=== PATIENT | female | born 1950 | race Caucasian/White ===

== ENCOUNTER → 2016-12-03 | Outpatient (CLI) | payer BC ==
[~2016-12-03] MED LIST: ATOR-22 PO; B-CO1CAP17 PO; CHOL100010 PO; CITA20TA4 PO; CITA40TA12 PO; CLCUDL PO; CLX20 PO; CNT PO; FAMO20TA12 PO; KFL250 PO; LEVO125T4 PO; LPT/20 PO; MGNO400 PO; NADO20TA PO; OMEP40CA41 PO; PRMT10 PO; SODI650T9 PO; SYN112 PO; TIMO0.2527 OPB; XFX550 PO
--- NOTE | 2016-12-03 16:07 | DIAGNOSTIC IMAGING REPORT ---
RIGHT RIBS UNILATERAL WITH PA CHEST CLINICAL HISTORY: FALL Right. Right anterior rib pain. COMPARISON STUDY: Chest CT 07/23/2016. FINDINGS: No pneumothorax. No pleural effusions. Calcified nodule within the left breast, unchanged. No focal lung consolidations. No evidence for pulmonary edema. The heart is normal in size. Slight deformity within the right anterior sixth rib. This raises the possibility of a nondisplaced fracture. IMPRESSION: Possible nondisplaced right anterior sixth rib fracture. No pneumothorax. Electronically signed by: Christian De La Garza M.D. 12/03/2016 4:06 PM Dictated Date/Time: 12/03/2016 4:01 PM
== END | disposition home or self-care (01) ==
LOC: C.RADBC 15:14
PROVIDERS: ATTEND Anesthesiology
DX: R07.81 Pleurodynia (principal); W19.XXXA Unspecified fall, initial encounter

== ENCOUNTER 2017-01-15 14:31 | Inpatient (IN) | payer BC, OTHER ==
[~2017-01-15] VITALS: Ht 162.6 cm; Wt 68.2 kg
[~2017-01-15 14:31] MED LIST changes: -B-CO1CAP17 PO; -CITA20TA4 PO; -CLCUDL PO; -CLX20 PO; -CNT PO; -FAMO20TA12 PO; -KFL250 PO; -LEVO125T4 PO; -LPT/20 PO; -MGNO400 PO; -NADO20TA PO; -OMEP40CA41 PO; -PRMT10 PO; -SODI650T9 PO; -TIMO0.2527 OPB; -XFX550 PO
[2017-01-15 15:10] LABS: BASO % 0.5 %; BASO ABS # 0.08 K/uL (0-0.2); COMPLETE YES; EOS % 0.1 %; HEMATOCRIT 34.4 % (37-47); IG% 0.5 %; LYMPH % 14.1 %; LYMPH ABS # 2.08 K/uL (1.2-3.4); MEAN CELL VOLUME 109.6 fL (80-100); MEAN CORPUSCULAR HEMOGLOBIN 37.6 pg (25-34); MEAN CORPUSCULAR HGB CONC 34.3 g/dl (32-36); MEAN PLATELET VOLUME 10.7 fL (7.4-10.4); MONO % 7.5 %; NEUT % 77.3 %; PLATELET COUNT 406 K/uL (130-400); RED BLOOD COUNT 3.14 M/uL (4.2-5.4); WHITE BLOOD COUNT 14.72 K/uL (4.8-10.8)
[2017-01-15] MEDS ORDERED: SODIUM CHLORIDE 0.9% 1000ML 1,000 ML IV ONE ×2 (15:15→16:15)
[2017-01-15 15:50] LABS: ALB/GLOB RATIO 0.5 (0.9-2); BUN/CREATININE RATIO 12.6 (10-20); CALCIUM 7.9 mg/dl (8.5-10.1); POTASSIUM 3.5 mmol/L (3.5-5.1); THYROID STIMULATING HORMONE 16.5 uIu/ml (0.300-4.500)
[2017-01-15] MEDS ORDERED: MAGNESIUM SULFATE 1GM / D5W 1 GM BAG IV STA ×2 (16:02→16:59)
[2017-01-15] MEDS ORDERED: CITA40TA12 PO (16:08)
--- NOTE | 2017-01-15 16:37 | DIAGNOSTIC IMAGING REPORT ---
RIGHT RIBS UNILATERAL WITH PA CHEST CLINICAL HISTORY: Right rib pain following injury. COMPARISON STUDY: Chest radiograph and right rib series December 03, 2016. FINDINGS: There is no pneumothorax or pleural effusion. Cardiomediastinal silhouette is stable. There is no evidence of pulmonary edema. No acute right rib fractures are identified. IMPRESSION: No pneumothorax. No acute right rib fractures identified. Electronically signed by: Titi Horne M.D. 01/15/2017 4:36 PM Dictated Date/Time: 01/15/2017 4:33 PM
[2017-01-15] MEDS ORDERED: LORAZEPAM 1 MG TAB PO PRN (17:00)
[2017-01-15] MEDS ORDERED: MAGNESIUM HYDROXIDE SUSP 30 ML UDC PO PRN (18:15)
[2017-01-15] MEDS ORDERED: ONDANSETRON INJ 2 MG/ML 2 ML VIAL IV PRN (18:15)
[2017-01-15] MEDS ORDERED: ALUMINUM/MAGNESIUM/SIMETH (MAALOX MAX) 30 ML UDC PO PRN (18:15)
--- NOTE | 2017-01-15 18:45 | History and Physical ---
History & Physical Date & Time of Service: Jan 15, 2017 at 18:28 Chief Complaint: Fall/Generalized Weakness Primary Care Physician: Isreal Smith M.D. History of Present Illness Source: patient, clinic records, hospital records This patient is a 66-year-old female that presents the emergency department from her primary care physician's office via ambulance with complaints of hypotension and overall weakness. The weakness has been getting progressively worse over the last few months. The patient saw her primary care physician for routine follow-up today. She was noticed to be significantly hypotensive in the office with a systolic blood pressure in the 60s. She denies any lightheadedness or dizziness. No chest pain or pressure. No trouble breathing. No recent illnesses. She does admit to feeling somewhat depressed. She also admits to drinking fairly heavily over the last several months. She quit drinking 3 weeks ago, because she does not have a desire. Up until then, she was drinking at least 3 glasses of wine daily. Sometimes exceeding more than a bottle. She denies any other drug use. The patient has had multiple falls at home. The last one was on Thursday. She landed on the right side of her ribs. She also reports striking her head. She did not lose consciousness. She denies any headache. She has been taking copious amounts of Tylenol for the rib pain. She is unable to tell me how much she is taken over the last day. The patient doesn't a long-standing history of depression. She is still taking her Celexa. This is the only medication she is taking. She has no interest in taking her other routine medications such as her inhaler for COPD or Synthroid for hypothyroidism. Past Medical/Surgical History COPD Depression Chronic kidney disease stage III Insomnia Hyperlipidemia History of pulmonary nodules Breast CA Status post total hysterectomy Status post lumpectomy Family History Father-COPD in his 80s Mother-reportedly healthy diet and her sleep in her 80s Social History Smoking Status: Current Every Day Smoker Alcohol Use: heavy Marital Status: single Housing status: lives alone Occupational Status: retired Multi-Drug Resistant Organisms History of MDRO: No Allergies Coded Allergies: Acetaminophen (Verified Allergy, Unknown, UNKNOWN, 05/06/13) Home Medications Scheduled Atorvastatin (Atorvastatin Calcium), 20 MG PO DAILY Citalopram Hydrobromide (Celexa), 40 MG PO DAILY Levothyroxine Sodium (Levothyroxine Sodium), 125 MCG PO DAILY Review of Systems 10 system review performed and negative unless noted in HPI or below Physical Exam Vital Signs Date Time Temp Pulse Resp B/P Pulse Ox O2 Delivery O2 Flow Rate FiO2 01/15/17 17:46 93 101/68 97 Room Air 01/15/17 15:09 97 01/15/17 15:03 99 Room Air 01/15/17 14:39 36.4 95 18 115/70 99 Room Air General Appearance: no apparent distress (66-year-old female, appears older than his stated age) Head: normocephalic Eyes: PERRL, EOMI ENT: + pertinent finding (oral mucosa fairly moist) Neck: no JVD Respiratory/Chest: lungs clear Cardiovascular: regular rate, rhythm Abdomen/GI: normal bowel sounds, non tender, + pertinent finding (fairly distended, but not tight) Extremities/Musculoskelatal: no calf tenderness, no pedal edema Neurologic/Psych: no motor/sensory deficits, oriented x 3, + pertinent finding (no tremor noted.) Skin: warm/dry Diagnostics Laboratory Results Results Past 24 Hours Test 01/15/17 14:43 01/15/17 15:07 01/15/17 16:25 01/15/17 16:59 Range/Units White Blood Count 14.72 4.8-10.8 K/uL Red Blood Count 3.14 4.2-5.4 M/uL Hemoglobin 11.8 12.0-16.0 g/dL Hematocrit 34.4 37-47 % Mean Corpuscular Volume 109.6 80-100 fL Mean Corpuscular Hemoglobin 37.6 25-34 pg Mean Corpuscular Hemoglobin Concent 34.3 32-36 g/dl Platelet Count 406 130-400 K/uL Mean Platelet Volume 10.7 7.4-10.4 fL Neutrophils (%) (Auto) 77.3 % Lymphocytes (%) (Auto) 14.1 % Monocytes (%) (Auto) 7.5 % Eosinophils (%) (Auto) 0.1 % Basophils (%) (Auto) 0.5 % Neutrophils # (Auto) 11.37 1.4-6.5 K/uL Lymphocytes # (Auto) 2.08 1.2-3.4 K/uL Monocytes # (Auto) 1.10 0.11-0.59 K/uL Eosinophils # (Auto) 0.02 0-0.5 K/uL Basophils # (Auto) 0.08 0-0.2 K/uL RDW Standard Deviation 55.1 36.4-46.3 fL RDW Coefficient of Variation 13.9 11.5-14.5 % Immature Granulocyte % (Auto) 0.5 % Immature Granulocyte # (Auto) 0.07 0.00-0.02 K/uL Sodium Level 136 136-145 mmol/L Potassium Level 3.5 3.5-5.1 mmol/L Chloride Level 98 98-107 mmol/L Carbon Dioxide Level 24 21-32 mmol/L Anion Gap 14.0 3-11 mmol/L Blood Urea Nitrogen 25 7-18 mg/dl Creatinine 2.00 0.60-1.20 mg/dl Est Creatinine Clear Calc Drug Dose 26.3 ml/min Estimated GFR () 29.6 Estimated GFR (Non- 25.6 BUN/Creatinine Ratio 12.6 10-20 Random Glucose 117 70-99 mg/dl Calcium Level 7.9 8.5-10.1 mg/dl Magnesium Level 1.0 1.8-2.4 mg/dl Total Bilirubin 0.8 0.2-1 mg/dl Aspartate Amino Transf (AST/SGOT) 57 15-37 U/L Alanine Aminotransferase (ALT/SGPT) 23 12-78 U/L Alkaline Phosphatase 206 45-117 U/L Total Protein 6.7 6.4-8.2 gm/dl Albumin 2.2 3.4-5.0 gm/dl Globulin 4.5 2.5-4.0 gm/dl Albumin/Globulin Ratio 0.5 0.9-2 Thyroid Stimulating Hormone (TSH) 16.500 0.300-4.500 uIu/ml Free Thyroxine 1.27 0.80-1.60 ng/dl Bedside Troponin I 0.000 0-0.045 ng/ml Ethyl Alcohol mg/dL < 3.0 0-3 mg/dl Test 01/15/17 18:09 Range/Units Diagnostic Radiology Patient: ZEINAB RHODES Address1: [address], [address] Med Rec: [id number] Address2: Acct ID: [id number] [facility] Zip: [place] [address] Date: 1950 Sex: F Room/Bed: Ref Phy: Isreal Smith M.D. SC: MARK Att Phy: Report #: [id number] Madhuri Phy: Isreal Smith M.D. Test: RUW Admit Phy: Animal Shelter Manager: ERON Interpreting Phy: Titi Horne MD Diagnosis: FALL/GENERALIZED WEAKNESS Ordering Phy: Leland Beckman PA-C Service Date: 01/15/17 Admit Date: 01/15/17 MNE: [id number] CONF: DICTATED BY: Titi Horne MD]] CC: Leland Beckman PA-C Guillard, Paul, M.D. Pheasant, Karen S., DO Endcc: [~ rep ct add3]] RIGHT RIBS UNILATERAL WITH PA CHEST CLINICAL HISTORY: Right rib pain following injury. COMPARISON STUDY: Chest radiograph and right rib series December 03, 2016. FINDINGS: There is no pneumothorax or pleural effusion. Cardiomediastinal silhouette is stable. There is no evidence of pulmonary edema. No acute right rib fractures are identified. IMPRESSION: No pneumothorax. No acute right rib fractures identified. Electronically signed by: Titi Horne M.D. 01/15/2017 4:36 PM Dictated Date/Time: 01/15/2017 4:33 PM The status of this report is Signed. Draft = Not yet reviewed or approved by Radiologist. Signed = Reviewed and approved by Radiologist. EKG Normal sinus rhythm [address] flattening noted in the lateral leads Impression Assessment and Plan 66-year-old female with progressive weakness and multiple falls at home. Poor oral intake. Depressed affect noted. Alcohol abuse. Now in acute on chronic renal failure Acute renal failure/CKD stage III- -Admit to telemetry -Continue IV fluids -Follow PRP Hypomagnesemia -Mag sulfate 2 g IV now -Check mag in the morning -Telemetry monitoring overnight Hypothyroidism-noncompliant with Synthroid. TSH elevated at 16 -Check free T4 -Continue outpatient dose of Synthroid 125 g daily Depression-severe -Psychiatric consult -Continue Celexa 40 mg daily Multiple falls, rib contusion -Morphine 2 mg every 4 hours as needed for pain -PT OT -Incentive spirometer -check Tylenol level History of alcohol abuse-no signs of DTs on exam -Begin thiamine, folate and a multivitamin -Ativan per protocol -AVOID TYLENOL COPD-no exacerbation noted -Continue Symbicort 2 puffs twice daily Hyperlipidemia -Continue atorvastatin 20 mg daily Glaucoma -Continue Timolol 1 drop to each eye in the morning DVT prophylaxis -Teds, SCDs -Ambulation -I will hold off on chemical means for now CODE STATUS -LEVEL I FULL CODE This chart was completed in part utilizing [employer] Speech Voice Recognition software. Attempts were made to minimize the grammatical errors, random word insertions, pronoun errors and incomplete sentences. Any formal questions or concerns about the content, text or information contained within the body of this dictation should be directly addressed to the provider for clarification. Level of Care Telemetry Resuscitation Status FULL RESUSCITATION VTE Prophylaxis VTE Risk Assessment Done? Y/N: Yes Risk Level: Low Given or contraindicated: Cale Stockings, SCD's Reviewed: Pt Seen/Exam by Me History Physician Pipe Line Gauger Supervision Note: I interviewed and examined the patient. Discussed with OLIVER Brandon and agree with findings and plan as documented in the note. Any exceptions or clarifications are listed here: Patient is admitted with progressively worsening weakness and falls with hypotension and tachycardia which responded to normal saline bolus in the ER. She's found to have elevated LFTs, moderate ascites, hypoalbuminemia, acute kidney injury, and severe hypomagnesemia. There is no evidence of altered mental status or encephalopathy by history or exam. She is afebrile, but has a leukocytosis. She denies abdominal pain or GI bleeding or melena. She essentially has had minimal by mouth intake over the last few months due to having no energy to get out of her bed-could be secondary to depression as well as heavy alcohol use. Vital signs reviewed No acute distress, AAO 3 Anicteric sclerae, extraocular muscles intact Regular rate and rhythm, no murmurs gallops or rubs Clear to auscultation bilaterally, no wheezes crackles or rhonchi, breathing unlabored Abdomen positive bowel sounds, moderate distention and with tympany, positive hepatomegaly on palpation and with fluid wave, spider angiomas Extremities-no edema Psych-flat affect, mood "fine" 66-year-old female here with hypotension and progressively worsening weakness with multiple falls, found to have most likely cirrhosis from chronic alcohol abuse. There are significantly elevated ferritin levels in the past, but but no history in the family of hemochromatosis or liver disease. I'm not sure the context which this ferritin was drawn in the past. She has significant hypoalbuminemia secondary to poor by mouth intake and her liver disease. Her INR is mildly elevated. She does not appear encephalopathic but will check an ammonia level along with a repeat magnesium now that it has been repleted. KUB shows ileus versus partial small bowel obstruction that she has no abdominal pain. May need to add on lactulose. -Repeat magnesium level now as well as ammonia level -Consult gastroenterology for cirrhosis and ascites, given her leukocytosis, she may need paracentesis to rule out SBP in the morning -Psychiatric consult for depression and history of substance abuse -Follow LFTs -Start IV albumin 5% 12.5 g IV every 8 and stop normal saline now -Will need PT/OT consult -Coincidentally, her KUB shows possible avascular necrosis of the bilateral hips -she is not complaining of pain in the hips, however this should be explored as an outpatient after discharge -Follow renal function and should improve with intravascular repletion of volume status Documented By: Valencia Rosario
--- NOTE | 2017-01-15 18:52 | DIAGNOSTIC IMAGING REPORT ---
CT OF THE HEAD WITHOUT CONTRAST CLINICAL HISTORY: Fall with head injury. Weakness. COMPARISON STUDY: No previous studies for comparison. CT DOSE: 1036.28 mGy.cm TECHNIQUE: Helical axial images of the head were obtained without IV contrast. Automated exposure control was utilized for the study. FINDINGS: No acute intracranial hemorrhage, midline shift or mass effect is present. Ventricular system is unremarkable for age. Basilar cisterns are patent. There are no extra-axial collections. There is a small right posterior scalp contusion. There is no calvarial fracture. A suspected mucous retention cyst within the right maxillary sinus is present. IMPRESSION: 1. No acute intracranial findings. 2. Small right posterior scalp contusion. No calvarial fracture. Electronically signed by: Titi Horne M.D. 01/15/2017 6:51 PM Dictated Date/Time: 01/15/2017 6:48 PM
--- NOTE | 2017-01-15 19:05 | DIAGNOSTIC IMAGING REPORT ---
CT OF THE CERVICAL SPINE WITHOUT CONTRAST CLINICAL HISTORY: Fall. COMPARISON STUDY: MRI of the cervical spine February 06, 2016. TECHNIQUE: Helical axial images of the cervical spine were obtained without IV contrast. Sagittal and coronal reconstructions were viewed. FINDINGS: There is straightening of the normal cervical lordosis. No acute fracture is identified. Degenerative changes at the C1-C2 articulation are present. There is no prevertebral edema. IMPRESSION: No acute cervical spine fracture or subluxation. Electronically signed by: Titi Horne M.D. 01/15/2017 7:04 PM Dictated Date/Time: 01/15/2017 6:59 PM
[2017-01-15 19:39] LABS: INR 1.2 (0.9-1.1); PROTHROMBIN TIME (PATIENT) 12.5 SECONDS (9.0-12.0)
--- NOTE | 2017-01-15 19:39 | DIAGNOSTIC IMAGING REPORT ---
ABDOMEN 2 VIEWS CLINICAL HISTORY: Abdominal distention. Diarrhea. COMPARISON STUDY: No previous studies for comparison. FINDINGS: There is no free air. There are several prominent loops of small bowel within the central abdomen. There is no convincing evidence for a bowel obstruction. 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 IMPRESSION: 1. No free air. 2. Mild small bowel dilatation. This could reflect an ileus or partial small bowel obstruction. 3. Centralized small bowel loops. While nonspecific, this could be seen in the setting of ascites. 4. Possible avascular necrosis of the femoral heads. Electronically signed by: Titi Horne M.D. 01/15/2017 7:37 PM Dictated Date/Time: 01/15/2017 7:34 PM
[2017-01-15] MEDS ORDERED: MAGNESIUM SULFATE 1GM / D5W 1 GM BAG ONE (20:10)
--- NOTE | 2017-01-15 20:21 | EMERGENCY ROOM VISIT NOTE ---
ED Visit Note First contact with patient: 16:00 Patient have seen and examined at bedside. Discussed recent history and evaluation as performed by the PA. CT head and C-spine added after patient admitted to recent falls in addition. Plan by PA to admit patient given weakness, evidence or dysfunction, with joint abnormalities, renal dysfunction, an episode of hypotension was noted by the PCP. Patient improved here regardless understanding the results and was agreeable with the plan.
[2017-01-15 21:27] LABS: URINE APPEARANCE CLOUDY (CLEAR); URINE COLOR DK YELLOW; URINE EPITHELIAL CELL AUTO >30 /lpf (0-5); URINE NITRITE NEG (NEG); URINE SPECIFIC GRAVITY 1.029 (1.000-1.030); UROBILINOGEN NEG (NEG); ZZUR CULT IF INDIC CLEAN CATCH YES
[2017-01-15 21:29] LABS: MANUAL MICROSCOPIC REQUIRED? NO; REVIEW REQ? YES
[2017-01-15 21:31] LABS: URINE BILIRUBIN NEG (NEG)
--- NOTE | 2017-01-15 21:50 | DIAGNOSTIC IMAGING REPORT ---
ABDOMINAL ULTRASOUND, RIGHT UPPER QUADRANT HISTORY: Weakness. Possible cirrhosis/ascites. COMPARISON: Right upper quadrant ultrasound April 30, 2015 and MRI of the abdomen December 24, 2015. FINDINGS: The liver is echogenic. There is slight nodularity of the liver surface. The sensitivity for detection of hepatic lesions is diminished on this exam but none are identified. The pancreas is obscured by overlying bowel gas. No gallstones are identified. There may be a small amount of sludge within the gallbladder. Gallbladder wall thickness is at the upper limits of normal. There is no biliary ductal dilatation. There is no right hydronephrosis. There is moderate abdominal ascites. IMPRESSION: 1. Moderate abdominal ascites. 2. Increased echogenicity of the liver which may reflect fatty infiltration or diffuse hepatocellular disease. 3. Irregularity of the liver surface which suggests cirrhosis. 4. Small amount of material within the gallbladder. Sludge is favored over stones. 5. Nonvisualization of the pancreas. Electronically signed by: Titi Horne M.D. 01/15/2017 9:48 PM Dictated Date/Time: 01/15/2017 9:45 PM
--- NOTE | 2017-01-15 21:53 | EMERGENCY ROOM VISIT NOTE ---
History First contact with patient: 14:48 Chief Complaint: WEAKNESS Stated Complaint: FALL/GENERALIZED WEAKNESS Nursing Triage Summary: Pt s/p fall on Saturday 01/13 (as well as in November). Arrived to room C08 via ALS from [facility] with c/o generalized weakness and not eating/drinking recently. Pt broke ribs in November and is questioning if ribs are broken again. Pt reports pain in R ribs with movement. Pt received 350 mL NSS enroute. History of Present Illness The patient is a 66 year old female who presents to the Emergency Room with complaints of generalized weakness and several falls over the past month. The patient was referred to the emergency department by her primary care physician' s office, and presents by ambulance. Evidently the patient was found to be hypotensive with a systolic blood pressure in the 60s at her PCPs office. The patient was given IV normal saline by the ambulance and routes. The patient is unsure of her reason for being at the hospital. She reports that she has not been eating or drinking well. She has a history of anxiety, dyslipidemia, and hypothyroid. She has only been taking her Celexa. The patient has a history of alcoholism and tobacco use. She denies drinking alcohol the past few days. She states that she typically only drinks a bottle of ensure for nutrition daily. The patient additionally reports some right-sided chest wall pain, presumably from a fall a few days ago. She rates her overall discomfort 7/10 Review of Systems More than 10 systems were reviewed and otherwise negative with the exception of history of present illness. Past Medical/Surgical History Medical Problems: (1) Renal failure (ARF), acute on chronic Family History No pertinent family history Social History Smoking Status: Current Every Day Smoker Marital Status: single Occupation Status: retired Current/Historical Medications Scheduled Atorvastatin (Atorvastatin Calcium), 20 MG PO DAILY Citalopram Hydrobromide (Celexa), 40 MG PO DAILY Levothyroxine Sodium (Levothyroxine Sodium), 125 MCG PO DAILY Allergies Coded Allergies: Acetaminophen (Verified Allergy, Unknown, UNKNOWN, 05/06/13) Physical Exam Vital Signs Date Time Temp Pulse Resp B/P Pulse Ox O2 Delivery O2 Flow Rate FiO2 01/15/17 21:14 97 17 103/71 99 Room Air 01/15/17 19:36 108/69 01/15/17 17:47 101/68 01/15/17 17:46 93 101/68 97 Room Air 01/15/17 16:01 96 17 01/15/17 15:31 21 01/15/17 15:09 97 01/15/17 15:03 99 Room Air 01/15/17 15:01 96 28 01/15/17 14:39 36.4 95 18 115/70 99 Room Air 01/15/17 14:37 115/70 Physical Exam VITALS: Vitals are noted on the nurse's note and reviewed by myself. Vital signs stable. GENERAL: Well-developed, well-nourished, white female who is pleasant. She is unsure what brings her to the ER today. EARS: External ear normal. External auditory canals clear, tympanic membranes pearly nolasco without erythema or effusion bilaterally. EYES: Pupils equal round and reactive to light and accommodation. Conjunctivae without injection, sclerae without icterus. Extraocular movements intact. NOSE: Patent, turbinates without inflammation or discharge. HEART: Regular rate and rhythm without murmurs gallops or rubs. LUNGS: Clear to auscultation bilaterally without wheezes, rales or rhonchi. No retractions or accessory muscle use. ABDOMEN: Positive normal bowel sounds x 4. Soft with mild distention. Abdomen is not rigid. No obvious tenderness. MUSCULOSKELETAL: No muscle atrophy, erythema, or edema noted. NEURO: Patient was alert and oriented to person place and time. CN II through XII grossly intact. Medical Decision & Procedures ER Provider Diagnostic Interpretation: RIGHT RIBS UNILATERAL WITH PA CHEST CLINICAL HISTORY: Right rib pain following injury. COMPARISON STUDY: Chest radiograph and right rib series December 03, 2016. FINDINGS: There is no pneumothorax or pleural effusion. Cardiomediastinal silhouette is stable. There is no evidence of pulmonary edema. No acute right rib fractures are identified. IMPRESSION: No pneumothorax. No acute right rib fractures identified. Laboratory Results 01/15/17 14:43 Red Blood Count 3.14, Mean Corpuscular Volume 109.6, Mean Corpuscular Hemoglobin 37.6, Mean Corpuscular Hemoglobin Concent 34.3, Mean Platelet Volume 10.7, Neutrophils (%) (Auto) 77.3, Lymphocytes (%) (Auto) 14.1, Monocytes (%) ( Auto) 7.5, Eosinophils (%) (Auto) 0.1, Basophils (%) (Auto) 0.5, Neutrophils # ( Auto) 11.37, Lymphocytes # (Auto) 2.08, Monocytes # (Auto) 1.10, Eosinophils # ( Auto) 0.02, Basophils # (Auto) 0.08 01/15/17 14:43 Test 01/15/17 14:43 01/15/17 15:07 01/15/17 16:25 01/15/17 16:59 White Blood Count 14.72 K/uL (4.8-10.8) Red Blood Count 3.14 M/uL (4.2-5.4) Hemoglobin 11.8 g/dL (12.0-16.0) Hematocrit 34.4 % (37-47) Mean Corpuscular Volume 109.6 fL (80-100) Mean Corpuscular Hemoglobin 37.6 pg (25-34) Mean Corpuscular Hemoglobin Concent 34.3 g/dl (32-36) Platelet Count 406 K/uL (130-400) Mean Platelet Volume 10.7 fL (7.4-10.4) Neutrophils (%) (Auto) 77.3 % Lymphocytes (%) (Auto) 14.1 % Monocytes (%) (Auto) 7.5 % Eosinophils (%) (Auto) 0.1 % Basophils (%) (Auto) 0.5 % Neutrophils # (Auto) 11.37 K/uL (1.4-6.5) Lymphocytes # (Auto) 2.08 K/uL (1.2-3.4) Monocytes # (Auto) 1.10 K/uL (0.11-0.59) Eosinophils # (Auto) 0.02 K/uL (0-0.5) Basophils # (Auto) 0.08 K/uL (0-0.2) RDW Standard Deviation 55.1 fL (36.4-46.3) RDW Coefficient of Variation 13.9 % (11.5-14.5) Immature Granulocyte % (Auto) 0.5 % Immature Granulocyte # (Auto) 0.07 K/uL (0.00-0.02) Prothrombin Time 12.5 SECONDS (9.0-12.0) Prothromb Time International Ratio 1.2 (0.9-1.1) Anion Gap 14.0 mmol/L (3-11) Est Creatinine Clear Calc Drug Dose 26.3 ml/min Estimated GFR () 29.6 Estimated GFR (Non- 25.6 BUN/Creatinine Ratio 12.6 (10-20) Calcium Level 7.9 mg/dl (8.5-10.1) Magnesium Level 1.0 mg/dl (1.8-2.4) Total Bilirubin 0.8 mg/dl (0.2-1) Aspartate Amino Transf (AST/SGOT) 57 U/L (15-37) Alanine Aminotransferase (ALT/SGPT) 23 U/L (12-78) Alkaline Phosphatase 206 U/L (45-117) Total Protein 6.7 gm/dl (6.4-8.2) Albumin 2.2 gm/dl (3.4-5.0) Globulin 4.5 gm/dl (2.5-4.0) Albumin/Globulin Ratio 0.5 (0.9-2) Thyroid Stimulating Hormone (TSH) 16.500 uIu/ml (0.300-4.500) Free Thyroxine 1.27 ng/dl (0.80-1.60) Bedside Troponin I 0.000 ng/ml (0-0.045) Ethyl Alcohol mg/dL < 3.0 mg/dl (0-3) Test 01/15/17 18:57 01/15/17 19:44 01/15/17 21:09 Acetaminophen Level 11 ug/ml (10-30) Urine Color DK YELLOW Urine Appearance CLOUDY (CLEAR) Urine pH 5.0 (4.5-7.5) Urine Specific [place] 1.029 (1.000-1.030) Urine Protein NEG (NEG) Urine Glucose (UA) NEG (NEG) Urine Ketones TRACE (NEG) Urine Occult Blood TRACE (NEG) Urine Nitrite NEG (NEG) Urine Bilirubin NEG (NEG) Urine Urobilinogen NEG (NEG) Urine Leukocyte Esterase TRACE (NEG) Urine WBC (Auto) 5-10 /hpf (0-5) Urine RBC (Auto) 0-4 /hpf (0-4) Urine Hyaline Casts (Auto) 5-10 /lpf (0-5) Urine Epithelial Cells (Auto) >30 /lpf (0-5) Urine Bacteria (Auto) 1+ (NEG) Urine Yeast (Auto) (NONE PRSENT) Medications Administered Medications (Trade) Dose Ordered Sig/Brett Route Start Time Stop Time Status Last Admin Dose Admin Sodium Chloride (Nss 1000ml) 1,000 ml @ 999 mls/hr Q1H1M ONCE IV 01/15/17 15:15 01/15/17 16:15 DC 01/15/17 15:15 999 MLS/HR Magnesium Sulfate 1 gm 1 gm NOW STAT IV 01/15/17 16:02 01/15/17 16:04 DC 01/15/17 17:42 1 GM Sodium Chloride (Nss 1000ml) 1,000 ml @ 999 mls/hr Q1H1M ONCE IV 01/15/17 16:15 01/15/17 17:15 DC 01/15/17 16:15 999 MLS/HR Magnesium Sulfate (Magnesium Sulfate) 1 gm STK-MED ONCE .ROUTE 01/15/17 20:10 01/15/17 20:11 DC 01/15/17 20:41 1 GM ED Course Physical exam and history were performed. Nursing notes and EMR were reviewed. Patient appears to have ongoing weakness for the past several weeks. She has had falls at home, and was reportedly very hypotensive in the prehospital setting. On exam the patient does not appear toxic, but she has difficulty providing a thorough history. She does admit to not taking her medications as prescribed. IV access was established and labs were obtained. She was hydrated with normal saline. X-rays were performed. The patient blood work is as above and was reviewed. She does have an elevated white blood cell count of 14,000. She is also mildly anemic. The patient renal function appears slightly elevated with a creatinine of 2.0. She was given additional fluids. Her magnesium is markedly low at 1.0, and she was given IV magnesium to begin repletion of this. The patient troponin is negative. She did not have tachycardic or hypotensive episodes while under our care here. TSH shows hypothyroidism. I discussed the case with my attending physician, Dr Stark, who also independently evaluated the patient. The patient appeared to give more history to Dr Stark, and CT scans were felt to be warranted of the head and neck. Ultimately the patient does not appear stable for discharge home. She has weakness, acute kidney injury, as well as hypomagnesemia. She appears dehydrated with some level of acute kidney injury. There is also the concern that the patient is a chronic alcoholic and may go into withdrawal. The patient case was discussed with the on-call [facility] hospitalist, who agreed to evaluate the patient here in the department. Please see their dictation for further patient course, plan, and disposition. The chart was completed utilizing [employer] Speech Voice Recognition Software. Grammatical errors, random word insertions, pronoun errors, and incomplete sentences are an occasional consequence of this system due to software limitations, ambient noise, and hardware issues. Any formal questions or concerns about the content, text, or information contained within the body of this dictation should be directly addressed to the provider for clarification. . Medical Decision Differential diagnosis: Etiologies such as metabolic, infection, hypo/hyperglycemia, electrolyte abnormalities, cardiac sources, intracerebral event, toxicologic, neurologic, as well as others were entertained. Impression Primary Impression: Malaise and fatigue Additional Impressions: Hypomagnesemia Renal failure (ARF), acute on chronic Departure Information Referrals Isreal Smith M.D. (PCP) Patient Instructions My [facility] Health Problem Qualifiers
[2017-01-15] MEDS: OXYCODONE HCL IR 5 MG TAB (IMMEDIATE RELEASE) PO PRN (22:02)
[2017-01-15 22:10] VITALS: BP 100/58; PULSE 107; TEMP 36.6; O2SAT 98; Ht 162.6 cm; Wt 68.2 kg
[2017-01-15] MEDS ORDERED: NSS + 20MEQ KCL 1000ML 1,000 ML IV SCH (22:30)
[2017-01-16] VITALS (15 sets, daily range): BP systolic 91–120; BP diastolic 55–81; PULSE 83–96; TEMP 36.7–37.3; O2SAT 91–97
[2017-01-16] MEDS: ALBUMIN HUMAN 5% 12.5 GM/250 ML VIAL IV SCH ×2 (00:54→07:54)
[2017-01-16] MEDS ORDERED: NURSING VERBAL MED ORDER ONE (01:30)
[2017-01-16] MEDS: MAGNESIUM SULFATE 1GM / D5W 1 GM in PREMIXED IN D5W 100 ML IV SCH ×2 (01:59→03:14)
[2017-01-16] MEDS: OXYCODONE HCL IR 5 MG TAB (IMMEDIATE RELEASE) PO PRN ×2 (02:09→13:28)
[2017-01-16] MEDS: LEVOTHYROXINE 125 MCG TAB PO SCH (06:09)
[2017-01-16 07:55] LABS: BASO % 0.4 %; BASO ABS # 0.05 K/uL (0-0.2); EOS % 0.4 %; HEMATOCRIT 27.2 % (37-47); IG% 0.4 %; LYMPH % 18.4 %; LYMPH ABS # 2.48 K/uL (1.2-3.4); MEAN CELL VOLUME 112.4 fL (80-100); MEAN CORPUSCULAR HEMOGLOBIN 38.4 pg (25-34); MEAN CORPUSCULAR HGB CONC 34.2 g/dl (32-36); MEAN PLATELET VOLUME 10.3 fL (7.4-10.4); MONO % 10.5 %; NEUT % 69.9 %; PLATELET COUNT 315 K/uL (130-400); RED BLOOD COUNT 2.42 M/uL (4.2-5.4); WHITE BLOOD COUNT 13.48 K/uL (4.8-10.8)
[2017-01-16] MEDS: ATORVASTATIN 20 MG TAB PO SCH (08:02)
[2017-01-16] MEDS: MULTIVITAMIN TAB PO SCH (08:02)
[2017-01-16] MEDS: THIAMINE HCL 100 MG TAB PO SCH (08:03)
[2017-01-16 08:27] LABS: BUN/CREATININE RATIO 18.5 (10-20); CALCIUM 7.3 mg/dl (8.5-10.1); CREATININE 1.4 mg/dl (0.60-1.20); POTASSIUM 3.4 mmol/L (3.5-5.1)
[2017-01-16 08:44] LABS: COMPLETE YES
[2017-01-16] MEDS ORDERED: CITALOPRAM 40 MG TAB PO SCH (09:00)
--- NOTE | 2017-01-16 11:00 | Gastrointestinal Consultation ---
Gastrointestinal Consultation Date of Consultation: Jan 16, 2017 Consulting Physician: Collins Reason for Consultation: ascites, cirrhosis History of Present Illness Patient is a 66 year old female with past medical history of ARF, anxiety, depression, hypothyroid, hyperlipidemia and glaucoma who presents to the ED for ARF secondary to dehydration. GI is consulted for ascites and cirrhosis. Ms. Stevenson reports that she has known she has had some liver changes going on for quite some time and that her primary care doctor was watching some of her liver numbers. She is unsure if any serological work up had been obtained other than a Hep C screen. She was in her typical state of health up until about a month ago when she started with worsening fatigue and generalized weakness. Over the past few weeks, there has been fluid accumulation localized to her abdomen. No lower extremity edema. Denies any fever, chills, chest pain, nausea, vomiting, black or bloody stools. Has had worsening belching, reflux and burping recently. Is not taking anything as an outpatient. Extensive history of ETOH abuse, ongoing since she was 22. Typically avoids hard alcohol. Was drinking wine 3-4 glasses almost nightly since she was able. No drug abuse. +ETOH abuse 3-4 glasses of wine nightly + Tylenol use - NSAIDs use ABD XR 01/15/17: There is no free air. There are several prominent loops of small bowel within the central abdomen. There is no convincing evidence for a bowel obstruction. 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 ABD US 01/15/17: The liver is echogenic. There is slight nodularity of the liver surface. The sensitivity for detection of hepatic lesions is diminished on this exam but none are identified. The pancreas is obscured by overlying bowel gas. No gallstones are identified. There may be a small amount of sludge within the gallbladder. Gallbladder wall thickness is at the upper limits of normal. There is no biliary ductal dilatation. There is no right hydronephrosis. There is moderate abdominal ascites. Colonoscopy 06/02/16: A 4 mm polyp was found in the rectum. The polyp was sessile. The polyp was removed with a cold snare. Resection and retrieval were complete. Internal hemorrhoids were found during retroflexion. The hemorrhoids were small. Colonoscopy 02/07/10: A sessile polyp was found in the transverse colon. The polyp was 2 mm in size. The polyp was removed with a jumbo cold forceps. Resection and retrieval were complete. Past Medical/Surgical History Medical Problems: (1) Hypomagnesemia Status: Acute (2) Malaise and fatigue Status: Acute Social History Smoking Status: Current Every Day Smoker Marital Status: single Occupation Status: retired Allergies Coded Allergies: Acetaminophen (Verified Allergy, Unknown, UNKNOWN, 05/06/13) Current Medications Home Meds and Scripts Medications Dose Route/Sig Max Daily Dose Days Date Category Atorvastatin Calcium (Atorvastatin) 20 Mg Tab 20 Mg PO DAILY 01/15/17 Reported Levothyroxine Sodium 125 Mcg Tab 125 Mcg PO DAILY 01/15/17 Reported Celexa (Citalopram Hydrobromide) 40 Mg Tab 40 Mg PO DAILY 01/15/17 Reported Review of Systems Constitutional: No chills, No fever Respiratory: No cough, No shortness of breath Cardiac: No chest pain, No edema Abdomen: + dark urine (dark urine and decreased output), No GI bleeding, No acolic stools, No constipation, No diarrhea, No dysphagia, No jaundice, No nausea, No odynophagia, No pain, No vomiting Neuro: No memory loss Physical Exam Date Time Temp Pulse Resp B/P Pulse Ox O2 Delivery O2 Flow Rate FiO2 01/16/17 08:15 93 120/80 01/16/17 08:00 Room Air 01/16/17 08:00 90 120/80 01/16/17 07:25 36.7 83 18 102/71 96 Room Air 01/16/17 04:00 Room Air 01/16/17 03:45 88 18 106/72 91 Room Air 01/16/17 00:52 37.3 88 18 116/81 95 Room Air 01/16/17 00:26 36.9 93 18 96/66 95 Room Air 01/16/17 00:00 Room Air 01/15/17 22:10 36.6 107 16 100/58 98 Room Air 01/15/17 21:14 97 17 103/71 99 Room Air 01/15/17 19:36 108/69 01/15/17 17:47 101/68 01/15/17 17:46 93 101/68 97 Room Air 01/15/17 16:01 96 17 01/15/17 15:31 21 01/15/17 15:09 97 01/15/17 15:03 99 Room Air 01/15/17 15:01 96 28 01/15/17 14:39 36.4 95 18 115/70 99 Room Air 01/15/17 14:37 115/70 General Appearance: no apparent distress Eyes: PERRL, EOMI ENT: hearing grossly normal Neck: supple, no adenopathy, thyroid normal, no JVD Respiratory/Chest: lungs clear, normal breath sounds, no respiratory distress, no accessory muscle use Cardiovascular: regular rate, rhythm, no gallop, no JVD Abdomen: normal bowel sounds, non tender, no organomegaly, no pulsatile mass, + distended Extremities: no pedal edema Neurologic/Psych: alert, normal mood/affect, oriented x 3 Skin: normal color, warm/dry, no rash Laboratory Results Last 24 Hours Test 01/15/17 14:43 01/15/17 15:07 01/15/17 16:25 01/15/17 18:57 White Blood Count 14.72 K/uL Red Blood Count 3.14 M/uL Hemoglobin 11.8 g/dL Hematocrit 34.4 % Mean Corpuscular Volume 109.6 fL Mean Corpuscular Hemoglobin 37.6 pg Mean Corpuscular Hemoglobin Concent 34.3 g/dl Platelet Count 406 K/uL Mean Platelet Volume 10.7 fL Neutrophils (%) (Auto) 77.3 % Lymphocytes (%) (Auto) 14.1 % Monocytes (%) (Auto) 7.5 % Eosinophils (%) (Auto) 0.1 % Basophils (%) (Auto) 0.5 % Neutrophils # (Auto) 11.37 K/uL Lymphocytes # (Auto) 2.08 K/uL Monocytes # (Auto) 1.10 K/uL Eosinophils # (Auto) 0.02 K/uL Basophils # (Auto) 0.08 K/uL RDW Standard Deviation 55.1 fL RDW Coefficient of Variation 13.9 % Immature Granulocyte % (Auto) 0.5 % Immature Granulocyte # (Auto) 0.07 K/uL Prothrombin Time 12.5 SECONDS Prothromb Time International Ratio 1.2 Sodium Level 136 mmol/L Potassium Level 3.5 mmol/L Chloride Level 98 mmol/L Carbon Dioxide Level 24 mmol/L Anion Gap 14.0 mmol/L Blood Urea Nitrogen 25 mg/dl Creatinine 2.00 mg/dl Est Creatinine Clear Calc Drug Dose 26.3 ml/min Estimated GFR () 29.6 Estimated GFR (Non- 25.6 BUN/Creatinine Ratio 12.6 Random Glucose 117 mg/dl Calcium Level 7.9 mg/dl Magnesium Level 1.0 mg/dl Total Bilirubin 0.8 mg/dl Aspartate Amino Transf (AST/SGOT) 57 U/L Alanine Aminotransferase (ALT/SGPT) 23 U/L Alkaline Phosphatase 206 U/L Total Protein 6.7 gm/dl Albumin 2.2 gm/dl Globulin 4.5 gm/dl Albumin/Globulin Ratio 0.5 Thyroid Stimulating Hormone (TSH) 16.500 uIu/ml Free Thyroxine 1.27 ng/dl Bedside Troponin I 0.000 ng/ml Ethyl Alcohol mg/dL < 3.0 mg/dl Acetaminophen Level 11 ug/ml Test 01/15/17 21:09 01/15/17 21:50 01/16/17 00:50 01/16/17 07:32 Urine Color DK YELLOW Urine Appearance CLOUDY Urine pH 5.0 Urine Specific [place] 1.029 Urine Protein NEG Urine Glucose (UA) NEG Urine Ketones TRACE Urine Occult Blood TRACE Urine Nitrite NEG Urine Bilirubin NEG Urine Urobilinogen NEG Urine Leukocyte Esterase TRACE Urine WBC (Auto) 5-10 /hpf Urine RBC (Auto) 0-4 /hpf Urine Hyaline Casts (Auto) 5-10 /lpf Urine Epithelial Cells (Auto) >30 /lpf Urine Bacteria (Auto) 1+ Urine Yeast (Auto) Vitamin B12 Level 720 pg/mL Magnesium Level 1.5 mg/dl 2.0 mg/dl Ammonia 28.0 umol/L White Blood Count 13.48 K/uL Red Blood Count 2.42 M/uL Hemoglobin 9.3 g/dL Hematocrit 27.2 % Mean Corpuscular Volume 112.4 fL Mean Corpuscular Hemoglobin 38.4 pg Mean Corpuscular Hemoglobin Concent 34.2 g/dl Platelet Count 315 K/uL Mean Platelet Volume 10.3 fL Neutrophils (%) (Auto) 69.9 % Lymphocytes (%) (Auto) 18.4 % Monocytes (%) (Auto) 10.5 % Eosinophils (%) (Auto) 0.4 % Basophils (%) (Auto) 0.4 % Neutrophils # (Auto) 9.43 K/uL Lymphocytes # (Auto) 2.48 K/uL Monocytes # (Auto) 1.41 K/uL Eosinophils # (Auto) 0.06 K/uL Basophils # (Auto) 0.05 K/uL RDW Standard Deviation 57.7 fL RDW Coefficient of Variation 14.1 % Immature Granulocyte % (Auto) 0.4 % Immature Granulocyte # (Auto) 0.05 K/uL Macrocytosis PRESENT Sodium Level 136 mmol/L Potassium Level 3.4 mmol/L Chloride Level 101 mmol/L Carbon Dioxide Level 23 mmol/L Anion Gap 12.0 mmol/L Blood Urea Nitrogen 26 mg/dl Creatinine 1.40 mg/dl Est Creatinine Clear Calc Drug Dose 38.7 ml/min Estimated GFR () 45.6 Estimated GFR (Non- 39.3 BUN/Creatinine Ratio 18.5 Random Glucose 98 mg/dl Calcium Level 7.3 mg/dl Total Bilirubin 0.6 mg/dl Direct Bilirubin 0.2 mg/dl Aspartate Amino Transf (AST/SGOT) 32 U/L Alanine Aminotransferase (ALT/SGPT) 17 U/L Alkaline Phosphatase 159 U/L Total Protein 5.6 gm/dl Albumin 2.1 gm/dl Folate 9.81 ng/mL Impression Patient is a 66 year old female with persistently elevated transaminases since 2012 with normal bilirubin. Recent imaging during this admission suggestive of moderate abdominal ascites, increased echogenicity of the liver which may reflect fatty infiltration or diffuse hepatocellular disease and irregularity of the liver surface which suggests cirrhosis - this is likely due to ongoing ETOH abuse but pt may need a full serological work up if one was not completed by her PCP. An inpatient diagnostic and therapeutic paracentesis was advised to the patient. Plan Advised inpatient diagnostic and therapeutic paracentesis but pt not currently agreeable Will need to give 25G 25% albumin before and after paracentesis with no more than 3L off - would need to order cell count, cytology, culture, protein and albumin Diet as tolerated Not candidate for diuretics given ARF Agree with thiamine, folate and a multivitamin Watch for ETOH withdrawal Abstinence from ETOH and Tylenol Follow up as outpatient Will likely need serological work up, diagnostic paracentesis and EGD MELD 13 GI to sign off. No GI contraindication to discharge. I have seen and examined the patient with Jeannine Pederson whose note reflects our findings and plan. Will arrange outpatient follow up for cirrhosis.
--- NOTE | 2017-01-16 14:40 | Progress Note ---
Subjective Date of Service: Jan 16, 2017. Subjective Pt evaluation today including: conversation w/ patient, physical exam, chart review, lab review, review of studies, review of inpatient medication list Pt reports feeling weak and only OK appetite States sleeping more Problem List Medical Problems: (1) Hypomagnesemia Status: Acute (2) Malaise and fatigue Status: Acute Review of Systems Constitutional: No chills, No fever Respiratory: No cough, No dyspnea on exertion, No shortness of breath, No sputum, No wheezing Cardiac: No chest pain, No orthopnea Abdomen: No diarrhea, No nausea, No pain, No vomiting Musculoskeletal: No joint pain, No muscle pain Female : No dysuria, No urinary frequency Psychiatric: + anxiety, + depression symptoms Objective Vital Signs Date Time Temp Pulse Resp B/P Pulse Ox O2 Delivery O2 Flow Rate FiO2 01/16/17 12:00 Room Air 01/16/17 11:24 36.9 84 18 91/55 97 Room Air 01/16/17 08:15 93 120/80 01/16/17 08:00 Room Air 01/16/17 08:00 90 120/80 01/16/17 07:25 36.7 83 18 102/71 96 Room Air 01/16/17 04:00 Room Air 01/16/17 03:45 88 18 106/72 91 Room Air 01/16/17 00:52 37.3 88 18 116/81 95 Room Air 01/16/17 00:26 36.9 93 18 96/66 95 Room Air 01/16/17 00:00 Room Air 01/15/17 22:10 36.6 107 16 100/58 98 Room Air 01/15/17 21:14 97 17 103/71 99 Room Air 01/15/17 19:36 108/69 01/15/17 17:47 101/68 01/15/17 17:46 93 101/68 97 Room Air 01/15/17 16:01 96 17 01/15/17 15:31 21 01/15/17 15:09 97 01/15/17 15:03 99 Room Air 01/15/17 15:01 96 28 01/15/17 14:39 36.4 95 18 115/70 99 Room Air 01/15/17 14:37 115/70 Physical Exam General Appearance: WD/WN, no apparent distress Neck: supple, no adenopathy Respiratory/Chest: lungs clear, normal breath sounds Cardiovascular: no edema, no gallop, no JVD Abdomen: non tender, soft Neurologic/Psychiatric: alert, + depressed affect Laboratory Results Last 24 Hours Test 01/15/17 14:43 01/15/17 15:07 01/15/17 16:25 01/15/17 18:57 White Blood Count 14.72 K/uL Red Blood Count 3.14 M/uL Hemoglobin 11.8 g/dL Hematocrit 34.4 % Mean Corpuscular Volume 109.6 fL Mean Corpuscular Hemoglobin 37.6 pg Mean Corpuscular Hemoglobin Concent 34.3 g/dl Platelet Count 406 K/uL Mean Platelet Volume 10.7 fL Neutrophils (%) (Auto) 77.3 % Lymphocytes (%) (Auto) 14.1 % Monocytes (%) (Auto) 7.5 % Eosinophils (%) (Auto) 0.1 % Basophils (%) (Auto) 0.5 % Neutrophils # (Auto) 11.37 K/uL Lymphocytes # (Auto) 2.08 K/uL Monocytes # (Auto) 1.10 K/uL Eosinophils # (Auto) 0.02 K/uL Basophils # (Auto) 0.08 K/uL RDW Standard Deviation 55.1 fL RDW Coefficient of Variation 13.9 % Immature Granulocyte % (Auto) 0.5 % Immature Granulocyte # (Auto) 0.07 K/uL Prothrombin Time 12.5 SECONDS Prothromb Time International Ratio 1.2 Sodium Level 136 mmol/L Potassium Level 3.5 mmol/L Chloride Level 98 mmol/L Carbon Dioxide Level 24 mmol/L Anion Gap 14.0 mmol/L Blood Urea Nitrogen 25 mg/dl Creatinine 2.00 mg/dl Est Creatinine Clear Calc Drug Dose 26.3 ml/min Estimated GFR () 29.6 Estimated GFR (Non- 25.6 BUN/Creatinine Ratio 12.6 Random Glucose 117 mg/dl Calcium Level 7.9 mg/dl Magnesium Level 1.0 mg/dl Total Bilirubin 0.8 mg/dl Aspartate Amino Transf (AST/SGOT) 57 U/L Alanine Aminotransferase (ALT/SGPT) 23 U/L Alkaline Phosphatase 206 U/L Total Protein 6.7 gm/dl Albumin 2.2 gm/dl Globulin 4.5 gm/dl Albumin/Globulin Ratio 0.5 Thyroid Stimulating Hormone (TSH) 16.500 uIu/ml Free Thyroxine 1.27 ng/dl Bedside Troponin I 0.000 ng/ml Ethyl Alcohol mg/dL < 3.0 mg/dl Acetaminophen Level 11 ug/ml Test 01/15/17 21:09 01/15/17 21:50 01/16/17 00:50 01/16/17 07:32 Urine Color DK YELLOW Urine Appearance CLOUDY Urine pH 5.0 Urine Specific [place] 1.029 Urine Protein NEG Urine Glucose (UA) NEG Urine Ketones TRACE Urine Occult Blood TRACE Urine Nitrite NEG Urine Bilirubin NEG Urine Urobilinogen NEG Urine Leukocyte Esterase TRACE Urine WBC (Auto) 5-10 /hpf Urine RBC (Auto) 0-4 /hpf Urine Hyaline Casts (Auto) 5-10 /lpf Urine Epithelial Cells (Auto) >30 /lpf Urine Bacteria (Auto) 1+ Urine Yeast (Auto) Vitamin B12 Level 720 pg/mL Magnesium Level 1.5 mg/dl 2.0 mg/dl Ammonia 28.0 umol/L White Blood Count 13.48 K/uL Red Blood Count 2.42 M/uL Hemoglobin 9.3 g/dL Hematocrit 27.2 % Mean Corpuscular Volume 112.4 fL Mean Corpuscular Hemoglobin 38.4 pg Mean Corpuscular Hemoglobin Concent 34.2 g/dl Platelet Count 315 K/uL Mean Platelet Volume 10.3 fL Neutrophils (%) (Auto) 69.9 % Lymphocytes (%) (Auto) 18.4 % Monocytes (%) (Auto) 10.5 % Eosinophils (%) (Auto) 0.4 % Basophils (%) (Auto) 0.4 % Neutrophils # (Auto) 9.43 K/uL Lymphocytes # (Auto) 2.48 K/uL Monocytes # (Auto) 1.41 K/uL Eosinophils # (Auto) 0.06 K/uL Basophils # (Auto) 0.05 K/uL RDW Standard Deviation 57.7 fL RDW Coefficient of Variation 14.1 % Immature Granulocyte % (Auto) 0.4 % Immature Granulocyte # (Auto) 0.05 K/uL Macrocytosis PRESENT Sodium Level 136 mmol/L Potassium Level 3.4 mmol/L Chloride Level 101 mmol/L Carbon Dioxide Level 23 mmol/L Anion Gap 12.0 mmol/L Blood Urea Nitrogen 26 mg/dl Creatinine 1.40 mg/dl Est Creatinine Clear Calc Drug Dose 38.7 ml/min Estimated GFR () 45.6 Estimated GFR (Non- 39.3 BUN/Creatinine Ratio 18.5 Random Glucose 98 mg/dl Calcium Level 7.3 mg/dl Total Bilirubin 0.6 mg/dl Direct Bilirubin 0.2 mg/dl Aspartate Amino Transf (AST/SGOT) 32 U/L Alanine Aminotransferase (ALT/SGPT) 17 U/L Alkaline Phosphatase 159 U/L Total Protein 5.6 gm/dl Albumin 2.1 gm/dl Folate 9.81 ng/mL Assessment and Plan 66-year-old female with progressive weakness and multiple falls at home. Poor oral intake. Depressed affect noted. Alcohol abuse. Now in acute on chronic renal failure Acute renal failure/CKD stage III- -Admit to telemetry -Continue IV fluids -Follow PRP Cr 2.0 --> 1.4 Hypomagnesemia -Replace PRN Hypothyroidism-noncompliant with Synthroid. TSH elevated at 16 -Free T4 WNL -Continue outpatient dose of Synthroid 125 g daily Depression-severe -Psychiatric consult, awaiting recs -Continue Celexa 40 mg daily Multiple falls, rib contusion -Morphine 2 mg every 4 hours as needed for pain -PT OT -Incentive spirometer -check Tylenol level History of alcohol abuse with ascited-no signs of DTs on exam -Begin thiamine, folate and a multivitamin -Ativan per protocol -AVOID TYLENOL -Pt agreeable for paracentesis, albumin before and after procedure COPD-no exacerbation noted -Continue Symbicort 2 puffs twice daily Hyperlipidemia -Continue atorvastatin 20 mg daily Glaucoma -Continue Timolol 1 drop to each eye in the morning DVT prophylaxis -Teds, SCDs -Ambulation -I will hold off on chemical means for now CODE STATUS -LEVEL I FULL CODE
--- NOTE | 2017-01-16 14:59 | Psychiatric Consultation ---
Consultation Date of Consultation Jan 16, 2017. Identifying Data Contreras Stevenson is a 66-year-old female who currently lives in alone in [place]. Contreras Stevenson was admitted to the medical floor for weakness and falls. Consultation is by Dr. Rosario for depression. Chief Complaint "I guess I haven't been going much lately". History of Present Illness Ms. Stevenson relates a history of nonspecific depression and anxiety for which she has taken Celexa for over 5 years. She recalls it being started after her parents . She has generally found it helpful but did have periods of insomnia (without samantha) in the past for which she "loved" Ativan. She admits that she began "over taking" it, doesn't know dose but ultimately 2-3 at a time and that her PCP no longer wanted to prescribe it and she agreed. She was somewhat coy in outlining the amount of ETOH she has been drinking recently and minimized any contribution to falls or her medical problems. Notably her QTc was 512 in ED EKG and TSH was elevated despite supplementation. Past Psychiatric History Current OP Treatment: no current treatment Prior OP Treatment: therapist (Mayuri Ortiz, no longer accepts insurance ( patient now medicare and didn't want to start over)) Prior Psych Hospitalizations: none Access to a Gun: No Suicide Attempts: No Past Medical/Surgical History (1) Malaise and fatigue (2) Renal failure (ARF), acute on chronic Allergies Allergies: Coded Allergies: Acetaminophen (Verified Allergy, Unknown, UNKNOWN, 05/06/13) Home Medications Scheduled Atorvastatin (Atorvastatin Calcium), 20 MG PO DAILY Citalopram Hydrobromide (Celexa), 40 MG PO DAILY Levothyroxine Sodium (Levothyroxine Sodium), 125 MCG PO DAILY Family History History of Suicide: No Psychiatric History: No Alcohol Use Alcohol Use In Past 12 Months: Yes on AWSS protocol Smoking Use Smoking Status: Current Every Day Smoker Substance History denied Personal History Lives in: [facility] apartment, relies on neighbor Childhood: good relationship with mother, always went to shows Work History: disabled Children: denied Review of Systems Psych: denies symptoms other than stated above Constitutional: fatigue, sleeping alot this winter Cardiovascular: denied GI: abdominal bloating Neurologic: denied Remainder of 10 body systems also reviewed and denied other than noted above. Examination Vital Signs Vital Signs Past 12 Hours Date Time Temp Pulse Resp B/P Pulse Ox O2 Delivery O2 Flow Rate FiO2 01/16/17 12:00 Room Air 01/16/17 11:24 36.9 84 18 91/55 97 Room Air 01/16/17 08:15 93 120/80 01/16/17 08:00 Room Air 01/16/17 08:00 90 120/80 01/16/17 07:25 36.7 83 18 102/71 96 Room Air 01/16/17 04:00 Room Air 01/16/17 03:45 88 18 106/72 91 Room Air Laboratory Results Last 24 Hours Test 01/15/17 14:43 01/15/17 15:07 01/15/17 16:25 01/15/17 18:57 White Blood Count 14.72 K/uL Red Blood Count 3.14 M/uL Hemoglobin 11.8 g/dL Hematocrit 34.4 % Mean Corpuscular Volume 109.6 fL Mean Corpuscular Hemoglobin 37.6 pg Mean Corpuscular Hemoglobin Concent 34.3 g/dl Platelet Count 406 K/uL Mean Platelet Volume 10.7 fL Neutrophils (%) (Auto) 77.3 % Lymphocytes (%) (Auto) 14.1 % Monocytes (%) (Auto) 7.5 % Eosinophils (%) (Auto) 0.1 % Basophils (%) (Auto) 0.5 % Neutrophils # (Auto) 11.37 K/uL Lymphocytes # (Auto) 2.08 K/uL Monocytes # (Auto) 1.10 K/uL Eosinophils # (Auto) 0.02 K/uL Basophils # (Auto) 0.08 K/uL RDW Standard Deviation 55.1 fL RDW Coefficient of Variation 13.9 % Immature Granulocyte % (Auto) 0.5 % Immature Granulocyte # (Auto) 0.07 K/uL Prothrombin Time 12.5 SECONDS Prothromb Time International Ratio 1.2 Sodium Level 136 mmol/L Potassium Level 3.5 mmol/L Chloride Level 98 mmol/L Carbon Dioxide Level 24 mmol/L Anion Gap 14.0 mmol/L Blood Urea Nitrogen 25 mg/dl Creatinine 2.00 mg/dl Est Creatinine Clear Calc Drug Dose 26.3 ml/min Estimated GFR () 29.6 Estimated GFR (Non- 25.6 BUN/Creatinine Ratio 12.6 Random Glucose 117 mg/dl Calcium Level 7.9 mg/dl Magnesium Level 1.0 mg/dl Total Bilirubin 0.8 mg/dl Aspartate Amino Transf (AST/SGOT) 57 U/L Alanine Aminotransferase (ALT/SGPT) 23 U/L Alkaline Phosphatase 206 U/L Total Protein 6.7 gm/dl Albumin 2.2 gm/dl Globulin 4.5 gm/dl Albumin/Globulin Ratio 0.5 Thyroid Stimulating Hormone (TSH) 16.500 uIu/ml Free Thyroxine 1.27 ng/dl Bedside Troponin I 0.000 ng/ml Ethyl Alcohol mg/dL < 3.0 mg/dl Acetaminophen Level 11 ug/ml Test 01/15/17 21:09 01/15/17 21:50 01/16/17 00:50 01/16/17 07:32 Urine Color DK YELLOW Urine Appearance CLOUDY Urine pH 5.0 Urine Specific [place] 1.029 Urine Protein NEG Urine Glucose (UA) NEG Urine Ketones TRACE Urine Occult Blood TRACE Urine Nitrite NEG Urine Bilirubin NEG Urine Urobilinogen NEG Urine Leukocyte Esterase TRACE Urine WBC (Auto) 5-10 /hpf Urine RBC (Auto) 0-4 /hpf Urine Hyaline Casts (Auto) 5-10 /lpf Urine Epithelial Cells (Auto) >30 /lpf Urine Bacteria (Auto) 1+ Urine Yeast (Auto) Vitamin B12 Level 720 pg/mL Magnesium Level 1.5 mg/dl 2.0 mg/dl Ammonia 28.0 umol/L White Blood Count 13.48 K/uL Red Blood Count 2.42 M/uL Hemoglobin 9.3 g/dL Hematocrit 27.2 % Mean Corpuscular Volume 112.4 fL Mean Corpuscular Hemoglobin 38.4 pg Mean Corpuscular Hemoglobin Concent 34.2 g/dl Platelet Count 315 K/uL Mean Platelet Volume 10.3 fL Neutrophils (%) (Auto) 69.9 % Lymphocytes (%) (Auto) 18.4 % Monocytes (%) (Auto) 10.5 % Eosinophils (%) (Auto) 0.4 % Basophils (%) (Auto) 0.4 % Neutrophils # (Auto) 9.43 K/uL Lymphocytes # (Auto) 2.48 K/uL Monocytes # (Auto) 1.41 K/uL Eosinophils # (Auto) 0.06 K/uL Basophils # (Auto) 0.05 K/uL RDW Standard Deviation 57.7 fL RDW Coefficient of Variation 14.1 % Immature Granulocyte % (Auto) 0.4 % Immature Granulocyte # (Auto) 0.05 K/uL Macrocytosis PRESENT Sodium Level 136 mmol/L Potassium Level 3.4 mmol/L Chloride Level 101 mmol/L Carbon Dioxide Level 23 mmol/L Anion Gap 12.0 mmol/L Blood Urea Nitrogen 26 mg/dl Creatinine 1.40 mg/dl Est Creatinine Clear Calc Drug Dose 38.7 ml/min Estimated GFR () 45.6 Estimated GFR (Non- 39.3 BUN/Creatinine Ratio 18.5 Random Glucose 98 mg/dl Calcium Level 7.3 mg/dl Total Bilirubin 0.6 mg/dl Direct Bilirubin 0.2 mg/dl Aspartate Amino Transf (AST/SGOT) 32 U/L Alanine Aminotransferase (ALT/SGPT) 17 U/L Alkaline Phosphatase 159 U/L Total Protein 5.6 gm/dl Albumin 2.1 gm/dl Folate 9.81 ng/mL Mental Examination During interview pt is: alert and oriented Appearance: appropriately groomed Eye contact is: good Motor behavior is: no abnormal motor movements Speech: normal in rate, rhythm & volume Affect: euthymic Mood is: depressed Thought process: clear, coherent Thought content: reality based without delusions Suicidal thought are: denied Homicidal thoughts are: denied Hallucinations: denies auditory, denies visual Cognition: attention grossly intact, language grossly intact Intelligence estimated to be: average Insight: limited Judgement: limited Impression / Recommendations Impression 66 yo female with a history of reactive depression and benzo dependence (at least psychological) presents with suspicion of ETOH use s/p fall, elevated TSH and and prolonged QTc on 40 mg Celexa. Recommendations taper Celexa to 20 mg daily, monitor QTc with ultimate plan to d/c in favor of another agent, possible Lexapro if QTc improved. encouraged to consider referral to outpatient therapist that accepts Medicare, liaison to encourage as seems rather isolated and minimizing ETOH use she is invested in returning home to her dog and desires med follow up with PCP , WALTER obtained
--- NOTE | 2017-01-16 16:38 | DIAGNOSTIC IMAGING REPORT ---
ULTRASOUND GUIDED DIAGNOSTIC AND THERAPEUTIC PARACENTESIS CLINICAL HISTORY: Ascites. COMPARISON STUDY: Right upper quadrant ultrasound January 15, 2017. PROCEDURE: The risks, benefits, and alternatives to the procedure were discussed with the patient including the risk of bleeding, infection and injury to adjacent structures. The patient agreed to the procedure and informed written consent was obtained. Following real-time ultrasound localization, the skin of the left lower quadrant was prepped and draped. Following local anesthesia with Xylocaine, the sheath paracentesis needle was inserted and approximately 3 liters of straw-colored fluid was removed by vacuum suction. The patient tolerated the procedure well and no immediate complications were evident. IMPRESSION: Ultrasound-guided diagnostic and therapeutic paracentesis with removal of 3 liters of ascites. One liter of ascites was sent to the laboratory for analysis. Electronically signed by: Titi Horne M.D. 01/16/2017 4:37 PM Dictated Date/Time: 01/16/2017 4:36 PM
[2017-01-16] MEDS: ALBUMIN HUMAN 25% 12.5 GM/50 ML VIAL IV SCH ×2 (16:48→17:28)
[2017-01-16] MEDS ORDERED: ALBUMIN HUMAN 25% 12.5 GM/50 ML VIAL IV SCH (18:00)
[2017-01-16 18:25] LABS: PERIT FL WBC 101 /uL (0-300); PERITONEAL FLUID RBC < 3000 /uL
[2017-01-17 00:46] VITALS: BP 82/56; PULSE 63; TEMP 36.6; O2SAT 90
[2017-01-17 05:10] VITALS: BP 91/54; PULSE 80; TEMP 36.6; O2SAT 95
[2017-01-17 05:47] LABS: MEAN CORPUSCULAR HGB CONC 33.9 g/dl (32-36); MEAN PLATELET VOLUME 9.9 fL (7.4-10.4); PLATELET COUNT 246 K/uL (130-400); RED BLOOD COUNT 2.11 M/uL (4.2-5.4)
[2017-01-17] MEDS: LEVOTHYROXINE 125 MCG TAB PO SCH (06:03)
[2017-01-17 06:19] LABS: BUN/CREATININE RATIO 24.8 (10-20); CALCIUM 7.4 mg/dl (8.5-10.1); CREATININE 1.2 mg/dl (0.60-1.20); POTASSIUM 3.7 mmol/L (3.5-5.1)
[2017-01-17 06:23] LABS: BASO % 0.9 %; COMPLETE YES; EOS % 0.8 %; IG% 0.4 %; LYMPH % 18.2 %; LYMPH ABS # 2.07 K/uL (1.2-3.4); MONO % 10.5 %; NEUT % 69.2 %
[2017-01-17 07:37] VITALS: BP 91/61; PULSE 101; TEMP 36.5; O2SAT 95
[2017-01-17] MEDS: ATORVASTATIN 20 MG TAB PO SCH (08:26)
[2017-01-17] MEDS: THIAMINE HCL 100 MG TAB PO SCH (08:26)
[2017-01-17] MEDS: MULTIVITAMIN TAB PO SCH (08:26)
[2017-01-17] MEDS ORDERED: CITALOPRAM 20 MG TAB PO SCH (09:00)
[2017-01-17] MEDS ORDERED: CLX20 PO (11:40)
--- NOTE | 2017-01-17 11:43 | Discharge Instructions ---
Discharge Instructions Date of Service Jan 17, 2017. Admission Reason for Admission: Renal Failure, Acute On Chronic Discharge Discharge Diagnosis / Problem: Dehydration, depression, acute on chronic kidney disease Discharge Goals Goal(s): Decrease discomfort, Improve function, Increase independence, Improve disease control, Learn about illness, Diagnostic testing, Therapeutic intervention Activity Recommendations Activity Limitations: resume your previous activity Exercise/Sports Limitations: none Shower/Bathe: no limitations Patient to be discharged home with home health Please note reduction in celexa dose to 20 mg once daily, prescription sent electronically to pharmacy Please follow up with counselor on discharge Please follow up with primary care provider Dr Isreal Smith in 1-2 weeks If worsening abdominal pain, fevers, chest pain or shortness of breath please report to ER . Current Hospital Diet Patient's current hospital diet: Renal Diet Discharge Diet Recommended Diet: Regular Diet Fluid Restriction: None Pending Studies Studies pending at discharge: yes List of pending studies: ascites fluid analysis and culture Medical Emergencies . Who to Call and When: Medical Emergencies: If at any time you feel your situation is an emergency, please call 911 immediately. . Non-Emergent Contact Non-Emergency issues call your: Primary Care Provider Call Non-Emergent contact if: you have a fever, your pain is worsening . . "Provider Documentation" section prepared by Elvis Garner. VTE Core Measure Inpt VTE Proph given/why not?: Cale Romero, SCD's
[2017-01-17 11:46] VITALS: BP 89/61; PULSE 98; TEMP 36.6; O2SAT 97
[2017-01-17 13:05] VITALS: BP 89/61; PULSE 98; TEMP 36.6; O2SAT 97
--- NOTE | 2017-01-17 13:58 | Discharge Summary ---
Discharge Summary Date of Service Jan 17, 2017. Discharge Summary Admission Date: Jan 15, 2017 at 18:27 Discharge Date: Jan 17, 2017 Discharge Disposition: Home with services Principal Diagnosis: Dehydration, acute on CKD, depression, ascites Consultations: GI Psychiatry Medication Reconciliation New Medications: Citalopram (Citalopram Hydrobromide) 20 Mg Tab 20 MG PO DAILY for 30 Days, #30 TAB Continued Medications: Atorvastatin (Atorvastatin Calcium) 20 Mg Tab 20 MG PO DAILY Levothyroxine Sodium (Levothyroxine Sodium) 125 Mcg Tab 125 MCG PO DAILY Discontinued Medications: Citalopram Hydrobromide (Celexa) 40 Mg Tab 40 MG PO DAILY, TAB Discharge Exam Review of Systems: Constitutional: No chills, No fever Respiratory: No cough, No dyspnea on exertion, No shortness of breath, No sputum Cardiovascular: No chest pain, No orthopnea Abdomen: No diarrhea, No nausea, No pain, No vomiting Musculoskeletal: No joint pain, No muscle pain Genitourinary - Female: No dysuria, No urinary frequency Genitourinary - Male: No dysuria, No urinary frequency Psychiatric: + anxiety, + depression symptoms Endocrine: No excessive thirst, No fatigue Physical Exam: General Appearance: WD/WN, no apparent distress Neck: supple, no adenopathy Respiratory/Chest: lungs clear, normal breath sounds Cardiovascular: no edema, no gallop Abdomen / GI: non tender, soft Neurologic/Psychiatric: alert, oriented x 3 Hospital Course 66-year-old female presented with progressive weakness and multiple falls at home, poor oral intake, depressed affect noted, alcohol abuse and acute on chronic renal failure Ascites likely secondary to longstanding hx of alcohol abuse -Given albumin before and after US Paracentesis (on 01/16) with 3 L removed, analysis and culture pending on DC -Will need to f/u with PCP -Unlikely SBP as no fevers, abd pain or leukocytosis Acute renal failure/CKD stage III -Admitted to telemetry -Placed IV fluids -Follow PRP Cr 2.0 --> 1.4 --> 1.2 on discharge Hypomagnesemia -Replace PRN Hypothyroidism-noncompliant with Synthroid. TSH elevated at 16 -Free T4 WNL -Continue outpatient dose of Synthroid 125 g daily Depression-severe -Psychiatric consult, f/u with counselor on discharge -Reduced dose of celexa from 40 mg to 20 mg daily due to QTC prolongation Multiple falls, rib contusion -Morphine 2 mg every 4 hours as needed for pain -PT OT -Incentive spirometer -check Tylenol level History of alcohol abuse with ascited-no signs of DTs on exam -Begin thiamine, folate and a multivitamin -Ativan per protocol -AVOID TYLENOL -Pt agreeable for paracentesis, albumin before and after procedure COPD-no exacerbation noted -Continue Symbicort 2 puffs twice daily Hyperlipidemia -Continue atorvastatin 20 mg daily Glaucoma -Continue Timolol 1 drop to each eye in the morning DVT prophylaxis -Teds, SCDs -Ambulation CODE STATUS -LEVEL I FULL CODE Total Time Spent: Greater than 30 minutes This includes examination of the patient, discharge planning, medication reconciliation, and communication with other providers. Discharge Instructions Please refer to the electronic Patient Visit Report (Discharge Instructions) for additional information. Additional Copies To Isreal Smith M.D.
[2017-03-20] MEDS ORDERED: KFL250 PO (15:37)
[2017-03-20] MEDS ORDERED: PRMT10 PO (15:37)
[2017-03-20] MEDS ORDERED: FAMO20TA12 PO (15:37)
[2017-03-20] MEDS ORDERED: CNT PO (15:37)
[2017-03-20] MEDS ORDERED: SODI650T9 PO (15:37)
[2017-03-20] MEDS ORDERED: XFX550 PO (15:37)
[2017-03-20] MEDS ORDERED: CLCUDL PO (15:37)
== END 2017-01-17 14:31 | disposition home or self-care (01) | DRG 433 ==
LOC: ENRESERVDT → ENRESERVTM → EDBD 14:31 → C.EDC 14:31 → C.MED 18:27 → EDBEDREQTM 19:17 → EDBEDREQSVC 19:17
PROVIDERS: ADMIT Family Medicine; ATTEND Hospitalist
PROC: 0W9G3ZZ Drainage of Peritoneal Cavity, Percutaneous Approach (ICD-10-PCS; principal; 2017-01-15)
PROC: 0W9G3ZX Drainage of Peritoneal Cavity, Percutaneous Approach, Diagnostic (ICD-10-PCS; principal; 2017-01-15)
DX: K70.31 Alcoholic cirrhosis of liver with ascites (principal); N17.9 Acute kidney failure, unspecified; S20.211A Contusion of right front wall of thorax, initial encounter; E86.0 Dehydration; N18.3 Chronic kidney disease, stage 3 (moderate); F32.9 Major depressive disorder, single episode, unspecified; E78.5 Hyperlipidemia, unspecified; J44.9 Chronic obstructive pulmonary disease, unspecified; E83.42 Hypomagnesemia; E03.9 Hypothyroidism, unspecified; H40.9 Unspecified glaucoma; Z79.899 Other long term (current) drug therapy; Z91.14 Patient's other noncompliance with medication regimen; W19.XXXA Unspecified fall, initial encounter; F17.210 Nicotine dependence, cigarettes, uncomplicated

== ENCOUNTER → 2017-01-29 | Outpatient (CLI) | payer BC ==
[~2017-01-29] MED LIST changes: -ATOR-22 PO; +B-CO1CAP17 PO; -CHOL100010 PO; +CITA20TA4 PO; -CITA40TA12 PO; +CLCUDL PO; +CLX20 PO; +CNT PO; +FAMO20TA12 PO; +KFL250 PO; +LEVO125T5 PO; +LPT/20 PO; +MGNO400 PO; +NADO20TA PO; +OMEP40CA41 PO; +PRMT10 PO; +SODI650T9 PO; -SYN112 PO; +XFX550 PO
[2017-01-29 17:11] LABS: BASO % 0.4 %; BASO ABS # 0.07 K/uL (0-0.2); EOS % 0.4 %; HEMATOCRIT 31.7 % (37-47); IG% 0.2 %; LYMPH % 14.3 %; LYMPH ABS # 2.31 K/uL (1.2-3.4); MEAN CELL VOLUME 110.5 fL (80-100); MEAN CORPUSCULAR HGB CONC 34.4 g/dl (32-36); MEAN PLATELET VOLUME 10.7 fL (7.4-10.4); MONO % 6.7 %; PLATELET COUNT 444 K/uL (130-400); RED BLOOD COUNT 2.87 M/uL (4.2-5.4)
[2017-01-29 17:19] LABS: ALT/SGPT 16 U/L (12-78); AST/SGOT 36 U/L (15-37); BLOOD UREA NITROGEN 29 mg/dl (7-18); CALCIUM 8.4 mg/dl (8.5-10.1); CARBON DIOXIDE 26 mmol/L (21-32); CHLORIDE 103 mmol/L (98-107); GLUCOSE 120 mg/dl (70-99); POTASSIUM 3.3 mmol/L (3.5-5.1); SODIUM 139 mmol/L (136-145)
[2017-01-29 17:20] LABS: INR 1.1 (0.9-1.1); PROTHROMBIN TIME (PATIENT) 11.8 SECONDS (9.0-12.0)
[2017-01-29 17:30] LABS: ALB/GLOB RATIO 0.5 (0.9-2); ALKALINE PHOSPHATASE 200 U/L (45-117)
[2017-01-29 18:02] LABS: COMPLETE YES; POLYCHROMASIA 1+
--- NOTE | 2017-02-04 13:12 | CODING QUERY MEDICAL NECESSITY ---
CQSUPPORTING DIAGNOSIS NEEDED A supporting diagnosis is required for the test/procedure performed on this patient in order for us to be reimbursed by the patient's insurance. Please provide a supporting diagnosis for the following test/procedure listed below next to the test name along with your signature. *If there is no additional diagnosis for this patient that would support the following test/procedure please document that below next to the test/procedure. Test(s)/Procedure(s) that require a supporting diagnosis: DOS 01/29/17 VITAMIN B12 Provider Signature: Date: Thank you Ashleigh White [employer] Once completed, please kindly fax back to [phone] For questions please call [phone]
== END | disposition home or self-care (01) ==
LOC: C.LABBC 15:07
PROVIDERS: ATTEND Internal Medicine
DX: E03.9 Hypothyroidism, unspecified (principal); N18.3 Chronic kidney disease, stage 3 (moderate); K74.60 Unspecified cirrhosis of liver; E55.9 Vitamin D deficiency, unspecified; D64.9 Anemia, unspecified

== ENCOUNTER 2017-02-17 15:53 | Observation (INO) | payer BC, OTHER ==
[~2017-02-17] VITALS: Ht 165.1 cm; Wt 72.1 kg
[~2017-02-17 15:53] MED LIST changes: -B-CO1CAP17 PO; -CITA20TA4 PO; -CLCUDL PO; -CNT PO; -FAMO20TA12 PO; -KFL250 PO; -LEVO125T5 PO; -LPT/20 PO; -MGNO400 PO; -NADO20TA PO; -OMEP40CA41 PO; -PRMT10 PO; -SODI650T9 PO; -XFX550 PO
[2017-02-17] MEDS ORDERED: LPT/20 PO (16:08)
[2017-02-17] MEDS ORDERED: LEVO125T5 PO (16:08)
[2017-02-17] MEDS ORDERED: SODIUM CHLORIDE 0.9% 1000ML 1,000 ML IV ONE (16:09)
[2017-02-17] MEDS ORDERED: CITA20TA4 PO (16:16)
--- NOTE | 2017-02-17 16:42 | EMERGENCY ROOM VISIT NOTE ---
History Report prepared by Carolyn: Izabel Vicente Under the Supervision of: Dr. Leonardo Abbott D.O. First contact with patient: 16:02 Chief Complaint: DEHYDRATION Stated Complaint: DEHYDRATION,WEAKNESS,LOW BP, NO APPETITE,VOMITING History of Present Illness The patient is a 66 year old female who presents to the Emergency Room with complaints of persistent weakness starting 1 month ago. She was admitted to the hospital for 2.5 days 1 month ago. She had a paracentesis. She has not felt well since. Last week, she was unable to get up from the toilet because she felt so weak. She had to call someone to help her up. She has not been eating or drinking adequately. She states she is dehydrated. She reports vomiting and leg swelling. She denies any fever, chills, nausea, urinary symptoms, melena, or hematochezia. She is scheduled for an MRI of her liver this week. She quit drinking a couple weeks ago. She used to drink 2-3 glasses of wine a day. She is on citalopram, Synthroid, and Lipitor. Source of History: patient Onset: 1 month ago Position: other (global) Quality: other (weakness) Timing: other (persistent) Associated Symptoms: No chills, No fevers, No hematochezia, No melena, No nausea, No urinary symptoms Note: Pt reports low appetite, vomiting, leg swelling. Review of Systems See HPI for pertinent positives & negatives. A total of 10 systems reviewed and were otherwise negative. Past Medical & Surgical Medical Problems: (1) Renal failure (ARF), acute on chronic Family History No pertinent family history stated. Social History Smoking Status: Current Every Day Smoker Alcohol Use: none Marital Status: single Occupation Status: retired Current/Historical Medications Scheduled Atorvastatin (Atorvastatin Calcium), 20 MG PO DAILY Citalopram Hydrobromide (Citalopram Hydrobromide), 20 MG PO DAILY Levothyroxine Sodium (Levothyroxine Sodium), 125 MCG PO DAILY Allergies Coded Allergies: Acetaminophen (Verified Allergy, Unknown, UNKNOWN, 05/06/13) Physical Exam Vital Signs Date Time Temp Pulse Resp B/P Pulse Ox O2 Delivery O2 Flow Rate FiO2 02/17/17 20:24 36.7 105 16 131/91 99 02/17/17 20:16 105 16 131/91 99 Room Air 02/17/17 19:40 103 16 99 02/17/17 19:30 119/87 02/17/17 19:10 99 20 99 02/17/17 19:05 101 19 93 02/17/17 19:00 116/88 02/17/17 18:35 101 18 02/17/17 18:30 102/81 02/17/17 18:05 98 21 93 02/17/17 18:00 101/67 02/17/17 17:58 93 17 99 02/17/17 17:53 93 20 99 02/17/17 17:30 109/80 02/17/17 17:23 98 16 96 02/17/17 17:08 98 22 109/79 93 02/17/17 17:00 109/79 02/17/17 16:53 95 17 99 02/17/17 16:45 121/82 02/17/17 16:34 100 20 111/72 98 Room Air 02/17/17 16:33 111/72 02/17/17 16:29 104 02/17/17 16:23 105 20 02/17/17 15:57 36.7 98 20 77/69 95 Room Air Physical Exam GENERAL: Patient is awake, alert, and appears comfortable. Patient does not seem to have any pain. EYES: The conjunctivae are clear. The pupils are round and reactive. EARS, NOSE, MOUTH AND THROAT: The nose is without any evidence of any deformity. Mucous membranes are moist tongue is midline NECK: The neck is nontender and supple. RESPIRATORY: Normal respiratory effort is noted there is no evidence of wheezing rhonchi or rales CARDIOVASCULAR: Regular rate and rhythm noted there no murmurs rubs or gallops normal S1 normal S2 GASTROINTESTINAL: The abdomen is moderately distended, but soft, no specific tenderness, guarding, or rigidity. MUSCULOSKELETAL/EXTREMITIES: There is no evidence of gross deformity full range of motion is noted in the hips and shoulders SKIN: There is no obvious evidence of any rash. There are no petechiae, pallor or cyanosis noted. Pedal edema bilaterally. NEUROLOGIC: Patient is awake alert and oriented x3. Medical Decision & Procedures ER Provider Diagnostic Interpretation: X-ray results as stated below per interpretation by me and the radiologist. SINGLE VIEW CHEST CLINICAL HISTORY: Sepsis. FINDINGS: An AP, portable, upright chest radiograph is compared to study dated 04/10/2015 and correlated with chest CT dated 07/23/2016. The examination is degraded by portable technique, apical lordotic positioning, and patient rotation. The heart is top normal for projection. The mediastinal contour is within normal limits. There is mild elevation of the right hemidiaphragm and bibasilar atelectasis. No airspace consolidation, large pleural effusion, or pneumothorax is seen. The skeletal structures are osteopenic. The bony thorax is grossly intact. IMPRESSION: No acute cardiopulmonary abnormality. Electronically signed by: David Hernandez M.D. 02/17/2017 4:41 PM Dictated Date/Time: 02/17/2017 4:40 PM Laboratory Results 02/17/17 16:15 Red Blood Count 3.09, Mean Corpuscular Volume 112.3, Mean Corpuscular Hemoglobin 37.2, Mean Corpuscular Hemoglobin Concent 33.1, Mean Platelet Volume 10.6, Neutrophils (%) (Auto) 74.6, Lymphocytes (%) (Auto) 16.1, Monocytes (%) ( Auto) 8.7, Eosinophils (%) (Auto) 0.1, Basophils (%) (Auto) 0.3, Neutrophils # ( Auto) 9.99, Lymphocytes # (Auto) 2.16, Monocytes # (Auto) 1.16, Eosinophils # ( Auto) 0.02, Basophils # (Auto) 0.04 02/17/17 16:15 Test 02/17/17 16:15 02/17/17 16:37 02/17/17 17:34 02/17/17 20:38 White Blood Count 13.40 K/uL (4.8-10.8) Red Blood Count 3.09 M/uL (4.2-5.4) Hemoglobin 11.5 g/dL (12.0-16.0) Hematocrit 34.7 % (37-47) Mean Corpuscular Volume 112.3 fL (80-100) Mean Corpuscular Hemoglobin 37.2 pg (25-34) Mean Corpuscular Hemoglobin Concent 33.1 g/dl (32-36) Platelet Count 371 K/uL (130-400) Mean Platelet Volume 10.6 fL (7.4-10.4) Neutrophils (%) (Auto) 74.6 % Lymphocytes (%) (Auto) 16.1 % Monocytes (%) (Auto) 8.7 % Eosinophils (%) (Auto) 0.1 % Basophils (%) (Auto) 0.3 % Neutrophils # (Auto) 9.99 K/uL (1.4-6.5) Lymphocytes # (Auto) 2.16 K/uL (1.2-3.4) Monocytes # (Auto) 1.16 K/uL (0.11-0.59) Eosinophils # (Auto) 0.02 K/uL (0-0.5) Basophils # (Auto) 0.04 K/uL (0-0.2) RDW Standard Deviation 54.4 fL (36.4-46.3) RDW Coefficient of Variation 13.6 % (11.5-14.5) Immature Granulocyte % (Auto) 0.2 % Immature Granulocyte # (Auto) 0.03 K/uL (0.00-0.02) Macrocytosis PRESENT Erythrocyte Sedimentation Rate 41 mm/hr (0-21) Anion Gap 9.0 mmol/L (3-11) Estimated GFR () 29.6 Estimated GFR (Non- 25.6 BUN/Creatinine Ratio 13.9 (10-20) Calcium Level 8.1 mg/dl (8.5-10.1) Phosphorus Level 2.9 mg/dl (2.5-4.9) Magnesium Level 1.2 mg/dl (1.8-2.4) Total Bilirubin 0.8 mg/dl (0.2-1) Aspartate Amino Transf (AST/SGOT) 22 U/L (15-37) Alanine Aminotransferase (ALT/SGPT) 12 U/L (12-78) Alkaline Phosphatase 200 U/L (45-117) Ammonia 11.0 umol/L (11-32) Total Creatine Kinase 22 U/L (26-192) Creatine Kinase MB < 0.5 ng/ml (0.5-3.6) Creatine Kinase MB Ratio (0-3.0) Troponin I < 0.015 ng/ml (0-0.045) C-Reactive Protein 5.86 mg/dl (0-0.29) Pro-B-Type Natriuretic Peptide 1430 pg/ml (0-900) Total Protein 6.7 gm/dl (6.4-8.2) Albumin 2.2 gm/dl (3.4-5.0) Globulin 4.5 gm/dl (2.5-4.0) Albumin/Globulin Ratio 0.5 (0.9-2) Lipase 90 U/L (73-393) Random Cortisol 30.85 mcg/dl Bedside Lactic Acid Venous 2.65 mmol/L (0.90-1.70) Prothrombin Time 12.7 SECONDS (9.0-12.0) Prothromb Time International Ratio 1.2 (0.9-1.1) Activated Partial Thromboplast Time 29.9 SECONDS (21.0-31.0) Partial Thromboplastin Ratio 1.2 Transferrin % Saturation % (15-50) Laboratory results per my review. Medications Administered Medications (Trade) Dose Ordered Sig/Brett Route Start Time Stop Time Status Last Admin Dose Admin Sodium Chloride (Nss 1000ml) 1,000 ml @ 999 mls/hr Q1H1M ONCE IV 02/17/17 16:09 02/17/17 17:09 DC 02/17/17 16:09 999 MLS/HR Magnesium Sulfate 2 gm 2 gm NOW STAT IV 02/17/17 17:59 02/17/17 18:04 DC 02/17/17 18:14 2 GM Sodium Chloride (Nss 500ml) 500 ml @ 999 mls/hr Q31M STAT IV 02/17/17 17:59 02/17/17 18:29 DC 02/17/17 18:13 999 MLS/HR ECG Indication: weakness Rate (beats per minute): 105 Rhythm: sinus tachycardia Findings: T-wave inversion (Inferior), other (low voltage noted throughout) Comparison ECG Date: 15-Jan-2017 Change: no significant change ED Course 1608: The patient was evaluated in room C3. A complete history and physical examination were performed. 1609: NSS 1000 ml @ 999 mls/hr IV. 1759: NSS 500 ml @ 999 mls/hr IV, Magnesium Sulfate 2 gm IV. 1804: Upon reevaluation, the patient is resting comfortably. I discussed results and treatment plan with her. She verbalizes agreement and understanding. The patient will be evaluated for further management and care. 1806: I discussed the patient's case with Dr. Mack [facility] - hospitalist. The patient will be evaluated for further management. Medical Decision Prior records/ancillary studies reviewed and summarized above. Nursing notes reviewed. The patient's history was concerning for weakness. Differential diagnosis: Etiologies such as metabolic, infection, hypo/hyperglycemia, electrolyte abnormalities, cardiac sources, intracerebral event, toxicologic, neurologic, as well as others were entertained. The patient is a 66-year-old female who has a history of chronic alcohol use who presented to the emergency department for an evaluation weakness and hypotension. The patient has significant ascites which was diagnosed previously. She appears to have an elevated lactic acid level. She was also found have signs of dehydration with an elevated creatinine. She was treated with IV fluids in the emergency department. On subsequent reevaluation she appeared to be feeling much better. She was also treated with magnesium. I discussed the patient's laboratory and radiographic studies with her. I'm very concerned about the patient's overall well-being I'm unsure if she is able to manage these problems at home. This reason I also discussed her case with the on -call [facility] hospitalist group. They've agreed to evaluate the patient in the emergency department for further management and disposition. Consults Time Called: 1801 Consulting Physician: Dr. Mack [facility] - hospitalist Returned Call: [phone] I discussed the patient's case with him. The patient will be evaluated for further management. Impression Primary Impression: Weakness Additional Impressions: Hypotension Dehydration Acute kidney injury Hypomagnesemia Scribe Attestation The scribe's documentation has been prepared under my direction and personally reviewed by me in its entirety. I confirm that the note above accurately reflects all work, treatment, procedures, and medical decision making performed by me. Departure Information Dispostion Being Evaluated By Hospitalist Referrals Isreal Smith M.D. (PCP) Patient Instructions My [facility] Health Problem Qualifiers Additional Impressions: Hypotension Hypotension type: unspecified hypotension type Qualified Codes: I95.9 - Hypotension, unspecified
[2017-02-17 16:47] LABS: BASO % 0.3 %; BASO ABS # 0.04 K/uL (0-0.2); EOS % 0.1 %; HEMATOCRIT 34.7 % (37-47); IG% 0.2 %; LYMPH % 16.1 %; LYMPH ABS # 2.16 K/uL (1.2-3.4); MEAN CELL VOLUME 112.3 fL (80-100); MEAN CORPUSCULAR HEMOGLOBIN 37.2 pg (25-34); MEAN CORPUSCULAR HGB CONC 33.1 g/dl (32-36); MEAN PLATELET VOLUME 10.6 fL (7.4-10.4); MONO % 8.7 %; NEUT % 74.6 %; PLATELET COUNT 371 K/uL (130-400); RED BLOOD COUNT 3.09 M/uL (4.2-5.4)
[2017-02-17 16:55] LABS: ALT/SGPT 12 U/L (12-78); AST/SGOT 22 U/L (15-37); BLOOD UREA NITROGEN 28 mg/dl (7-18); BUN/CREATININE RATIO 13.9 (10-20); CALCIUM 8.1 mg/dl (8.5-10.1); CARBON DIOXIDE 28 mmol/L (21-32); CHLORIDE 98 mmol/L (98-107); GLUCOSE 115 mg/dl (70-99); MAGNESIUM 1.2 mg/dl (1.8-2.4); POTASSIUM 3.5 mmol/L (3.5-5.1); SODIUM 135 mmol/L (136-145)
[2017-02-17 16:58] LABS: ALB/GLOB RATIO 0.5 (0.9-2); ALKALINE PHOSPHATASE 200 U/L (45-117); C-REACTIVE PROTEIN 5.86 mg/dl (0-0.29); PHOSPHORUS 2.9 mg/dl (2.5-4.9)
[2017-02-17 17:06] LABS: COMPLETE YES
[2017-02-17 17:49] LABS: INR 1.2 (0.9-1.1); PARTIAL THROMBOPLASTIN RATIO 1.2; PROTHROMBIN TIME (PATIENT) 12.7 SECONDS (9.0-12.0)
[2017-02-17] MEDS ORDERED: SODIUM CHLORIDE 0.9% 500ML 500 ML IV STA (17:59)
[2017-02-17] MEDS ORDERED: MAGNESIUM SULFATE 1GM / D5W 1 GM BAG IV STA (17:59)
[2017-02-17] MEDS ORDERED: MAGNESIUM HYDROXIDE SUSP 30 ML UDC PO PRN (20:15)
[2017-02-17] MEDS ORDERED: ONDANSETRON INJ 2 MG/ML 2 ML VIAL IV PRN (20:15)
[2017-02-17] MEDS ORDERED: PHYTONADIONE 5 MG TAB PO STA (20:15)
[2017-02-17] MEDS ORDERED: THIAMINE HCL INJ 200 MG in SODIUM CHLORIDE 0.9% 50ML 50 ML IV STA (20:15)
[2017-02-17] MEDS ORDERED: ALUMINUM/MAGNESIUM/SIMETH (MAALOX MAX) 30 ML UDC PO PRN (20:15)
--- NOTE | 2017-02-17 20:35 | History and Physical ---
History & Physical Date & Time of Service: February 17, 2017 at 20:35 Chief Complaint: Dehydration,Weakness,Low Bp, No Appetite,Vomiting Primary Care Physician: Isreal Smith M.D. Social History Smoking Status: Current Every Day Smoker Marital Status: single Housing status: lives alone Occupational Status: retired Multi-Drug Resistant Organisms History of MDRO: No Allergies Coded Allergies: Acetaminophen (Verified Allergy, Unknown, UNKNOWN, 05/06/13) Home Medications Scheduled Atorvastatin (Atorvastatin Calcium), 20 MG PO DAILY Citalopram Hydrobromide (Citalopram Hydrobromide), 20 MG PO DAILY Levothyroxine Sodium (Levothyroxine Sodium), 125 MCG PO DAILY Physical Exam Vital Signs Date Time Temp Pulse Resp B/P Pulse Ox O2 Delivery O2 Flow Rate FiO2 02/17/17 20:24 36.7 105 16 131/91 99 02/17/17 20:16 105 16 131/91 99 Room Air 02/17/17 19:40 103 16 99 02/17/17 19:30 119/87 02/17/17 19:10 99 20 99 02/17/17 19:05 101 19 93 02/17/17 19:00 116/88 02/17/17 18:35 101 18 02/17/17 18:30 102/81 02/17/17 18:05 98 21 93 02/17/17 18:00 101/67 02/17/17 17:58 93 17 99 02/17/17 17:53 93 20 99 02/17/17 17:30 109/80 02/17/17 17:23 98 16 96 02/17/17 17:08 98 22 109/79 93 02/17/17 17:00 109/79 02/17/17 16:53 95 17 99 02/17/17 16:45 121/82 02/17/17 16:34 100 20 111/72 98 Room Air 02/17/17 16:33 111/72 02/17/17 16:29 104 02/17/17 16:23 105 20 02/17/17 15:57 36.7 98 20 77/69 95 Room Air Diagnostics Laboratory Results Results Past 24 Hours Test 02/17/17 16:15 02/17/17 16:37 02/17/17 17:34 Range/Units White Blood Count 13.40 4.8-10.8 K/uL Red Blood Count 3.09 4.2-5.4 M/uL Hemoglobin 11.5 12.0-16.0 g/dL Hematocrit 34.7 37-47 % Mean Corpuscular Volume 112.3 80-100 fL Mean Corpuscular Hemoglobin 37.2 25-34 pg Mean Corpuscular Hemoglobin Concent 33.1 32-36 g/dl Platelet Count 371 130-400 K/uL Mean Platelet Volume 10.6 7.4-10.4 fL Neutrophils (%) (Auto) 74.6 % Lymphocytes (%) (Auto) 16.1 % Monocytes (%) (Auto) 8.7 % Eosinophils (%) (Auto) 0.1 % Basophils (%) (Auto) 0.3 % Neutrophils # (Auto) 9.99 1.4-6.5 K/uL Lymphocytes # (Auto) 2.16 1.2-3.4 K/uL Monocytes # (Auto) 1.16 0.11-0.59 K/uL Eosinophils # (Auto) 0.02 0-0.5 K/uL Basophils # (Auto) 0.04 0-0.2 K/uL RDW Standard Deviation 54.4 36.4-46.3 fL RDW Coefficient of Variation 13.6 11.5-14.5 % Immature Granulocyte % (Auto) 0.2 % Immature Granulocyte # (Auto) 0.03 0.00-0.02 K/uL Macrocytosis PRESENT Erythrocyte Sedimentation Rate 41 0-21 mm/hr Sodium Level 135 136-145 mmol/L Potassium Level 3.5 3.5-5.1 mmol/L Chloride Level 98 98-107 mmol/L Carbon Dioxide Level 28 21-32 mmol/L Anion Gap 9.0 3-11 mmol/L Blood Urea Nitrogen 28 7-18 mg/dl Creatinine 2.00 0.60-1.20 mg/dl Estimated GFR () 29.6 Estimated GFR (Non- 25.6 BUN/Creatinine Ratio 13.9 10-20 Random Glucose 115 70-99 mg/dl Calcium Level 8.1 8.5-10.1 mg/dl Phosphorus Level 2.9 2.5-4.9 mg/dl Magnesium Level 1.2 1.8-2.4 mg/dl Total Bilirubin 0.8 0.2-1 mg/dl Aspartate Amino Transf (AST/SGOT) 22 15-37 U/L Alanine Aminotransferase (ALT/SGPT) 12 12-78 U/L Alkaline Phosphatase 200 45-117 U/L Ammonia 11.0 11-32 umol/L Total Creatine Kinase 22 26-192 U/L Creatine Kinase MB < 0.5 0.5-3.6 ng/ml Creatine Kinase MB Ratio 0-3.0 Troponin I < 0.015 0-0.045 ng/ml C-Reactive Protein 5.86 0-0.29 mg/dl Pro-B-Type Natriuretic Peptide 1430 0-900 pg/ml Total Protein 6.7 6.4-8.2 gm/dl Albumin 2.2 3.4-5.0 gm/dl Globulin 4.5 2.5-4.0 gm/dl Albumin/Globulin Ratio 0.5 0.9-2 Lipase 90 73-393 U/L Random Cortisol 30.85 mcg/dl Bedside Lactic Acid Venous 2.65 0.90-1.70 mmol/L Prothrombin Time 12.7 9.0-12.0 SECONDS Prothromb Time International Ratio 1.2 0.9-1.1 Activated Partial Thromboplast Time 29.9 21.0-31.0 SECONDS Partial Thromboplastin Ratio 1.2 Microbiology Results 02/17/17 Blood Culture, Received Pending 02/17/17 Blood Culture, Received Pending Impression Assessment and Plan [id number] VTE Prophylaxis VTE Risk Assessment Done? Y/N: Yes Risk Level: Moderate
[2017-02-17] MEDS ORDERED: IV FLUIDS COMPLETED PRN (20:45)
[2017-02-17 20:54] VITALS: BP 116/79; PULSE 96; TEMP 36.6; O2SAT 97
[2017-02-17] MEDS ORDERED: FoLIC ACID INJ 1 MG in SYRINGE 9.8 ML IV STA (21:11)
[2017-02-17 21:12] VITALS: Ht 165.1 cm; Wt 72.1 kg
[2017-02-17 21:21] LABS: FERRITIN 1013.6 ng/ml (8.0-388.0)
[2017-02-17] MEDS ORDERED: POLYETHYLENE (MIRALAX) 17 GM PACK PO PRN (21:30)
--- NOTE | 2017-02-17 21:34 | HISTORY & PHYSICAL EXAMINATION ---
DATE OF ADMISSION: 02/17/2017 CHIEF COMPLAINT: Weakness and fatigue. HISTORY OF PRESENT ILLNESS: The patient is a pleasant 66-year-old female, discharged a little over a month ago with new onset cirrhosis and ascites. She had a 3-liter paracentesis and after stability and improvement in her creatinine she was discharged home. She followed up with her PCP on the . At that point in time, she was actually still drinking. She was cautioned that she could really end up with irreversible consequences and progressive terminal illness should she not stop and she notes at that point she did stop drinking; so her last drink has been about 3 or 4 weeks ago, but since then, she has really just had this ongoing weakness and fatigue. She notes that she is barely eating, not necessarily because of lack of hunger, she notes she is hungry. She does have intermittent nausea and vomiting, in between them she is hungry, but mostly because she is just generally too weak to get up around and make herself much food. Interestingly enough, she does also separately relate, at different times going out to a restaurant and being able to eat, so it seems there is a degree of ups and downs to her weakness. It is hard to tell if she has lost much weight because at the same time this has all been going on, her belly has swollen up again and her legs and feet are swollen. She denies any chest pain, shortness of breath or dyspnea on exertion. She does, however, just have excessive fatigue. REVIEW OF SYSTEMS: Otherwise negative except for as above. Because of the ongoing fatigue and her creatinine bumping back up again to 2.0 as well as the recurrence of ascites, we were asked to see her for ongoing care. PAST MEDICAL HISTORY: Includes; cirrhosis with ascites, chronic alcohol abuse now sober about 3 weeks, COPD, elevated ferritin, hyperhomocystinemia, hyperlipidemia, hypertension, hypothyroid, stage 3 CKD, vitamin D deficiency and thiamine deficiency. PAST SURGICAL HISTORY: Most recently was a 3-liter paracentesis just a little over a month ago, breast lumpectomy, total abdominal hysterectomy and bilateral oophorectomy. HOME MEDICATIONS: Lipitor 20 mg at bedtime, Celexa 20 mg at bedtime and Synthroid 125 mcg daily. She has also in the outpatient chart listed as Symbicort 160/4.5 b.i.d. and thiamine 50 mg daily, although these are not on her current list as is timolol one drop in both eyes every morning not on her current list, but listed as an outpatient. ALLERGIES: ACETAMINOPHEN. FAMILY HISTORY: Includes hypertension and brain cancer. SOCIAL HISTORY: Up until about 3 weeks ago, she drank daily. It is hard to tell exactly how much she does smoke; about a half a pack a day. PHYSICAL EXAMINATION: VITAL SIGNS: Temperature 36.7, pulse 98, respiratory rate 20, initial blood pressure was 77/69 and 95% on room air; later by the time I am talking to her she is about 120/87. GENERAL: She is awake, alert, oriented x3 and pleasant. Overall, in no acute distress. She does appear somewhat fatigued. At one point during the interview she did vomit, but then quickly recovered and was okay again. HEENT: Normocephalic and atraumatic. Mucous membranes are dry. CARDIOVASCULAR: Regular, slightly distant, somewhat tachycardic. No rubs, murmurs or gallops. LUNGS: Clear to auscultation bilaterally. No rales, rhonchi or wheezes, with good effort. ABDOMEN: Distended with fluid wave, nontender, no focal areas of tenderness. No guarding or rebound. EXTREMITIES: Without cyanosis or clubbing. She has diffuse, equal bilateral 2+ edema. No erythema. No broken-down skin. NEUROLOGIC: Shows cranial nerves II-XII to be grossly intact. Gross motor and sensory are intact. MENTAL STATE: Good recent and remote recall. Normal mood and affect. Good judgment and insight. LABORATORIES AND DIAGNOSTICS: Sodium 135, potassium 3.5, chloride 98, CO2 28, BUN 28, creatinine 2, calcium 8.1, glucose 115, lactate was 2.65, phos 2.9, mag 1.2, total bili 0.8, AST 22, ALT 12, alkaline phosphatase 200, ammonia 11, CK total 22 with an MB of less than 0.5, troponin of less than 0.015. CRP of 5.86. BNP 1430 total protein 6.7 with an albumin of 2.2, lipase 90, random cortisol 30.85. White count of 13.4, with hemoglobin of 11.5, with an MCV of 112.3 and platelets 371. Her sed rate is 41. PT of 12.7 with an INR of 1.2. PTT 29.9. Relevant prior labs for vitamin D about 3 weeks ago was 14.2, thiamine level just a little over a month ago was undetectably low. B12 was 462 and folate was 9.81. Homocysteine years ago was 26.7. Most recent TSH about 3 or 4 weeks ago was 5.27. She had iron studies little under a year ago showing iron of 116, TIBC of 184, transferrin of 130, ferritin of 1696 and a transferrin percent sat of 64%. Chest x-ray; shows no acute cardiopulmonary abnormality. ASSESSMENT AND PLAN: 1. Fatigue. This appears most likely related to fallout from her cirrhosis; whether it is simply the extra weight from her ascites and edema, probably degree of a contributor certainly the vitamin and electrolyte deficiencies as outlined below would be contributors and certainly simply the liver disease itself would be a contributor as would be her acute malnutrition. However, she does note that it has been progressively going on for about 6 months and while likely this cirrhosis has been progressing during that time, certainly being a 66-year-old female smoker with hypertension and hyperlipidemia she warrants a degree of cardiac workup. We will start with a resting echocardiogram and have a low threshold for stress testing when or if she is able if there are any abnormalities. 2. Cirrhosis with ascites. Certainly one of the bigger problems is that she is accumulating fluid on the venous side of circulation, while appearing arterially volume deplete, she was hypotensive. Her creatinine is up. She is electrolyte deplete. I discussed with her the delicate balance on being simultaneously "wet and dry" although currently given that her symptoms are much more dehydration related we will start her on IV fluids and then ask gastroenterology for assistance in managing the cirrhosis. I did applaud her sobriety and noted that with a normal bilirubin and a normal INR, hopefully, she can stabilize her situation with abstinence from alcohol. 3. Hypomagnesemia. This probably is contributing to her weakness and fatigue. She has been given 2 grams in the Emergency Room. We will give her another 2 grams and follow up her labs in the morning. 4. Vitamin D deficiency, certainly she is low enough that is probably contributing to fatigue and weakness as well; we will supplement aggressively. 5. Thiamine deficiency. We will supplement as well as supplement other B vitamins for completeness. 6. Tobacco abuse. Supportive care, nicotine patch if needed. 7. Acute malnutrition, it appears she has had a fairly poor oral intake. It is hard to tell if her low albumin is from just poor intake versus poor synthetic function, but given that her bilirubin is normal and her PT/INR is relatively normal probably more from malnutrition. Follow up as an outpatient after ongoing p.o. intake. 8. Very mildly elevated PT/INR. Give her vitamin K and follow for correction. 9. Anemia. She is far better than she was previously, follow up in the a.m. 10. Mild leukocytosis, no signs or symptoms of infection. 11. Deep venous thrombosis prophylaxis, compression. 12. Previously elevated ferritin; we will ask to have repeat iron studies done in the morning for new look at things, certainly while she has got enough alcohol abuse to contribute to cirrhosis, should she have an iron deposition disorder that certainly would need to be managed as well. SAMANTA
[2017-02-17] MEDS: THIAMINE HCL 100 MG TAB PO SCH (21:46)
[2017-02-17] MEDS: NSS + 20MEQ KCL 1000ML 1,000 ML IV SCH (21:55)
[2017-02-17] MEDS: MAGNESIUM SULFATE 1GM / D5W 1 GM in PREMIXED IN D5W 100 ML IV SCH ×2 (22:32→23:59)
[2017-02-18] VITALS (7 sets, daily range): BP systolic 95–105; BP diastolic 64–77; PULSE 88–98; TEMP 36.4–36.6; O2SAT 99
[2017-02-18] MEDS: LEVOTHYROXINE 125 MCG TAB PO SCH (05:08)
[2017-02-18 07:35] LABS: BASO % 0.2 %; BASO ABS # 0.03 K/uL (0-0.2); EOS % 0.3 %; HEMATOCRIT 29.2 % (37-47); IG% 0.2 %; LYMPH % 16.8 %; LYMPH ABS # 2.07 K/uL (1.2-3.4); MEAN CORPUSCULAR HEMOGLOBIN 36.9 pg (25-34); MEAN CORPUSCULAR HGB CONC 33.2 g/dl (32-36); MEAN PLATELET VOLUME 10.3 fL (7.4-10.4); MONO % 10.1 %; NEUT % 72.4 %; PLATELET COUNT 282 K/uL (130-400); RED BLOOD COUNT 2.63 M/uL (4.2-5.4); WHITE BLOOD COUNT 12.31 K/uL (4.8-10.8)
[2017-02-18] MEDS: NSS + 20MEQ KCL 1000ML 1,000 ML IV SCH ×3 (07:38→23:24)
[2017-02-18 07:40] LABS: INR 1.1 (0.9-1.1); PROTHROMBIN TIME (PATIENT) 11.8 SECONDS (9.0-12.0)
[2017-02-18] MEDS: CITALOPRAM 20 MG TAB PO SCH (07:42)
[2017-02-18] MEDS: MULTIVITAMIN TAB PO SCH (07:42)
[2017-02-18] MEDS: VITAMIN B COMPLEX TAB PO SCH (07:42)
[2017-02-18] MEDS: CHOLECALCIFEROL 1000 INTER.UNIT TAB PO SCH (07:43)
[2017-02-18] MEDS: THIAMINE HCL 100 MG TAB PO SCH ×2 (07:43→20:00)
[2017-02-18 08:03] LABS: BUN/CREATININE RATIO 14.8 (10-20); CREATININE 1.8 mg/dl (0.60-1.20); POTASSIUM 3.4 mmol/L (3.5-5.1)
--- NOTE | 2017-02-18 08:09 | Gastrointestinal Consultation ---
Gastrointestinal Consultation Date of Consultation: February 18, 2017 Attending Physician: Dr. Jerez Consulting Physician: Dr. Brar Reason for Consultation: Cirrhosis with ascites History of Present Illness Patient is a 66 year old female with a hx of ARF, anxiety, depression, hypothyroidism, hyperlipidemia and glaucoma who was admitted January 15 then [facility] ed January 17 during which GI was consulted for new alcoholic cirrhosis with ascites. She presented to the ED yesterday for weakness, poor po intake, continued ascites. GI is consulted for management of ascites. At the time of the previous admission, she had been drinking 3-4 alcoholic beverages/day for many years. During the previous admission, she underwent diagnostic paracentesis with high SAAG (1.8) 100 WBCs with 40% neutrophils and growth of staph but thought to be a contaminant which was not treated. She was seen in GI clinic by Jarad Pederson on 02/09 and at that time stated that she continued to drink but had "cut down." She was weak and hypotensive and was advised to present to the ED but refused. She was instructed to undergo a serological w/u and stated that she preferred to get those labs at [facility], but hadn't yet presented for those labs prior to this admission. EGD for screening for esophageal varices is scheduled for 03/05. She presented to the ED yesterday for weakness. On arrival, she was in ARF with BUN 28, Cr 2.0. CXR was normal. She is seen and examined while she is resting in bed. She is awake, alert, oriented and denies any confusion, GI bleeding, nausea, vomiting, jaundice. Prior Testing: RUQ US 01/16/17: The liver is echogenic. There is slight nodularity of the liver surface. The sensitivity for detection of hepatic lesions is diminished on this exam but none are identified. The pancreas is obscured by overlying bowel gas. No gallstones are identified. There may be a small amount of sludge within the gallbladder. Gallbladder wall thickness is at the upper limits of normal. There is no biliary ductal dilatation. There is no right hydronephrosis. There is moderate abdominal ascites. Paracentesis 01/16/17: Ultrasound-guided diagnostic and therapeutic paracentesis with removal of 3 liters of ascites. One liter of ascites was sent to the laboratory for analysis. This grew coag negative staph (not lugdunesis) was thought to be a contaminant and primary team did not treat her for SBP. Peritoneal WBC 101, Polynuclear WBC 30%, SAAG 1.8 ABD XR 01/15/17: There is no free air. There are several prominent loops of small bowel within the central abdomen. There is no convincing evidence for a bowel obstruction. 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 ABD US 01/15/17: The liver is echogenic. There is slight nodularity of the liver surface. The sensitivity for detection of hepatic lesions is diminished on this exam but none are identified. The pancreas is obscured by overlying bowel gas. No gallstones are identified. There may be a small amount of sludge within the gallbladder. Gallbladder wall thickness is at the upper limits of normal. There is no biliary ductal dilatation. There is no right hydronephrosis. There is moderate abdominal ascites. Colonoscopy 06/02/16: A 4 mm polyp was found in the rectum. The polyp was sessile. The polyp was removed with a cold snare. Resection and retrieval were complete. Internal hemorrhoids were found during retroflexion. The hemorrhoids were small. Colonoscopy 02/07/10: A sessile polyp was found in the transverse colon. The polyp was 2 mm in size. The polyp was removed with a jumbo cold forceps. Resection and retrieval were complete. Past Medical/Surgical History Medical Problems: (1) Acute kidney injury Status: Acute (2) Dehydration Status: Acute (3) Hypomagnesemia Status: Acute (4) Hypomagnesemia Status: Acute (5) Hypotension Status: Acute (6) Malaise and fatigue Status: Acute (7) Weakness Status: Acute Past Medical History: ARF, anxiety, depression, hypothyroidism, hyperlipidemia and glaucoma Past Surgical History: Colonoscopy Social History Smoking Status: Never Smoker Alcohol Use: none Marital Status: single Occupation Status: retired Allergies Coded Allergies: Acetaminophen (Verified Allergy, Unknown, UNKNOWN, 05/06/13) Current Medications Home Meds and Scripts Medications Dose Route/Sig Max Daily Dose Days Date Category Citalopram Hydrobromide 20 Mg Tab 20 Mg PO DAILY 02/17/17 Reported Atorvastatin Calcium (Atorvastatin) 20 Mg Tab 20 Mg PO DAILY 01/15/17 Reported Levothyroxine Sodium 125 Mcg Tab 125 Mcg PO DAILY 01/15/17 Reported Review of Systems Constitutional: + weakness, No chills, No fever, No sweats, No weight loss Eyes: No eye pain, No redness ENT: No pain on swallowing, No sore throat, No trouble swallowing Respiratory: No cough, No dyspnea on exertion, No shortness of breath, No wheezing Cardiac: No chest pain, No edema, No palpitations Abdomen: + problem reported (enlarging abdomen), + see HPI Neuro: No balance problems, No memory loss, No numbness/tingling, No vertigo, No weakness Psych: No anxiety, No depression symptoms, No insomnia Heme: No abnormal bleeding/bruising, No night sweats Endo: No excessive thirst, No excessive urination Skin: No itch, No jaundice, No new/changing skin lesions, No rash Physical Exam Date Time Temp Pulse Resp B/P Pulse Ox O2 Delivery O2 Flow Rate FiO2 02/18/17 07:03 36.6 88 18 103/70 99 Room Air 02/18/17 00:00 Room Air 02/17/17 21:12 Room Air 02/17/17 20:54 36.6 96 20 116/79 97 Room Air 02/17/17 20:24 36.7 105 16 131/91 99 02/17/17 20:16 105 16 131/91 99 Room Air 02/17/17 19:40 103 16 99 02/17/17 19:30 119/87 02/17/17 19:10 99 20 99 02/17/17 19:05 101 19 93 02/17/17 19:00 116/88 02/17/17 18:35 101 18 02/17/17 18:30 102/81 02/17/17 18:05 98 21 93 02/17/17 18:00 101/67 02/17/17 17:58 93 17 99 02/17/17 17:53 93 20 99 02/17/17 17:30 109/80 02/17/17 17:23 98 16 96 02/17/17 17:08 98 22 109/79 93 02/17/17 17:00 109/79 02/17/17 16:53 95 17 99 02/17/17 16:45 121/82 02/17/17 16:34 100 20 111/72 98 Room Air 02/17/17 16:33 111/72 02/17/17 16:29 104 02/17/17 16:23 105 20 02/17/17 15:57 36.7 98 20 77/69 95 Room Air General Appearance: no apparent distress Eyes: normal inspection, EOMI Neck: supple, no adenopathy, thyroid normal, no JVD Respiratory/Chest: chest non-tender, lungs clear, normal breath sounds, no accessory muscle use Cardiovascular: regular rate, rhythm, no JVD, no murmur Abdomen: normal bowel sounds, + distended (moderate ascites) Extremities: normal inspection, no pedal edema, normal capillary refill Neurologic/Psych: alert, normal mood/affect, oriented x 3 Skin: normal color, no jaundice, warm/dry, no rash Laboratory Results Last 24 Hours Test 02/17/17 16:15 02/17/17 16:37 02/17/17 17:34 02/18/17 07:00 White Blood Count 13.40 K/uL 12.31 K/uL Red Blood Count 3.09 M/uL 2.63 M/uL Hemoglobin 11.5 g/dL 9.7 g/dL Hematocrit 34.7 % 29.2 % Mean Corpuscular Volume 112.3 fL 111.0 fL Mean Corpuscular Hemoglobin 37.2 pg 36.9 pg Mean Corpuscular Hemoglobin Concent 33.1 g/dl 33.2 g/dl Platelet Count 371 K/uL 282 K/uL Mean Platelet Volume 10.6 fL 10.3 fL Neutrophils (%) (Auto) 74.6 % 72.4 % Lymphocytes (%) (Auto) 16.1 % 16.8 % Monocytes (%) (Auto) 8.7 % 10.1 % Eosinophils (%) (Auto) 0.1 % 0.3 % Basophils (%) (Auto) 0.3 % 0.2 % Neutrophils # (Auto) 9.99 K/uL 8.90 K/uL Lymphocytes # (Auto) 2.16 K/uL 2.07 K/uL Monocytes # (Auto) 1.16 K/uL 1.24 K/uL Eosinophils # (Auto) 0.02 K/uL 0.04 K/uL Basophils # (Auto) 0.04 K/uL 0.03 K/uL RDW Standard Deviation 54.4 fL 53.4 fL RDW Coefficient of Variation 13.6 % 13.4 % Immature Granulocyte % (Auto) 0.2 % 0.2 % Immature Granulocyte # (Auto) 0.03 K/uL 0.03 K/uL Macrocytosis PRESENT Erythrocyte Sedimentation Rate 41 mm/hr Sodium Level 135 mmol/L Potassium Level 3.5 mmol/L Chloride Level 98 mmol/L Carbon Dioxide Level 28 mmol/L Anion Gap 9.0 mmol/L Blood Urea Nitrogen 28 mg/dl Creatinine 2.00 mg/dl Estimated GFR () 29.6 Estimated GFR (Non- 25.6 BUN/Creatinine Ratio 13.9 Random Glucose 115 mg/dl Calcium Level 8.1 mg/dl Phosphorus Level 2.9 mg/dl Magnesium Level 1.2 mg/dl Iron Level 48 mcg/dl Total Iron Binding Capacity 103 mcg/dl Transferrin 93 mg/dl Transferrin % Saturation 37 % Ferritin 1013.6 ng/ml Total Bilirubin 0.8 mg/dl Aspartate Amino Transf (AST/SGOT) 22 U/L Alanine Aminotransferase (ALT/SGPT) 12 U/L Alkaline Phosphatase 200 U/L Ammonia 11.0 umol/L Total Creatine Kinase 22 U/L Creatine Kinase MB < 0.5 ng/ml Creatine Kinase MB Ratio Troponin I < 0.015 ng/ml C-Reactive Protein 5.86 mg/dl Pro-B-Type Natriuretic Peptide 1430 pg/ml Total Protein 6.7 gm/dl Albumin 2.2 gm/dl Globulin 4.5 gm/dl Albumin/Globulin Ratio 0.5 Lipase 90 U/L Random Cortisol 30.85 mcg/dl Bedside Lactic Acid Venous 2.65 mmol/L Prothrombin Time 12.7 SECONDS Prothromb Time International Ratio 1.2 Activated Partial Thromboplast Time 29.9 SECONDS Partial Thromboplastin Ratio 1.2 Impression Patient is a 66 year old female with alcoholic cirrhosis with ascites. She has had reaccumulation of ascites as well as acute worsening of renal function appearing a bit dehydrated. Plan 1. Increase IV fluids to 150/hr. 2. 5 or 6 volume US guided paracentesis with 25 grams of albumin before and after. 3. Low sodium diet. 4. Complete alcohol abstention. 5. EGD as previously scheduled as OP for next week or if remains hospitalized it could be done as an IP - the purpose being to screen for esophageal varices. I have seen , examined and agree with the plan as outlined by NORMA Gallagher as above. -exam reveals soft abd but distended with ascites -no HE -No signs of bleeding
[2017-02-18 08:16] LABS: THYROID STIMULATING HORMONE 3.5 uIu/ml (0.300-4.500)
[2017-02-18 08:22] LABS: COMPLETE YES
[2017-02-18] MEDS ORDERED: ERGOCALCIFEROL 50,000 INTER.UNIT CAP PO SCH (09:00)
[2017-02-18] MEDS: ALBUMIN HUMAN 25% 12.5 GM/50 ML VIAL IV SCH ×2 (11:57→12:42)
--- NOTE | 2017-02-18 13:30 | Hospitalist Progress Note ---
Hospitalist Progress Note Date of Service February 18, 2017. (Buffy Degroot ., OLIVER-C) Subjective Pt evaluation today including: conversation w/ patient, physical exam, chart review, lab review, review of studies, conversation w/ market consultant (Spoke with Dr. Brar and Becki Triana), review of inpatient medication list Pain: None PO Intake: Tolerating PO diet Voiding: no voiding problems Patient reports feeling very weak and fatigued but is otherwise well. She denies any shortness of breath or dyspnea on exertion. She does admit to intermittent nausea and vomiting, but this appears to be chronic. She's been eating well while in the hospital because the food has been brought to her. The patient denies fevers, chills, sweats, chest pain, palpitations, claudication, cough, wheezing, shortness of breath, abdominal pain, dysuria, hematuria, urinary retention, paralysis, numbness and tingling. Additional Comments: See HPI for pertinent positives and negatives. All other systems reviewed and negative. (Buffy Degroot ., PA-C) Objective Vital Signs Date Time Temp Pulse Resp B/P Pulse Ox O2 Delivery O2 Flow Rate FiO2 02/18/17 13:02 98 105/77 02/18/17 11:58 96 95/64 02/18/17 08:00 Room Air 02/18/17 07:03 36.6 88 18 103/70 99 Room Air 02/18/17 00:00 Room Air 02/17/17 21:12 Room Air 02/17/17 20:54 36.6 96 20 116/79 97 Room Air 02/17/17 20:24 36.7 105 16 131/91 99 02/17/17 20:16 105 16 131/91 99 Room Air 02/17/17 19:40 103 16 99 02/17/17 19:30 119/87 02/17/17 19:10 99 20 99 02/17/17 19:05 101 19 93 02/17/17 19:00 116/88 02/17/17 18:35 101 18 02/17/17 18:30 102/81 02/17/17 18:05 98 21 93 02/17/17 18:00 101/67 02/17/17 17:58 93 17 99 02/17/17 17:53 93 20 99 02/17/17 17:30 109/80 02/17/17 17:23 98 16 96 02/17/17 17:08 98 22 109/79 93 02/17/17 17:00 109/79 02/17/17 16:53 95 17 99 02/17/17 16:45 121/82 02/17/17 16:34 100 20 111/72 98 Room Air 02/17/17 16:33 111/72 02/17/17 16:29 104 02/17/17 16:23 105 20 02/17/17 15:57 36.7 98 20 77/69 95 Room Air (Buffy Degroot ., PA-C) Physical Exam Notes: General appearance: Well-developed, well-nourished, no apparent distress Head: Normocephalic, atraumatic Eyes: Normal inspection, PERRL, EOMI ENT: Normal ENT inspection, hearing grossly normal, pharynx normal Neck: Supple, no JVD, trachea midline Respiratory/Chest: Lungs clear to auscultation, normal breath sounds, no respiratory distress Cardiovascular: Regular rate & rhythm, no gallop, no murmur Abdomen/GI: +distended, ascites. Normal bowel sounds, non-tender Extremities/Musculoskeletal: Normal inspection, no calf tenderness, no pedal edema Neurological/Psych: Alert, normal mood/affect, oriented x 3 Skin: Normal color, warm/dry, no rash (Buffy Degroot ., PA-C) Laboratory Results Last 24 Hours Test 02/17/17 16:15 02/17/17 16:37 02/17/17 17:34 02/18/17 07:00 White Blood Count 13.40 K/uL 12.31 K/uL Red Blood Count 3.09 M/uL 2.63 M/uL Hemoglobin 11.5 g/dL 9.7 g/dL Hematocrit 34.7 % 29.2 % Mean Corpuscular Volume 112.3 fL 111.0 fL Mean Corpuscular Hemoglobin 37.2 pg 36.9 pg Mean Corpuscular Hemoglobin Concent 33.1 g/dl 33.2 g/dl Platelet Count 371 K/uL 282 K/uL Mean Platelet Volume 10.6 fL 10.3 fL Neutrophils (%) (Auto) 74.6 % 72.4 % Lymphocytes (%) (Auto) 16.1 % 16.8 % Monocytes (%) (Auto) 8.7 % 10.1 % Eosinophils (%) (Auto) 0.1 % 0.3 % Basophils (%) (Auto) 0.3 % 0.2 % Neutrophils # (Auto) 9.99 K/uL 8.90 K/uL Lymphocytes # (Auto) 2.16 K/uL 2.07 K/uL Monocytes # (Auto) 1.16 K/uL 1.24 K/uL Eosinophils # (Auto) 0.02 K/uL 0.04 K/uL Basophils # (Auto) 0.04 K/uL 0.03 K/uL RDW Standard Deviation 54.4 fL 53.4 fL RDW Coefficient of Variation 13.6 % 13.4 % Immature Granulocyte % (Auto) 0.2 % 0.2 % Immature Granulocyte # (Auto) 0.03 K/uL 0.03 K/uL Macrocytosis PRESENT PRESENT Erythrocyte Sedimentation Rate 41 mm/hr Sodium Level 135 mmol/L 136 mmol/L Potassium Level 3.5 mmol/L 3.4 mmol/L Chloride Level 98 mmol/L 102 mmol/L Carbon Dioxide Level 28 mmol/L 27 mmol/L Anion Gap 9.0 mmol/L 7.0 mmol/L Blood Urea Nitrogen 28 mg/dl 27 mg/dl Creatinine 2.00 mg/dl 1.80 mg/dl Estimated GFR () 29.6 33.6 Estimated GFR (Non- 25.6 29.0 BUN/Creatinine Ratio 13.9 14.8 Random Glucose 115 mg/dl 106 mg/dl Calcium Level 8.1 mg/dl 8.0 mg/dl Phosphorus Level 2.9 mg/dl Magnesium Level 1.2 mg/dl 2.0 mg/dl Iron Level 48 mcg/dl Total Iron Binding Capacity 103 mcg/dl Transferrin 93 mg/dl Transferrin % Saturation 37 % Ferritin 1013.6 ng/ml Total Bilirubin 0.8 mg/dl Aspartate Amino Transf (AST/SGOT) 22 U/L Alanine Aminotransferase (ALT/SGPT) 12 U/L Alkaline Phosphatase 200 U/L Ammonia 11.0 umol/L Total Creatine Kinase 22 U/L Creatine Kinase MB < 0.5 ng/ml Creatine Kinase MB Ratio Troponin I < 0.015 ng/ml C-Reactive Protein 5.86 mg/dl Pro-B-Type Natriuretic Peptide 1430 pg/ml Total Protein 6.7 gm/dl Albumin 2.2 gm/dl Globulin 4.5 gm/dl Albumin/Globulin Ratio 0.5 Lipase 90 U/L Random Cortisol 30.85 mcg/dl Bedside Lactic Acid Venous 2.65 mmol/L Prothrombin Time 12.7 SECONDS 11.8 SECONDS Prothromb Time International Ratio 1.2 1.1 Activated Partial Thromboplast Time 29.9 SECONDS Partial Thromboplastin Ratio 1.2 Est Creatinine Clear Calc Drug Dose 31.0 ml/min Thyroid Stimulating Hormone (TSH) 3.500 uIu/ml (Buffy Degroot ., PA-C) Assessment and Plan 66 y/o female with a history of alcoholic cirrhosis with ascites, COPD, hypertension, hyperlipidemia, hypothyroidism, and CKD stage III presented to the ED with weakness and fatigue. Fatigue secondary to alcoholic cirrhosis and ascites--stable -Admit to [facility] -Consult GI, appreciate recs. Spoke briefly with Dr. Brar and Becki Triana of who recommended the patient's IVF rate be increased due to patient's ASHELY. Pt will have paracentesis. -Echocardiogram pending -TSH, random cortisol, and ammonia levels within normal limits -INR within normal limits at 1.1 on 02/18 -Ferritin and ESR elevated ASHELY on CKD stage III--baseline creatinine appears to be around 1.0-1.2. Improving -Creatinine 2.0 on arrival -Creatinine 1.8 on 02/18 -IVF rate increased, NSS + 20 mEQ KCl 150 cc/hr Hypomagnesemia--resolved -Magnesium 1.2 on arrival -Patient received a total of 4 g of magnesium sulfate IV -Repeat magnesium 2.0 on 02/18, continue to monitor Leukocytosis--improving -WBC 13.40 on arrival -No s/s of infection -WBC 12/31 on 02/18 -Paracentesis fluid will be sent for culture DVT prophylaxis -SOREN freed and Skyler This chart was completed in part utilizing [employer] Speech Voice Recognition software. Attempts were made to minimize the grammatical errors, random word insertions, pronoun errors and incomplete sentences. Any formal questions or concerns about the content, text or information contained within the body of this dictation should be directly addressed to the provider for clarification. (Buffy Dgeroot ., OLIVER-C) I agree with PA assessment and plan and have seen and examined pt myself Resting comfortably in bed Admitted with fatigue, hx of alcoholic cirrhosis ?if cessation with alcohol Ascites noted Due for paracentesis ASHELY noted IVF started GI consulted and appreciate recs, may benefit from diuretics if ASHELY improves (Elvis Garner D.O.)
[2017-02-18] MEDS ORDERED: ALBUMIN HUMAN 25% 12.5 GM/50 ML VIAL IV SCH (14:00)
--- NOTE | 2017-02-18 15:28 | DIAGNOSTIC IMAGING REPORT ---
ULTRASOUND GUIDED DIAGNOSTIC AND THERAPEUTIC PARACENTESIS CLINICAL HISTORY: Ascites. COMPARISON STUDY: Ultrasound guided paracentesis January 16, 2017 PROCEDURE: The risks, benefits, and alternatives to the procedure were discussed with the patient including the risk of bleeding, infection and injury to adjacent structures. The patient agreed to the procedure and informed written consent was obtained. Following real-time ultrasound localization, the skin of the left lower quadrant was prepped and draped. Following local anesthesia with Xylocaine, the sheath paracentesis needle was inserted and approximately 5 liters of straw-colored fluid was removed by vacuum suction. One bottle of ascites was sent to laboratory as ordered. The patient tolerated the procedure well and no immediate complications were evident. IMPRESSION: Ultrasound-guided diagnostic and therapeutic paracentesis with removal of 5 liters of ascites. Electronically signed by: Titi Horne M.D. 02/18/2017 3:27 PM Dictated Date/Time: 02/18/2017 3:19 PM
[2017-02-18] MEDS ORDERED: SODIUM CHLORIDE 0.9% 1000ML 1,000 ML IV SCH (16:00)
[2017-02-18 17:42] LABS: PERIT FL WBC 70 /uL (0-300); PERITONEAL FLUID RBC < 3000 /uL
--- NOTE | 2017-02-18 18:00 | ECHOCARDIOGRAM REPORT ---
*NOTICE TO RECEIVING REPUBLICAN AGENCY This information is strictly Confidential and protected under [place] law. [place] law prohibits you from making any further disclosure of this information unless further disclosure is expressly permitted by the written consent of the person to whom it pertains or is authorized by law. A general authorization for the release of medical or other information is not sufficient for this purpose. Hospital accepts no responsibility if the information is made available to any other person, INCLUDING THE PATIENT. Interpretation Summary * Name: ZEINAB RHODES Study Date: 02/18/2017 03:47 PM BP: 103/70 mmHg * Patient Location: .MS4W\S\W450\S\1 HR: 89 * : 1950 (M/d/yyyy) Gender: Female Height: 65 in * Age: 66 yrs Ethnicity: [place] Weight: 150 lb * Ordering Physician: Ray Mack * Referring Physician: Self, Referred * Performed By: Ruben Sullivan RCS * * Reason For Study: Fatigue * BSA: 1.8 m2 * Normal biventricular systolic function. * Normal chamber dimensions. * Type I left ventricular diastolic dysfunction. * Trace - mild mitral and tricuspid regurgitation. * Minimally elevated estimated right ventricular systolic pressure, Procedure Details * A complete two-dimensional transthoracic echocardiogram was performed (2D, M-mode, Doppler and color flow Doppler). Left Ventricle * The left ventricle is normal in size. * There is normal left ventricular wall thickness. * Left ventricular systolic function is normal. * A full diastolic examination was done with clinical findings of Class I diastolic dysfunction. * Ejection Fraction = 65-70%. Right Ventricle * The right ventricle is normal in size and function. * There is normal right ventricular wall thickness. Atria * The left atrial size is normal. * Right atrial size is normal. * No ASD detected; PFO is not assessed. Mitral Valve * The mitral valve is normal. * There is no mitral valve stenosis. * Trace - mild mitral regurgitation. Tricuspid Valve * The tricuspid valve is normal. * There is no tricuspid stenosis. * Trace - mild tricuspid regurgitation.Estimated right ventricular systolic pressure 30-33 mm Hg. Aortic Valve * The aortic valve is trileaflet. * The aortic valve opens well. * Aortic stenosis is absent. * No aortic regurgitation is present. Pulmonic Valve * The pulmonic valve is not well seen, but is grossly normal. * There is no pulmonic valvular stenosis. * There is no pulmonic valvular regurgitation. Great Vessels * The aortic root is normal size. Pericardium/Pleural * There is no pericardial effusion. Great Vessels * Normal inferior vena cava diameter and respiratory variation suggests normal central venous pressure. MMode 2D Measurements and Calculations IVSd 1.0 cm IVSs 1.2 cm LVIDd 4.3 cm LVIDs 2.7 cm LVPWd 1.0 cm LVPWs 1.2 cm IVS/LVPW 0.99 FS 36.1 % EDV(Teich) 81.2 ml ESV(Teich) 27.6 ml EF(Teich) 66.0 % EDV(cubed) 77.3 ml ESV(cubed) 20.2 ml EF(cubed) 73.9 % % IVS thick 16.0 % % LVPW thick 13.9 % LV mass(C)d 143.6 grams LV mass(C)dI 82.0 grams/m\S\2 LV mass(C)s 91.6 grams LV mass(C)sI 52.3 grams/m\S\2 CO(Teich) 4.9 l/min CI(Teich) 2.8 l/min/m\S\2 SV(Teich) 53.6 ml SI(Teich) 30.6 ml/m\S\2 CO(cubed) 5.2 l/min CI(cubed) 3.0 l/min/m\S\2 SV(cubed) 57.1 ml SI(cubed) 32.6 ml/m\S\2 Ao root diam 3.4 cm Ao root area 9.1 cm\S\2 ACS 2.1 cm LA dimension 3.6 cm LA/Ao 1.1 LVAd ap4 21.0 cm\S\2 LVLd ap4 6.8 cm EDV(MOD-sp4) 54.0 ml LVAs ap4 11.4 cm\S\2 LVLs ap4 5.7 cm ESV(MOD-sp4) 20.0 ml EF(MOD-sp4) 63.0 % LVAd ap2 22.9 cm\S\2 LVLd ap2 7.1 cm EDV(MOD-sp2) 61.0 ml LVAs ap2 11.2 cm\S\2 LVLs ap2 5.8 cm ESV(MOD-sp2) 18.0 ml EF(MOD-sp2) 70.5 % CO(MOD-sp4) 3.1 l/min CI(MOD-sp4) 1.8 l/min/m\S\2 SV(MOD-sp4) 34.0 ml SI(MOD-sp4) 19.4 ml/m\S\2 CO(MOD-sp2) 3.9 l/min CI(MOD-sp2) 2.2 l/min/m\S\2 SV(MOD-sp2) 43.0 ml SI(MOD-sp2) 24.6 ml/m\S\2 Doppler Measurements and Calculations MV E max tamiko 87.9 cm/sec MV A max tamiko 103.5 cm/sec MV E/A 0.85 MV P1/2t max tamiko 104.2 cm/sec MV P1/2t 52.8 msec MVA(P1/2t) 4.2 cm\S\2 MV dec slope 578.4 cm/sec\S\2 MV dec time 0.18 sec Ao V2 max 119.5 cm/sec Ao max PG 5.7 mmHg Ao max PG (full) 0.87 mmHg LV V1 max PG 4.8 mmHg LV V1 max 110.0 cm/sec PA V2 max 68.6 cm/sec PA max PG 1.9 mmHg TR max tamiko 260.6 cm/sec
[2017-02-19] VITALS (8 sets, daily range): BP systolic 87–96; BP diastolic 50–65; PULSE 81–100; TEMP 36.7–36.9; O2SAT 91–99
[2017-02-19] MEDS: NSS + 20MEQ KCL 1000ML 1,000 ML IV SCH ×3 (05:55→18:54)
[2017-02-19] MEDS: LEVOTHYROXINE 125 MCG TAB PO SCH (05:55)
[2017-02-19 06:33] LABS: HEMATOCRIT 27.1 % (37-47); MEAN CELL VOLUME 111.5 fL (80-100); MEAN CORPUSCULAR HGB CONC 33.2 g/dl (32-36); MEAN PLATELET VOLUME 10.3 fL (7.4-10.4); PLATELET COUNT 229 K/uL (130-400); RED BLOOD COUNT 2.43 M/uL (4.2-5.4); WHITE BLOOD COUNT 11.66 K/uL (4.8-10.8)
[2017-02-19 07:15] LABS: BUN/CREATININE RATIO 17.7 (10-20); CALCIUM 7.2 mg/dl (8.5-10.1); CREATININE 1.4 mg/dl (0.60-1.20); MAGNESIUM 1.7 mg/dl (1.8-2.4); POTASSIUM 4.7 mmol/L (3.5-5.1)
[2017-02-19] MEDS: CITALOPRAM 20 MG TAB PO SCH (07:34)
[2017-02-19] MEDS: CHOLECALCIFEROL 1000 INTER.UNIT TAB PO SCH (07:34)
[2017-02-19] MEDS: MULTIVITAMIN TAB PO SCH (07:34)
[2017-02-19] MEDS: THIAMINE HCL 100 MG TAB PO SCH ×2 (07:34→20:48)
[2017-02-19] MEDS: VITAMIN B COMPLEX TAB PO SCH (07:34)
[2017-02-19] MEDS: MAGNESIUM OXIDE 400 MG TAB PO SCH ×2 (08:53→20:48)
--- NOTE | 2017-02-19 12:36 | Progress Note ---
Subjective Date of Service: February 19, 2017. Subjective Pt evaluation today including: conversation w/ patient, physical exam, chart review, lab review, review of studies, review of inpatient medication list Resting comfortably in bed States feeling better s/p paracentesis Mild abd pain No fevers or chills or acute events overnight Problem List Medical Problems: (1) Acute kidney injury Status: Acute (2) Dehydration Status: Acute (3) Hypomagnesemia Status: Acute (4) Hypomagnesemia Status: Acute (5) Hypotension Status: Acute (6) Malaise and fatigue Status: Acute (7) Weakness Status: Acute Review of Systems Constitutional: No chills, No fever Respiratory: No cough, No shortness of breath, No sputum, No wheezing Cardiac: No chest pain, No orthopnea Abdomen: + pain, No constipation, No diarrhea, No nausea, No vomiting Musculoskeletal: No joint pain, No muscle pain Female : No dysuria, No urinary frequency Objective Vital Signs Date Time Temp Pulse Resp B/P Pulse Ox O2 Delivery O2 Flow Rate FiO2 02/19/17 08:00 Room Air 02/19/17 07:21 36.7 82 18 96/63 94 Room Air 02/19/17 00:41 36.8 81 81 87/50 93 Room Air 02/19/17 00:00 99 Room Air 02/18/17 20:00 99 Room Air 02/18/17 16:56 92 18 100/65 99 Room Air 02/18/17 16:03 Room Air 02/18/17 15:22 36.4 89 16 103/70 99 Room Air 02/18/17 13:02 98 105/77 Physical Exam General Appearance: WD/WN, no apparent distress Neck: supple, no adenopathy Respiratory/Chest: lungs clear, normal breath sounds Cardiovascular: no edema, no gallop Abdomen: normal bowel sounds, soft, + tenderness Neurologic/Psychiatric: alert, oriented x 3 Laboratory Results Last 24 Hours Test 02/19/17 05:45 White Blood Count 11.66 K/uL Red Blood Count 2.43 M/uL Hemoglobin 9.0 g/dL Hematocrit 27.1 % Mean Corpuscular Volume 111.5 fL Mean Corpuscular Hemoglobin 37.0 pg Mean Corpuscular Hemoglobin Concent 33.2 g/dl RDW Standard Deviation 54.7 fL RDW Coefficient of Variation 13.6 % Platelet Count 229 K/uL Mean Platelet Volume 10.3 fL Sodium Level 141 mmol/L Potassium Level 4.7 mmol/L Chloride Level 108 mmol/L Carbon Dioxide Level 28 mmol/L Anion Gap 5.0 mmol/L Blood Urea Nitrogen 25 mg/dl Creatinine 1.40 mg/dl Est Creatinine Clear Calc Drug Dose 39.9 ml/min Estimated GFR () 45.6 Estimated GFR (Non- 39.3 BUN/Creatinine Ratio 17.7 Random Glucose 84 mg/dl Calcium Level 7.2 mg/dl Magnesium Level 1.7 mg/dl Assessment and Plan 66 y/o female with a history of alcoholic cirrhosis with ascites, COPD, hypertension, hyperlipidemia, hypothyroidism, and CKD stage III presented to the ED with weakness and fatigue. Fatigue secondary to alcoholic cirrhosis and ascites--stable -Admit to MedSurg -Consult GI, appreciate recs. - Paracentesis on 02/18 with 5L removed and albumin given before and after procedure, awaiting analysis -Echocardiogram pending -EGD as outpt to eval for varices -TSH, random cortisol, and ammonia levels within normal limits -Ferritin and ESR elevated ASHELY on CKD stage III--baseline creatinine appears to be around 1.0-1.2. Improving -Creatinine 2.0 on arrival -Creatinine 1.8 on 02/18 to 1.4 on 02/19 -IVF rate increased, NSS + 20 mEQ KCl 150 cc/hr Hypomagnesemia--resolved -Magnesium 1.2 on arrival -Patient received a total of 4 g of magnesium sulfate IV -Repeat magnesium 2.0 on 02/18, continue to monitor Leukocytosis--improving -WBC 13.40 on arrival -No s/s of infection -Paracentesis fluid will be sent for culture DVT prophylaxis -SOREN freed and SCDs
--- NOTE | 2017-02-19 14:21 | Gastroenterology Progress Note ---
Progress Note Date of Service: February 19, 2017 Subjective Pt evaluation today including: conversation w/ patient, physical exam, chart review, lab review, review of studies, review of inpatient medication list Pt c/o diarrhea since this AM. Had 5L ascites removed via paracentesis yesterday , no SBP. She denies any nausea, vomiting, abd pain. Tolerating regular breakfast today. Cr down from 1.8 to 1.4 Review of Systems Constitutional: No chills, No fever Respiratory: No cough, No shortness of breath Cardiac: No chest pain, No edema Abdomen: + diarrhea, No nausea, No pain, No vomiting Medications Current Inpatient Medications Medications (Trade) Dose Ordered Sig/Brett Route Start Time Stop Time Status Last Admin Dose Admin Al Hydrox/Mg Hydrox/Simethicone (Maalox Max Susp) 15 ml Q4H PRN PO 02/17/17 20:15 03/19/17 20:14 Magnesium Hydroxide (Milk Of Magnesia Susp) 30 ml Q6H PRN PO 02/17/17 20:15 03/19/17 20:14 Polyethylene (Miralax Powder Packet) 17 gm DAILY PRN PO 02/17/17 21:30 03/19/17 21:29 Ondansetron HCl 4 mg 4 mg Q6H PRN IV 02/17/17 20:15 03/19/17 20:14 02/18/17 19:38 4 MG Potassium Chloride/Sodium Chloride (Nss + 20meq KCl 1000ml) 1,000 ml @ 150 mls/hr Q6H40M IV 02/17/17 21:00 03/19/17 20:59 02/19/17 11:45 150 MLS/HR Citalopram Hydrobromide (celeXA TAB) 20 mg DAILY PO 02/18/17 08:00 03/20/17 08:59 02/19/17 07:34 20 MG Levothyroxine Sodium (Synthroid Tab) 125 mcg DAILYBB PO 02/18/17 06:30 03/20/17 06:29 02/19/17 05:55 125 MCG Ergocalciferol (Vitamin D Cap) 50,000 interunit We@0900 PO 02/18/17 09:00 03/20/17 08:59 02/18/17 07:43 50,000 INTERUNIT Cholecalciferol (Vitamin D Tab) 4,000 inter.unit QAM PO 02/18/17 08:00 03/20/17 08:59 02/19/17 07:34 4,000 INTER.UNIT Thiamine HCl (Vitamin B-1 Tab) 100 mg BID PO 02/17/17 20:49 03/19/17 20:59 02/19/17 07:34 100 MG Vitamin B Complex (Vitamin B Complex) 1 tab QAM PO 02/18/17 08:00 03/20/17 08:59 02/19/17 07:34 1 TAB Multivitamins (Multivitamin Tab) 1 tab QAM PO 02/18/17 08:00 03/20/17 08:59 02/19/17 07:34 1 TAB Miscellaneous (Iv Fluids Completed) 1 ea PRN PRN N/A 02/17/17 20:45 02/17/18 20:44 Magnesium Oxide (Mag-Ox Tab) 400 mg BID PO 02/19/17 08:00 03/21/17 07:59 02/19/17 08:53 400 MG Objective Vital Signs Date Time Temp Pulse Resp B/P Pulse Ox O2 Delivery O2 Flow Rate FiO2 02/19/17 12:33 82 94 02/19/17 08:00 Room Air 02/19/17 07:21 36.7 82 18 96/63 94 Room Air 02/19/17 00:41 36.8 81 81 87/50 93 Room Air 02/19/17 00:00 99 Room Air 02/18/17 20:00 99 Room Air 02/18/17 16:56 92 18 100/65 99 Room Air 02/18/17 16:03 Room Air 02/18/17 15:22 36.4 89 16 103/70 99 Room Air Physical Exam General Appearance: WD/WN, no apparent distress Eyes: normal inspection, PERRL, EOMI Neck: supple, no JVD, trachea midline Respiratory/Chest: no respiratory distress, no accessory muscle use, + decreased breath sounds (bases diminished, otherwise clear. ) Cardiovascular: regular rate, rhythm, no gallop, no murmur Abdomen: normal bowel sounds, non tender, soft Extremities: + swelling (+3 pitting edema on legs) Neurologic/Psych: alert, normal mood/affect, oriented x 3 Skin: no jaundice, no rash, + pallor Laboratory Results Last 24 Hours Test 02/19/17 05:45 White Blood Count 11.66 K/uL Red Blood Count 2.43 M/uL Hemoglobin 9.0 g/dL Hematocrit 27.1 % Mean Corpuscular Volume 111.5 fL Mean Corpuscular Hemoglobin 37.0 pg Mean Corpuscular Hemoglobin Concent 33.2 g/dl RDW Standard Deviation 54.7 fL RDW Coefficient of Variation 13.6 % Platelet Count 229 K/uL Mean Platelet Volume 10.3 fL Sodium Level 141 mmol/L Potassium Level 4.7 mmol/L Chloride Level 108 mmol/L Carbon Dioxide Level 28 mmol/L Anion Gap 5.0 mmol/L Blood Urea Nitrogen 25 mg/dl Creatinine 1.40 mg/dl Est Creatinine Clear Calc Drug Dose 39.9 ml/min Estimated GFR () 45.6 Estimated GFR (Non- 39.3 BUN/Creatinine Ratio 17.7 Random Glucose 84 mg/dl Calcium Level 7.2 mg/dl Magnesium Level 1.7 mg/dl Assessment and Plan Patient is a 66 year old female with alcoholic cirrhosis admitted w weakness, ASHELY, ascites. - Plan for EGD eval to r/o varices tomorrow by Dr. Brar. Pls keep NPO after midnight. - Check stool cx and Cdiff - Defer diuretic use for now, given ASHELY which is resolving. If starting on pt, would use low dose and ask nephrology to follow as well. - 2g low salt diet. - ETOH cessation. - Would recommend PT eval, and case management involvement given pt doesn't have much family support, lives alone and given weakness I'm worried about a fall on DC also ETOH relapse. - In outpt setting need to have HCC screening [id number], Hep A and B vaccinations if not immune. She already has appt to see Jeannine GREEN on 03/13/17 for GI f/u. I have seen, examined, and agree with the plan as outlined above by NORMA Morales -Cr improved -s/p LVP with no signs of SBP -NPO p MN for EGD -Likely needs rehab for weakness
[2017-02-19 22:05] LABS: URINE APPEARANCE CLEAR (CLEAR); URINE COLOR DK YELLOW; URINE EPITHELIAL CELL AUTO >30 /lpf (0-5); URINE NITRITE NEG (NEG); URINE SPECIFIC GRAVITY 1.022 (1.000-1.030); UROBILINOGEN NEG (NEG); ZZUR CULT IF INDIC CLEAN CATCH YES
[2017-02-19 22:19] LABS: MANUAL MICROSCOPIC REQUIRED? NO; REVIEW REQ? YES; URINE BILIRUBIN NEG (NEG)
[2017-02-20] MEDS: NSS + 20MEQ KCL 1000ML 1,000 ML IV SCH (01:17)
[2017-02-20] MEDS: LEVOTHYROXINE 125 MCG TAB PO SCH (06:04)
[2017-02-20 06:40] LABS: HEMATOCRIT 27.7 % (37-47); MEAN CELL VOLUME 113.5 fL (80-100); MEAN CORPUSCULAR HEMOGLOBIN 37.3 pg (25-34); MEAN CORPUSCULAR HGB CONC 32.9 g/dl (32-36); MEAN PLATELET VOLUME 10.3 fL (7.4-10.4); PLATELET COUNT 254 K/uL (130-400); RED BLOOD COUNT 2.44 M/uL (4.2-5.4); WHITE BLOOD COUNT 11.69 K/uL (4.8-10.8)
[2017-02-20 07:11] VITALS: BP 90/56; PULSE 87; TEMP 37; O2SAT 93
[2017-02-20 07:23] LABS: BUN/CREATININE RATIO 17.7 (10-20); CALCIUM 7.6 mg/dl (8.5-10.1); CREATININE 1.2 mg/dl (0.60-1.20); MAGNESIUM 1.7 mg/dl (1.8-2.4); POTASSIUM 5.3 mmol/L (3.5-5.1)
[2017-02-20] MEDS ORDERED: SODIUM CHLORIDE 0.9% 1000ML 1,000 ML IV SCH (08:15)
[2017-02-20] MEDS ORDERED: SODIUM POLYST. SULF SUSP 15G/60ML PO ONE (08:30)
[2017-02-20] MEDS ORDERED: MAGNESIUM SULFATE 1GM / D5W 1 GM in PREMIXED IN D5W 100 ML IV ONE (11:15)
[2017-02-20 11:38] LABS: ISTAT CREATININE 1.2 mg/dl (0.6-1.3); ISTAT HEMOGLOBIN 11.6 g/dl (12.0-16.0); ISTAT IONIZED CALCIUM 1.2 mmol/l (1.12-1.32)
[2017-02-20] MEDS ORDERED: PROPOFOL IV EMULSION 10 MG/ML 20 ML VIAL IV ONE (11:52)
[2017-02-20] MEDS ORDERED: LIDOCAINE HCL 2% 2 ML VIAL (20MG/ML) ONE (11:52)
--- NOTE | 2017-02-20 12:14 | GI REPORT ---
Procedure Date: 02/20/2017 11:51 AM Procedure: Upper GI endoscopy Indications: Cirrhosis rule out esophageal varices Medicines: General Anesthesia Complications: No immediate complications. Estimated blood loss: None. Estimated Blood Loss: Estimated blood loss: none. Procedure: Pre-Anesthesia Assessment: - Pre-Anesthesia Assessment: - Prior to the procedure, a History and Physical was performed, and patient medications, allergies and sensitivities were reviewed. The patient's tolerance of previous anesthesia was reviewed. Please see [facility] [employer] for complete details. - The risks and benefits of the procedure and the sedation options and risks were discussed with the patient. All questions were answered and informed consent was obtained. - Patient identification and proposed procedure were verified prior to the procedure by the physician and the nurse. The procedure was verified in the pre-procedure area in the procedure room. After obtaining informed consent, the endoscope was passed carefully and meticuously under direct vision and only advanced when the lumen was clearly identified, C02 insuflation was utilized throughout the entirity of the procedure. Throughout the procedure, the patient's blood pressure, pulse, and oxygen saturations were monitored continuously. After obtaining informed consent, the endoscope was passed under direct vision. Throughout the procedure, the patient's blood pressure, pulse, and oxygen saturations were monitored continuously. The scope was introduced through the mouth, and advanced to the second part of duodenum. The upper GI endoscopy was accomplished without difficulty. The patient tolerated the procedure well. Findings: LA Grade D (one or more mucosal breaks involving at least 75% of esophageal circumference) esophagitis with bleeding was found with an ulceration. Likely small (< 5 mm) varices were found in the lower third of the esophagus. The entire examined stomach was normal. The examined duodenum was normal. Impression: - LA Grade D reflux esophagitis. - Small (< 5 mm) esophageal varices. - Normal stomach. - Normal examined duodenum. - No specimens collected. Recommendation: - [facility] - Use Prilosec (omeprazole) 40 mg PO BID for 2 months. - Repeat the upper endoscopy in 2 months to check healing. - Reasonable to start Nadolol at 10 mg daily and titrate up to HR of 55-65. Tonny Brar MD 02/20/2017 12:13:49 PM This report has been signed electronically. Note Initiated On: 02/20/2017 11:51 AM I attest to the content of the Intraoperative Record and orders documented therein, exceptions below
--- NOTE | 2017-02-20 12:36 | Anesthesiology Progress Note ---
Anesthesia Post Op Note Date & Time February 20, 2017 at 12:35 Vital Signs Pain Intensity: 0.0 Vital Signs Past 12 Hours Date Time Temp Pulse Resp B/P Pulse Ox O2 Delivery O2 Flow Rate FiO2 02/20/17 12:25 90 20 108/61 97 Room Air 02/20/17 12:16 91 20 92/66 96 Room Air 02/20/17 11:20 36.8 95 18 98/67 96 Room Air 02/20/17 08:30 Room Air 02/20/17 07:11 37.0 87 20 90/56 93 Room Air Notes Mental Status: alert / awake / arousable, participated in evaluation Pt Amnestic to Procedure: Yes Nausea / Vomiting: adequately controlled Pain: adequately controlled Airway Patency, RR, SpO2: stable & adequate BP & HR: stable & adequate Hydration State: stable & adequate Anesthetic Complications: no major complications apparent
[2017-02-20] MEDS: THIAMINE HCL 100 MG TAB PO SCH (13:21)
[2017-02-20] MEDS: CITALOPRAM 20 MG TAB PO SCH (13:21)
[2017-02-20] MEDS: MULTIVITAMIN TAB PO SCH (13:21)
[2017-02-20] MEDS: MAGNESIUM OXIDE 400 MG TAB PO SCH (13:22)
[2017-02-20] MEDS: VITAMIN B COMPLEX TAB PO SCH (13:22)
[2017-02-20] MEDS: CHOLECALCIFEROL 1000 INTER.UNIT TAB PO SCH (13:22)
[2017-02-20] MEDS ORDERED: MGNO400 PO (13:55)
[2017-02-20] MEDS ORDERED: NADO20TA PO (13:55)
[2017-02-20] MEDS ORDERED: OMEP40CA41 PO (13:55)
[2017-02-20] MEDS ORDERED: NADOLOL 40 MG TAB PO ONE (14:00)
--- NOTE | 2017-02-20 14:15 | Discharge Instructions ---
Discharge Instructions Date of Service February 20, 2017. Admission Reason for Admission: Weakness Discharge Discharge Diagnosis / Problem: Ascites, cirrhosis Discharge Goals Goal(s): Decrease discomfort, Improve function, Diagnostic testing, Therapeutic intervention Activity Recommendations Activity Limitations: resume your previous activity (as tolerated) . Instructions / Follow-Up Instructions / Follow-Up You were admitted to the hospital after presenting to the ER with weakness and fatigue. You were found to have ascites secondary to your cirrhosis of the liver, which was likely contributing to your symptoms. You were also found to have acute kidney injury. You were treated with IV fluids to treat your kidneys , and then you had a therapeutic paracentesis to drain 5 liters of fluid from your belly. You also had an inpatient EGD or upper endoscopy to assess for esophageal varices. The EGD revealed esophagitis with bleeding and an ulcer, as well as small esophageal varices. You will need a repeat EGD in 2 months to check for healing. Medications: *Take omeprazole (Prilosec) 40 mg by mouth twice a day for 2 months to treat your esophagitis/ulcer. A prescription for the first month has been sent to your pharmacy. Please follow up with your primary care provider or gastroenterology for refills. *Take nadolol 10 mg (1/2 tablet) by mouth once daily. This is to treat your esophageal varices. *Take magnesium oxide 400 mg by mouth twice daily, as your magnesium has been low throughout your hospital stay. *Continue your other home medications as prescribed. Follow up: *Please follow up with your primary care provider in 1 week regarding your hospital stay and changes in your medication. *Please follow up with gastroenterology in 2 weeks. *You will need a follow up EGD in 2 months to ensure your ulcer has healed. Please seek medical attention if you experience fevers, chills, sweats, chest pain, shortness of breath, nausea, vomiting, lightheadedness, loss of consciousness, numbness, tingling, worsening weakness or fatigue. Current Hospital Diet Patient's current hospital diet: Low Sodium Diet (2gm Na) Discharge Diet Recommended Diet: Low Sodium Diet (2gm Na) Procedures Procedures Performed: EGD Pending Studies Studies pending at discharge: yes List of pending studies: Stool culture Medical Emergencies . Who to Call and When: Medical Emergencies: If at any time you feel your situation is an emergency, please call 911 immediately. . Non-Emergent Contact Non-Emergency issues call your: Primary Care Provider, Customs Appraiser Call Non-Emergent contact if: you have a fever, you have any medication questions . Past History Medical & Surgical History: (1) Ascites due to alcoholic cirrhosis (2) Weakness (3) Acute kidney injury (4) Hypomagnesemia . "Provider Documentation" section prepared by Buffy Degroot. . VTE Core Measure Inpt VTE Proph given/why not?: Cale Romero, SCD's
--- NOTE | 2017-02-20 14:34 | Discharge Summary ---
Discharge Summary Date of Service February 20, 2017. (Buffy Degroot PA-C) Discharge Summary Admission Date: February 17, 2017 at 19:39 Discharge Date: February 20, 2017 Discharge Disposition: Home with services Principal Diagnosis: Ascites due to alcoholic cirrhosis, weakness, hypomagnesemia, ASHELY Procedures: Paracentesis--5L removed, fluid sent for analysis EGD: Findings: LA Grade D (one or more mucosal breaks involving at least 75% of esophageal circumference) esophagitis with bleeding was found with an ulceration. Likely small (< 5 mm) varices were found in the lower third of the esophagus. The entire examined stomach was normal. The examined duodenum was normal. Impression: - LA Grade D reflux esophagitis. - Small (< 5 mm) esophageal varices. - Normal stomach. - Normal examined duodenum. - No specimens collected. Recommendation: - [facility]. - Use Prilosec (omeprazole) 40 mg PO BID for 2 months. - Repeat the upper endoscopy in 2 months to check healing. - Reasonable to start Nadolol at 10 mg daily and titrate up to HR of 55-65. Consultations: Gastroenterology--Dr. Brar (Buffy Degroot PA-C) Medication Reconciliation New Medications: Omeprazole (Prilosec) 40 Mg Cap 40 MG PO BID for 30 Days, #60 CAP Take 1 capsule by mouth twice a day. Magnesium Oxide (Magnesium-Oxide) 400 Mg Tab 400 MG PO BID for 30 Days, #60 TAB Take 1 tablet by mouth twice a day. Nadolol (Corgard) 20 Mg Tab 10 MG PO DAILY for 30 Days, #15 TAB Take 1/2 tablet by mouth once daily. Continued Medications: Atorvastatin (Atorvastatin Calcium) 20 Mg Tab 20 MG PO DAILY Citalopram Hydrobromide (Citalopram Hydrobromide) 20 Mg Tab 20 MG PO DAILY, TAB Levothyroxine Sodium (Levothyroxine Sodium) 125 Mcg Tab 125 MCG PO DAILY Referrals At Discharge Follow up Referrals: Family Practice Referral - Within 1 Week with Isreal Smith M.D. Welding Tester Referral - Within 2 Weeks with Tonny Brar MD Discharge Exam Patient reports feeling well. She states that her weakness and fatigue feel improved and she has had more energy. She has been up and walking around with physical therapy, who feels that she is safe to return home with home health services. She does complain of early satiety and some nausea, but she has not vomited in 2 days. She states that her diarrhea has improved as well and seems to have run its course. The patient denies fevers, chills, sweats, chest pain, palpitations, claudication, cough, wheezing, shortness of breath, vomiting, abdominal pain, dysuria, hematuria, urinary retention, paralysis, motor weakness , numbness and tingling. Review of Systems: Constitutional: + fatigue (improved), + weakness (improved), No chills, No fever, No sweats Eyes: No diplopia, No eye pain, No worsening of vision ENT: No hearing loss, No sore throat, No trouble swallowing Respiratory: No cough, No shortness of breath, No wheezing Cardiovascular: No chest pain, No claudication, No palpitations Abdomen: + diarrhea (improving), + nausea, No pain, No vomiting Musculoskeletal: No calf pain, No joint pain, No muscle pain Genitourinary - Female: No dysuria, No hematuria, No urinary retention Neurologic: No numbness/tingling, No paralysis, No weakness Integumentary: No color change, No itch, No rash Physical Exam: General Appearance: WD/WN, no apparent distress Eyes: normal inspection, PERRL, EOMI ENT: normal ENT inspection, hearing grossly normal, pharynx normal Neck: supple, no JVD, trachea midline Respiratory/Chest: lungs clear, normal breath sounds, no respiratory distress Cardiovascular: regular rate, rhythm, no gallop, no murmur Abdomen / GI: normal bowel sounds, non tender, + distended Extremities: normal inspection, no calf tenderness, + swelling (2+ pitting edema) Neurologic/Psychiatric: alert, normal mood/affect, oriented x 3 Skin: normal color, warm/dry, no rash (Buffy Degroot, MIKYC) Hospital Course 66 y/o female with a history of alcoholic cirrhosis with ascites, COPD, hypertension, hyperlipidemia, hypothyroidism, and CKD stage III presented to the ED with weakness and fatigue. Fatigue secondary to alcoholic cirrhosis and ascites--stable -Admit to [facility] -Consult GI, appreciate recs: Prilosec 40 mg PO BID x 2 months, repeat EGD in 2 months. Consider starting nadolol 10 mg PO qd for varices. -EGD performed 02/20: LA grade D esophagitis with bleeding and ulceration. Small varices in lower third of esophagus. Stomach and duodenum normal. -S/p paracentesis 02/18 which drained 5L fluid. Fluid unremarkable, no SBP -Echocardiogram type 1 diastolic dysfunction, otherwise grossly unremarkable -TSH, random cortisol, and ammonia levels within normal limits -INR within normal limits at 1.1 on 02/18 -Ferritin and ESR elevated -PT/OT evaluate and treat for weakness. Pt cleared to return home with services ASHELY on CKD stage III--baseline creatinine appears to be around 1.0-1.2. Resolved -Creatinine 2.0 on arrival -IVF rate increased, NSS + 20 mEQ KCl 150 cc/hr -Creatinine 1.2 on 02/20 Hypomagnesemia--stable -Magnesium 1.2 on arrival -Patient received a total of 4 g of magnesium sulfate IV -Repeat magnesium 2.0 on 02/18 -Magnesium 1.7 on 02/20, given 1 gm mag sulfate IV -Magnesium oxide 400 mg PO BID on discharge Leukocytosis--stable -WBC 13.40 on arrival -No s/s of infection -WBC 12/31 on 02/18 -Paracentesis fluid culture no growth to date DVT prophylaxis -SOREN freed and SCDs This chart was completed in part utilizing [employer] Speech Voice Recognition software. Attempts were made to minimize the grammatical errors, random word insertions, pronoun errors and incomplete sentences. Any formal questions or concerns about the content, text or information contained within the body of this dictation should be directly addressed to the provider for clarification. Total Time Spent: Greater than 30 minutes This includes examination of the patient, discharge planning, medication reconciliation, and communication with other providers. (Buffy Degroot ., PA-C) I agree with PA assessment and plan and have seen and examined pt myself Pt resting comfortably in bed Denies any pain States weakness and fatigue improved Tolerating PT s/p paracentesis with 5 L removed EGD 02/20 varices noted and ulcer, start on PPI and nadolol F/U with GI in 1-2 weeks Stable for discharge home (Elvis Garner, D.O.) Discharge Instructions Please refer to the electronic Patient Visit Report (Discharge Instructions) for additional information. (Buffy Degroot ., PA-C) Additional Copies To Isreal Smith M.D.
[2017-02-20 14:50] VITALS: BP 110/74; PULSE 99; TEMP 36.7; O2SAT 98
[2017-02-20 16:30] VITALS: BP 110/74; PULSE 99; TEMP 36.7; O2SAT 98
[2017-02-20] MEDS ORDERED: PANTOprazole SOD 40 MG TAB PO SCH (20:00)
[2017-02-21] MEDS ORDERED: NADOLOL 40 MG TAB PO SCH (08:00)
--- NOTE | 2017-03-02 09:00 | EDITING REQUIRED CODING QUERY ---
CQSUPPORTING DIAGNOSIS NEEDED A supporting diagnosis is required for the test/procedure performed on this patient in order for us to be reimbursed by the patient's insurance. Please provide a supporting diagnosis for the following test/procedure listed below next to the test name along with your signature. *If there is no additional diagnosis for this patient that would support the following test/procedure please document that below next to the test/procedure. Test(s)/Procedure(s) that require a supporting diagnosis: DOS 02/19/17 URINE CULTURE SIRS is reason Provider Signature: Date: Thank you Ashleigh White Health Information Management Once completed, please kindly fax back to [phone] For questions please call [phone]
[2017-03-20] MEDS ORDERED: SODI650T9 PO (15:37)
[2017-03-20] MEDS ORDERED: CLCUDL PO (15:37)
[2017-03-20] MEDS ORDERED: XFX550 PO (15:37)
[2017-03-20] MEDS ORDERED: FAMO20TA12 PO (15:37)
[2017-03-20] MEDS ORDERED: CNT PO (15:37)
[2017-03-20] MEDS ORDERED: PRMT10 PO (15:37)
[2017-03-20] MEDS ORDERED: KFL250 PO (15:37)
== END 2017-02-20 17:32 | disposition home health service (06) ==
LOC: ENRESERVTM → ENRESERVDT → C.EDB 15:54 → C.MS4W 19:39
PROVIDERS: ADMIT Family Medicine; ATTEND Hospitalist
DX: E86.0 Dehydration (principal); K70.31 Alcoholic cirrhosis of liver with ascites; E83.42 Hypomagnesemia; N17.9 Acute kidney failure, unspecified; K21.0 Gastro-esophageal reflux disease with esophagitis; K22.10 Ulcer of esophagus without bleeding; I85.00 Esophageal varices without bleeding; J44.9 Chronic obstructive pulmonary disease, unspecified; I12.9 Hypertensive chronic kidney disease with stage 1 through stage 4 chronic kidney disease, or unspecified chronic kidney disease; N18.3 Chronic kidney disease, stage 3 (moderate); E46 Unspecified protein-calorie malnutrition; F17.200 Nicotine dependence, unspecified, uncomplicated; I95.9 Hypotension, unspecified; D64.9 Anemia, unspecified; E03.9 Hypothyroidism, unspecified; D72.829 Elevated white blood cell count, unspecified; E78.5 Hyperlipidemia, unspecified; H40.9 Unspecified glaucoma; Z86.010 Personal history of colon polyps; Z82.49 Family history of ischemic heart disease and other diseases of the circulatory system; Z80.8 Family history of malignant neoplasm of other organs or systems; Z13.89 Encounter for screening for other disorder

== ENCOUNTER 2017-03-10 11:39 | Inpatient (IN) | payer BC, OTHER ==
[~2017-03-10] VITALS: Ht 165.1 cm; Wt 77.0 kg
[~2017-03-10 11:39] MED LIST changes: +CITA20TA4 PO; -CLX20 PO; +LEVO125T5 PO; +LPT/20 PO; +MGNO400 PO; +NADO20TA PO; +OMEP40CA41 PO
[2017-03-10] MEDS ORDERED: IBUPROFEN 200 MG TAB PO STA (12:16)
--- NOTE | 2017-03-10 12:40 | DIAGNOSTIC IMAGING REPORT ---
CHEST ONE VIEW PORTABLE CLINICAL HISTORY: Ascites, lower extremity edema pain. Edema. COMPARISON STUDY: 02/17/2017 FINDINGS: Chronic pleural atelectasis left base. Lungs appear clear. Mild stable cardiomegaly. IMPRESSION: Chronic change. No acute process. Electronically signed by: Sheldon Hutton M.D. 03/10/2017 12:39 PM Dictated Date/Time: 03/10/2017 12:33 PM
[2017-03-10 12:54] LABS: BASO % 0.2 %; BASO ABS # 0.03 K/uL (0-0.2); EOS % 1.4 %; IG% 0.5 %; LYMPH % 11.4 %; LYMPH ABS # 1.52 K/uL (1.2-3.4); MEAN CELL VOLUME 110.1 fL (80-100); MEAN CORPUSCULAR HEMOGLOBIN 35.8 pg (25-34); MEAN CORPUSCULAR HGB CONC 32.6 g/dl (32-36); MEAN PLATELET VOLUME 11.4 fL (7.4-10.4); MONO % 10.4 %; NEUT % 76.1 %; PLATELET COUNT 394 K/uL (130-400); RED BLOOD COUNT 3.18 M/uL (4.2-5.4); WHITE BLOOD COUNT 13.29 K/uL (4.8-10.8)
[2017-03-10 13:13] LABS: COMPLETE YES; ECHINOCYTES 1+; LARGE PLATELETS 1+
[2017-03-10 13:38] LABS: INR 1.1 (0.9-1.1); PARTIAL THROMBOPLASTIN RATIO 1.1; PROTHROMBIN TIME (PATIENT) 11.4 SECONDS (9.0-12.0)
[2017-03-10 13:48] LABS: CALCIUM 8.6 mg/dl (8.5-10.1); CREATININE 4.2 mg/dl (0.60-1.20); MAGNESIUM 2.1 mg/dl (1.8-2.4); POTASSIUM 5.7 mmol/L (3.5-5.1)
[2017-03-10 13:59] LABS: ALB/GLOB RATIO 0.4 (0.9-2); THYROID STIMULATING HORMONE 8.25 uIu/ml (0.300-4.500)
--- NOTE | 2017-03-10 14:13 | EMERGENCY ROOM VISIT NOTE ---
ED Visit Note First contact with patient: 11:43 This Patient was discussed with the physician machine assistant, Shimon Campo PA-C. The pertinent historical and physical exam findings were confirmed. I agree with the studies ordered and with the interpretations of these studies. I agree with the disposition and care plan.
[2017-03-10] MEDS ORDERED: SODIUM CHLORIDE 0.9% 1000ML 1,000 ML IV STA (14:18)
--- NOTE | 2017-03-10 14:32 | EMERGENCY ROOM VISIT NOTE ---
History First contact with patient: 11:43 Chief Complaint: WEAKNESS Stated Complaint: WOUND Nursing Triage Summary: Patient arrived via BLS. Patients home health aid came in today to evaluate for rehab when aid noted wounds to patients sacrum. Patient has hx of cirrhosis. Patient had been in bed for the last 2 days due to generalized weakness. Patient c/o pain to sacrum. Abdomen noted to be firm and distended. Lungs are clear. +2 BLE pitting edema noted. Patient noted to have diaper rash like wound to sacrum. Patient states has had diarrhea for approximately 1 week. Patient denies CP, SOB, N/V. History of Present Illness The patient is a 66 year old female who presents to the Emergency Room via ambulance with complaints of "wound". The patient states that for the past week or so she has been experiencing pain in the buttocks region, that she believes is a pressure ulcer. She currently is receiving care 3 times weekly from a nurse aide to help with her daily activities. The patient does have difficulty with ambulation. She has been recently bedridden. She states that the pain on the buttocks has increased and today the nurses aide called [phone] for her because the wounds began to bleed and looked worse. The patient lives by herself currently. Patient states that she was scheduled to go to [facility] sometime today. She denies any fevers, chills, chest pain, shortness of breath , abdominal pain, painful urination. She notes that she does have a distended abdomen secondary to ascites caused by liver failure from alcoholism. She has had paracentesis 2. Review of Systems A complete 10-point Review of Systems was discussed with the patient, with pertinent positives and negatives listed in the History of Present Illness. All remaining Review of Systems questions can be considered negative unless otherwise specified. Past Medical/Surgical History Medical Problems: (1) Ascites due to alcoholic cirrhosis (2) Renal failure (ARF), acute on chronic Social History Smoking Status: Current Every Day Smoker Alcohol Use: none Marital Status: single Occupation Status: retired Current/Historical Medications Scheduled Atorvastatin (Atorvastatin Calcium), 20 MG PO DAILY Citalopram Hydrobromide (Citalopram Hydrobromide), 20 MG PO DAILY Levothyroxine Sodium (Levothyroxine Sodium), 125 MCG PO DAILY Magnesium Oxide (Magnesium-Oxide), 400 MG PO BID Nadolol (Corgard), 10 MG PO DAILY Omeprazole (Prilosec), 40 MG PO BID Allergies Coded Allergies: Acetaminophen (Verified Allergy, Unknown, UNKNOWN, 03/10/17) PATIENT REPEATEDLY SAYS SHE IS NOT ALLERGIC TO THIS AND HAS TAKEN A LOT OF TYLENOL IN HER LIFE. SHE SAID SHE HAS LIVER ISSUES, BUT IS NOT ALLERGIC. I TRIED TO DELETE IT AND IT WOULDN'T LET ME. - Physical Exam Vital Signs Date Time Temp Pulse Resp B/P Pulse Ox O2 Delivery O2 Flow Rate FiO2 03/10/17 15:43 85 16 93/72 98 Room Air 03/10/17 13:36 89 18 101/78 98 Room Air 03/10/17 12:01 95 Room Air 03/10/17 12:01 36.4 94 20 99/82 95 Room Air Physical Exam VITAL SIGNS - Vital signs and nursing notes were reviewed. Patient is afebrile , hypotensive, non-tachycardic and is saturating well on room air. GENERAL -66-year-old female appearing her stated age who is in no acute distress. Communicates well with provider and answers questions appropriately. SKIN - there is an erythematous, excoriated diffuse region of the [place], extending from the anus superiorly onto the skin as well as anteriorly towards the genital region. This area does have mild bleeding. HEAD - NC/AT. EYES - Sclera anicteric. Palpebral conjunctiva pink and moist with no injection noted. EARS - No deformities of external structures noted on gross examination bilaterally. NOSE - Midline and without cyanosis. No epistaxis or purulent drainage noted. MOUTH/OROPHARYNX - Without perioral cyanosis. Buccal mucosa pink and moist and without leukoplakia. LUNGS - Chest wall symmetric without accessory muscle use, intercostals retractions, or central cyanosis. Decreased breath sounds bilaterally. No wheezes, rales, or rhonchi appreciated. CARDIAC - RRR with S1/S2. No murmur, rubs, or gallops appreciated. ABDOMEN - Abdominal contour without pulsations. The abdomen is distended, and is tense to palpation. No tenderness noted. There is concern for ascites. EXTREMITIES - No clubbing or peripheral cyanosis. There is bilateral lower extremity edema. NEUROLOGIC - Cranial nerves II through XII grossly intact. PSYCH - Pt is very pleasant and interacts well with examiner. Medical Decision & Procedures ER Provider Diagnostic Interpretation: CHEST ONE VIEW PORTABLE CLINICAL HISTORY: Ascites, lower extremity edema pain. Edema. COMPARISON STUDY: 02/17/2017 FINDINGS: Chronic pleural atelectasis left base. Lungs appear clear. Mild stable cardiomegaly. IMPRESSION: Chronic change. No acute process. Electronically signed by: Sheldon Hutton M.D. 03/10/2017 12:39 PM Dictated Date/Time: 03/10/2017 12:33 PM Laboratory Results 03/10/17 12:30 Red Blood Count 3.18, Mean Corpuscular Volume 110.1, Mean Corpuscular Hemoglobin 35.8, Mean Corpuscular Hemoglobin Concent 32.6, Mean Platelet Volume 11.4, Neutrophils (%) (Auto) 76.1, Lymphocytes (%) (Auto) 11.4, Monocytes (%) ( Auto) 10.4, Eosinophils (%) (Auto) 1.4, Basophils (%) (Auto) 0.2, Neutrophils # (Auto) 10.12, Lymphocytes # (Auto) 1.52, Monocytes # (Auto) 1.38, Eosinophils # (Auto) 0.18, Basophils # (Auto) 0.03 03/10/17 13:20 Test 03/10/17 12:30 03/10/17 12:52 03/10/17 13:20 03/10/17 15:08 White Blood Count 13.29 K/uL (4.8-10.8) Red Blood Count 3.18 M/uL (4.2-5.4) Hemoglobin 11.4 g/dL (12.0-16.0) Hematocrit 35.0 % (37-47) Mean Corpuscular Volume 110.1 fL (80-100) Mean Corpuscular Hemoglobin 35.8 pg (25-34) Mean Corpuscular Hemoglobin Concent 32.6 g/dl (32-36) Platelet Count 394 K/uL (130-400) Mean Platelet Volume 11.4 fL (7.4-10.4) Neutrophils (%) (Auto) 76.1 % Lymphocytes (%) (Auto) 11.4 % Monocytes (%) (Auto) 10.4 % Eosinophils (%) (Auto) 1.4 % Basophils (%) (Auto) 0.2 % Neutrophils # (Auto) 10.12 K/uL (1.4-6.5) Lymphocytes # (Auto) 1.52 K/uL (1.2-3.4) Monocytes # (Auto) 1.38 K/uL (0.11-0.59) Eosinophils # (Auto) 0.18 K/uL (0-0.5) Basophils # (Auto) 0.03 K/uL (0-0.2) RDW Standard Deviation 54.1 fL (36.4-46.3) RDW Coefficient of Variation 13.6 % (11.5-14.5) Immature Granulocyte % (Auto) 0.5 % Immature Granulocyte # (Auto) 0.06 K/uL (0.00-0.02) Large Platelets 1+ Echinocytes 1+ Lactic Acid Level 1.5 mmol/L (0.4-2.0) Bedside Troponin I 0.000 ng/ml (0-0.045) ML-Rcr-U-Type Natriuretic Peptide 3247 pg/ml (0-900) Prothrombin Time 11.4 SECONDS (9.0-12.0) Prothromb Time International Ratio 1.1 (0.9-1.1) Activated Partial Thromboplast Time 29.1 SECONDS (21.0-31.0) Partial Thromboplastin Ratio 1.1 Anion Gap 9.0 mmol/L (3-11) Est Creatinine Clear Calc Drug Dose 13.7 ml/min Estimated GFR () 12.1 Estimated GFR (Non- 10.4 BUN/Creatinine Ratio 14.0 (10-20) Calcium Level 8.6 mg/dl (8.5-10.1) Magnesium Level 2.1 mg/dl (1.8-2.4) Total Bilirubin 0.3 mg/dl (0.2-1) Aspartate Amino Transf (AST/SGOT) 15 U/L (15-37) Alanine Aminotransferase (ALT/SGPT) 9 U/L (12-78) Alkaline Phosphatase 146 U/L (45-117) Total Protein 6.4 gm/dl (6.4-8.2) Albumin 1.8 gm/dl (3.4-5.0) Globulin 4.6 gm/dl (2.5-4.0) Albumin/Globulin Ratio 0.4 (0.9-2) Thyroid Stimulating Hormone (TSH) 8.250 uIu/ml (0.300-4.500) Urine Color DK YELLOW Urine Appearance CLOUDY (CLEAR) Urine pH 5.0 (4.5-7.5) Urine Specific [place] 1.018 (1.000-1.030) Urine Protein 1+ (NEG) Urine Glucose (UA) TRACE (NEG) Urine Ketones NEG (NEG) Urine Occult Blood TRACE (NEG) Urine Nitrite NEG (NEG) Urine Bilirubin NEG (NEG) Urine Urobilinogen NEG (NEG) Urine Leukocyte Esterase SMALL (NEG) Medications Administered Medications (Trade) Dose Ordered Sig/Brett Route Start Time Stop Time Status Last Admin Dose Admin Ibuprofen 400 mg 400 mg NOW STAT PO 03/10/17 12:16 03/10/17 12:17 DC 03/10/17 12:39 400 MG Sodium Chloride (Nss 1000ml) 1,000 ml @ 999 mls/hr Q1H1M STAT IV 03/10/17 14:18 03/10/17 15:18 DC 03/10/17 15:40 999 MLS/HR Fentanyl Citrate (Fentanyl Inj) 50 mcg NOW STAT IV 03/10/17 14:59 03/10/17 15:00 DC 03/10/17 15:41 50 MCG Medical Decision Patient was seen and evaluated as above. After obtaining a thorough history and physical examination IV access was initiated and a workup was performed. Patient presents with bilateral lower extremity edema, abdominal distention secondary to ascites. She also has a red erythematous excoriated rash on the buttocks region bilaterally. There is minimal bleeding from this region. The patient requested something for pain initially, and in reviewing her previous labs because her liver enzymes have been elevated and her ascites I did not provide her any hepatically metabolized medication and because her previous creatinine was at 1.2, I did elect to provide her medication that is renally excreted. I did provide her with 2 tablets of ibuprofen, as she notes that she does take this medication with relief. At this point her labs did return, and it was identified that her creatinine was elevated at 4.2. This was an unexpected finding. She then requested something more for pain and was given fentanyl. This is because she notes that she had itchiness last time she took Roxicodone. There is a leukocytosis of 13.29, hemoglobin low 11.4, platelet count is 394. Coagulation studies were normal limits. CMP does reveal potassium high at 5.7, chloride high at 4.9, BUN elevated at 59, and creatinine of 4.2. This is a significant interval development of renal failure compared to labs were drawn earlier this month. Initial lactic acid is within normal limits at 1.5. Blood culture was drawn. Alkaline phosphatase is elevated at 146. When care troponin is 0. BNP is 3247, no previous for comparison. TSH is high at 8.250. Patient's EKG does reveal a normal sinus rhythm, rate of 89 bpm. There is right axis deviation. On this no ectopy or skin change. This EKG was compared to EKG of February 17. Nonspecific T wave abnormality worse in the lateral leads and lengthening of the QT interval was noted. The patient then underwent a bladder scan, which showed greater than 1 L in the bladder. This may be a false positive result given the amount of ascites in her abdomen. Patient did attempt to give us a urine sample but was unable to, and through discussion was identified that a Alvarez catheter would be appropriate. She provided consent. A Alvarez catheter was placed without difficulty, and a urine sample was obtained. A stool sample was also obtained, as I'm concerned the patient may be experiencing C. difficile causing the excoriated skin lesions. At this time due to the acute onset renal failure, I believe that further inpatient management is warranted. The case was discussed with my attending, she was hydrated with a little normal saline, and I spoke with the hospitalist regarding the patient's condition. The patient will be admitted for further evaluation and management. Please refer to further documentation regarding her stay. In evaluation treatment this patient following differential diagnoses entertained: Acute renal failure, urologic obstruction, ascites, IL, PE, sepsis , see differential, fungal infection, among others. Impression Primary Impression: Renal failure (ARF), acute on chronic Additional Impressions: Hyperkalemia Anemia Ascites due to alcoholic cirrhosis Departure Information Dispostion Admitted as an inpatient Condition POOR Referrals Isreal Smith M.D. (PCP) Patient Instructions My [facility] Problem Qualifiers
[2017-03-10] MEDS ORDERED: FENTANYL CITRATE INJ 50 MCG/1 ML 2 ML VIAL IV STA (14:59)
[2017-03-10 16:06] LABS: URINE APPEARANCE CLOUDY (CLEAR); URINE BILIRUBIN NEG (NEG); URINE COLOR DK YELLOW; URINE EPITHELIAL CELL AUTO >30 /lpf (0-5); URINE NITRITE NEG (NEG); URINE SPECIFIC GRAVITY 1.018 (1.000-1.030); UROBILINOGEN NEG (NEG); ZZURINE CULT IF INDIC CATH YES
[2017-03-10] MEDS ORDERED: ALUMINUM/MAGNESIUM/SIMETH (MAALOX MAX) 30 ML UDC PO PRN (16:15)
[2017-03-10] MEDS ORDERED: ONDANSETRON INJ 2 MG/ML 2 ML VIAL IV PRN (16:15)
[2017-03-10 16:16] LABS: MANUAL MICROSCOPIC REQUIRED? NO; REVIEW REQ? YES
[2017-03-10] MEDS ORDERED: SODIUM POLYST. SULF SUSP 15G/60ML PO SCH (16:21)
[2017-03-10 16:31] LABS: URINE PATH CASTS 5-10 GRANULAR CASTS /lpf (0)
--- NOTE | 2017-03-10 17:07 | History and Physical ---
History & Physical Date & Time of Service: March 10, 2017 at 16:32 Chief Complaint: WOUND Primary Care Physician: Isreal Smith M.D. History of Present Illness Source: patient The patient is a 66 year old female who presents to the Emergency Room via ambulance with complaints bleeding wound on buttocks that was noticed this AM from home health nurse. Pt reports she has been bed ridden for past few days due to generalized weakness. Pt states she was awaiting approval for [facility] for deconditioning. Pt was recently admitted to [facility] [place] earlier this month for cirrhosis (new onset) and worsening weakness. At that time pt was to follow up with GI this thursday for paracentesis and for management of varices noted on EGD from last admission. Pt does reports worsening generalized weakness, poor urine output and diarrhea x 1 week. Pt denies any fevers, chills, shortness of breath or chest pain or abdominal pain or urinary symptoms. Social History Smoking Status: Current Every Day Smoker Smokeless Tobacco Use: No Alcohol Use: occasionally Drug Use: none Marital Status: single Housing status: lives alone Occupational Status: retired Multi-Drug Resistant Organisms History of MDRO: No Allergies Coded Allergies: Acetaminophen (Verified Allergy, Unknown, UNKNOWN, 03/10/17) PATIENT REPEATEDLY SAYS SHE IS NOT ALLERGIC TO THIS AND HAS TAKEN A LOT OF TYLENOL IN HER LIFE. SHE SAID SHE HAS LIVER ISSUES, BUT IS NOT ALLERGIC. I TRIED TO DELETE IT AND IT WOULDN'T LET ME. - Home Medications Scheduled Atorvastatin (Atorvastatin Calcium), 20 MG PO DAILY Citalopram Hydrobromide (Citalopram Hydrobromide), 20 MG PO DAILY Levothyroxine Sodium (Levothyroxine Sodium), 125 MCG PO DAILY Magnesium Oxide (Magnesium-Oxide), 400 MG PO BID Nadolol (Corgard), 10 MG PO DAILY Omeprazole (Prilosec), 40 MG PO BID Review of Systems Constitutional: + fatigue, + weakness, No chills, No fever Eyes: No eye pain, No worsening of vision ENT: No hearing loss, No unusual epistaxis Respiratory: No cough, No shortness of breath, No sputum, No wheezing Cardiovascular: No PND, No chest pain, No edema, No orthopnea Abdomen: + diarrhea, No nausea, No pain, No vomiting Musculoskeletal: + joint pain, + muscle pain Genitourinary - Female: + urinary retention, No dysuria, No urinary frequency, No urinary incontinence, No urinary urgency Neurologic: No numbness/tingling, No paralysis Psychiatric: No anxiety, No depression symptoms Endocrine: No excessive thirst, No fatigue Integumentary: + bleeding (wound on buttocks), + rash (on buttocks), No itch Physical Exam Vital Signs Date Time Temp Pulse Resp B/P Pulse Ox O2 Delivery O2 Flow Rate FiO2 03/10/17 15:43 85 16 93/72 98 Room Air 03/10/17 13:36 89 18 101/78 98 Room Air 03/10/17 12:01 95 Room Air 03/10/17 12:01 36.4 94 20 99/82 95 Room Air General Appearance: WD/WN, no apparent distress Head: normocephalic, atraumatic Eyes: PERRL, EOMI Neck: supple, no adenopathy Respiratory/Chest: lungs clear, normal breath sounds Cardiovascular: no edema, no gallop Abdomen/GI: non tender, + distended Back: no CVA tenderness, no muscle spasm Extremities/Musculoskelatal: normal inspection, no calf tenderness Neurologic/Psych: alert, normal mood/affect, oriented x 3 Skin: warm/dry, no rash, + pertinent finding (buttocks wound weeping) Diagnostics Laboratory Results Results Past 24 Hours Test 03/10/17 12:30 03/10/17 12:52 03/10/17 13:20 03/10/17 15:08 Range/Units White Blood Count 13.29 4.8-10.8 K/uL Red Blood Count 3.18 4.2-5.4 M/uL Hemoglobin 11.4 12.0-16.0 g/dL Hematocrit 35.0 37-47 % Mean Corpuscular Volume 110.1 80-100 fL Mean Corpuscular Hemoglobin 35.8 25-34 pg Mean Corpuscular Hemoglobin Concent 32.6 32-36 g/dl Platelet Count 394 130-400 K/uL Mean Platelet Volume 11.4 7.4-10.4 fL Neutrophils (%) (Auto) 76.1 % Lymphocytes (%) (Auto) 11.4 % Monocytes (%) (Auto) 10.4 % Eosinophils (%) (Auto) 1.4 % Basophils (%) (Auto) 0.2 % Neutrophils # (Auto) 10.12 1.4-6.5 K/uL Lymphocytes # (Auto) 1.52 1.2-3.4 K/uL Monocytes # (Auto) 1.38 0.11-0.59 K/uL Eosinophils # (Auto) 0.18 0-0.5 K/uL Basophils # (Auto) 0.03 0-0.2 K/uL RDW Standard Deviation 54.1 36.4-46.3 fL RDW Coefficient of Variation 13.6 11.5-14.5 % Immature Granulocyte % (Auto) 0.5 % Immature Granulocyte # (Auto) 0.06 0.00-0.02 K/uL Large Platelets 1+ Echinocytes 1+ Lactic Acid Level 1.5 0.4-2.0 mmol/L Bedside Troponin I 0.000 0-0.045 ng/ml FT-Lqn-B-Type Natriuretic Peptide 3247 0-900 pg/ml Prothrombin Time 11.4 9.0-12.0 SECONDS Prothromb Time International Ratio 1.1 0.9-1.1 Activated Partial Thromboplast Time 29.1 21.0-31.0 SECONDS Partial Thromboplastin Ratio 1.1 Sodium Level 140 136-145 mmol/L Potassium Level 5.7 3.5-5.1 mmol/L Chloride Level 109 98-107 mmol/L Carbon Dioxide Level 22 21-32 mmol/L Anion Gap 9.0 3-11 mmol/L Blood Urea Nitrogen 59 7-18 mg/dl Creatinine 4.20 0.60-1.20 mg/dl Est Creatinine Clear Calc Drug Dose 13.7 ml/min Estimated GFR () 12.1 Estimated GFR (Non- 10.4 BUN/Creatinine Ratio 14.0 10-20 Random Glucose 101 70-99 mg/dl Calcium Level 8.6 8.5-10.1 mg/dl Magnesium Level 2.1 1.8-2.4 mg/dl Total Bilirubin 0.3 0.2-1 mg/dl Aspartate Amino Transf (AST/SGOT) 15 15-37 U/L Alanine Aminotransferase (ALT/SGPT) 9 12-78 U/L Alkaline Phosphatase 146 45-117 U/L Total Protein 6.4 6.4-8.2 gm/dl Albumin 1.8 3.4-5.0 gm/dl Globulin 4.6 2.5-4.0 gm/dl Albumin/Globulin Ratio 0.4 0.9-2 Thyroid Stimulating Hormone (TSH) 8.250 0.300-4.500 uIu/ml Urine Color DK YELLOW Urine Appearance CLOUDY CLEAR Urine pH 5.0 4.5-7.5 Urine Specific [place] 1.018 1.000-1.030 Urine Protein 1+ NEG Urine Glucose (UA) TRACE NEG Urine Ketones NEG NEG Urine Occult Blood TRACE NEG Urine Nitrite NEG NEG Urine Bilirubin NEG NEG Urine Urobilinogen NEG NEG Urine Leukocyte Esterase SMALL NEG Test 03/10/17 16:19 03/10/17 16:24 Range/Units Microbiology Results 03/10/17 Blood Culture, Received Pending 03/10/17 C.difficile Toxin B Gene (PCR) - Final, Complete No C. difficile toxin B gene detected 03/10/17 Shiga Toxin Test, Received Pending 03/10/17 Stool Culture, Received Pending 03/10/17 Urine Culture, Received Pending Impression Assessment and Plan 66 y/o female with a history of alcoholic cirrhosis with ascites, COPD, hypertension, hyperlipidemia, hypothyroidism, and CKD stage III presented to the ED with weakness and fatigue. new buttocks wound Fatigue secondary to alcoholic cirrhosis and ascites -Admit to tele -Consult GI, cont prilosec 40 mg PO BID, new onset varices noted on prev EGD from last admission performed 02/20: LA grade D esophagitis with bleeding and ulceration. Small varices in lower third of esophagus. Stomach and duodenum normal. -PT/OT evaluate and treat for weakness. Worsening ASHELY on CKD stage III--baseline creatinine appears to be around 1.0- 1.2. -Creatinine 4.2 on arrival, IVF started, pt reports dehydration, ?PPI induced -Cont IVF -Nephrology consulted -Renal US pending, poor urine output, stout placed, strict I/Os Hyperkalemia likely from acute on CKD stage 3 - Kayexalate x 1 in addition to IVF, insulin and albuterol tx - No EKG changes, NSR - Repeat BMP this evening Buttocks wound - Likely from protein malnutrition and decreased mobility - Wound care consult placed Hypothyroidism - Elev TSH, check T4, cont synthroid Leukocytosis--chronic -No s/s of infection, unlikely SBP -Awaiting pancx at this time, hold off on antibiotics HTN - Noted hypotension in ER, hold off on antihypertensive meds Severe protein malnutrition -Branch Lending [employer] consult, poor appetite, albumin 1.8 03/10 DVT prophylaxis with heparin VTE Prophylaxis VTE Risk Assessment Done? Y/N: Yes Risk Level: Moderate
[2017-03-10 17:44] LABS: MAGNESIUM 1.9 mg/dl (1.8-2.4); PHOSPHORUS 4.7 mg/dl (2.5-4.9)
[2017-03-10 18:27] VITALS: BP 100/74; PULSE 90; TEMP 36.4; O2SAT 93; Ht 165.1 cm; Wt 77.0 kg
[2017-03-10 18:30] LABS: BUN/CREATININE RATIO 13.2 (10-20); CALCIUM 8.3 mg/dl (8.5-10.1); CREATININE 4.3 mg/dl (0.60-1.20); POTASSIUM 6.1 mmol/L (3.5-5.1)
[2017-03-10] MEDS ORDERED: ALBUTEROL 0.5% NEB SOLN 2.5 MG/0.5 ML VIAL INH STA (18:39)
[2017-03-10] MEDS ORDERED: INSULIN ASPART 100 UNITS/ML 3 ML PEN SC ONE (18:45)
[2017-03-10] MEDS ORDERED: DEXTROSE 50% 50 ML SYR IV ONE (18:45)
--- NOTE | 2017-03-10 19:22 | DIAGNOSTIC IMAGING REPORT ---
RENAL ULTRASOUND HISTORY: acute kidney injury on CKD COMPARISON: Abdominal ultrasound 01/15/2017. FINDINGS: Right kidney: 9.0 cm. No hydronephrosis. Mild cortical thinning. Increased cortical echogenicity. There is an 8 mm cyst. Left kidney: Not well visualized but appears to measure 10 cm in length. Slight increased cortical echogenicity. Bladder: Decompressed by Alvarez catheter and not well visualized. Moderate ascites. IMPRESSION: 1. No hydronephrosis. 2. Slight increased cortical echogenicity bilaterally suggestive of medical renal disease. 3. Moderate ascites. Electronically signed by: Christian De La Garza M.D. 03/10/2017 7:21 PM Dictated Date/Time: 03/10/2017 7:19 PM
[2017-03-10] MEDS ORDERED: SODIUM POLYST. SULF SUSP 15G/60ML PO ONE (19:30)
[2017-03-10] MEDS: SODIUM CHLORIDE 0.9% 1000ML 1,000 ML IV SCH (20:06)
[2017-03-10] MEDS ORDERED: DEXTROSE 50% 50 ML SYR IV SCH (20:30)
[2017-03-10] MEDS ORDERED: INSULIN HUMAN REGULAR PER UNIT 5 UNITS in SYRINGE 4.95 ML IV SCH (20:35)
[2017-03-10] MEDS: PANTOprazole SOD 40 MG TAB PO SCH (20:45)
[2017-03-10] MEDS: HEPARIN SOD 5000 UNIT/0.5 ML CARP SQ SCH (22:09)
[2017-03-10 22:58] LABS: CALCIUM 8.4 mg/dl (8.5-10.1)
[2017-03-10 23:08] LABS: BUN/CREATININE RATIO 13.6 (10-20); CREATININE 4.5 mg/dl (0.60-1.20); POTASSIUM 4.6 mmol/L (3.5-5.1)
[2017-03-11] VITALS (49 sets, daily range): BP systolic 68–96; BP diastolic 44–57; PULSE 69–93; TEMP 36.5–36.8; O2SAT 95–98
[2017-03-11] MEDS: MoRPHine SULFATE 2 MG/ML CARP IV PRN ×3 (00:19→22:18)
[2017-03-11] MEDS: LEVOTHYROXINE 125 MCG TAB PO SCH (05:41)
[2017-03-11] MEDS: HEPARIN SOD 5000 UNIT/0.5 ML CARP SQ SCH ×2 (05:42→22:03)
[2017-03-11] MEDS: SODIUM CHLORIDE 0.9% 1000ML 1,000 ML IV SCH (05:43)
[2017-03-11 06:39] LABS: BASO % 0.4 %; BASO ABS # 0.04 K/uL (0-0.2); COMPLETE YES; EOS % 1.6 %; HEMATOCRIT 30.3 % (37-47); IG% 0.4 %; LYMPH % 20.2 %; LYMPH ABS # 2.21 K/uL (1.2-3.4); MEAN CELL VOLUME 108.2 fL (80-100); MEAN CORPUSCULAR HGB CONC 32.3 g/dl (32-36); MEAN PLATELET VOLUME 10.8 fL (7.4-10.4); MONO % 9.9 %; NEUT % 67.5 %; PLATELET COUNT 374 K/uL (130-400); WHITE BLOOD COUNT 10.95 K/uL (4.8-10.8)
[2017-03-11 07:14] LABS: BUN/CREATININE RATIO 14.1 (10-20); CALCIUM 7.9 mg/dl (8.5-10.1); CREATININE 4.2 mg/dl (0.60-1.20); POTASSIUM 4.7 mmol/L (3.5-5.1)
[2017-03-11 07:17] LABS: ALB/GLOB RATIO 0.4 (0.9-2)
[2017-03-11] MEDS: PANTOprazole SOD 40 MG TAB PO SCH (07:44)
[2017-03-11] MEDS: CITALOPRAM 20 MG TAB PO SCH (07:44)
[2017-03-11] MEDS ORDERED: ATORVASTATIN 20 MG TAB PO SCH (09:00)
--- NOTE | 2017-03-11 10:28 | Clinical Documentation Query ---
CLINICAL DOCUMENTATION QUERY 66 year old female who presents to the Emergency Room via ambulance with complaints of "wound". H&P do not define the etiology of sacral and perineal wounds. They are described as, "+ bleeding (wound on buttocks), + rash (on buttocks), No itch. In your clinical opinion is this patient being managed for: ( ) Pressure Ulcer to Sacrum ( ) Stage I ( ) Stage II ( ) Stage III ( ) Stage IV ( X ) Excoriation of sacral/buttocks area in setting of frequent liquid stools ( ) Other explanation of clinical findings (Please Explain) ( ) Unable to determine (Please Define) ( ) Need to Discuss ( ) Not Agree The medical record reflects the following clinical findings, treatment, and risk factors. Clinical Indicators: As above. Patient states she is mostly bed bound. WOCN state wound to buttocks more of denuding do to contact with stool. Treatment: WOCN and q2hr repositioning, Alvarez catheter, and PRN skin care Risk Factors: Age, CKD, protein malnutrition, and alcoholic cirrhosis. Please clarify and document your clinical opinion in the progress notes and discharge summary. Terms such as "probable", "suspected", "likely", "questionable", "possible", or "still to be ruled out" are acceptable. IF IN AGREEMENT, YOU MUST DOCUMENT ABOVE DIAGNOSTIC STATEMENT IN DAILY PROGRESS NOTES AND DISCHARGE SUMMARY. This document is not part of the patient's record. Thank You, Kimo Catalan RN [phone]
--- NOTE | 2017-03-11 10:29 | Clinical Documentation Query ---
CLINICAL DOCUMENTATION QUERY 66 year old female who presents to the Emergency Room via ambulance with complaints of "wound". H&P do not define the etiology of sacral and perineal wounds. They are described as, "+ bleeding (wound on buttocks), + rash (on buttocks), No itch. In your clinical opinion is this patient being managed for: ( ) Pressure Ulcer to Sacrum ( ) Stage I ( ) Stage II ( ) Stage III ( ) Stage IV (x ) Excoriation of sacral/buttocks area in setting of frequent liquid stools ( ) Other explanation of clinical findings (Please Explain) ( ) Unable to determine (Please Define) ( ) Need to Discuss ( ) Not Agree The medical record reflects the following clinical findings, treatment, and risk factors. Clinical Indicators: As above. Patient states she is mostly bed bound. WOCN states wound to buttocks more of denuding do to contact with stool. Treatment: WOCN and q2hr repositioning, Alvarez catheter, and PRN skin care Risk Factors: Age, CKD, protein malnutrition, and alcoholic cirrhosis. Please clarify and document your clinical opinion in the progress notes and discharge summary. Terms such as "probable", "suspected", "likely", "questionable", "possible", or "still to be ruled out" are acceptable. IF IN AGREEMENT, YOU MUST DOCUMENT ABOVE DIAGNOSTIC STATEMENT IN DAILY PROGRESS NOTES AND DISCHARGE SUMMARY. This document is not part of the patient's record. Thank You, Kimo Catalan RN [phone]
[2017-03-11] MEDS: ALBUMIN HUMAN 25% 12.5 GM/50 ML VIAL IV SCH ×2 (11:27→22:00)
[2017-03-11] MEDS ORDERED: MIDODRINE 2.5 MG TAB PO SCH ×2 (12:00→17:00)
[2017-03-11] MEDS ORDERED: OCTREOTIDE ACETATE 100 MCG/ML VIAL SQ SCH (12:00)
--- NOTE | 2017-03-11 12:07 | Nephrology Consultation ---
Nephrology Consultation Date & Providers Date of Consultation: March 11, 2017. Primary Care Provider: Isreal Smith M.D. Referring Provider: Reason for Consultation ASHELY/CKD, hyperkalemia History of Present Illness Contreras Stevenson is a 66-year-old female who was seen and evaluated in her hospital room this morning. Patient is known to the nephrology service having previously seen Dr. Sue in the [facility] approximately 1 year ago. Unfortunately she did miss her follow-up appointment. Medical records in the inpatient in the outpatient electronic health records were reviewed today. It is noted that the patient was recently admitted to [facility] from February 17 to with ascites, weakness and acute kidney injury. Ashely I improved with IV fluids and supportive care. She underwent a paracentesis with 5 L of fluid removed from the abdomen. New medications included not all, omeprazole and oral magnesium replacement. Medical history is notable for cirrhosis attributed to alcohol use. Patient has ascites under least moderate and relatively new. EGD had documented at least grade 1 varices. There was also evidence of esophagitis on the study. The patient follows with Dr. Pederson. Current MELD score of 9 and Child Francis class B. There is also a documented history of COPD, hypertension, hyperlipidemia, hypothyroidism, anxiety and depression, long QT, and chronic kidney disease. Transthoracic echocardiogram has documented grade 1 diastolic dysfunction. Serum creatinine was 1.2 milligram/deciliter in January. During her recent admission creatinine was 2.0 milligram/deciliter on admission improved to 1.2 milligram/deciliter the time of discharge. this time serum creatinine was 4.2 milligram/deciliter on presentation. The patient presented with generalized weakness as well as decreased urine output and diarrhea. She was hypotensive at the time of admission. Laboratory studies also notable for hyperkalemia. This was treated with Kayexalate. 1 liter of normal saline was infused in the emergency department in she was maintained on 100 milliliters/hour subsequently. Saline was stopped this morning and transitioned intermittent infusions of 25 percent salt poor albumin. Midodrine was started to assist with blood pressure. Renal ultrasound documented no evidence of obstruction. Left kidney measures 10 centimeters and the right kidney measures 9 centimeters with an 8 millimeter cyst appreciated in the right kidney. Urinalysis is notable for 10-30 white blood cells per high-power field. There were no red blood cells. pathologic casts consistent hyaline and granular. For and admits to decreased appetite. Her diarrhea has been improving. Overall she feels better since admission. She has been experiencing abdominal pain and discomfort as well as pain in her right shoulder. The shoulder pain appears to be a chronic issue. She states that she was advised to avoid Tylenol for pain. She had taken Advil at least 1 tablet on a daily basis to help control her pain symptoms. On the day of admission she had taken 2 tablets of Advil. 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 MELD 9, Child Francis class B. -- COPD -- Alcohol use current -- Tobacco use -- Hypertension -- Hyperlipidemia -- Hypothyroidism -- Esophagitis -- Anxiety/depression -- CKD 3 with a baseline creatinine 1.2 milligram/deciliter -- Prolonged QT -- Diastolic dysfunction by imaging Surgical: EGD, paracentesis Allergies Coded Allergies: Acetaminophen (Verified Allergy, Unknown, UNKNOWN, 03/10/17) PATIENT REPEATEDLY SAYS SHE IS NOT ALLERGIC TO THIS AND HAS TAKEN A LOT OF TYLENOL IN HER LIFE. SHE SAID SHE HAS LIVER ISSUES, BUT IS NOT ALLERGIC. I TRIED TO DELETE IT AND IT WOULDN'T LET ME. - Inpatient Medications Current Inpatient Medications Medications (Trade) Dose Ordered Sig/Brett Route Start Time Stop Time Status Last Admin Dose Admin Al Hydrox/Mg Hydrox/Simethicone (Maalox Max Susp) 15 ml Q4H PRN PO 03/10/17 16:15 04/09/17 16:14 Ondansetron HCl (Zofran Inj) 4 mg Q6H PRN IV 03/10/17 16:15 04/09/17 16:14 Citalopram Hydrobromide (celeXA TAB) 20 mg DAILY PO 03/11/17 09:00 04/10/17 08:59 03/11/17 07:44 20 MG Levothyroxine Sodium (Synthroid Tab) 125 mcg DAILYBB PO 03/11/17 06:00 04/10/17 08:59 03/11/17 05:41 125 MCG Pantoprazole Sodium (Protonix Tab) 40 mg BID PO 03/10/17 21:00 04/09/17 20:59 03/11/17 07:44 40 MG Morphine Sulfate (MoRPHine SULFATE INJ) 2 mg Q4H PRN IV 03/10/17 23:15 03/24/17 23:14 03/11/17 00:19 2 MG Midodrine (Proamatine Tab) 5 mg TID@08,12,17 PO 03/11/17 12:00 04/10/17 11:59 Octreotide Acetate (Sandostatin Inj) 100 mcg Q8H SQ 03/11/17 12:00 04/10/17 11:59 Albumin Human (Albumin 25%) 25 gm Q8H IV 03/11/17 12:00 03/14/17 11:59 03/11/17 11:27 25 GM Heparin Sodium (Porcine) 5000 unit 5,000 unit BID SQ 03/11/17 21:00 04/10/17 20:59 Thiamine HCl/ Sodium Chloride (Vitamin B-1 Inj/ Nss 50ml) 52 ml @ 208 mls/hr BID IV 03/11/17 21:00 04/10/17 20:59 Social History Smoking Status: Current Every Day Smoker Smokeless Tobacco Use: No Alcohol Use: occasionally Drug Use: none Marital Status: single Housing Status: lives alone Occupation: retired Review of Systems Constitutional: + fatigue, + weakness, No chills, No fever, No weight loss Respiratory: No dyspnea at rest, No shortness of breath Cardiovascular: + edema, No chest pain, No orthopnea Abdomen: + diarrhea, No pain Genitourinary - Female: No dysuria, No hematuria, No urinary frequency A complete review of systems was performed. Pertinent positives are noted above. All other systems are negative. Physical Exam Date Time Temp Pulse Resp B/P Pulse Ox O2 Delivery O2 Flow Rate FiO2 03/11/17 11:32 36.8 84 18 96/56 96 Room Air 03/11/17 08:00 95 Room Air 03/11/17 07:44 36.7 87 20 78/50 95 Room Air 03/11/17 04:00 Room Air 03/11/17 03:54 36.6 91 18 85/52 95 Room Air 03/11/17 00:08 36.8 90 20 79/54 98 Room Air 03/11/17 00:00 Room Air 03/10/17 18:44 89 16 120/76 98 03/10/17 18:27 36.4 90 19 100/74 93 Room Air 03/10/17 17:45 81 16 90/72 98 Room Air 03/10/17 15:43 85 16 93/72 98 Room Air 03/10/17 13:36 89 18 101/78 98 Room Air 03/10/17 12:01 95 Room Air 03/10/17 12:01 36.4 94 20 99/82 95 Room Air General Appearance: no apparent distress, + thin Head: normocephalic, atraumatic Eyes: normal inspection, sclerae normal ENT: normal ENT inspection, pharynx normal Neck: supple, no JVD Respiratory/Chest: lungs clear, no respiratory distress, no accessory muscle use Cardiovascular: regular rate, rhythm, no gallop Abdomen/GI: non tender, + distended Back: no CVA tenderness Extremities/Musculoskelatal: + pedal edema (+4 pitting BL LE edema) Neurologic/Psych: alert, normal mood/affect, oriented x 3 Skin: normal color Laboratory Results Last 24 Hours Test 03/10/17 12:30 03/10/17 12:52 03/10/17 13:20 03/10/17 15:08 White Blood Count 13.29 K/uL Red Blood Count 3.18 M/uL Hemoglobin 11.4 g/dL Hematocrit 35.0 % Mean Corpuscular Volume 110.1 fL Mean Corpuscular Hemoglobin 35.8 pg Mean Corpuscular Hemoglobin Concent 32.6 g/dl Platelet Count 394 K/uL Mean Platelet Volume 11.4 fL Neutrophils (%) (Auto) 76.1 % Lymphocytes (%) (Auto) 11.4 % Monocytes (%) (Auto) 10.4 % Eosinophils (%) (Auto) 1.4 % Basophils (%) (Auto) 0.2 % Neutrophils # (Auto) 10.12 K/uL Lymphocytes # (Auto) 1.52 K/uL Monocytes # (Auto) 1.38 K/uL Eosinophils # (Auto) 0.18 K/uL Basophils # (Auto) 0.03 K/uL RDW Standard Deviation 54.1 fL RDW Coefficient of Variation 13.6 % Immature Granulocyte % (Auto) 0.5 % Immature Granulocyte # (Auto) 0.06 K/uL Large Platelets 1+ Echinocytes 1+ Lactic Acid Level 1.5 mmol/L Bedside Troponin I 0.000 ng/ml PW-Fix-V-Type Natriuretic Peptide 3247 pg/ml Prothrombin Time 11.4 SECONDS Prothromb Time International Ratio 1.1 Activated Partial Thromboplast Time 29.1 SECONDS Partial Thromboplastin Ratio 1.1 Sodium Level 140 mmol/L Potassium Level 5.7 mmol/L Chloride Level 109 mmol/L Carbon Dioxide Level 22 mmol/L Anion Gap 9.0 mmol/L Blood Urea Nitrogen 59 mg/dl Creatinine 4.20 mg/dl Est Creatinine Clear Calc Drug Dose 13.7 ml/min Estimated GFR () 12.1 Estimated GFR (Non- 10.4 BUN/Creatinine Ratio 14.0 Random Glucose 101 mg/dl Calcium Level 8.6 mg/dl Magnesium Level 2.1 mg/dl Total Bilirubin 0.3 mg/dl Aspartate Amino Transf (AST/SGOT) 15 U/L Alanine Aminotransferase (ALT/SGPT) 9 U/L Alkaline Phosphatase 146 U/L Total Protein 6.4 gm/dl Albumin 1.8 gm/dl Globulin 4.6 gm/dl Albumin/Globulin Ratio 0.4 Thyroid Stimulating Hormone (TSH) 8.250 uIu/ml Urine Color DK YELLOW Urine Appearance CLOUDY Urine pH 5.0 Urine Specific [place] 1.018 Urine Protein 1+ Urine Glucose (UA) TRACE Urine Ketones NEG Urine Occult Blood TRACE Urine Nitrite NEG Urine Bilirubin NEG Urine Urobilinogen NEG Urine Leukocyte Esterase SMALL Urine WBC (Auto) 10-30 /hpf Urine RBC (Auto) 0-4 /hpf Urine Hyaline Casts (Auto) 5-10 /lpf Urine Epithelial Cells (Auto) >30 /lpf Urine Bacteria (Auto) NEG Urine Renal Epithelial Cells 5-10 /lpf Urine Crystals SULFA Urine Pathogenic Casts 5-10 GRANULAR CASTS /lpf Test 03/10/17 16:57 03/10/17 17:57 03/10/17 20:52 03/10/17 22:17 Phosphorus Level 4.7 mg/dl Magnesium Level 1.9 mg/dl Free Thyroxine 1.06 ng/dl Sodium Level 140 mmol/L 141 mmol/L Potassium Level 6.1 mmol/L 4.6 mmol/L Chloride Level 111 mmol/L 110 mmol/L Carbon Dioxide Level 23 mmol/L 21 mmol/L Anion Gap 6.0 mmol/L 10.0 mmol/L Blood Urea Nitrogen 57 mg/dl 61 mg/dl Creatinine 4.30 mg/dl 4.50 mg/dl Est Creatinine Clear Calc Drug Dose 13.4 ml/min 12.8 ml/min Estimated GFR () 11.7 11.1 Estimated GFR (Non- 10.1 9.6 BUN/Creatinine Ratio 13.2 13.6 Random Glucose 91 mg/dl 102 mg/dl Calcium Level 8.3 mg/dl 8.4 mg/dl Urine Random Creatinine 170.0 mg/dl Urine Random Sodium 26 mEq/L Test 03/11/17 06:05 White Blood Count 10.95 K/uL Red Blood Count 2.80 M/uL Hemoglobin 9.8 g/dL Hematocrit 30.3 % Mean Corpuscular Volume 108.2 fL Mean Corpuscular Hemoglobin 35.0 pg Mean Corpuscular Hemoglobin Concent 32.3 g/dl Platelet Count 374 K/uL Mean Platelet Volume 10.8 fL Neutrophils (%) (Auto) 67.5 % Lymphocytes (%) (Auto) 20.2 % Monocytes (%) (Auto) 9.9 % Eosinophils (%) (Auto) 1.6 % Basophils (%) (Auto) 0.4 % Neutrophils # (Auto) 7.41 K/uL Lymphocytes # (Auto) 2.21 K/uL Monocytes # (Auto) 1.08 K/uL Eosinophils # (Auto) 0.17 K/uL Basophils # (Auto) 0.04 K/uL RDW Standard Deviation 53.0 fL RDW Coefficient of Variation 13.4 % Immature Granulocyte % (Auto) 0.4 % Immature Granulocyte # (Auto) 0.04 K/uL Sodium Level 141 mmol/L Potassium Level 4.7 mmol/L Chloride Level 111 mmol/L Carbon Dioxide Level 20 mmol/L Anion Gap 10.0 mmol/L Blood Urea Nitrogen 59 mg/dl Creatinine 4.20 mg/dl Est Creatinine Clear Calc Drug Dose 14.0 ml/min Estimated GFR () 12.1 Estimated GFR (Non- 10.4 BUN/Creatinine Ratio 14.1 Random Glucose 87 mg/dl Calcium Level 7.9 mg/dl Total Bilirubin 0.2 mg/dl Aspartate Amino Transf (AST/SGOT) 16 U/L Alanine Aminotransferase (ALT/SGPT) 8 U/L Alkaline Phosphatase 126 U/L Total Protein 5.4 gm/dl Albumin 1.6 gm/dl Globulin 3.8 gm/dl Albumin/Globulin Ratio 0.4 Impression (1) Acute renal insufficiency (2) CKD (chronic kidney disease), stage III (3) Cirrhosis, alcoholic (4) Ascites (5) Hyperkalemia (6) Hypoalbuminemia Contreras Stevenson is [id number] female with alcoholic cirrhosis complicated by ascites. she underwent a large volume paracentesis during a [facility] this [facility]. 5 liters of fluid were drained. Culture grew Gram-positive cocci that was felt to be a contaminant. Patient was discharged on nadolol. EGD has also documented esophagitis and she had started Omeprazole for treatment. Outpatient follow-up with Gastroenterology was arranged. Unfortunately the patient developed severe generalized weakness. She was also experiencing diarrhea and a sore on her buttocks. She was readmitted and laboratory studies documented acute renal failure. Per documentation she has been oliguric despite challenge with IV saline. Creatinine has not improved. Hyperkalemia present on admission was treated with Kayexalate. Urine analysis documented pyuria without hematuria as well as hyaline and granular casts. Renal ultrasound did not show any evidence of obstruction. Renal anatomy is otherwise normal. Urine sodium was 26. Differential at this time include is hepatorenal syndrome, acute interstitial nephritis, or acute tubular necrosis. Urine sodium is not consistent with hepatorenal syndrome. AIN associated with Omeprazole certainly consideration would suggest that we discontinue this medication. Volume status appears to be replete I agree with blood pressure support as needed. Management would be appropriate. Suggest continuing albumin, octreotide and midodrine for now. Would not give any additional saline. Hold diuretics at this time. Will reassess role of triple therapy tomorrow AM. Recommendations -- Urine for eosinophils -- Hold PPI -- Stop IV saline and continue albumin infusions q 8 hours x 24 hours -- Continue midodrine and octreotide at this time -- Rule-out SBP (diagnostic/therapeutic paracentesis -- Potassium restrict diet -- Hold nadolol -- Document I/O's -- Monitor q 12 hour metabolic profile
--- NOTE | 2017-03-11 12:56 | DIAGNOSTIC IMAGING REPORT ---
Duplex abdominal Doppler DUPLEX PORTAL HEPATIC VEINS CLINICAL HISTORY: ascites, liver failure, BRIAN TECHNIQUE: Doppler COMPARISON STUDY: None FINDINGS: Antegrade flow within the hepatic veins. Right portal vein is poorly seen. All remaining portal venous structures are unremarkable. Ascites is present. IMPRESSION: 1. Somewhat limited exam as the patient was unable to tolerate the procedure. 2. Ascites. 3. Normal venous flow is identified within the hepatic veins as well as bulk of the portal veins. The right portal vein is poorly seen. Electronically signed by: Sheldon Hutton M.D. 03/11/2017 12:55 PM Dictated Date/Time: 03/11/2017 12:53 PM
[2017-03-11] MEDS ORDERED: OCTREOTIDE IV BOLUS & DRIP IV STA (13:21)
[2017-03-11] MEDS: OCTREOTIDE ACETATE INJ 500 MCG in NSS 100ML IV SCH ×2 (14:08→23:49)
--- NOTE | 2017-03-11 14:11 | Hospitalist Progress Note ---
Hospitalist Progress Note Date of Service March 11, 2017. (Muna Padilla ., MIKYC) Subjective Pt evaluation today including: conversation w/ patient, physical exam, chart review, lab review, review of studies, conversation w/ e business consultant (GI and nephrology ), review of inpatient medication list Voiding: stout catheter in place Patient states she is currently feeling well. She has had chronic diarrhea for sometime, but over the last couple of days, diarrhea has increased to 4+ times per day. She currently has HHS, but they only come into the house 3 days per week. Because of her progressive weakness and fatigue over the last month or so , patient has been basically bedbound and has been laying in her stool for long periods of time. She has since developed a buttock wound and this is her main reason for coming to the ED. She denies any recent alcohol use. She admits that her BPs run low. +abdominal fullness w/ increasing ascites- scheduled for paracentesis on 03/13. + worsening lower extremity edema. Patient denies any fever, chills, sweats, lightheadedness, dizziness, vision changes, CP, palpitations, SOB, wheezing, cough, abdominal pain, nausea, vomiting, urinary symptoms, melena, numbness/tingling, weakness, muscle/joint pain, anxiety/ depression, active bleeding, or new skin discoloration/changes. (Muna Padilla ., MIKYC) Medications Current Inpatient Medications Medications (Trade) Dose Ordered Sig/Brett Route Start Time Stop Time Status Last Admin Dose Admin Ondansetron HCl (Zofran Inj) 4 mg Q6H PRN IV 03/10/17 16:15 04/09/17 16:14 Citalopram Hydrobromide (celeXA TAB) 20 mg DAILY PO 03/11/17 09:00 04/10/17 08:59 03/11/17 07:44 20 MG Levothyroxine Sodium (Synthroid Tab) 125 mcg DAILYBB PO 03/11/17 06:00 04/10/17 08:59 03/11/17 05:41 125 MCG Pantoprazole Sodium (Protonix Tab) 40 mg BID PO 03/10/17 21:00 04/09/17 20:59 Future Hold 03/11/17 07:44 40 MG Morphine Sulfate (MoRPHine SULFATE INJ) 2 mg Q4H PRN IV 03/10/17 23:15 03/24/17 23:14 03/11/17 13:08 2 MG Albumin Human (Albumin 25%) 25 gm Q8H IV 03/11/17 12:00 03/14/17 11:59 03/11/17 11:27 25 GM Heparin Sodium (Porcine) 5000 unit 5,000 unit BID SQ 03/11/17 21:00 04/10/17 20:59 Thiamine HCl/ Sodium Chloride (Vitamin B-1 Inj/ Nss 50ml) 52 ml @ 208 mls/hr BID IV 03/11/17 21:00 04/10/17 20:59 Enteral Nutritional Formula (Boost Breeze Nutritional Drink) 1 box [id number] PO 03/11/17 17:00 04/10/17 16:59 Midodrine (Proamatine Tab) 7.5 mg TID@08,12,17 PO 03/11/17 17:00 04/10/17 16:59 Rifaximin 550 mg 550 mg BID PO 03/11/17 21:00 04/10/17 20:59 Octreotide Acetate/Sodium Chloride (Sandostatin Inj/ Nss 100ml) 105 ml @ 10 mls/hr [id number] IV 03/11/17 13:30 04/10/17 13:29 (Muna Padilla PA-C) Objective Vital Signs Date Time Temp Pulse Resp B/P Pulse Ox O2 Delivery O2 Flow Rate FiO2 03/11/17 12:00 95 Room Air 03/11/17 11:32 36.8 84 18 96/56 96 Room Air 03/11/17 08:00 95 Room Air 03/11/17 07:44 36.7 87 20 78/50 95 Room Air 03/11/17 04:00 Room Air 03/11/17 03:54 36.6 91 18 85/52 95 Room Air 03/11/17 00:08 36.8 90 20 79/54 98 Room Air 03/11/17 00:00 Room Air 03/10/17 18:44 89 16 120/76 98 03/10/17 18:27 36.4 90 19 100/74 93 Room Air 03/10/17 17:45 81 16 90/72 98 Room Air 03/10/17 15:43 85 16 93/72 98 Room Air (Muna Padilla PA-C) Physical Exam General Appearance: no apparent distress, + pertinent finding (frail/ill appearing ) Eyes: normal inspection, PERRL ENT: hearing grossly normal Neck: supple Respiratory/Chest: lungs clear, no respiratory distress, no accessory muscle use Cardiovascular: regular rate, rhythm Abdomen: normal bowel sounds, non tender, + distended Extremities: no calf tenderness, + swelling (+3-4 pitting edema of bilateral lower extremities ) Neurologic/Psychiatric: alert, normal mood/affect, oriented x 3 Skin: normal color, warm/dry, no rash (Muna Padilla, MARIA C) Laboratory Results Last 24 Hours Test 03/10/17 15:08 03/10/17 16:57 03/10/17 17:57 03/10/17 20:52 Urine Color DK YELLOW Urine Appearance CLOUDY Urine pH 5.0 Urine Specific Widen 1.018 Urine Protein 1+ Urine Glucose (UA) TRACE Urine Ketones NEG Urine Occult Blood TRACE Urine Nitrite NEG Urine Bilirubin NEG Urine Urobilinogen NEG Urine Leukocyte Esterase SMALL Urine WBC (Auto) 10-30 /hpf Urine RBC (Auto) 0-4 /hpf Urine Hyaline Casts (Auto) 5-10 /lpf Urine Epithelial Cells (Auto) >30 /lpf Urine Bacteria (Auto) NEG Urine Renal Epithelial Cells 5-10 /lpf Urine Crystals SULFA Urine Pathogenic Casts 5-10 GRANULAR CASTS /lpf Phosphorus Level 4.7 mg/dl Magnesium Level 1.9 mg/dl Free Thyroxine 1.06 ng/dl Sodium Level 140 mmol/L Potassium Level 6.1 mmol/L Chloride Level 111 mmol/L Carbon Dioxide Level 23 mmol/L Anion Gap 6.0 mmol/L Blood Urea Nitrogen 57 mg/dl Creatinine 4.30 mg/dl Est Creatinine Clear Calc Drug Dose 13.4 ml/min Estimated GFR () 11.7 Estimated GFR (Non- 10.1 BUN/Creatinine Ratio 13.2 Random Glucose 91 mg/dl Calcium Level 8.3 mg/dl Urine Random Creatinine 170.0 mg/dl Urine Random Sodium 26 mEq/L Test 03/10/17 22:17 03/11/17 06:05 Sodium Level 141 mmol/L 141 mmol/L Potassium Level 4.6 mmol/L 4.7 mmol/L Chloride Level 110 mmol/L 111 mmol/L Carbon Dioxide Level 21 mmol/L 20 mmol/L Anion Gap 10.0 mmol/L 10.0 mmol/L Blood Urea Nitrogen 61 mg/dl 59 mg/dl Creatinine 4.50 mg/dl 4.20 mg/dl Est Creatinine Clear Calc Drug Dose 12.8 ml/min 14.0 ml/min Estimated GFR () 11.1 12.1 Estimated GFR (Non- 9.6 10.4 BUN/Creatinine Ratio 13.6 14.1 Random Glucose 102 mg/dl 87 mg/dl Calcium Level 8.4 mg/dl 7.9 mg/dl White Blood Count 10.95 K/uL Red Blood Count 2.80 M/uL Hemoglobin 9.8 g/dL Hematocrit 30.3 % Mean Corpuscular Volume 108.2 fL Mean Corpuscular Hemoglobin 35.0 pg Mean Corpuscular Hemoglobin Concent 32.3 g/dl Platelet Count 374 K/uL Mean Platelet Volume 10.8 fL Neutrophils (%) (Auto) 67.5 % Lymphocytes (%) (Auto) 20.2 % Monocytes (%) (Auto) 9.9 % Eosinophils (%) (Auto) 1.6 % Basophils (%) (Auto) 0.4 % Neutrophils # (Auto) 7.41 K/uL Lymphocytes # (Auto) 2.21 K/uL Monocytes # (Auto) 1.08 K/uL Eosinophils # (Auto) 0.17 K/uL Basophils # (Auto) 0.04 K/uL RDW Standard Deviation 53.0 fL RDW Coefficient of Variation 13.4 % Immature Granulocyte % (Auto) 0.4 % Immature Granulocyte # (Auto) 0.04 K/uL Total Bilirubin 0.2 mg/dl Aspartate Amino Transf (AST/SGOT) 16 U/L Alanine Aminotransferase (ALT/SGPT) 8 U/L Alkaline Phosphatase 126 U/L Total Protein 5.4 gm/dl Albumin 1.6 gm/dl Globulin 3.8 gm/dl Albumin/Globulin Ratio 0.4 (Muna Padilla, MIKYC) Assessment and Plan 66 y/o female with a history of alcoholic cirrhosis with ascites, COPD, hypertension, hyperlipidemia, hypothyroidism, and CKD stage III presented to the ED with weakness and fatigue. new buttocks wound Fatigue, likely secondary to alcoholic cirrhosis and ascites: - Admit to tele for cardiac monitoring - IV Midodrine 5 mg TID, Octreotide 500 mcg q8 hrs, and Albumin 25 g q8 hrs for ?hepatorenal syndrome - d/c IVF due to little improvement in kidney function and third spacing - Liver US on 03/11- 1. Somewhat limited exam as the patient was unable to tolerate the procedure. 2. Ascites. 3. Normal venous flow is identified within the hepatic veins as well as bulk of the portal veins. The right portal vein is poorly seen. - IV Thiamine 200 mg BID - Morphine IV PRN for pain management - Consult GI, appreciate recommendations -- EGD from last admission performed 02/20: LA grade D esophagitis with bleeding and ulceration. Small varices in lower third of esophagus. Stomach and duodenum normal. -- ?Paracentesis -- Xifaxan 550 mg BID - Consult nephrology, appreciate recommendations -- d/c PPI for possibility of AIN -- Agrees w/ triple therapy at this time Worsening ASHELY on CKD stage III--baseline creatinine appears to be around 1.0-1.2 : - Treated w/ IVF with little improvement in Cr; d/c'd as above and started triple therapy for ?hepatorenal syndrome - Renal US on 03/10- 1. No hydronephrosis. 2. Slight increased cortical echogenicity bilaterally suggestive of medical renal disease. 3. Moderate ascites. - Stout placed- monitor I&Os - Nephrology following -- d/c PPI Diarrhea: - C.diff negative - Pending stool cultures Hyperkalemia likely from acute on CKD stage 3- RESOLVED: - Kayexalate x 1 in addition to IVF, insulin, and albuterol tx - Follow BMP, treat PRN Buttocks wound: - Consult wound care Hypothyroidism: - Elev TSH, T4 WNL- Continue current Synthroid dose of 125 mcg daily -- per records, TSH WNL on 02/18 and prior documentation of noncompliance w/ medications Leukocytosis- CHRONIC: - No s/s of infection - UCx negative - BCx pending HTN: Hold Nadolol 10 mg daily due to hypotension Severe protein malnutrition: - Marble Installer Supervisor consult, poor appetite, albumin 1.8 on 03/10 - Boost supplement DVT prophylaxis: Heparin BID Dispo: Patient would like to go to [facility]- social services manager following - PT/OT consulted (Muna Padilla ., PAPatC) Attending Attestation: Pt seen/examined, chart reviewed, care plan d/w OLIVER Padilla. I agree w/ the hardwick components of her documentation. Pt complains of severe weakness, abdominal fullness, ongoing diarrhea. Denies current etoh use. No appetite. Denies sob. Vitals - BPs low, HR nl, o2 sats nl gen - sickly, NAD, a/o x 3 neck - no JVD heart - RRR lungs - decreased BS bases abd - markedly distended with ascites ext - 3+ pitting edema all the way to the thighs skin - pallor neuro - no asterixis labs - Cr 4.2 Hb 9.8 INR 1.1 c diff neg stool cx neg to date A/P: 1. decompensated etoh cirrhosis 2. acute renal failure in setting of CKD stage 3; ARF 2nd to ATN, AIN, or hepatorenal syndrome 3. hypotension 4. severe hypoalbuminemia 5. macrocytic anemia 6. diarrhea 7. h/o thiamine def * stop fluids; start albumin 25gm q8h (25%) * start midodrine and octreotide in the event this is hepatorenal syndrome * nephrology/GI consults much appreciated * follow cx's * agree w/ paracentesis for comfort and to r/o SBP * thiamine 200mg IV q12h (undetectable level in December of this year) * serial labs; follow stool studies prognosis is guarded family updated by phone Prudence OSUNA MD (Dinh Osuna MD)
--- NOTE | 2017-03-11 14:55 | Medical Consult ---
Consultation Note Date of Service March 11, 2017. Consultation Note Attg addendum: I interviewed and examined pt, reviewed chart and labs. Pt with alcoholic cirrhosis complicated by volume overload, s/p recent admission for ascites and renal insufficiency. She is now admitted for ascites and pedal edema, hyperkalemia, renal failure, hypotension. Regarding renal failure - Her urine NA is higher than expected with HRS, but portal HTN is still likely contributing to her elevated creat. She has recently been taking regular NSAIDs, and started on a beta patria - these may be contributing factors; SBP should be ruled out as well. Agree with midodrine , albumin, and octreotide. Midodrine should be titrate to avoid hypotension. Would prefer octreotide infusion given short half life of subcut octreotide. Follow creatinine. Regarding ascites, volume overload - Will manage by small volume paracentesis - plan for 3 liter tap today. Fluid restriction seems prudent, despite preserved sodium. Regarding cirrhosis - She is not clinically enceophalopathic, but would consider initiation of xifaxan. She has had a recent uls to r/o PVT, but I cannot find liver imaging to r/o HCC - will request this. Will follow with you.
--- NOTE | 2017-03-11 15:19 | Gastrointestinal Consultation ---
Gastrointestinal Consultation Date of Consultation: March 11, 2017 Attending Physician: Dinh Loyola Consulting Physician: Patricia Narvaez Reason for Consultation: Cirrhosis, ascites History of Present Illness Patient is a 66 year old female w ETOH cirrhosis, admitted to hospital for increasing diarrhea, weakness. Her labs noted Cr. up to 4.2, previously also had hx of ASHELY, and her Cr in mid 1s. BP also low at 80s/50s. Pt reports she gets intermittent loose stools but recently it's increase, her bottom was sore given the diarrhea frequency. Cdiff negative, stool cx pending. She currently has a rectal tube in place. She denies any fever, chills, CP, SOB. She had hx of paracentesis (01/16 3L, 02/18 5L), states currently abd feels distended and full again. Denies any abd pain. She denies much leg swelling. PO intake is poor. She feels generally weak. EGD on 02/20/17 showed LA Grade D reflux esophagitis, maybe small varices on lower esophagus. She was discharged to follow PO BID Colonoscopy on 06/02/16 showed hyperplastic colon polyps. Past Medical/Surgical History Medical Problems: (1) Acute kidney injury Status: Acute (2) Anemia Status: Acute (3) Dehydration Status: Acute (4) Hyperkalemia Status: Acute (5) Hypomagnesemia Status: Acute (6) Hypomagnesemia Status: Acute (7) Hypotension Status: Acute (8) Malaise and fatigue Status: Acute (9) Weakness Status: Acute Past Medical History: As above, also hyperlipidemia, hypothyroidism, Past Surgical History: Total hysterectomy L partial mastectomy Family History Not related to current admission Social History Smoking Status: Current Every Day Smoker Alcohol Use: none Drug Use: none Marital Status: single Occupation Status: retired Allergies Coded Allergies: Acetaminophen (Verified Allergy, Unknown, UNKNOWN, 03/10/17) PATIENT REPEATEDLY SAYS SHE IS NOT ALLERGIC TO THIS AND HAS TAKEN A LOT OF TYLENOL IN HER LIFE. SHE SAID SHE HAS LIVER ISSUES, BUT IS NOT ALLERGIC. I TRIED TO DELETE IT AND IT WOULDN'T LET ME. - Current Medications Home Meds and Scripts Medications Dose Route/Sig Max Daily Dose Days Date Category Dose Instructions Prilosec (Omeprazole) 40 Mg Cap 40 Mg PO BID 30 02/20/17 Rx Take 1 capsule by mouth twice a day. Magnesium-Oxide (Magnesium Oxide) 400 Mg Tab 400 Mg PO BID 30 02/20/17 Rx Take 1 tablet by mouth twice a day. Corgard (Nadolol) 20 Mg Tab 10 Mg PO DAILY 30 02/20/17 Rx Take 1/2 tablet by mouth once daily. Citalopram Hydrobromide 20 Mg Tab 20 Mg PO DAILY 02/17/17 Reported Atorvastatin Calcium (Atorvastatin) 20 Mg Tab 20 Mg PO DAILY 01/15/17 Reported Levothyroxine Sodium 125 Mcg Tab 125 Mcg PO DAILY 01/15/17 Reported Review of Systems Constitutional: + weakness, No chills, No fever Respiratory: No cough, No shortness of breath Cardiac: No chest pain Abdomen: + diarrhea, + see HPI, No nausea, No pain, No vomiting Skin: No bleeding, No jaundice Physical Exam Date Time Temp Pulse Resp B/P Pulse Ox O2 Delivery O2 Flow Rate FiO2 03/11/17 12:00 95 Room Air 03/11/17 11:32 36.8 84 18 96/56 96 Room Air 03/11/17 08:00 95 Room Air 03/11/17 07:44 36.7 87 20 78/50 95 Room Air 03/11/17 04:00 Room Air 03/11/17 03:54 36.6 91 18 85/52 95 Room Air 03/11/17 00:08 36.8 90 20 79/54 98 Room Air 03/11/17 00:00 Room Air 03/10/17 18:44 89 16 120/76 98 03/10/17 18:27 36.4 90 19 100/74 93 Room Air 03/10/17 17:45 81 16 90/72 98 Room Air 03/10/17 15:43 85 16 93/72 98 Room Air General Appearance: + cachetic Eyes: normal inspection, PERRL, EOMI Neck: supple, no JVD, trachea midline Respiratory/Chest: no respiratory distress, no accessory muscle use, + decreased breath sounds Cardiovascular: regular rate, rhythm, no gallop, no murmur Abdomen: normal bowel sounds, non tender, + distended Extremities: normal inspection, no pedal edema, no calf tenderness Neurologic/Psych: alert, normal mood/affect, oriented x 3 Skin: no jaundice, no rash, + pallor Laboratory Results Last 24 Hours Test 03/10/17 15:08 03/10/17 16:57 03/10/17 17:57 03/10/17 20:52 Urine Color DK YELLOW Urine Appearance CLOUDY Urine pH 5.0 Urine Specific [place] 1.018 Urine Protein 1+ Urine Glucose (UA) TRACE Urine Ketones NEG Urine Occult Blood TRACE Urine Nitrite NEG Urine Bilirubin NEG Urine Urobilinogen NEG Urine Leukocyte Esterase SMALL Urine WBC (Auto) 10-30 /hpf Urine RBC (Auto) 0-4 /hpf Urine Hyaline Casts (Auto) 5-10 /lpf Urine Epithelial Cells (Auto) >30 /lpf Urine Bacteria (Auto) NEG Urine Renal Epithelial Cells 5-10 /lpf Urine Crystals SULFA Urine Pathogenic Casts 5-10 GRANULAR CASTS /lpf Phosphorus Level 4.7 mg/dl Magnesium Level 1.9 mg/dl Free Thyroxine 1.06 ng/dl Sodium Level 140 mmol/L Potassium Level 6.1 mmol/L Chloride Level 111 mmol/L Carbon Dioxide Level 23 mmol/L Anion Gap 6.0 mmol/L Blood Urea Nitrogen 57 mg/dl Creatinine 4.30 mg/dl Est Creatinine Clear Calc Drug Dose 13.4 ml/min Estimated GFR () 11.7 Estimated GFR (Non- 10.1 BUN/Creatinine Ratio 13.2 Random Glucose 91 mg/dl Calcium Level 8.3 mg/dl Urine Random Creatinine 170.0 mg/dl Urine Random Sodium 26 mEq/L Test 03/10/17 22:17 03/11/17 06:05 Sodium Level 141 mmol/L 141 mmol/L Potassium Level 4.6 mmol/L 4.7 mmol/L Chloride Level 110 mmol/L 111 mmol/L Carbon Dioxide Level 21 mmol/L 20 mmol/L Anion Gap 10.0 mmol/L 10.0 mmol/L Blood Urea Nitrogen 61 mg/dl 59 mg/dl Creatinine 4.50 mg/dl 4.20 mg/dl Est Creatinine Clear Calc Drug Dose 12.8 ml/min 14.0 ml/min Estimated GFR () 11.1 12.1 Estimated GFR (Non- 9.6 10.4 BUN/Creatinine Ratio 13.6 14.1 Random Glucose 102 mg/dl 87 mg/dl Calcium Level 8.4 mg/dl 7.9 mg/dl White Blood Count 10.95 K/uL Red Blood Count 2.80 M/uL Hemoglobin 9.8 g/dL Hematocrit 30.3 % Mean Corpuscular Volume 108.2 fL Mean Corpuscular Hemoglobin 35.0 pg Mean Corpuscular Hemoglobin Concent 32.3 g/dl Platelet Count 374 K/uL Mean Platelet Volume 10.8 fL Neutrophils (%) (Auto) 67.5 % Lymphocytes (%) (Auto) 20.2 % Monocytes (%) (Auto) 9.9 % Eosinophils (%) (Auto) 1.6 % Basophils (%) (Auto) 0.4 % Neutrophils # (Auto) 7.41 K/uL Lymphocytes # (Auto) 2.21 K/uL Monocytes # (Auto) 1.08 K/uL Eosinophils # (Auto) 0.17 K/uL Basophils # (Auto) 0.04 K/uL RDW Standard Deviation 53.0 fL RDW Coefficient of Variation 13.4 % Immature Granulocyte % (Auto) 0.4 % Immature Granulocyte # (Auto) 0.04 K/uL Total Bilirubin 0.2 mg/dl Aspartate Amino Transf (AST/SGOT) 16 U/L Alanine Aminotransferase (ALT/SGPT) 8 U/L Alkaline Phosphatase 126 U/L Total Protein 5.4 gm/dl Albumin 1.6 gm/dl Globulin 3.8 gm/dl Albumin/Globulin Ratio 0.4 Impression Patient is a 66 year old female w ETOH cirrhosis, currently admitted w weakness , diarrhea, ASHELY (from diarrhea vs HRS). MELD 21 but Cr driven. She quit ETOH uses in December. Plan - Hold Nadolol; defer diuretic use - Start Xifaxan 550 BID. - Midodrine 7.5mg TID, Octreotide gtt. - Nephrology following, appreciate recs. - Albumin 25% 25g q8Hr. - U/S paracentesis no more than 3L ascites removal, fluid analysis to r/o SBP - Cdiff negative, f/u stool cx - Had discussion w pt that her prognosis overall is poor, and likely not a candidate for liver (or if needed both liver/kidney) transplant given sobriety only 2 months ago and her current deconditioning.
--- NOTE | 2017-03-11 15:58 | DIAGNOSTIC IMAGING REPORT ---
PARACENTESIS UNDER ULTRASOUND GUIDANCE CLINICAL HISTORY: Abdominal ascites. PROCEDURE: The risks, benefits, and alternatives to the procedure were discussed with the patient who voiced understanding. Written informed consent was obtained. Following real-time ultrasound localization of a suitable pocket of fluid in the left lower quadrant, the abdomen was prepped and draped in the usual sterile fashion. The skin and soft tissues were anesthetized with 1% lidocaine. The sheathed paracentesis was inserted and approximately 5 liters of straw-colored ascitic fluid was removed by vacuum suction. The procedure was well tolerated and without immediate complication. The patient left the department in satisfactory condition. IMPRESSION: Successful ultrasound-guided paracentesis with removal of approximately 5 liters of ascitic fluid. Electronically signed by: David Hernandez M.D. 03/11/2017 3:57 PM Dictated Date/Time: 03/11/2017 3:56 PM
[2017-03-11] MEDS: BOOST BREEZE NUTRITION DRINK 1 BOX PO SCH (17:00)
[2017-03-11 18:29] LABS: PERIT FL WBC 45 /uL (0-300); PERITONEAL FLUID RBC < 3000 /uL
[2017-03-11] MEDS: FoLIC ACID INJ 1 MG in SYRINGE 9.8 ML IV SCH (20:54)
[2017-03-11] MEDS: RIFAXIMIN TAB 550 MG TAB PO SCH (21:04)
[2017-03-11] MEDS: THIAMINE HCL INJ 200 MG in SODIUM CHLORIDE 0.9% 50ML 50 ML IV SCH (21:59)
[2017-03-12] VITALS (23 sets, daily range): BP systolic 72–110; BP diastolic 44–82; PULSE 65–95; TEMP 36.5–37; O2SAT 95–99
[2017-03-12] MEDS ORDERED: MIDODRINE 2.5 MG TAB PO STA (00:51)
[2017-03-12] MEDS: ALBUMIN HUMAN 25% 12.5 GM/50 ML VIAL IV SCH ×3 (05:10→20:03)
[2017-03-12] MEDS: MoRPHine SULFATE 2 MG/ML CARP IV PRN (05:11)
[2017-03-12] MEDS: LEVOTHYROXINE 125 MCG TAB PO SCH (05:12)
[2017-03-12 06:13] LABS: BASO % 0.8 %; BASO ABS # 0.08 K/uL (0-0.2); EOS % 1.6 %; HEMATOCRIT 26.6 % (37-47); IG% 0.5 %; LYMPH % 20.7 %; LYMPH ABS # 2.08 K/uL (1.2-3.4); MEAN CORPUSCULAR HEMOGLOBIN 34.8 pg (25-34); MEAN PLATELET VOLUME 10.3 fL (7.4-10.4); MONO % 9.3 %; NEUT % 67.1 %; PLATELET COUNT 316 K/uL (130-400); RED BLOOD COUNT 2.44 M/uL (4.2-5.4); WHITE BLOOD COUNT 10.05 K/uL (4.8-10.8)
[2017-03-12 06:57] LABS: COMPLETE YES; ECHINOCYTES 1+; OVALOCYTES 1+
[2017-03-12 06:58] LABS: ALB/GLOB RATIO 0.9 (0.9-2); BUN/CREATININE RATIO 12.7 (10-20); CALCIUM 7.8 mg/dl (8.5-10.1); CREATININE 4.5 mg/dl (0.60-1.20); POTASSIUM 4.2 mmol/L (3.5-5.1)
[2017-03-12] MEDS ORDERED: MIDODRINE 2.5 MG TAB PO SCH (08:00)
[2017-03-12] MEDS: BOOST BREEZE NUTRITION DRINK 1 BOX PO SCH ×2 (08:07→16:38)
[2017-03-12] MEDS: THIAMINE HCL INJ 200 MG in SODIUM CHLORIDE 0.9% 50ML 50 ML IV SCH ×2 (08:08→20:56)
[2017-03-12] MEDS: OCTREOTIDE ACETATE INJ 500 MCG in NSS 100ML IV SCH ×2 (08:08→19:59)
[2017-03-12] MEDS: MIDODRINE 2.5 MG TAB PO SCH ×3 (08:08→16:38)
[2017-03-12] MEDS: CEROVITE ADV FORMULA TAB PO SCH (08:09)
[2017-03-12] MEDS: CITALOPRAM 20 MG TAB PO SCH (08:09)
[2017-03-12] MEDS: FoLIC ACID INJ 1 MG in SYRINGE 9.8 ML IV SCH (08:10)
[2017-03-12] MEDS: RIFAXIMIN TAB 550 MG TAB PO SCH ×3 (08:10→20:35)
[2017-03-12] MEDS: HEPARIN SOD 5000 UNIT/0.5 ML CARP SQ SCH ×2 (08:13→20:35)
--- NOTE | 2017-03-12 08:39 | Hospitalist Progress Note ---
Hospitalist Progress Note Date of Service March 12, 2017. (Muna Padilla ., PA-C) Subjective Pt evaluation today including: conversation w/ patient, physical exam, chart review, lab review, review of studies, review of inpatient medication list Voiding: stout catheter in place Patient is sitting upright in bed eating breakfast. She is tolerating breakfast well; stating "this is the most I've ate in a long time." Feeling well overall this AM. Buttock wound with less irritation. +diarrhea. +weakness; her main goal is to gain strength to get back to her original lifestyle (like driving her car). Patient denies any fever, chills, sweats, lightheadedness, dizziness, vision changes, CP, palpitations, edema, SOB, wheezing, cough, abdominal pain, nausea, vomiting, urinary symptoms, melena, numbness/tingling, muscle/joint pain , anxiety/depression, active bleeding, or new skin discoloration/changes. Per nursing staff, patient is doing well. No acute events. Little urine output. Diarrhea continues, but seems to be improving. (Muna Padilla ., PA-C) Medications Current Inpatient Medications Medications (Trade) Dose Ordered Sig/Brett Route Start Time Stop Time Status Last Admin Dose Admin Ondansetron HCl (Zofran Inj) 4 mg Q6H PRN IV 03/10/17 16:15 04/09/17 16:14 Citalopram Hydrobromide (celeXA TAB) 20 mg DAILY PO 03/11/17 09:00 04/10/17 08:59 03/12/17 08:09 20 MG Levothyroxine Sodium (Synthroid Tab) 125 mcg DAILYBB PO 03/11/17 06:00 04/10/17 08:59 03/12/17 05:12 125 MCG Pantoprazole Sodium (Protonix Tab) 40 mg BID PO 03/10/17 21:00 04/09/17 20:59 Future Hold 03/11/17 07:44 40 MG Morphine Sulfate (MoRPHine SULFATE INJ) 2 mg Q4H PRN IV 03/10/17 23:15 03/24/17 23:14 03/12/17 05:11 2 MG Albumin Human (Albumin 25%) 25 gm Q8H IV 03/11/17 12:00 03/14/17 11:59 03/12/17 05:10 25 GM Heparin Sodium (Porcine) 5000 unit 5,000 unit BID SQ 03/11/17 21:00 04/10/17 20:59 03/12/17 08:13 5,000 UNIT Thiamine HCl/ Sodium Chloride (Vitamin B-1 Inj/ Nss 50ml) 52 ml @ 208 mls/hr BID IV 03/11/17 21:00 04/10/17 20:59 03/12/17 08:08 208 MLS/HR Enteral Nutritional Formula (Boost Breeze Nutritional Drink) 1 box [id number] PO 03/11/17 17:00 04/10/17 16:59 Rifaximin 550 mg 550 mg BID PO 03/11/17 21:00 04/10/17 20:59 03/12/17 08:10 550 MG Octreotide Acetate 500 mcg/ Sodium Chloride 105 ml @ 10 mls/hr [id number] IV 03/11/17 13:30 04/10/17 13:29 03/12/17 08:08 10 MLS/HR Folic Acid/Syringe (Folvite Inj/ Syringe) 10 ml @ 5 mls/min QAM IV 03/11/17 19:45 04/10/17 19:44 03/12/17 08:10 5 MLS/MIN Multivitamins/ Minerals (Multivitamin W/ Minerals Tab) 1 tab QAM PO 03/12/17 09:00 04/11/17 08:59 03/12/17 08:09 1 TAB Midodrine (Proamatine Tab) 15 mg TID@08,,17 PO 03/12/17 08:00 04/11/17 07:59 03/12/17 08:08 15 MG (Muna Padilla, OLIVER-C) Objective Vital Signs Date Time Temp Pulse Resp B/P Pulse Ox O2 Delivery O2 Flow Rate FiO2 03/12/17 07:49 36.7 78 18 75/44 95 Room Air 03/12/17 04:24 36.6 76 18 77/49 96 Room Air 03/12/17 04:00 Room Air 03/12/17 02:09 74 16 72/49 03/12/17 02:01 73 17 74/51 03/12/17 02:00 73 14 03/12/17 01:45 72 16 03/12/17 01:30 80 14 03/12/17 01:15 70 17 03/12/17 01:01 72 16 73/47 03/12/17 01:00 70 16 03/12/17 00:45 69 20 03/12/17 00:45 69 20 03/12/17 00:30 70 20 03/12/17 00:30 70 20 03/12/17 00:15 73 14 03/12/17 00:15 73 14 03/12/17 00:01 74 16 79/50 03/12/17 00:00 73 13 03/12/17 00:00 Room Air 03/11/17 23:56 36.5 75 20 72/51 96 Room Air 03/11/17 23:45 78 21 03/11/17 23:43 70 13 72/51 03/11/17 23:30 69 10 03/11/17 23:15 69 16 03/11/17 23:01 71 11 73/46 03/11/17 23:00 71 14 03/11/17 22:45 74 14 03/11/17 22:30 77 22 79/50 03/11/17 22:15 74 19 03/11/17 22:01 75 16 93/55 03/11/17 22:00 76 17 03/11/17 21:46 82 21 82/47 03/11/17 21:45 77 18 03/11/17 21:31 74 22 90/57 03/11/17 21:30 75 28 03/11/17 21:02 74 20 84/55 03/11/17 21:00 76 19 03/11/17 20:46 71 20 68/44 03/11/17 20:45 72 21 03/11/17 20:31 73 16 76/47 03/11/17 20:30 73 13 03/11/17 20:28 36.8 76 16 78/49 97 Room Air 03/11/17 20:16 73 14 71/48 03/11/17 20:15 75 17 03/11/17 20:01 74 12 71/47 03/11/17 20:00 76 15 03/11/17 20:00 Room Air 03/11/17 19:46 77 15 83/49 03/11/17 19:45 76 15 03/11/17 19:38 72 22 78/49 03/11/17 19:31 84 22 78/51 03/11/17 19:30 82 21 03/11/17 19:16 79 21 72/50 03/11/17 19:15 78 16 03/11/17 19:01 80 14 76/44 03/11/17 19:00 79 14 03/11/17 17:45 86/57 03/11/17 17:30 82/53 03/11/17 17:00 93 75/53 03/11/17 16:45 90 79/54 03/11/17 16:34 92 03/11/17 16:30 89 84/50 03/11/17 16:00 95 Room Air 03/11/17 12:00 95 Room Air 03/11/17 11:32 36.8 84 18 96/56 96 Room Air (Muna Padilla, OLIVER-C) Physical Exam General Appearance: no apparent distress, + pertinent finding (frail/ill appearing ) Eyes: normal inspection, PERRL ENT: hearing grossly normal Neck: supple Respiratory/Chest: lungs clear, no respiratory distress, no accessory muscle use Cardiovascular: regular rate, rhythm Abdomen: normal bowel sounds, non tender, + distended Extremities: no calf tenderness, + swelling (+2-3 pitting edema of bilateral lower extremities ) Neurologic/Psychiatric: alert, normal mood/affect, oriented x 3 Skin: normal color, warm/dry, no rash (Muna Padilla ., PA-C) Laboratory Results Last 24 Hours Test 03/12/17 05:45 White Blood Count 10.05 K/uL Red Blood Count 2.44 M/uL Hemoglobin 8.5 g/dL Hematocrit 26.6 % Mean Corpuscular Volume 109.0 fL Mean Corpuscular Hemoglobin 34.8 pg Mean Corpuscular Hemoglobin Concent 32.0 g/dl Platelet Count 316 K/uL Mean Platelet Volume 10.3 fL Neutrophils (%) (Auto) 67.1 % Lymphocytes (%) (Auto) 20.7 % Monocytes (%) (Auto) 9.3 % Eosinophils (%) (Auto) 1.6 % Basophils (%) (Auto) 0.8 % Neutrophils # (Auto) 6.75 K/uL Lymphocytes # (Auto) 2.08 K/uL Monocytes # (Auto) 0.93 K/uL Eosinophils # (Auto) 0.16 K/uL Basophils # (Auto) 0.08 K/uL RDW Standard Deviation 53.4 fL RDW Coefficient of Variation 13.4 % Immature Granulocyte % (Auto) 0.5 % Immature Granulocyte # (Auto) 0.05 K/uL Macrocytosis PRESENT Ovalocytes 1+ Echinocytes 1+ Sodium Level 141 mmol/L Potassium Level 4.2 mmol/L Chloride Level 110 mmol/L Carbon Dioxide Level 19 mmol/L Anion Gap 12.0 mmol/L Blood Urea Nitrogen 57 mg/dl Creatinine 4.50 mg/dl Est Creatinine Clear Calc Drug Dose 12.8 ml/min Estimated GFR () 11.1 Estimated GFR (Non- 9.6 BUN/Creatinine Ratio 12.7 Random Glucose 127 mg/dl Calcium Level 7.8 mg/dl Total Bilirubin 0.3 mg/dl Aspartate Amino Transf (AST/SGOT) 17 U/L Alanine Aminotransferase (ALT/SGPT) 8 U/L Alkaline Phosphatase 85 U/L Total Protein 5.1 gm/dl Albumin 2.4 gm/dl Globulin 2.7 gm/dl Albumin/Globulin Ratio 0.9 (Muna Padilla, PA-C) Assessment and Plan 66 y/o female with a history of alcoholic cirrhosis with ascites, COPD, hypertension, hyperlipidemia, hypothyroidism, and CKD stage III presented to the ED with weakness and fatigue. new buttocks wound Fatigue, likely secondary to alcoholic cirrhosis and ascites: - Admit to tele for cardiac monitoring - Albumin infusions q 8 hours, Midodrine increased to 15 mg TID, and Octreotide 100 mg Q8 hrs for ?hepatorenal syndrome - d/c IVF due to little improvement in kidney function and third spacing - Liver US on 03/11- 1. Somewhat limited exam as the patient was unable to tolerate the procedure. 2. Ascites. 3. Normal venous flow is identified within the hepatic veins as well as bulk of the portal veins. The right portal vein is poorly seen. - IV Thiamine 200 mg BID - Morphine IV PRN for pain management - Consult GI, appreciate recommendations -- EGD from last admission performed 02/20: LA grade D esophagitis with bleeding and ulceration. Small varices in lower third of esophagus. Stomach and duodenum normal. -- Paracentesis on 03/11 -- Xifaxan 550 mg BID - Consult nephrology, appreciate recommendations -- d/c PPI for possibility of AIN -- Agrees w/ triple therapy at this time -- Urine for eosinophils pending -- Repeat UA/micro and urine sodium tomorrow AM Worsening ASHELY on CKD stage III--baseline creatinine appears to be around 1.0-1.2 : - Treated w/ IVF with little improvement in Cr; d/c'd as above and started triple therapy for ?hepatorenal syndrome - Renal US on 03/10- 1. No hydronephrosis. 2. Slight increased cortical echogenicity bilaterally suggestive of medical renal disease. 3. Moderate ascites. - Stout placed- monitor I&Os - Nephrology following -- d/c PPI Anemia: - Follow H&H- trending downwards -- Recheck H&H this afternoon, if trending downward, will check stool heme occult - Iron 02/17/17- 48 - B12 01/29/17- 462 - Folate 01/16/17- 9.81 Diarrhea: C.diff and stool cultures negative Hyperkalemia likely from acute on CKD stage 3- RESOLVED: - Kayexalate x 1 in addition to IVF, insulin, and albuterol tx - Follow BMP, treat PRN Buttocks wound: Consult wound care Hypothyroidism: - Elev TSH, T4 WNL- Continue current Synthroid dose of 125 mcg daily -- per records, TSH WNL on 02/18 and prior documentation of noncompliance w/ medications Leukocytosis- RESOLVED: - No s/s of infection - UCx negative - BCx NGTD - US Paracentesis on 03/11, drained 3L; studies growing staph species- start IV Rocephin pending final results HTN: Hold Nadolol 10 mg daily due to hypotension Severe protein malnutrition: - Welding Inspector consult, poor appetite, albumin 1.8 on 03/10 - Boost supplement DVT prophylaxis: Heparin BID Code Status: LEVEL I, FULL Dispo: Patient would like to go to [facility]- social director following - PT/OT consulted (Muna Padilla ., PAPatC) Attending Attestation: Pt seen/examined, chart reviewed, care plan d/w OLIVER Padilla. I agree w/ the hardwick components of her documentation. Pt "feels better" today w/ improved appetite. Less abdominal discomfort. Denies sob. Still very weak. Vitals - BPs still low UOP - oliguric gen - does in fact look better today mouth - MM more moist today neck - no JVD heart - RRR lungs - decreased BS bases abd - markedly distended with ascites - modestly better from yesterday ext - 3+ pitting edema all the way to the thighs neuro - no asterixis labs - Cr 4.5 Hb 8.5 INR 1.1 c diff neg stool cx neg to date ascites cx with rare staph A/P: 1. decompensated etoh cirrhosis 2. acute renal failure in setting of CKD stage 3; ARF 2nd to ATN, AIN, or hepatorenal syndrome; no improvement today 3. hypotension - ongoing 4. severe hypoalbuminemia - improved s/p albumin infusions 5. macrocytic anemia - worse today 6. diarrhea - improved with neg cx and c. diff toxin to date 7. h/o thiamine def 8. unstageable sacral/buttock ulcerations * start rocephin for +ascites fluid cx (staph); odd that the culture is showing growth as WBCs on cell counts was very low * cont albumin infusions, midodrine and octreotide in the event this is hepatorenal syndrome * nephrology/GI consults much appreciated * cont thiamine 200mg IV q12h (undetectable level in December of this year) * serial labs * PT, OT * cont rectal tube for now due to severe ulcerations on buttocks/sacrum prognosis remains guarded left message for family on answering machine (03/12/17) leave on telemetry due to low BP and high risk of further decompensation Prudence OSUNA MD (Dinh Osuna MD)
--- NOTE | 2017-03-12 10:33 | Nephrology Progress Note ---
Nephrology Progress Note Date of Service March 12, 2017. Chief Complaint ASHELY/CKD, hyperkalemia Subjective No acute events overnight. Contreras states that she feels very well this morning. She denies fevers or chills. Appetite is good. Overall, she feels well. Strength is improving. Reports symptomatic improvement with paracentesis yesterday. 5 L of fluid removed. No abdominal pain. Review of Systems A complete review of systems was performed. Pertinent positives are noted above. All other systems are negative. Vital Signs Last 8 Hrs Date Time Temp Pulse Resp B/P Pulse Ox O2 Delivery O2 Flow Rate FiO2 03/12/17 08:00 95 Room Air 03/12/17 07:49 36.7 78 18 75/44 95 Room Air 03/12/17 04:24 36.6 76 18 77/49 96 Room Air 03/12/17 04:00 Room Air I & O 24-Hour Column 03/12/17 08:00 Intake Total 1488 ml Output Total 385 ml Balance 1103 ml Last Recorded Weight Weight (Kilograms): 76.500 Physical Exam General Appearance: no apparent distress, + thin Head: normocephalic, atraumatic Eyes: normal inspection, sclerae normal ENT: normal ENT inspection, pharynx normal Neck: no JVD, + JVD Respiratory/Chest: no respiratory distress, no accessory muscle use, + decreased breath sounds Cardiovascular: regular rate, rhythm, no gallop Abdomen/GI: + distended, + pertinent finding (straw colored fluid tinged with blood from paracentesis site, abdominal edema and recurrent asictes is present, abdomen is not significantly tender) Extremities/Musculoskelatal: normal inspection, + pedal edema Neurologic/Psych: alert, normal mood/affect, oriented x 3, + pertinent finding (no tremor) Social History Smokeless Tobacco Use: No Alcohol Use: occasionally Drug Use: none Marital Status: single Housing Status: lives alone Occupation: retired Laboratory Results Past 24 Hours 03/12/17 05:45 Red Blood Count 2.44, Mean Corpuscular Volume 109.0, Mean Corpuscular Hemoglobin 34.8, Mean Corpuscular Hemoglobin Concent 32.0, Mean Platelet Volume 10.3, Neutrophils (%) (Auto) 67.1, Lymphocytes (%) (Auto) 20.7, Monocytes (%) ( Auto) 9.3, Eosinophils (%) (Auto) 1.6, Basophils (%) (Auto) 0.8, Neutrophils # ( Auto) 6.75, Lymphocytes # (Auto) 2.08, Monocytes # (Auto) 0.93, Eosinophils # ( Auto) 0.16, Basophils # (Auto) 0.08 03/12/17 05:45 Test 03/12/17 05:45 White Blood Count 10.05 K/uL (4.8-10.8) Red Blood Count 2.44 M/uL (4.2-5.4) Hemoglobin 8.5 g/dL (12.0-16.0) Hematocrit 26.6 % (37-47) Mean Corpuscular Volume 109.0 fL (80-100) Mean Corpuscular Hemoglobin 34.8 pg (25-34) Mean Corpuscular Hemoglobin Concent 32.0 g/dl (32-36) Platelet Count 316 K/uL (130-400) Mean Platelet Volume 10.3 fL (7.4-10.4) Neutrophils (%) (Auto) 67.1 % Lymphocytes (%) (Auto) 20.7 % Monocytes (%) (Auto) 9.3 % Eosinophils (%) (Auto) 1.6 % Basophils (%) (Auto) 0.8 % Neutrophils # (Auto) 6.75 K/uL (1.4-6.5) Lymphocytes # (Auto) 2.08 K/uL (1.2-3.4) Monocytes # (Auto) 0.93 K/uL (0.11-0.59) Eosinophils # (Auto) 0.16 K/uL (0-0.5) Basophils # (Auto) 0.08 K/uL (0-0.2) RDW Standard Deviation 53.4 fL (36.4-46.3) RDW Coefficient of Variation 13.4 % (11.5-14.5) Immature Granulocyte % (Auto) 0.5 % Immature Granulocyte # (Auto) 0.05 K/uL (0.00-0.02) Macrocytosis PRESENT Ovalocytes 1+ Echinocytes 1+ Anion Gap 12.0 mmol/L (3-11) Est Creatinine Clear Calc Drug Dose 12.8 ml/min Estimated GFR () 11.1 Estimated GFR (Non- 9.6 BUN/Creatinine Ratio 12.7 (10-20) Calcium Level 7.8 mg/dl (8.5-10.1) Total Bilirubin 0.3 mg/dl (0.2-1) Aspartate Amino Transf (AST/SGOT) 17 U/L (15-37) Alanine Aminotransferase (ALT/SGPT) 8 U/L (12-78) Alkaline Phosphatase 85 U/L (45-117) Total Protein 5.1 gm/dl (6.4-8.2) Albumin 2.4 gm/dl (3.4-5.0) Globulin 2.7 gm/dl (2.5-4.0) Albumin/Globulin Ratio 0.9 (0.9-2) Allergies Coded Allergies: Acetaminophen (Verified Allergy, Unknown, UNKNOWN, 03/10/17) PATIENT REPEATEDLY SAYS SHE IS NOT ALLERGIC TO THIS AND HAS TAKEN A LOT OF TYLENOL IN HER LIFE. SHE SAID SHE HAS LIVER ISSUES, BUT IS NOT ALLERGIC. I TRIED TO DELETE IT AND IT WOULDN'T LET ME. - Medications Current Inpatient Medications Medications (Trade) Dose Ordered Sig/Brett Route Start Time Stop Time Status Last Admin Dose Admin Ondansetron HCl (Zofran Inj) 4 mg Q6H PRN IV 03/10/17 16:15 04/09/17 16:14 Citalopram Hydrobromide (celeXA TAB) 20 mg DAILY PO 03/11/17 09:00 04/10/17 08:59 03/12/17 08:09 20 MG Levothyroxine Sodium (Synthroid Tab) 125 mcg DAILYBB PO 03/11/17 06:00 04/10/17 08:59 03/12/17 05:12 125 MCG Pantoprazole Sodium (Protonix Tab) 40 mg BID PO 03/10/17 21:00 04/09/17 20:59 Future Hold 03/11/17 07:44 40 MG Morphine Sulfate (MoRPHine SULFATE INJ) 2 mg Q4H PRN IV 03/10/17 23:15 03/24/17 23:14 03/12/17 05:11 2 MG Albumin Human (Albumin 25%) 25 gm Q8H IV 03/11/17 12:00 03/14/17 11:59 03/12/17 05:10 25 GM Heparin Sodium (Porcine) 5000 unit 5,000 unit BID SQ 5/24/17 21:00 04/10/17 20:59 03/12/17 08:13 5,000 UNIT Thiamine HCl/ Sodium Chloride (Vitamin B-1 Inj/ Nss 50ml) 52 ml @ 208 mls/hr BID IV 03/11/17 21:00 04/10/17 20:59 03/12/17 08:08 208 MLS/HR Enteral Nutritional Formula (Boost Breeze Nutritional Drink) 1 box [id number] PO 03/11/17 17:00 04/10/17 16:59 Rifaximin 550 mg 550 mg BID PO 03/11/17 21:00 04/10/17 20:59 03/12/17 08:10 550 MG Octreotide Acetate 500 mcg/ Sodium Chloride 105 ml @ 10 mls/hr [id number] IV 03/11/17 13:30 04/10/17 13:29 03/12/17 08:08 10 MLS/HR Folic Acid/Syringe (Folvite Inj/ Syringe) 10 ml @ 5 mls/min QAM IV 03/11/17 19:45 04/10/17 19:44 03/12/17 08:10 5 MLS/MIN Multivitamins/ Minerals (Multivitamin W/ Minerals Tab) 1 tab QAM PO 03/12/17 09:00 04/11/17 08:59 03/12/17 08:09 1 TAB Midodrine (Proamatine Tab) 15 mg TID@08,12,17 PO 03/12/17 08:00 04/11/17 07:59 03/12/17 08:08 15 MG Impression (1) Acute renal insufficiency (2) CKD (chronic kidney disease), stage III (3) Cirrhosis, alcoholic (4) Ascites (5) Hyperkalemia (6) Hypoalbuminemia Contreras Stevenson is [id number] female with alcoholic cirrhosis complicated by ascites. She has recurrent ascites requiring repeat paracentesis. 5 liters of fluid were drained yesterday. No organisms on gram stain. EGD recently revealed esophagitis and Omeprazole was started for treatment. Contreras was admitted to [facility] on 03/10/17 with severe generalized weakness. She was also experiencing diarrhea and a sore on her buttocks. Laboratory studies revealed acute renal failure. She remains oliguric despite challenge with IV saline. Creatinine has not improved. Hyperkalemia present on admission was treated with Kayexalate. Urine analysis documented pyuria without hematuria as well as hyaline and granular casts. Renal ultrasound did not show any evidence of obstruction. Renal anatomy is otherwise normal. Urine sodium was 26. Differential remains hepatorenal syndrome, acute interstitial nephritis, or acute tubular necrosis. Urine sodium is not consistent with hepatorenal syndrome. AIN associated with Omeprazole remains a possibility and I would continue to avoid this medication. Volume status appears to be replete unfortunately she remains hypotensive. She was started on SPA, octreotide and midodrine yesterday. Midodrine increased to 15 mg TID this morning. Would not give any additional saline. No need for diuretics at this time. Urine of eosinophils pending. Recommendations -- Urine for eosinophils pending -- Hold PPI -- Continue albumin infusions q 8 hours -- Continue midodrine 15 mg TID -- Continue octreotide 100 mg Q8 hrs -- Potassium restrict diet -- Hold nadolol -- Document I/O's -- Monitor q 12 hour metabolic profile -- Repeat UA/micro and urine sodium tomorrow AM -- Noted drop in HCO3, no urgency to start replacement at this time
--- NOTE | 2017-03-12 12:45 | Gastroenterology Progress Note ---
Progress Note Date of Service: March 12, 2017 Subjective Pt evaluation today including: conversation w/ patient, physical exam, chart review, lab review, review of inpatient medication list Pt's BP is still low 70s/50s, UOP 360ml yesterday, Cr. slightly up at 4.5. She though reports feeling well. Had a slight leak from paracentesis site on LLQ abd area, but this stopped. She denies any CP, SOB, abd pain, n/v. Still has rectal tube in place. Review of Systems Constitutional: No chills, No fever Respiratory: No cough, No shortness of breath Cardiac: No chest pain, No edema Abdomen: + diarrhea (rectal tube system in place), No nausea, No pain, No vomiting Medications Current Inpatient Medications Medications (Trade) Dose Ordered Sig/Brett Route Start Time Stop Time Status Last Admin Dose Admin Ondansetron HCl (Zofran Inj) 4 mg Q6H PRN IV 03/10/17 16:15 04/09/17 16:14 Citalopram Hydrobromide (celeXA TAB) 20 mg DAILY PO 03/11/17 09:00 04/10/17 08:59 03/12/17 08:09 20 MG Levothyroxine Sodium (Synthroid Tab) 125 mcg DAILYBB PO 03/11/17 06:00 04/10/17 08:59 03/12/17 05:12 125 MCG Pantoprazole Sodium (Protonix Tab) 40 mg BID PO 03/10/17 21:00 04/09/17 20:59 Future Hold 03/11/17 07:44 40 MG Morphine Sulfate (MoRPHine SULFATE INJ) 2 mg Q4H PRN IV 03/10/17 23:15 03/24/17 23:14 03/12/17 05:11 2 MG Albumin Human (Albumin 25%) 25 gm Q8H IV 03/11/17 12:00 03/14/17 11:59 03/12/17 11:47 25 GM Heparin Sodium (Porcine) 5000 unit 5,000 unit BID SQ 03/11/17 21:00 04/10/17 20:59 03/12/17 08:13 5,000 UNIT Thiamine HCl/ Sodium Chloride (Vitamin B-1 Inj/ Nss 50ml) 52 ml @ 208 mls/hr BID IV 03/11/17 21:00 04/10/17 20:59 03/12/17 08:08 208 MLS/HR Enteral Nutritional Formula (Boost Breeze Nutritional Drink) 1 box [id number] PO 03/11/17 17:00 04/10/17 16:59 Rifaximin 550 mg 550 mg BID PO 03/11/17 21:00 04/10/17 20:59 03/12/17 08:10 550 MG Octreotide Acetate 500 mcg/ Sodium Chloride 105 ml @ 10 mls/hr [id number] IV 03/11/17 13:30 04/10/17 13:29 03/12/17 08:08 10 MLS/HR Folic Acid/Syringe (Folvite Inj/ Syringe) 10 ml @ 5 mls/min QAM IV 03/11/17 19:45 04/10/17 19:44 03/12/17 08:10 5 MLS/MIN Multivitamins/ Minerals (Multivitamin W/ Minerals Tab) 1 tab QAM PO 03/12/17 09:00 04/11/17 08:59 03/12/17 08:09 1 TAB Midodrine (Proamatine Tab) 15 mg TID@08,,17 PO 03/12/17 08:00 04/11/17 07:59 03/12/17 11:47 15 MG Objective Vital Signs Date Time Temp Pulse Resp B/P Pulse Ox O2 Delivery O2 Flow Rate FiO2 03/12/17 12:00 95 Room Air 03/12/17 11:30 36.8 72 22 87/60 96 Room Air 03/12/17 08:00 95 Room Air 03/12/17 07:49 36.7 78 18 75/44 95 Room Air 03/12/17 04:24 36.6 76 18 77/49 96 Room Air 03/12/17 04:00 Room Air 03/12/17 02:09 74 16 72/49 03/12/17 02:01 73 17 74/51 03/12/17 02:00 73 14 03/12/17 01:45 72 16 03/12/17 01:30 80 14 03/12/17 01:15 70 17 03/12/17 01:01 72 16 73/47 03/12/17 01:00 70 16 03/12/17 00:45 69 20 03/12/17 00:45 69 20 03/12/17 00:30 70 20 03/12/17 00:30 70 20 03/12/17 00:15 73 14 03/12/17 00:15 73 14 03/12/17 00:01 74 16 79/50 03/12/17 00:00 73 13 03/12/17 00:00 Room Air 03/11/17 23:56 36.5 75 20 72/51 96 Room Air 03/11/17 23:45 78 21 03/11/17 23:43 70 13 72/51 03/11/17 23:30 69 10 03/11/17 23:15 69 16 03/11/17 23:01 71 11 73/46 03/11/17 23:00 71 14 03/11/17 22:45 74 14 03/11/17 22:30 77 22 79/50 03/11/17 22:15 74 19 03/11/17 22:01 75 16 93/55 03/11/17 22:00 76 17 03/11/17 21:46 82 21 82/47 03/11/17 21:45 77 18 03/11/17 21:31 74 22 90/57 03/11/17 21:30 75 28 03/11/17 21:02 74 20 84/55 03/11/17 21:00 76 19 03/11/17 20:46 71 20 68/44 03/11/17 20:45 72 21 03/11/17 20:31 73 16 76/47 03/11/17 20:30 73 13 03/11/17 20:28 36.8 76 16 78/49 97 Room Air 03/11/17 20:16 73 14 71/48 03/11/17 20:15 75 17 03/11/17 20:01 74 12 71/47 03/11/17 20:00 76 15 03/11/17 20:00 Room Air 03/11/17 19:46 77 15 83/49 03/11/17 19:45 76 15 03/11/17 19:38 72 22 78/49 03/11/17 19:31 84 22 78/51 03/11/17 19:30 82 21 03/11/17 19:16 79 21 72/50 03/11/17 19:15 78 16 03/11/17 19:01 80 14 76/44 03/11/17 19:00 79 14 03/11/17 17:45 86/57 03/11/17 17:30 82/53 03/11/17 17:00 93 75/53 03/11/17 16:45 90 79/54 03/11/17 16:34 92 03/11/17 16:30 89 84/50 03/11/17 16:00 95 Room Air Physical Exam General Appearance: + cachetic Eyes: normal inspection, PERRL, EOMI Neck: supple, no JVD, trachea midline Respiratory/Chest: normal breath sounds, no respiratory distress, no accessory muscle use Cardiovascular: regular rate, rhythm, no gallop, no murmur Abdomen: non tender, soft, + abnormal bowel sounds (hypoactive) Extremities: + swelling (+1 pitting edema on bilateral LE ) Neurologic/Psych: alert, normal mood/affect, oriented x 3 Skin: + pallor Laboratory Results Last 24 Hours Test 03/12/17 05:45 White Blood Count 10.05 K/uL Red Blood Count 2.44 M/uL Hemoglobin 8.5 g/dL Hematocrit 26.6 % Mean Corpuscular Volume 109.0 fL Mean Corpuscular Hemoglobin 34.8 pg Mean Corpuscular Hemoglobin Concent 32.0 g/dl Platelet Count 316 K/uL Mean Platelet Volume 10.3 fL Neutrophils (%) (Auto) 67.1 % Lymphocytes (%) (Auto) 20.7 % Monocytes (%) (Auto) 9.3 % Eosinophils (%) (Auto) 1.6 % Basophils (%) (Auto) 0.8 % Neutrophils # (Auto) 6.75 K/uL Lymphocytes # (Auto) 2.08 K/uL Monocytes # (Auto) 0.93 K/uL Eosinophils # (Auto) 0.16 K/uL Basophils # (Auto) 0.08 K/uL RDW Standard Deviation 53.4 fL RDW Coefficient of Variation 13.4 % Immature Granulocyte % (Auto) 0.5 % Immature Granulocyte # (Auto) 0.05 K/uL Macrocytosis PRESENT Ovalocytes 1+ Echinocytes 1+ Sodium Level 141 mmol/L Potassium Level 4.2 mmol/L Chloride Level 110 mmol/L Carbon Dioxide Level 19 mmol/L Anion Gap 12.0 mmol/L Blood Urea Nitrogen 57 mg/dl Creatinine 4.50 mg/dl Est Creatinine Clear Calc Drug Dose 12.8 ml/min Estimated GFR () 11.1 Estimated GFR (Non- 9.6 BUN/Creatinine Ratio 12.7 Random Glucose 127 mg/dl Calcium Level 7.8 mg/dl Total Bilirubin 0.3 mg/dl Aspartate Amino Transf (AST/SGOT) 17 U/L Alanine Aminotransferase (ALT/SGPT) 8 U/L Alkaline Phosphatase 85 U/L Total Protein 5.1 gm/dl Albumin 2.4 gm/dl Globulin 2.7 gm/dl Albumin/Globulin Ratio 0.9 Assessment and Plan Impression Patient is a 66 year old female w ETOH cirrhosis, currently admitted w weakness , diarrhea, ASHELY (from diarrhea vs HRS). MELD 21 but Cr driven. She quit ETOH uses in December. 5L ascites removal via u/s guided paracentesis yesterday, no signs of SBP on initial cell ct. Low UOP (360ml yesterday), Cr. slightly up to 4.5. Stool cx and Cdiff negative. Plan - Hold Nadolol; defer diuretic use - Xifaxan 550 BID. - Midodrine increased to 15mg TID, Octreotide gtt. - Nephrology following, appreciate recs. - Albumin 25% 25g q8Hr. - Had discussion w pt that her prognosis overall is poor, and likely not a candidate for liver (or if needed both liver/kidney) transplant given sobriety only 2 months ago and her current deconditioning. Attg addendum: I interviewed and examined pt, reviewed chart and labs. Pt s/p 5 liter tap yesterday; no evidence of SBP. Remains hypotensive, oliguric, with creatinine that is without improvement. Cont current meds; no further recs at present.
[2017-03-12 15:27] LABS: HEMATOCRIT 29.7 % (37-47)
[2017-03-12 15:34] LABS: BUN/CREATININE RATIO 12.5 (10-20); PHOSPHORUS 4.8 mg/dl (2.5-4.9); POTASSIUM 3.9 mmol/L (3.5-5.1)
[2017-03-12 15:36] LABS: CREATININE 4.6 mg/dl (0.60-1.20)
[2017-03-12] MEDS: CEFTRIAXONE SOD INJ 1 GM in DEXTROSE 5% ADD-VANTAGE 50ML 50 ML IV SCH (16:38)
--- NOTE | 2017-03-12 18:05 | Medical Student: [facility] ---
Med Student Progress Note Date of Service March 12, 2017. Subjective Pt evaluation today including: conversation w/ patient Voiding: stout catheter in place Ms Contreras Stevenson is a 66 yo female with chronic alcoholic cirrhosis, stage III CKD and other chornic medical conditions on hospital day three. She feels well today , with more energy than she has had in weeks. She ate all of her dinner and most of her breakfast this morning. She has less abdominal discomfort and has no nausea or vomiting. She continues to produce liquid stool via a rectal tube. I spoke with her today about her wishes. She has no advanced directive but wants everything done possible. She is going to talk to a cousin about being her medical surrogate. I encouraged her to communicate her wishes with him clearly. She spoke at length about her goals for getting out of the hospital and recovery. Review of Systems Constitutional: + see HPI, No chills, No fever Eyes: No problem reported ENT: No problem reported Respiratory: No problem reported Cardiac: No problem reported Breast: No problem reported Abdomen: + diarrhea, + pain, + problem reported (less pain after paracentesis) , No constipation, No nausea, No vomiting Musculoskeletal: No problem reported Female : + incontinence, No dysuria Neurologic: No problem reported Psychiatric: + substance abuse (no alcohol since November), No problem reported Heme: No problem reported Objective Vital Signs Date Time Temp Pulse Resp B/P Pulse Ox O2 Delivery O2 Flow Rate FiO2 03/12/17 16:36 36.7 68 16 95/66 99 Room Air 03/12/17 16:00 95 Room Air 03/12/17 15:32 73 03/12/17 12:00 95 Room Air 03/12/17 11:30 36.8 72 22 87/60 96 Room Air 03/12/17 08:00 95 Room Air 03/12/17 07:49 36.7 78 18 75/44 95 Room Air 03/12/17 04:24 36.6 76 18 77/49 96 Room Air 03/12/17 04:00 Room Air 03/12/17 02:09 74 16 72/49 03/12/17 02:01 73 17 74/51 03/12/17 02:00 73 14 03/12/17 01:45 72 16 03/12/17 01:30 80 14 03/12/17 01:15 70 17 03/12/17 01:01 72 16 73/47 03/12/17 01:00 70 16 03/12/17 00:45 69 20 03/12/17 00:45 69 20 03/12/17 00:30 70 20 03/12/17 00:30 70 20 03/12/17 00:15 73 14 03/12/17 00:15 73 14 03/12/17 00:01 74 16 79/50 03/12/17 00:00 73 13 03/12/17 00:00 Room Air 03/11/17 23:56 36.5 75 20 72/51 96 Room Air 03/11/17 23:45 78 21 03/11/17 23:43 70 13 72/51 03/11/17 23:30 69 10 03/11/17 23:15 69 16 03/11/17 23:01 71 11 73/46 03/11/17 23:00 71 14 03/11/17 22:45 74 14 03/11/17 22:30 77 22 79/50 03/11/17 22:15 74 19 03/11/17 22:01 75 16 93/55 03/11/17 22:00 76 17 03/11/17 21:46 82 21 82/47 03/11/17 21:45 77 18 03/11/17 21:31 74 22 90/57 03/11/17 21:30 75 28 03/11/17 21:02 74 20 84/55 03/11/17 21:00 76 19 03/11/17 20:46 71 20 68/44 03/11/17 20:45 72 21 03/11/17 20:31 73 16 76/47 03/11/17 20:30 73 13 03/11/17 20:28 36.8 76 16 78/49 97 Room Air 03/11/17 20:16 73 14 71/48 03/11/17 20:15 75 17 03/11/17 20:01 74 12 71/47 03/11/17 20:00 76 15 03/11/17 20:00 Room Air 03/11/17 19:46 77 15 83/49 03/11/17 19:45 76 15 03/11/17 19:38 72 22 78/49 03/11/17 19:31 84 22 78/51 03/11/17 19:30 82 21 03/11/17 19:16 79 21 72/50 03/11/17 19:15 78 16 03/11/17 19:01 80 14 76/44 03/11/17 19:00 79 14 03/11/17 17:45 86/57 Physical Exam Comments: Vitals: See above. General: Elderly-appearing, thin female in no apparent distress. HEENT: NCAT, PERRLA, EOMI.Slight nystagmus. No scleral icterics. Moist mucus membranes. No anterior or posterior cervical lymphadenopathy. CV: S1, S2. No MRG. RRR. No carotid bruit. Peripheral pulses weak but equal. Pulm: Lungs clear to auscultation bilaterally in upper and lower lobes. Abdomen. Distended, tympanic. Active bowel sounds. Non-tender. Clean paracentesis site weeping minimal clear fluid. Extremities: 1+ pitting edema to mid thigh bilaterally. No upper extremity edema. Neuro: Alert and oriented x3. CN II-XII intact. No focal neurologic deficits. Sensation intact globally. Strength diminished 4/5 in upper extremities bilaterally. 2/5 in lower extremities. Psych: Not depressed or anxious. Laboratory Results Last 24 Hours Test 03/12/17 05:45 03/12/17 14:54 03/12/17 15:21 White Blood Count 10.05 K/uL Red Blood Count 2.44 M/uL Hemoglobin 8.5 g/dL 9.7 g/dL Hematocrit 26.6 % 29.7 % Mean Corpuscular Volume 109.0 fL Mean Corpuscular Hemoglobin 34.8 pg Mean Corpuscular Hemoglobin Concent 32.0 g/dl Platelet Count 316 K/uL Mean Platelet Volume 10.3 fL Neutrophils (%) (Auto) 67.1 % Lymphocytes (%) (Auto) 20.7 % Monocytes (%) (Auto) 9.3 % Eosinophils (%) (Auto) 1.6 % Basophils (%) (Auto) 0.8 % Neutrophils # (Auto) 6.75 K/uL Lymphocytes # (Auto) 2.08 K/uL Monocytes # (Auto) 0.93 K/uL Eosinophils # (Auto) 0.16 K/uL Basophils # (Auto) 0.08 K/uL RDW Standard Deviation 53.4 fL RDW Coefficient of Variation 13.4 % Immature Granulocyte % (Auto) 0.5 % Immature Granulocyte # (Auto) 0.05 K/uL Macrocytosis PRESENT Ovalocytes 1+ Echinocytes 1+ Sodium Level 141 mmol/L 141 mmol/L Potassium Level 4.2 mmol/L 3.9 mmol/L Chloride Level 110 mmol/L 109 mmol/L Carbon Dioxide Level 19 mmol/L 20 mmol/L Anion Gap 12.0 mmol/L 12.0 mmol/L Blood Urea Nitrogen 57 mg/dl 58 mg/dl Creatinine 4.50 mg/dl 4.60 mg/dl Est Creatinine Clear Calc Drug Dose 12.8 ml/min 12.5 ml/min Estimated GFR () 11.1 10.8 Estimated GFR (Non- 9.6 9.3 BUN/Creatinine Ratio 12.7 12.5 Random Glucose 127 mg/dl 111 mg/dl Calcium Level 7.8 mg/dl 8.0 mg/dl Total Bilirubin 0.3 mg/dl Aspartate Amino Transf (AST/SGOT) 17 U/L Alanine Aminotransferase (ALT/SGPT) 8 U/L Alkaline Phosphatase 85 U/L Total Protein 5.1 gm/dl Albumin 2.4 gm/dl 2.6 gm/dl Globulin 2.7 gm/dl Albumin/Globulin Ratio 0.9 Phosphorus Level 4.8 mg/dl Assessment and Plan Assessment and Plan: Ms Contreras Stevenson is a 66 yo female with a history of advanced alcoholic cirrhosis, stage III CKD with acute kidney failure, and a large open pressure ulcer on her buttocks. Individual assessment and plan are as follows: 1. Alcoholic Cirrhosis: Advanced. Hepatic portal hypertension with esophageal varices. Meld score 9. Possible candidate for TIPS procedure. 5L removed via paracentesis yesterday. Continue to trend labs and follow. Continue Rifaximin 550mg bid. 2. CKD, Stage III: Chronic. Baseline creatinine 1.0-1.5. Acutely exacerbated. 3. Acute Kidney Injury: Possible hepatorenal syndrome, likely acute tubular necrosis due to hypotension, medications. Will continue with fluids and will trend creatinine, BUN. Most recent creatinine 4.5. Nephro to follow. Recs appreciated. 4: Pressure wound on buttocks: Improving, but continues to seep serosanguineous fluid. Wound care consulted and following. 5. Hypotension: Has been in the 70s-90s systolic/50-60s diastolic. On 15mg midodrine q8hrs. Will continue until pressure stabilizes. 6. Diarrhea. Continued since yesterday. Continue with rectal tube pending wound care recommendation to remove. Do not want to reinfect wound. 7. COPD: Chronic, stable. 8. History of alcohol abuse: Patient has been sober since November with no plans of drinking. Continue thiamine 2200mg bid. 9. Hyperlipidemia. Continue atorvostatin 20mg. 10. Hyperthyroidism: TSH low, T4 nl. Continue synthroid 125mcg. 11. Esophagitis: Continue protonix. 12. Anxiety/depression: Continue citalopram 20mg qd. 13. CHF: Stable, EF 65%, type I diastolic disfunction. 14. Protein and nutrient malnutrition: Continue normal meals +/- Boost Breeze as tolerated. 15. Hypoalbuminemia: Up to 2.4 from 1.6 yesterday. Will continue to give 25g q8. 16. Pain: Continue with fentanyl 50mcg patch q72hrs, morphine 2mg q4prn. 17. DVT proph: Heparin 5000mg sq bid 18. Disposition: Continued stay, eventual discharge to [facility]. Continue with PT/OT. Continue normal meals. Continued [facility] stay due to: abnormal vital signs, inadequate po fluid intake, voiding difficulties, ambulation difficulties, multiple IV medications needed Discharge planning: jail facility ([facility])
[2017-03-13] VITALS (11 sets, daily range): BP systolic 77–115; BP diastolic 51–75; PULSE 57–78; TEMP 36.5–36.9; O2SAT 92–98
[2017-03-13] MEDS: ALBUMIN HUMAN 25% 12.5 GM/50 ML VIAL IV SCH ×3 (03:19→19:50)
[2017-03-13] MEDS: LEVOTHYROXINE 125 MCG TAB PO SCH (05:58)
[2017-03-13] MEDS: OCTREOTIDE ACETATE INJ 500 MCG in NSS 100ML IV SCH (06:34)
[2017-03-13 06:41] LABS: BASO % 0.2 %; BASO ABS # 0.03 K/uL (0-0.2); COMPLETE YES; EOS % 0.4 %; HEMATOCRIT 28.6 % (37-47); IG% 0.4 %; LYMPH ABS # 1.59 K/uL (1.2-3.4); MEAN CELL VOLUME 107.9 fL (80-100); MEAN CORPUSCULAR HEMOGLOBIN 36.2 pg (25-34); MEAN CORPUSCULAR HGB CONC 33.6 g/dl (32-36); MEAN PLATELET VOLUME 10.9 fL (7.4-10.4); MONO % 9.1 %; NEUT % 77.9 %; PLATELET COUNT 329 K/uL (130-400); RED BLOOD COUNT 2.65 M/uL (4.2-5.4); WHITE BLOOD COUNT 13.24 K/uL (4.8-10.8)
[2017-03-13 07:45] LABS: ALB/GLOB RATIO 1.2 (0.9-2); BUN/CREATININE RATIO 12.5 (10-20); CREATININE 4.6 mg/dl (0.60-1.20)
[2017-03-13] MEDS ORDERED: DAPTOMYCIN CONSULT ACTIVE PRN ×2 (08:00)
[2017-03-13] MEDS: BOOST BREEZE NUTRITION DRINK 1 BOX PO SCH (08:24)
[2017-03-13] MEDS: THIAMINE HCL INJ 200 MG in SODIUM CHLORIDE 0.9% 50ML 50 ML IV SCH ×2 (08:24→21:14)
[2017-03-13] MEDS: FoLIC ACID INJ 1 MG in SYRINGE 9.8 ML IV SCH (08:25)
[2017-03-13] MEDS: CEROVITE ADV FORMULA TAB PO SCH (08:26)
[2017-03-13] MEDS: RIFAXIMIN TAB 550 MG TAB PO SCH ×2 (08:26→21:10)
[2017-03-13] MEDS: MIDODRINE 2.5 MG TAB PO SCH ×3 (08:26→17:08)
[2017-03-13] MEDS: CITALOPRAM 20 MG TAB PO SCH (08:26)
[2017-03-13] MEDS: HEPARIN SOD 5000 UNIT/0.5 ML CARP SQ SCH ×2 (08:27→21:11)
[2017-03-13] MEDS ORDERED: NSS IV SCH (09:00)
[2017-03-13] MEDS ORDERED: DAPTOMYCIN IV SCH (09:00)
--- NOTE | 2017-03-13 09:17 | Gastroenterology Progress Note ---
Progress Note Date of Service: March 13, 2017 Subjective Pt evaluation today including: conversation w/ patient, physical exam, chart review, lab review, review of inpatient medication list Pt had n/v some abd pain yesterday. She was more sleepy this AM per RN report. She currently denies any n/v, but feels abd getting distended again. Rectal tube removed this AM, wasn't putting out much stool for last 3 days per RN. Ascites fl culture growing staph, she is on Daptomycin and Ceftriaxone. Review of Systems Constitutional: No chills, No fever Respiratory: No cough, No shortness of breath Cardiac: No chest pain Abdomen: + diarrhea, + nausea, + see HPI, + vomiting, No pain Medications Current Inpatient Medications Medications (Trade) Dose Ordered Sig/Brett Route Start Time Stop Time Status Last Admin Dose Admin Ondansetron HCl (Zofran Inj) 4 mg Q6H PRN IV 03/10/17 16:15 04/09/17 16:14 03/13/17 03:06 4 MG Citalopram Hydrobromide (celeXA TAB) 20 mg DAILY PO 03/11/17 09:00 04/10/17 08:59 03/13/17 08:26 20 MG Levothyroxine Sodium (Synthroid Tab) 125 mcg DAILYBB PO 03/11/17 06:00 04/10/17 08:59 03/13/17 05:58 125 MCG Pantoprazole Sodium (Protonix Tab) 40 mg BID PO 03/10/17 21:00 04/09/17 20:59 Future Hold 03/11/17 07:44 40 MG Morphine Sulfate (MoRPHine SULFATE INJ) 2 mg Q4H PRN IV 03/10/17 23:15 03/24/17 23:14 03/12/17 05:11 2 MG Albumin Human (Albumin 25%) 25 gm Q8H IV 03/11/17 12:00 03/14/17 11:59 03/13/17 03:19 25 GM Heparin Sodium (Porcine) 5000 unit 5,000 unit BID SQ 03/11/17 21:00 04/10/17 20:59 03/13/17 08:27 5,000 UNIT Thiamine HCl/ Sodium Chloride (Vitamin B-1 Inj/ Nss 50ml) 52 ml @ 208 mls/hr BID IV 03/11/17 21:00 04/10/17 20:59 03/13/17 08:24 208 MLS/HR Enteral Nutritional Formula (Boost Breeze Nutritional Drink) 1 box [id number] PO 03/11/17 17:00 04/10/17 16:59 03/13/17 08:24 1 BOX Rifaximin 550 mg 550 mg BID PO 03/11/17 21:00 04/10/17 20:59 03/13/17 08:26 550 MG Octreotide Acetate 500 mcg/ Sodium Chloride 105 ml @ 10 mls/hr [id number] IV 03/11/17 13:30 04/10/17 13:29 03/13/17 06:34 10 MLS/HR Folic Acid/Syringe (Folvite Inj/ Syringe) 10 ml @ 5 mls/min QAM IV 03/11/17 19:45 04/10/17 19:44 03/13/17 08:25 5 MLS/MIN Multivitamins/ Minerals (Multivitamin W/ Minerals Tab) 1 tab QAM PO 03/12/17 09:00 04/11/17 08:59 03/13/17 08:26 1 TAB Midodrine 15 mg 15 mg TID@08,12,17 PO 03/12/17 08:00 04/11/17 07:59 03/13/17 08:26 15 MG Ceftriaxone Sodium/Dextrose (Rocephin Inj/ Dextrose Add-[place] 50ML) 50 ml @ 100 mls/hr Q24H IV 03/12/17 16:00 03/14/17 15:14 03/12/17 16:38 100 MLS/HR Daptomycin 1 ea 1 ea UD PRN N/A 03/13/17 08:00 04/12/17 07:59 Daptomycin/Sodium Chloride (Cubicin IV/Nss 50ml) 59 ml @ 120 mls/hr Q48H IV 03/13/17 09:00 03/15/17 08:59 03/13/17 08:40 120 MLS/HR Objective Vital Signs Date Time Temp Pulse Resp B/P Pulse Ox O2 Delivery O2 Flow Rate FiO2 03/13/17 08:14 36.5 71 15 81/58 96 Room Air 03/13/17 04:00 Room Air 03/13/17 03:08 36.8 78 22 115/75 92 Room Air 03/13/17 00:01 Room Air 03/12/17 23:27 36.6 65 18 86/52 97 Room Air 03/12/17 20:24 36.5 68 18 101/63 99 Room Air 03/12/17 20:00 Room Air 03/12/17 16:36 36.7 68 16 95/66 99 Room Air 03/12/17 16:00 95 Room Air 03/12/17 15:32 73 03/12/17 12:00 95 Room Air 03/12/17 11:30 36.8 72 22 87/60 96 Room Air Physical Exam General Appearance: no apparent distress, + cachetic Eyes: normal inspection, PERRL, EOMI Neck: supple, no JVD, trachea midline Respiratory/Chest: normal breath sounds, no respiratory distress, no accessory muscle use Cardiovascular: regular rate, rhythm, no gallop, no murmur Abdomen: normal bowel sounds, non tender, + distended Extremities: no calf tenderness, + swelling Neurologic/Psych: alert, normal mood/affect, oriented x 3 Skin: no jaundice, no rash, + pallor Laboratory Results Last 24 Hours Test 03/12/17 14:54 03/12/17 15:21 03/13/17 06:00 Sodium Level 141 mmol/L 141 mmol/L Potassium Level 3.9 mmol/L 4.0 mmol/L Chloride Level 109 mmol/L 110 mmol/L Carbon Dioxide Level 20 mmol/L 18 mmol/L Anion Gap 12.0 mmol/L 13.0 mmol/L Blood Urea Nitrogen 58 mg/dl 57 mg/dl Creatinine 4.60 mg/dl 4.60 mg/dl Est Creatinine Clear Calc Drug Dose 12.5 ml/min 12.6 ml/min Estimated GFR () 10.8 10.8 Estimated GFR (Non- 9.3 9.3 BUN/Creatinine Ratio 12.5 12.5 Random Glucose 111 mg/dl 110 mg/dl Calcium Level 8.0 mg/dl 8.0 mg/dl Phosphorus Level 4.8 mg/dl Albumin 2.6 gm/dl 2.8 gm/dl Hemoglobin 9.7 g/dL 9.6 g/dL Hematocrit 29.7 % 28.6 % White Blood Count 13.24 K/uL Red Blood Count 2.65 M/uL Mean Corpuscular Volume 107.9 fL Mean Corpuscular Hemoglobin 36.2 pg Mean Corpuscular Hemoglobin Concent 33.6 g/dl Platelet Count 329 K/uL Mean Platelet Volume 10.9 fL Neutrophils (%) (Auto) 77.9 % Lymphocytes (%) (Auto) 12.0 % Monocytes (%) (Auto) 9.1 % Eosinophils (%) (Auto) 0.4 % Basophils (%) (Auto) 0.2 % Neutrophils # (Auto) 10.31 K/uL Lymphocytes # (Auto) 1.59 K/uL Monocytes # (Auto) 1.21 K/uL Eosinophils # (Auto) 0.05 K/uL Basophils # (Auto) 0.03 K/uL RDW Standard Deviation 53.4 fL RDW Coefficient of Variation 13.5 % Immature Granulocyte % (Auto) 0.4 % Immature Granulocyte # (Auto) 0.05 K/uL Total Bilirubin 0.4 mg/dl Aspartate Amino Transf (AST/SGOT) 14 U/L Alanine Aminotransferase (ALT/SGPT) 7 U/L Alkaline Phosphatase 75 U/L Total Protein 5.1 gm/dl Globulin 2.3 gm/dl Albumin/Globulin Ratio 1.2 Assessment and Plan Impression Patient is a 66 year old female w ETOH cirrhosis, currently admitted w weakness , diarrhea, ASHELY (from diarrhea vs HRS). MELD 21 but Cr driven. She quit ETOH uses in December. 5L ascites removal via u/s guided paracentesis 03/11, no signs of SBP on initial cell ct. Total WBC 45. Though fluid cx grew staph species (she had this before in January, suspected to be a contaminated specimen). She was started on Daptomycin, Ceftriaxone. UOP decreasing, only 250ml yesterday. Cr up to 4.6. Stool cx and Cdiff negative. RN report rectal tube w/o much output in last 3 days, tube will be removed today. Plans - Hold Nadolol; defer diuretic use - Xifaxan 550 BID. - Midodrine increased to 15mg TID. - Nephrology following, appreciate recs. - Albumin 25% 25g q8Hr. - Had discussion w pt that her prognosis overall is poor, and likely not a candidate for liver (or if needed both liver/kidney) transplant given sobriety only 2 months ago and her current deconditioning. - OK to DC rectal tube. - ? contamination of ascites fl specimen. WBC on cell ct low, and no signs of abd pain, fever, chills. She does have leukocytosis. Will keep current antibx for now. Attg addendum: I interviewed and examined pt, reviewed chart and labs. Pt with continued poor urine output and stable BUn/creat. Would cont current meds. Can decrease albumin to 50 gm daily as needed. Likely will need repeat LVP next week. Cont xifaxan. Regarding pos cultures - suspect contaminant; staph is an unusual organsim to cause SBP in pts who are abx naive --> would consider d/c dapto.
--- NOTE | 2017-03-13 11:08 | Nephrology Progress Note ---
Nephrology Progress Note Date of Service March 13, 2017. Chief Complaint ASHELY/CKD, hyperkalemia Subjective Contreras was seen and evaluated in her hospital room this morning. She was sleeping comfortably but not difficult to arouse. She answered questions quickly and appropriately with one or two word answers. She denied pain. She denied shortness of breath. She has not experienced fevers or chills. She reported a fair appetite. Her breakfast tray appeared untouched. Alvarez catheter remains in place draining yellow urine. Ascitic fluid culture growing Staph despite insignificant number to WBCs to suggest SBP. Blood pressure acceptable. Review of Systems A complete review of systems was performed. Pertinent positives are noted above. All other systems are negative. Vital Signs Last 8 Hrs Date Time Temp Pulse Resp B/P Pulse Ox O2 Delivery O2 Flow Rate FiO2 03/13/17 08:14 36.5 71 15 81/58 96 Room Air 03/13/17 08:00 92 Room Air 03/13/17 04:00 Room Air 03/13/17 03:08 36.8 78 22 115/75 92 Room Air I & O 24-Hour Column 03/13/17 07:59 Intake Total 1574 ml Output Total 300 ml Balance 1274 ml Last Recorded Weight Weight (Kilograms): 78.600 Physical Exam General Appearance: no apparent distress, + thin Head: normocephalic, atraumatic Eyes: normal inspection, sclerae normal ENT: normal ENT inspection, pharynx normal Neck: supple, no JVD Respiratory/Chest: lungs clear, no respiratory distress, no accessory muscle use, + decreased breath sounds Cardiovascular: regular rate, rhythm, no gallop, + pertinent finding ( occassional ectopy) Abdomen/GI: non tender, + distended, + pertinent finding (increasing abdominal ascites noted) Genitourinary - Female: + pertinent finding (Alvarez draining yellow urine) Extremities/Musculoskelatal: normal inspection, + pedal edema Neurologic/Psych: + depressed affect, + pertinent finding (more tired this morning, not as alert, no tremor) Social History Smokeless Tobacco Use: No Alcohol Use: occasionally Drug Use: none Marital Status: single Housing Status: lives alone Occupation: retired Laboratory Results Past 24 Hours 03/12/17 15:21 03/13/17 06:00 Red Blood Count 2.65, Mean Corpuscular Volume 107.9, Mean Corpuscular Hemoglobin 36.2, Mean Corpuscular Hemoglobin Concent 33.6, Mean Platelet Volume 10.9, Neutrophils (%) (Auto) 77.9, Lymphocytes (%) (Auto) 12.0, Monocytes (%) ( Auto) 9.1, Eosinophils (%) (Auto) 0.4, Basophils (%) (Auto) 0.2, Neutrophils # ( Auto) 10.31, Lymphocytes # (Auto) 1.59, Monocytes # (Auto) 1.21, Eosinophils # ( Auto) 0.05, Basophils # (Auto) 0.03 03/12/17 14:54 03/13/17 06:00 Test 03/12/17 14:54 03/13/17 06:00 Anion Gap 12.0 mmol/L (3-11) 13.0 mmol/L (3-11) Est Creatinine Clear Calc Drug Dose 12.5 ml/min 12.6 ml/min Estimated GFR () 10.8 10.8 Estimated GFR (Non- 9.3 9.3 BUN/Creatinine Ratio 12.5 (10-20) 12.5 (10-20) Calcium Level 8.0 mg/dl (8.5-10.1) 8.0 mg/dl (8.5-10.1) Phosphorus Level 4.8 mg/dl (2.5-4.9) Albumin 2.6 gm/dl (3.4-5.0) 2.8 gm/dl (3.4-5.0) White Blood Count 13.24 K/uL (4.8-10.8) Red Blood Count 2.65 M/uL (4.2-5.4) Hemoglobin 9.6 g/dL (12.0-16.0) Hematocrit 28.6 % (37-47) Mean Corpuscular Volume 107.9 fL (80-100) Mean Corpuscular Hemoglobin 36.2 pg (25-34) Mean Corpuscular Hemoglobin Concent 33.6 g/dl (32-36) Platelet Count 329 K/uL (130-400) Mean Platelet Volume 10.9 fL (7.4-10.4) Neutrophils (%) (Auto) 77.9 % Lymphocytes (%) (Auto) 12.0 % Monocytes (%) (Auto) 9.1 % Eosinophils (%) (Auto) 0.4 % Basophils (%) (Auto) 0.2 % Neutrophils # (Auto) 10.31 K/uL (1.4-6.5) Lymphocytes # (Auto) 1.59 K/uL (1.2-3.4) Monocytes # (Auto) 1.21 K/uL (0.11-0.59) Eosinophils # (Auto) 0.05 K/uL (0-0.5) Basophils # (Auto) 0.03 K/uL (0-0.2) RDW Standard Deviation 53.4 fL (36.4-46.3) RDW Coefficient of Variation 13.5 % (11.5-14.5) Immature Granulocyte % (Auto) 0.4 % Immature Granulocyte # (Auto) 0.05 K/uL (0.00-0.02) Total Bilirubin 0.4 mg/dl (0.2-1) Aspartate Amino Transf (AST/SGOT) 14 U/L (15-37) Alanine Aminotransferase (ALT/SGPT) 7 U/L (12-78) Alkaline Phosphatase 75 U/L (45-117) Total Protein 5.1 gm/dl (6.4-8.2) Globulin 2.3 gm/dl (2.5-4.0) Albumin/Globulin Ratio 1.2 (0.9-2) Allergies Coded Allergies: Acetaminophen (Verified Allergy, Unknown, UNKNOWN, 03/10/17) PATIENT REPEATEDLY SAYS SHE IS NOT ALLERGIC TO THIS AND HAS TAKEN A LOT OF TYLENOL IN HER LIFE. SHE SAID SHE HAS LIVER ISSUES, BUT IS NOT ALLERGIC. I TRIED TO DELETE IT AND IT WOULDN'T LET ME. - Medications Current Inpatient Medications Medications (Trade) Dose Ordered Sig/Brett Route Start Time Stop Time Status Last Admin Dose Admin Ondansetron HCl (Zofran Inj) 4 mg Q6H PRN IV 03/10/17 16:15 04/09/17 16:14 03/13/17 03:06 4 MG Citalopram Hydrobromide (celeXA TAB) 20 mg DAILY PO 03/11/17 09:00 04/10/17 08:59 03/13/17 08:26 20 MG Levothyroxine Sodium (Synthroid Tab) 125 mcg DAILYBB PO 03/11/17 06:00 04/10/17 08:59 03/13/17 05:58 125 MCG Pantoprazole Sodium (Protonix Tab) 40 mg BID PO 03/10/17 21:00 04/09/17 20:59 Future Hold 03/11/17 07:44 40 MG Morphine Sulfate (MoRPHine SULFATE INJ) 2 mg Q4H PRN IV 03/10/17 23:15 03/24/17 23:14 03/12/17 05:11 2 MG Albumin Human (Albumin 25%) 25 gm Q8H IV 03/11/17 12:00 03/14/17 11:59 03/13/17 03:19 25 GM Heparin Sodium (Porcine) 5000 unit 5,000 unit BID SQ 03/11/17 21:00 04/10/17 20:59 03/13/17 08:27 5,000 UNIT Thiamine HCl/ Sodium Chloride (Vitamin B-1 Inj/ Nss 50ml) 52 ml @ 208 mls/hr BID IV 03/11/17 21:00 04/10/17 20:59 03/13/17 08:24 208 MLS/HR Enteral Nutritional Formula (Boost Breeze Nutritional Drink) 1 box [id number] PO 03/11/17 17:00 04/10/17 16:59 03/13/17 08:24 1 BOX Rifaximin 550 mg 550 mg BID PO 03/11/17 21:00 04/10/17 20:59 03/13/17 08:26 550 MG Octreotide Acetate 500 mcg/ Sodium Chloride 105 ml @ 10 mls/hr [id number] IV 03/11/17 13:30 03/14/17 13:29 03/13/17 06:34 10 MLS/HR Folic Acid/Syringe (Folvite Inj/ Syringe) 10 ml @ 5 mls/min QAM IV 03/11/17 19:45 04/10/17 19:44 03/13/17 08:25 5 MLS/MIN Multivitamins/ Minerals (Multivitamin W/ Minerals Tab) 1 tab QAM PO 03/12/17 09:00 04/11/17 08:59 03/13/17 08:26 1 TAB Midodrine 15 mg 15 mg TID@08,,17 PO 03/12/17 08:00 04/11/17 07:59 03/13/17 08:26 15 MG Ceftriaxone Sodium/Dextrose (Rocephin Inj/ Dextrose Add-[place] 50ML) 50 ml @ 100 mls/hr Q24H IV 03/12/17 16:00 03/14/17 15:14 03/12/17 16:38 100 MLS/HR Daptomycin 1 ea 1 ea UD PRN N/A 03/13/17 08:00 04/12/17 07:59 Daptomycin/Sodium Chloride (Cubicin IV/Nss 50ml) 59 ml @ 120 mls/hr Q48H IV 03/13/17 09:00 03/15/17 08:59 03/13/17 08:40 120 MLS/HR Impression (1) Acute renal insufficiency (2) CKD (chronic kidney disease), stage III (3) Cirrhosis, alcoholic (4) Ascites (5) Hyperkalemia (6) Hypoalbuminemia Contreras Stevenson is [id number] female with alcoholic cirrhosis complicated by ascites. She recently developed recurrent ascites requiring paracentesis. 5 liters of fluid were drained since admission. No organisms on gram stain and WBC insignificant but culture growing Staph (possible contaminate ?). EGD had recently revealed esophagitis and Omeprazole was started for treatment. Contreras was admitted to [facility] on 03/10/17 with severe generalized weakness. She was also experiencing diarrhea and a sore on her buttocks. Laboratory studies revealed acute renal failure. She remained oliguric despite challenge with IV saline. She was started on triple therapy for SBP. Creatinine has not improved. Hyperkalemia present on admission was treated with Kayexalate. Urine analysis documented pyuria without hematuria as well as hyaline and granular casts. Renal ultrasound did not show any evidence of obstruction. Renal anatomy is otherwise normal. Urine sodium was 26. Clinical presentation is consistent with ATN but I cannot exclude underlying hepatorenal syndrome or AIN. Overall without improvement in renal function prognosis is guarded. Urine sodium is not consistent with hepatorenal syndrome. AIN associated with Omeprazole remains a possibility and the medication has been stopped. She has been requiring midodrine for BP support. She was started on SPA, octreotide and midodrine. the benefit of continuing octreotide and albumin remains unclear. I agree with stopping octreotide today unless there is convincing evidence of SBP. I would continue to hold diuretics for now. Patient is unfortunately not a liver transplant candidate due to alcohol history. I suspect ASHELY is related to ATN and less consistent with HRS 1 and would not expect significant benefit from TIPS at this time. No eosinophils were noted on urine cytology. Recommendations -- Stop octreotide -- Continue midodrine 15 mg TID -- Hold nadolol -- Hold PPI -- Continue albumin infusions q 8 hours for additional 24 hours -- Potassium restrict diet -- Document I/O's, remove Alvarez catheter when clinically appropriate -- Monitor daily metabolic profile -- Repeat UA/micro and urine sodium today -- Continue to hold HCO3 replacement option at this time
[2017-03-13 11:44] LABS: URINE APPEARANCE CLEAR (CLEAR); URINE BILIRUBIN NEG (NEG); URINE COLOR YELLOW; URINE EPITHELIAL CELL AUTO 0-5 /lpf (0-5); URINE NITRITE NEG (NEG); URINE SPECIFIC GRAVITY 1.016 (1.000-1.030); UROBILINOGEN NEG (NEG)
[2017-03-13 11:55] LABS: MANUAL MICROSCOPIC REQUIRED? NO; REVIEW REQ? NO
[2017-03-13] MEDS ORDERED: NURSING VERBAL MED ORDER ONE (15:30)
[2017-03-13] MEDS: CEFTRIAXONE SOD INJ 1 GM in DEXTROSE 5% ADD-VANTAGE 50ML 50 ML IV SCH (15:32)
[2017-03-13] MEDS: MoRPHine SULFATE 2 MG/ML CARP IV PRN (15:33)
[2017-03-13] MEDS: OCTREOTIDE ACETATE IV SCH (17:08)
[2017-03-13] MEDS: SODIUM CHLORIDE 0.9% IV SCH (17:08)
[2017-03-13] MEDS: BOOST VANILLA PO SCH ×2 (17:08)
--- NOTE | 2017-03-13 17:23 | Medical Student: [facility] ---
Med Student Progress Note Date of Service March 13, 2017. Subjective Pt evaluation today including: conversation w/ patient Pain: none PO Intake: poor Voiding: stout catheter in place Ms Contreras Stevenson is a 66 yo female with chronic alcoholic cirrhosis, stage III CKD and other chronic medical conditions on hospital day four. Overnight she vomited and developed a white count. She has less energy this morning and has no appetite. She has some abdominal discomfort. Her rectal tube was removed today and she is no longer having diarrhea. Her wound continues to heal well. Review of Systems Constitutional: + chills, + fatigue, + weakness, No fever, No sweats, No weight loss Eyes: No problem reported ENT: No problem reported Respiratory: No problem reported Cardiac: + edema (lower extremities), No problem reported Abdomen: + nausea, + problem reported (decreased appeite), + vomiting Musculoskeletal: No problem reported Female : No problem reported Neurologic: No problem reported Psychiatric: No problem reported Skin: + new/changing skin lesions (wound on buttocks persistent) Objective Vital Signs Date Time Temp Pulse Resp B/P Pulse Ox O2 Delivery O2 Flow Rate FiO2 03/13/17 16:00 92 Room Air 03/13/17 15:13 36.8 66 16 80/51 96 Room Air 03/13/17 12:00 92 Room Air 03/13/17 11:55 36.5 70 12 88/57 97 Room Air 03/13/17 08:14 36.5 71 15 81/58 96 Room Air 03/13/17 08:00 92 Room Air 03/13/17 04:00 Room Air 03/13/17 03:08 36.8 78 22 115/75 92 Room Air 03/13/17 00:01 Room Air 03/12/17 23:27 36.6 65 18 86/52 97 Room Air 03/12/17 20:24 36.5 68 18 101/63 99 Room Air 03/12/17 20:00 Room Air Physical Exam Comments: General: Ill, elderly appearing female. Tired appearing Vitals: See above. General: Elderly-appearing, thin female in no apparent distress. HEENT: NCAT, PERRLA, EOMI.Slight nystagmus. No scleral icterics. Moist mucus membranes. No anterior or posterior cervical lymphadenopathy. CV: S1, S2. No MRG. RRR. No carotid bruit. Peripheral pulses weak but equal. Pulm: Lungs clear to auscultation bilaterally in upper and lower lobes. Abdomen. Distended, tympanic. Active bowel sounds. Tender to touch. Clean paracentesis site weeping minimal clear fluid. Extremities: 1+ pitting edema to mid thigh bilaterally. No upper extremity edema. Neuro: Alert and oriented x3. CN II-XII intact. No focal neurologic deficits. Sensation intact globally. Strength diminished 4/5 in upper extremities bilaterally. 2/5 in lower extremities. Had to be reminded of date, but knew it was Thursday. Laboratory Results Last 24 Hours Test 03/13/17 06:00 03/13/17 11:20 White Blood Count 13.24 K/uL Red Blood Count 2.65 M/uL Hemoglobin 9.6 g/dL Hematocrit 28.6 % Mean Corpuscular Volume 107.9 fL Mean Corpuscular Hemoglobin 36.2 pg Mean Corpuscular Hemoglobin Concent 33.6 g/dl Platelet Count 329 K/uL Mean Platelet Volume 10.9 fL Neutrophils (%) (Auto) 77.9 % Lymphocytes (%) (Auto) 12.0 % Monocytes (%) (Auto) 9.1 % Eosinophils (%) (Auto) 0.4 % Basophils (%) (Auto) 0.2 % Neutrophils # (Auto) 10.31 K/uL Lymphocytes # (Auto) 1.59 K/uL Monocytes # (Auto) 1.21 K/uL Eosinophils # (Auto) 0.05 K/uL Basophils # (Auto) 0.03 K/uL RDW Standard Deviation 53.4 fL RDW Coefficient of Variation 13.5 % Immature Granulocyte % (Auto) 0.4 % Immature Granulocyte # (Auto) 0.05 K/uL Sodium Level 141 mmol/L Potassium Level 4.0 mmol/L Chloride Level 110 mmol/L Carbon Dioxide Level 18 mmol/L Anion Gap 13.0 mmol/L Blood Urea Nitrogen 57 mg/dl Creatinine 4.60 mg/dl Est Creatinine Clear Calc Drug Dose 12.6 ml/min Estimated GFR () 10.8 Estimated GFR (Non- 9.3 BUN/Creatinine Ratio 12.5 Random Glucose 110 mg/dl Calcium Level 8.0 mg/dl Total Bilirubin 0.4 mg/dl Aspartate Amino Transf (AST/SGOT) 14 U/L Alanine Aminotransferase (ALT/SGPT) 7 U/L Alkaline Phosphatase 75 U/L Total Protein 5.1 gm/dl Albumin 2.8 gm/dl Globulin 2.3 gm/dl Albumin/Globulin Ratio 1.2 Urine Color YELLOW Urine Appearance CLEAR Urine pH 5.0 Urine Specific [place] 1.016 Urine Protein TRACE Urine Glucose (UA) NEG Urine Ketones NEG Urine Occult Blood 2+ Urine Nitrite NEG Urine Bilirubin NEG Urine Urobilinogen NEG Urine Leukocyte Esterase LARGE Urine WBC (Auto) >30 /hpf Urine RBC (Auto) 0-4 /hpf Urine Hyaline Casts (Auto) 1-5 /lpf Urine Epithelial Cells (Auto) 0-5 /lpf Urine Bacteria (Auto) NEG Urine Random Sodium 24 mEq/L Assessment and Plan Assessment and Plan: Ms Contreras Stevenson is a 66 yo female with a history of advanced alcoholic cirrhosis, stage III CKD with acute kidney failure, and a large open pressure ulcer on her buttocks. Individual assessment and plan are as follows: 1. Alcoholic Cirrhosis: Advanced. Hepatic portal hypertension with esophageal varices. Meld score 9. Possible candidate for TIPS procedure. 5L removed via paracentesis two days ago. Continue to trend labs and follow. Continue Rifaximin 550mg bid. 1a. Bacterial peritonitis. Secondary to 1. On daptomycin for staph coverage. 2. CKD, Stage III: Chronic. Baseline creatinine 1.0-1.5. Acutely exacerbated. 3. Acute Kidney Injury: Possible hepatorenal syndrome, likely acute tubular necrosis due to hypotension, medications. Will continue with fluids and will trend creatinine, BUN. Most recent creatinine 4.5. Nephro to follow. Recs appreciated. Still producing little urine. Stout in place. 4: Pressure wound on buttocks: Improving, but continues to seep serosanguineous fluid. Wound care consulted and following. 5. Hypotension: Improved today at 115/72. On 15mg midodrine q8hrs. Will continue until pressure stabilizes to maintain kidney perfusion. 6. Diarrhea. Resolving. C.diff, salmonella, shigella negative. 7. COPD: Chronic, stable. 8. History of alcohol abuse: Patient has been sober since November with no plans of drinking. Continue thiamine 2200mg bid. 9. Hyperlipidemia. Continue atorvostatin 20mg. 10. Hyperthyroidism: TSH low, T4 nl. Continue synthroid 125mcg. 11. Esophagitis: Continue protonix. 12. Anxiety/depression: Continue citalopram 20mg qd. 13. CHF: Stable, EF 65%, type I diastolic disfunction. 14. Protein and nutrient malnutrition: Continue normal meals +/- Chocolate Boost. 15. Hypoalbuminemia: Up to 2.8 from 2.6 yesterday. Will continue to give 25g q8. 16. Pain: Continue with fentanyl 50mcg patch q72hrs, morphine 2mg q4prn. 17. DVT proph: Heparin 5000mg sq bid 18. Disposition: Continued stay, eventual discharge to [facility]. Continue with PT/OT. Continue normal meals. Continued [facility] stay due to: abnormal vital signs, inadequate po fluid intake, voiding difficulties, ambulation difficulties, multiple IV medications needed Discharge planning: fpc facility ([facility]
--- NOTE | 2017-03-13 20:35 | Progress Note ---
Subjective Date of Service: March 13, 2017. Subjective Pt evaluation today including: conversation w/ patient, physical exam, chart review, lab review, conversation w/ transformation consultant (GI), review of inpatient medication list Pain: abdominal discomfort - generalized PO Intake: very poor today Voiding: stout catheter in place tele stable overnight BPs waxing/waning but overall trend is that of improved BPs she had emesis overnight and has had nausea today as well rectal tube d/c by GI Problem List Medical Problems: (1) Acute kidney injury Status: Acute (2) Anemia Status: Acute (3) Dehydration Status: Acute (4) Hyperkalemia Status: Acute (5) Hypomagnesemia Status: Acute (6) Hypomagnesemia Status: Acute (7) Hypotension Status: Acute (8) Malaise and fatigue Status: Acute (9) Weakness Status: Acute Review of Systems Constitutional: No chills, No fever Respiratory: No dyspnea at rest Cardiac: No chest pain Abdomen: + nausea, + pain, + see HPI, + vomiting, No GI bleeding, No diarrhea Objective Vital Signs Date Time Temp Pulse Resp B/P Pulse Ox O2 Delivery O2 Flow Rate FiO2 03/13/17 19:32 36.6 57 18 90/56 94 Room Air 03/13/17 16:00 92 Room Air 03/13/17 15:13 36.8 66 16 80/51 96 Room Air 03/13/17 12:00 92 Room Air 03/13/17 11:55 36.5 70 12 88/57 97 Room Air 03/13/17 08:14 36.5 71 15 81/58 96 Room Air 03/13/17 08:00 92 Room Air 03/13/17 04:00 Room Air 03/13/17 03:08 36.8 78 22 115/75 92 Room Air 03/13/17 00:01 Room Air 03/12/17 23:27 36.6 65 18 86/52 97 Room Air Physical Exam General Appearance: + pertinent finding (looks worse today but she is overall comfortable) ENT: pharynx normal Neck: no JVD Respiratory/Chest: lungs clear, no respiratory distress, no accessory muscle use Cardiovascular: regular rate, rhythm, no gallop, no murmur Abdomen: no organomegaly, + distended (w/ ascites), + tenderness (diffuse (mild )) Extremities: + pedal edema (3+ b/l ) Neurologic/Psychiatric: alert, oriented x 3, + pertinent finding (no asterixis ) Laboratory Results Last 24 Hours Test 03/13/17 06:00 03/13/17 11:20 White Blood Count 13.24 K/uL Red Blood Count 2.65 M/uL Hemoglobin 9.6 g/dL Hematocrit 28.6 % Mean Corpuscular Volume 107.9 fL Mean Corpuscular Hemoglobin 36.2 pg Mean Corpuscular Hemoglobin Concent 33.6 g/dl Platelet Count 329 K/uL Mean Platelet Volume 10.9 fL Neutrophils (%) (Auto) 77.9 % Lymphocytes (%) (Auto) 12.0 % Monocytes (%) (Auto) 9.1 % Eosinophils (%) (Auto) 0.4 % Basophils (%) (Auto) 0.2 % Neutrophils # (Auto) 10.31 K/uL Lymphocytes # (Auto) 1.59 K/uL Monocytes # (Auto) 1.21 K/uL Eosinophils # (Auto) 0.05 K/uL Basophils # (Auto) 0.03 K/uL RDW Standard Deviation 53.4 fL RDW Coefficient of Variation 13.5 % Immature Granulocyte % (Auto) 0.4 % Immature Granulocyte # (Auto) 0.05 K/uL Sodium Level 141 mmol/L Potassium Level 4.0 mmol/L Chloride Level 110 mmol/L Carbon Dioxide Level 18 mmol/L Anion Gap 13.0 mmol/L Blood Urea Nitrogen 57 mg/dl Creatinine 4.60 mg/dl Est Creatinine Clear Calc Drug Dose 12.6 ml/min Estimated GFR () 10.8 Estimated GFR (Non- 9.3 BUN/Creatinine Ratio 12.5 Random Glucose 110 mg/dl Calcium Level 8.0 mg/dl Total Bilirubin 0.4 mg/dl Aspartate Amino Transf (AST/SGOT) 14 U/L Alanine Aminotransferase (ALT/SGPT) 7 U/L Alkaline Phosphatase 75 U/L Total Protein 5.1 gm/dl Albumin 2.8 gm/dl Globulin 2.3 gm/dl Albumin/Globulin Ratio 1.2 Urine Color YELLOW Urine Appearance CLEAR Urine pH 5.0 Urine Specific [place] 1.016 Urine Protein TRACE Urine Glucose (UA) NEG Urine Ketones NEG Urine Occult Blood 2+ Urine Nitrite NEG Urine Bilirubin NEG Urine Urobilinogen NEG Urine Leukocyte Esterase LARGE Urine WBC (Auto) >30 /hpf Urine RBC (Auto) 0-4 /hpf Urine Hyaline Casts (Auto) 1-5 /lpf Urine Epithelial Cells (Auto) 0-5 /lpf Urine Bacteria (Auto) NEG Urine Random Sodium 24 mEq/L Assessment and Plan 66yo female with: 1. decompensated etoh cirrhosis - ongoing. Appreciate GI recommendations. Will lower albumin to q12h at their recommendation. Cont midodrine & octreotide. 2. acute renal failure in setting of CKD stage 3; ARF 2nd to ATN, AIN, or hepatorenal syndrome; still no improvement in UOP or Creatinine. Appreciate nephrology consultation and recommendations. The utility of midodrine and octreotide is questionable as the ARF may not be from hepatorenal syndrome but rather ATN. Will defer midodrine/octreotide to GI and nephrology. 3. hypotension - ongoing. See above. 4. severe hypoalbuminemia and protein calorie malnutrition - improved s/p albumin infusions. Change boost breeze to boost chocolate at her request. 5. macrocytic anemia - 2nd to cirrhosis - H/H stable. 6. diarrhea - improved. Stool cx and c. diff toxin negative to date. 7. h/o thiamine def - thiamine 200mg IV q12h. 8. unstageable sacral/buttock ulcerations - wound care team following. 9. ?SBP - ascites cx with staph aureus. Daptomycin added this AM. Also on rocephin. Defer ultimate Rx of the SBP to GI. 10. DVT proph - heparin BID. 11. hypothyroidism - cont synthroid. Continued [facility] stay due to: abnormal vital signs, inadequate po fluid intake, voiding difficulties, ambulation difficulties, multiple IV medications needed, home environment unsafe for pt Discharge planning: detention facility ([facility])
[2017-03-14] VITALS (9 sets, daily range): BP systolic 77–95; BP diastolic 44–62; PULSE 56–68; TEMP 36.4–36.9; O2SAT 92–97
[2017-03-14] MEDS: SODIUM CHLORIDE 0.9% IV SCH (04:09)
[2017-03-14] MEDS: OCTREOTIDE ACETATE IV SCH (04:09)
[2017-03-14] MEDS: LEVOTHYROXINE 125 MCG TAB PO SCH (06:15)
[2017-03-14] MEDS: BOOST VANILLA PO SCH ×4 (06:16→16:53)
[2017-03-14 06:26] LABS: BASO % 0.2 %; BASO ABS # 0.03 K/uL (0-0.2); COMPLETE YES; EOS % 0.8 %; HEMATOCRIT 29.1 % (37-47); IG% 0.3 %; LYMPH % 16.5 %; LYMPH ABS # 2.56 K/uL (1.2-3.4); MEAN CORPUSCULAR HEMOGLOBIN 34.6 pg (25-34); MEAN CORPUSCULAR HGB CONC 32.3 g/dl (32-36); MEAN PLATELET VOLUME 10.4 fL (7.4-10.4); NEUT % 73.2 %; PLATELET COUNT 351 K/uL (130-400); RED BLOOD COUNT 2.72 M/uL (4.2-5.4); WHITE BLOOD COUNT 15.51 K/uL (4.8-10.8)
[2017-03-14 07:22] LABS: ALB/GLOB RATIO 1.2 (0.9-2); BUN/CREATININE RATIO 12.3 (10-20); CREATININE 4.7 mg/dl (0.60-1.20); POTASSIUM 4.2 mmol/L (3.5-5.1)
[2017-03-14] MEDS: ALBUMIN HUMAN 25% 12.5 GM/50 ML VIAL IV SCH ×2 (07:28→20:36)
[2017-03-14] MEDS: FoLIC ACID INJ 1 MG in SYRINGE 9.8 ML IV SCH (07:29)
[2017-03-14] MEDS: MIDODRINE 2.5 MG TAB PO SCH ×3 (07:30→16:27)
[2017-03-14] MEDS: CEROVITE ADV FORMULA TAB PO SCH (07:30)
[2017-03-14] MEDS: CITALOPRAM 20 MG TAB PO SCH (07:30)
[2017-03-14] MEDS: RIFAXIMIN TAB 550 MG TAB PO SCH ×2 (07:30→20:41)
[2017-03-14] MEDS: HEPARIN SOD 5000 UNIT/0.5 ML CARP SQ SCH ×2 (07:31→20:41)
[2017-03-14] MEDS: THIAMINE HCL INJ 200 MG in SODIUM CHLORIDE 0.9% 50ML 50 ML IV SCH ×2 (07:33→20:30)
--- NOTE | 2017-03-14 11:21 | Nephrology Progress Note ---
Nephrology Progress Note Date of Service March 14, 2017. Chief Complaint ASHELY/CKD, hyperkalemia Subjective No acute events overnight. Contreras was sitting in her chair. Appetite remains poor. She states that she feels better this morning. She denies nausea or abdominal pain. No fevers or chills. No shortness of breath. Denies significant abdominal discomfort. Review of Systems A complete review of systems was performed. Pertinent positives are noted above. All other systems are negative. Vital Signs Last 8 Hrs Date Time Temp Pulse Resp B/P Pulse Ox O2 Delivery O2 Flow Rate FiO2 03/14/17 08:00 95 Room Air 03/14/17 07:27 36.7 67 16 77/49 95 Room Air 03/14/17 04:27 36.9 67 20 87/53 93 Room Air 03/14/17 04:00 Room Air I & O 24-Hour Column 03/14/17 08:00 Intake Total 558 ml Output Total 260 ml Balance 298 ml Last Recorded Weight Weight (Kilograms): 78.600 Physical Exam General Appearance: WD/WN, no apparent distress, + thin Head: normocephalic, atraumatic Eyes: normal inspection, sclerae normal ENT: normal ENT inspection, pharynx normal Neck: supple, no JVD Respiratory/Chest: lungs clear, no respiratory distress, no accessory muscle use Cardiovascular: regular rate, rhythm, no murmur Abdomen/GI: non tender, + distended Extremities/Musculoskelatal: normal inspection, + pedal edema Neurologic/Psych: alert, oriented x 3 Social History Smokeless Tobacco Use: No Alcohol Use: occasionally Drug Use: none Marital Status: single Housing Status: lives alone Occupation: retired Laboratory Results Past 24 Hours 03/14/17 06:11 Red Blood Count 2.72, Mean Corpuscular Volume 107.0, Mean Corpuscular Hemoglobin 34.6, Mean Corpuscular Hemoglobin Concent 32.3, Mean Platelet Volume 10.4, Neutrophils (%) (Auto) 73.2, Lymphocytes (%) (Auto) 16.5, Monocytes (%) ( Auto) 9.0, Eosinophils (%) (Auto) 0.8, Basophils (%) (Auto) 0.2, Neutrophils # ( Auto) 11.35, Lymphocytes # (Auto) 2.56, Monocytes # (Auto) 1.40, Eosinophils # ( Auto) 0.13, Basophils # (Auto) 0.03 03/14/17 06:11 Test 03/13/17 11:20 03/14/17 06:11 Urine Color YELLOW Urine Appearance CLEAR (CLEAR) Urine pH 5.0 (4.5-7.5) Urine Specific [place] 1.016 (1.000-1.030) Urine Protein TRACE (NEG) Urine Glucose (UA) NEG (NEG) Urine Ketones NEG (NEG) Urine Occult Blood 2+ (NEG) Urine Nitrite NEG (NEG) Urine Bilirubin NEG (NEG) Urine Urobilinogen NEG (NEG) Urine Leukocyte Esterase LARGE (NEG) Urine WBC (Auto) >30 /hpf (0-5) Urine RBC (Auto) 0-4 /hpf (0-4) Urine Hyaline Casts (Auto) 1-5 /lpf (0-5) Urine Epithelial Cells (Auto) 0-5 /lpf (0-5) Urine Bacteria (Auto) NEG (NEG) Urine Random Sodium 24 mEq/L White Blood Count 15.51 K/uL (4.8-10.8) Red Blood Count 2.72 M/uL (4.2-5.4) Hemoglobin 9.4 g/dL (12.0-16.0) Hematocrit 29.1 % (37-47) Mean Corpuscular Volume 107.0 fL (80-100) Mean Corpuscular Hemoglobin 34.6 pg (25-34) Mean Corpuscular Hemoglobin Concent 32.3 g/dl (32-36) Platelet Count 351 K/uL (130-400) Mean Platelet Volume 10.4 fL (7.4-10.4) Neutrophils (%) (Auto) 73.2 % Lymphocytes (%) (Auto) 16.5 % Monocytes (%) (Auto) 9.0 % Eosinophils (%) (Auto) 0.8 % Basophils (%) (Auto) 0.2 % Neutrophils # (Auto) 11.35 K/uL (1.4-6.5) Lymphocytes # (Auto) 2.56 K/uL (1.2-3.4) Monocytes # (Auto) 1.40 K/uL (0.11-0.59) Eosinophils # (Auto) 0.13 K/uL (0-0.5) Basophils # (Auto) 0.03 K/uL (0-0.2) RDW Standard Deviation 52.4 fL (36.4-46.3) RDW Coefficient of Variation 13.5 % (11.5-14.5) Immature Granulocyte % (Auto) 0.3 % Immature Granulocyte # (Auto) 0.04 K/uL (0.00-0.02) Anion Gap 13.0 mmol/L (3-11) Est Creatinine Clear Calc Drug Dose 12.4 ml/min Estimated GFR () 10.5 Estimated GFR (Non- 9.1 BUN/Creatinine Ratio 12.3 (10-20) Calcium Level 8.0 mg/dl (8.5-10.1) Total Bilirubin 0.4 mg/dl (0.2-1) Aspartate Amino Transf (AST/SGOT) 11 U/L (15-37) Alanine Aminotransferase (ALT/SGPT) 6 U/L (12-78) Alkaline Phosphatase 69 U/L (45-117) Total Creatine Kinase 14 U/L (26-192) Total Protein 4.8 gm/dl (6.4-8.2) Albumin 2.6 gm/dl (3.4-5.0) Globulin 2.2 gm/dl (2.5-4.0) Albumin/Globulin Ratio 1.2 (0.9-2) Allergies Coded Allergies: Acetaminophen (Verified Allergy, Unknown, UNKNOWN, 03/10/17) PATIENT REPEATEDLY SAYS SHE IS NOT ALLERGIC TO THIS AND HAS TAKEN A LOT OF TYLENOL IN HER LIFE. SHE SAID SHE HAS LIVER ISSUES, BUT IS NOT ALLERGIC. I TRIED TO DELETE IT AND IT WOULDN'T LET ME. - Medications Current Inpatient Medications Medications (Trade) Dose Ordered Sig/Brett Route Start Time Stop Time Status Last Admin Dose Admin Ondansetron HCl (Zofran Inj) 4 mg Q6H PRN IV 03/10/17 16:15 04/09/17 16:14 03/13/17 03:06 4 MG Citalopram Hydrobromide (celeXA TAB) 20 mg DAILY PO 03/11/17 09:00 04/10/17 08:59 03/14/17 07:30 20 MG Levothyroxine Sodium (Synthroid Tab) 125 mcg DAILYBB PO 03/11/17 06:00 04/10/17 08:59 03/14/17 06:15 125 MCG Pantoprazole Sodium (Protonix Tab) 40 mg BID PO 03/10/17 21:00 04/09/17 20:59 Future Hold 03/11/17 07:44 40 MG Morphine Sulfate (MoRPHine SULFATE INJ) 2 mg Q4H PRN IV 03/10/17 23:15 03/24/17 23:14 03/13/17 15:33 2 MG Heparin Sodium (Porcine) 5000 unit 5,000 unit BID SQ 03/11/17 21:00 04/10/17 20:59 03/14/17 07:31 5,000 UNIT Thiamine HCl/ Sodium Chloride (Vitamin B-1 Inj/ Nss 50ml) 52 ml @ 208 mls/hr BID IV 03/11/17 21:00 04/10/17 20:59 03/14/17 07:33 208 MLS/HR Rifaximin 550 mg 550 mg BID PO 03/11/17 21:00 04/10/17 20:59 03/14/17 07:30 550 MG Folic Acid/Syringe (Folvite Inj/ Syringe) 10 ml @ 5 mls/min QAM IV 03/11/17 19:45 04/10/17 19:44 03/14/17 07:29 5 MLS/MIN Multivitamins/ Minerals (Multivitamin W/ Minerals Tab) 1 tab QAM PO 03/12/17 09:00 04/11/17 08:59 03/14/17 07:30 1 TAB Midodrine 15 mg 15 mg TID@08,12,17 PO 03/12/17 08:00 04/11/17 07:59 03/14/17 07:30 15 MG Ceftriaxone Sodium/Dextrose (Rocephin Inj/ Dextrose Add-Reydon 50ML) 50 ml @ 100 mls/hr Q24H IV 03/12/17 16:00 03/14/17 15:14 03/13/17 15:32 100 MLS/HR Enteral Nutritional Formula 1 can 1 can BIDM PO 03/13/17 16:45 04/12/17 16:44 03/14/17 06:16 1 CAN Octreotide Acetate/Sodium Chloride (Sandostatin Inj/ Nss 100ml) 100.5 ml @ 10 mls/hr Q10H3M IV 03/13/17 18:00 03/14/17 13:29 03/14/17 04:09 10 MLS/HR Albumin Human (Albumin 25%) 25 gm Q12H IV 03/14/17 08:00 03/17/17 07:59 03/14/17 07:28 25 GM Impression (1) Acute renal insufficiency (2) CKD (chronic kidney disease), stage III (3) Cirrhosis, alcoholic (4) Ascites (5) Hyperkalemia (6) Hypoalbuminemia Contreras Stevenson is a 66-year-old female with alcoholic cirrhosis complicated by ascites. She recently developed recurrent ascites. 5 liters of fluid were drained since admission. No organisms on gram stain and WBC insignificant but culture growing Staph. Daptomycin was started. EGD had recently revealed esophagitis and Omeprazole was started for treatment. Contreras was admitted to [facility] on 03/10/17 with severe generalized weakness. She was also experiencing diarrhea and a sore on her buttocks. Laboratory studies revealed acute renal failure. She was started on triple therapy for SBP. Creatinine has not improved. Hyperkalemia present on admission was treated with Kayexalate. Urine analysis documented pyuria without hematuria as well as hyaline and granular casts. Renal ultrasound did not show any evidence of obstruction. Renal anatomy is otherwise normal. Urine sodium was 26. Clinical presentation is consistent with ATN but I cannot exclude underlying hepatorenal syndrome or AIN. Overall without improvement in renal function prognosis is guarded. Urine sodium is not consistent with hepatorenal syndrome. AIN associated with Omeprazole remains a possibility and the medication has been stopped. She has been requiring midodrine for BP support. Patient is unfortunately not a liver transplant candidate due to alcohol history. I suspect ASHELY is related to ATN and less consistent with HRS 1 and would not expect significant benefit from TIPS at this time. No eosinophils were noted on urine cytology. Repeat UA/microscopy documented persistent pyuria without RBCs. Urine sodium remains >20 Recommendations -- Stop octreotide -- Continue midodrine 15 mg TID -- Hold albumin and restart as needed for BP -- Hold nadolol -- Hold PPI -- Potassium restrict diet -- Remove Alvarez catheter -- Monitor daily metabolic profile -- No current need for diuretics or HCO3 replacement
[2017-03-14] MEDS ORDERED: CEFTRIAXONE SOD INJ 1 GM in DEXTROSE 5% ADD-VANTAGE 50ML 50 ML IV SCH (16:00)
[2017-03-14] MEDS: MoRPHine SULFATE 2 MG/ML CARP IV PRN (21:30)
--- NOTE | 2017-03-14 21:35 | Progress Note ---
Subjective Date of Service: March 14, 2017. Subjective Pt evaluation today including: conversation w/ patient, physical exam, chart review, lab review, review of inpatient medication list Pain: mild abdominal discomfort - generalized PO Intake: fair at best Voiding: stout catheter in place tele stable overnight she feels better than yesterday no nausea or emesis diarrhea resolved no sob no cough no chest pain she asks multiple questions about prognosis Problem List Medical Problems: (1) Acute kidney injury Status: Acute (2) Anemia Status: Acute (3) Dehydration Status: Acute (4) Hyperkalemia Status: Acute (5) Hypomagnesemia Status: Acute (6) Hypomagnesemia Status: Acute (7) Hypotension Status: Acute (8) Malaise and fatigue Status: Acute (9) Weakness Status: Acute Review of Systems Constitutional: No chills, No fever Respiratory: No cough Cardiac: No chest pain Objective Vital Signs Date Time Temp Pulse Resp B/P Pulse Ox O2 Delivery O2 Flow Rate FiO2 03/14/17 19:51 36.4 56 14 87/56 97 Room Air 03/14/17 16:01 36.5 68 14 87/62 95 Room Air 03/14/17 16:00 95 Room Air 03/14/17 12:00 95 Room Air 03/14/17 12:00 36.7 56 20 80/44 97 Room Air 03/14/17 08:00 95 Room Air 03/14/17 07:27 36.7 67 16 77/49 95 Room Air 03/14/17 04:27 36.9 67 20 87/53 93 Room Air 03/14/17 04:00 Room Air 03/14/17 00:01 92 Room Air 03/13/17 23:54 36.9 68 17 77/57 93 Room Air 03/13/17 23:30 70 20 94/60 98 Room Air Physical Exam General Appearance: no apparent distress ENT: pharynx normal Neck: no JVD Respiratory/Chest: lungs clear, no respiratory distress, no accessory muscle use Cardiovascular: regular rate, rhythm, no gallop, no murmur Abdomen: normal bowel sounds, no organomegaly, + distended (w/ ascites ), + tenderness (mild, generalized ) Extremities: + pedal edema (3+ b/l ) Neurologic/Psychiatric: alert, oriented x 3, + pertinent finding (no asterixis ) Skin: + pallor Laboratory Results Last 24 Hours Test 03/14/17 06:11 White Blood Count 15.51 K/uL Red Blood Count 2.72 M/uL Hemoglobin 9.4 g/dL Hematocrit 29.1 % Mean Corpuscular Volume 107.0 fL Mean Corpuscular Hemoglobin 34.6 pg Mean Corpuscular Hemoglobin Concent 32.3 g/dl Platelet Count 351 K/uL Mean Platelet Volume 10.4 fL Neutrophils (%) (Auto) 73.2 % Lymphocytes (%) (Auto) 16.5 % Monocytes (%) (Auto) 9.0 % Eosinophils (%) (Auto) 0.8 % Basophils (%) (Auto) 0.2 % Neutrophils # (Auto) 11.35 K/uL Lymphocytes # (Auto) 2.56 K/uL Monocytes # (Auto) 1.40 K/uL Eosinophils # (Auto) 0.13 K/uL Basophils # (Auto) 0.03 K/uL RDW Standard Deviation 52.4 fL RDW Coefficient of Variation 13.5 % Immature Granulocyte % (Auto) 0.3 % Immature Granulocyte # (Auto) 0.04 K/uL Sodium Level 141 mmol/L Potassium Level 4.2 mmol/L Chloride Level 110 mmol/L Carbon Dioxide Level 18 mmol/L Anion Gap 13.0 mmol/L Blood Urea Nitrogen 58 mg/dl Creatinine 4.70 mg/dl Est Creatinine Clear Calc Drug Dose 12.4 ml/min Estimated GFR () 10.5 Estimated GFR (Non- 9.1 BUN/Creatinine Ratio 12.3 Random Glucose 98 mg/dl Calcium Level 8.0 mg/dl Total Bilirubin 0.4 mg/dl Aspartate Amino Transf (AST/SGOT) 11 U/L Alanine Aminotransferase (ALT/SGPT) 6 U/L Alkaline Phosphatase 69 U/L Total Creatine Kinase 14 U/L Total Protein 4.8 gm/dl Albumin 2.6 gm/dl Globulin 2.2 gm/dl Albumin/Globulin Ratio 1.2 Assessment and Plan 66yo female with: 1. decompensated etoh cirrhosis - ongoing. Cont on midodrine for low BP. Octreotide to be stopped today. Can likely d/c albumin tomorrow. 2. acute renal failure in setting of CKD stage 3; ARF 2nd to ATN, AIN, or hepatorenal syndrome; still no improvement in UOP or Creatinine. ATN suspected. Appreciate nephrology consultation and recommendations. Cont midodrine for BP support. Poor prognosis. 3. hypotension - ongoing. See above. 4. severe hypoalbuminemia and protein calorie malnutrition - improved s/p albumin infusions. Cont boost. 5. macrocytic anemia - 2nd to cirrhosis - H/H stable. 6. diarrhea - resolved.. Stool cx and c. diff toxin negative to date. 7. h/o thiamine def - thiamine 200mg q12h. 8. unstageable sacral/buttock ulcerations - wound care team following. 9. ?SBP - ascites cx with staph aureus, MSSA. Stop daptomycin. 1 more day of ceftriaxone. If stable tomorrow then transition to po abx. 10. DVT proph - heparin BID. 11. hypothyroidism - cont synthroid. Overall prognosis is very poor in light of renal disease and lack of improvement with such. We had a lengthy talk today her current problems and prognosis. Support given. Can likely d/c telemetry in the AM. Continued [facility] stay due to: abnormal vital signs, inadequate po fluid intake, ambulation difficulties, multiple IV medications needed, home environment unsafe for pt [place]charge planning: [place] [facility]
[2017-03-15 03:27] VITALS: BP 84/59; PULSE 64; TEMP 36.4; O2SAT 95
[2017-03-15] MEDS: LEVOTHYROXINE 125 MCG TAB PO SCH (05:26)
[2017-03-15 06:42] LABS: BASO % 0.3 %; BASO ABS # 0.04 K/uL (0-0.2); COMPLETE YES; EOS % 0.8 %; HEMATOCRIT 28.2 % (37-47); IG% 0.4 %; LYMPH % 19.3 %; LYMPH ABS # 2.95 K/uL (1.2-3.4); MEAN CORPUSCULAR HEMOGLOBIN 35.7 pg (25-34); MEAN CORPUSCULAR HGB CONC 33.7 g/dl (32-36); MEAN PLATELET VOLUME 10.4 fL (7.4-10.4); NEUT % 69.2 %; PLATELET COUNT 330 K/uL (130-400); RED BLOOD COUNT 2.66 M/uL (4.2-5.4); WHITE BLOOD COUNT 15.26 K/uL (4.8-10.8)
[2017-03-15 07:30] VITALS: BP 81/50; PULSE 59; TEMP 36.7; O2SAT 97
[2017-03-15] MEDS: BOOST VANILLA PO SCH ×4 (07:30→18:07)
[2017-03-15 07:31] LABS: ALB/GLOB RATIO 1.4 (0.9-2); BUN/CREATININE RATIO 12.4 (10-20); CALCIUM 8.1 mg/dl (8.5-10.1); CREATININE 4.9 mg/dl (0.60-1.20)
[2017-03-15] MEDS: RIFAXIMIN TAB 550 MG TAB PO SCH ×2 (08:45→19:59)
[2017-03-15] MEDS: THIAMINE HCL 100 MG TAB PO SCH ×2 (08:45→19:58)
[2017-03-15] MEDS: MIDODRINE 2.5 MG TAB PO SCH ×3 (08:46→18:08)
[2017-03-15] MEDS: CITALOPRAM 20 MG TAB PO SCH (08:46)
[2017-03-15] MEDS: CEROVITE ADV FORMULA TAB PO SCH (08:46)
[2017-03-15] MEDS ORDERED: FAMOTIDINE 20 MG TAB PO ONE (09:30)
[2017-03-15] MEDS: HEPARIN SOD 5000 UNIT/0.5 ML CARP SQ SCH ×2 (09:38→19:57)
[2017-03-15] MEDS: SUCRALFATE 1 GM/10 ML UDC PO SCH ×4 (09:45→19:57)
[2017-03-15] MEDS: CEPHALEXIN MONOHYDRATE 250 MG CAP PO SCH (10:57)
[2017-03-15 11:23] VITALS: BP 81/50; PULSE 59; TEMP 36.7; O2SAT 97
--- NOTE | 2017-03-15 11:42 | Nephrology Progress Note ---
Nephrology Progress Note Date of Service March 15, 2017. Chief Complaint ASHELY/CKD, hyperkalemia Subjective No acute events overnight. Contreras was seen and evaluated in her hospital room this morning. She does feel slightly confused today and reported some difficulty with word finding. Her appetite remains poor. She does not feel that her abdomen is more distended but did state that she thinks she will need it drained again soon. She was out of bed to chair yesterday and is fearful that she will be too sore due to skin breakdown to tolerate much today. She is waiting for cousins to visit from [place]. She has been voiding urine without difficulty. She denies dysuria. Review of Systems A complete review of systems was performed. Pertinent positives are noted above. All other systems are negative. Vital Signs Last 8 Hrs Date Time Temp Pulse Resp B/P Pulse Ox O2 Delivery O2 Flow Rate FiO2 03/15/17 11:23 36.7 59 20 97 03/15/17 08:00 Room Air 03/15/17 07:30 36.7 59 20 81/50 97 Room Air 03/15/17 04:00 Room Air I & O 24-Hour Column 03/15/17 08:00 Intake Total 1046 ml Output Total 210 ml Balance 836 ml Last Recorded Weight Weight (Kilograms): 77.000 Physical Exam General Appearance: no apparent distress, + thin Head: normocephalic, atraumatic Eyes: normal inspection, sclerae normal ENT: normal ENT inspection, pharynx normal Neck: supple, no JVD Respiratory/Chest: lungs clear, no respiratory distress, no accessory muscle use Cardiovascular: regular rate, rhythm, no gallop Abdomen/GI: non tender, + distended Extremities/Musculoskelatal: normal inspection, + pedal edema Neurologic/Psych: alert, + pertinent finding (no tremor, oriented to person and place but no time) Social History Smokeless Tobacco Use: No Alcohol Use: occasionally Drug Use: none Marital Status: single Housing Status: lives alone Occupation: retired Laboratory Results Past 24 Hours 03/15/17 06:18 Red Blood Count 2.66, Mean Corpuscular Volume 106.0, Mean Corpuscular Hemoglobin 35.7, Mean Corpuscular Hemoglobin Concent 33.7, Mean Platelet Volume 10.4, Neutrophils (%) (Auto) 69.2, Lymphocytes (%) (Auto) 19.3, Monocytes (%) ( Auto) 10.0, Eosinophils (%) (Auto) 0.8, Basophils (%) (Auto) 0.3, Neutrophils # (Auto) 10.56, Lymphocytes # (Auto) 2.95, Monocytes # (Auto) 1.53, Eosinophils # (Auto) 0.12, Basophils # (Auto) 0.04 03/15/17 06:18 Test 03/15/17 06:18 White Blood Count 15.26 K/uL (4.8-10.8) Red Blood Count 2.66 M/uL (4.2-5.4) Hemoglobin 9.5 g/dL (12.0-16.0) Hematocrit 28.2 % (37-47) Mean Corpuscular Volume 106.0 fL (80-100) Mean Corpuscular Hemoglobin 35.7 pg (25-34) Mean Corpuscular Hemoglobin Concent 33.7 g/dl (32-36) Platelet Count 330 K/uL (130-400) Mean Platelet Volume 10.4 fL (7.4-10.4) Neutrophils (%) (Auto) 69.2 % Lymphocytes (%) (Auto) 19.3 % Monocytes (%) (Auto) 10.0 % Eosinophils (%) (Auto) 0.8 % Basophils (%) (Auto) 0.3 % Neutrophils # (Auto) 10.56 K/uL (1.4-6.5) Lymphocytes # (Auto) 2.95 K/uL (1.2-3.4) Monocytes # (Auto) 1.53 K/uL (0.11-0.59) Eosinophils # (Auto) 0.12 K/uL (0-0.5) Basophils # (Auto) 0.04 K/uL (0-0.2) RDW Standard Deviation 52.7 fL (36.4-46.3) RDW Coefficient of Variation 13.6 % (11.5-14.5) Immature Granulocyte % (Auto) 0.4 % Immature Granulocyte # (Auto) 0.06 K/uL (0.00-0.02) Anion Gap 11.0 mmol/L (3-11) Est Creatinine Clear Calc Drug Dose 11.7 ml/min Estimated GFR () 10.0 Estimated GFR (Non- 8.6 BUN/Creatinine Ratio 12.4 (10-20) Calcium Level 8.1 mg/dl (8.5-10.1) Total Bilirubin 0.4 mg/dl (0.2-1) Aspartate Amino Transf (AST/SGOT) 11 U/L (15-37) Alanine Aminotransferase (ALT/SGPT) 7 U/L (12-78) Alkaline Phosphatase 63 U/L (45-117) Total Protein 4.7 gm/dl (6.4-8.2) Albumin 2.7 gm/dl (3.4-5.0) Globulin 2.0 gm/dl (2.5-4.0) Albumin/Globulin Ratio 1.4 (0.9-2) Allergies Coded Allergies: Acetaminophen (Verified Allergy, Unknown, UNKNOWN, 03/10/17) PATIENT REPEATEDLY SAYS SHE IS NOT ALLERGIC TO THIS AND HAS TAKEN A LOT OF TYLENOL IN HER LIFE. SHE SAID SHE HAS LIVER ISSUES, BUT IS NOT ALLERGIC. I TRIED TO DELETE IT AND IT WOULDN'T LET ME. - Medications Current Inpatient Medications Medications (Trade) Dose Ordered Sig/Brett Route Start Time Stop Time Status Last Admin Dose Admin Ondansetron HCl (Zofran Inj) 4 mg Q6H PRN IV 03/10/17 16:15 04/09/17 16:14 03/13/17 03:06 4 MG Citalopram Hydrobromide (celeXA TAB) 20 mg DAILY PO 03/11/17 09:00 04/10/17 08:59 03/15/17 08:46 20 MG Levothyroxine Sodium (Synthroid Tab) 125 mcg DAILYBB PO 03/11/17 06:00 04/10/17 08:59 03/15/17 05:26 125 MCG Morphine Sulfate (MoRPHine SULFATE INJ) 2 mg Q4H PRN IV 03/10/17 23:15 03/24/17 23:14 03/14/17 21:30 2 MG Heparin Sodium (Porcine) (Heparin Sq 5000 Unit/0.5ml) 5,000 unit BID SQ 03/11/17 21:00 04/10/17 20:59 03/15/17 09:38 5,000 UNIT Rifaximin (Xifaxan Tab) 550 mg BID PO 03/11/17 21:00 04/10/17 20:59 03/15/17 08:45 550 MG Multivitamins/ Minerals (Multivitamin W/ Minerals Tab) 1 tab QAM PO 03/12/17 09:00 04/11/17 08:59 03/15/17 08:46 1 TAB Midodrine (Proamatine Tab) 15 mg TID@,, PO 03/12/17 08:00 04/11/17 07:59 03/15/17 08:46 15 MG Enteral Nutritional Formula (Boost) 1 can BIDM PO 03/13/17 16:45 04/12/17 16:44 03/15/17 07:30 1 CAN Thiamine HCl (Vitamin B-1 Tab) 200 mg BID PO 03/15/17 09:00 04/14/17 08:59 03/15/17 08:45 200 MG Folic Acid (Folvite Tab) 1 mg QAM PO 03/15/17 09:00 04/14/17 08:59 03/15/17 08:45 1 MG Cephalexin Monohydrate (Keflex Cap) 250 mg QAM PO 03/15/17 09:00 03/25/17 08:59 03/15/17 10:57 250 MG Famotidine (Pepcid Tab) 20 mg QAM PO 03/16/17 08:00 04/15/17 08:59 Sucralfate (Carafate Susp) 1 gm QID PO 03/15/17 09:45 04/14/17 09:44 03/15/17 09:45 1 GM Impression (1) Acute renal insufficiency (2) CKD (chronic kidney disease), stage III (3) Cirrhosis, alcoholic (4) Ascites (5) Hyperkalemia (6) Hypoalbuminemia Contreras Stevenson is a 66-year-old female with alcoholic cirrhosis complicated by recent recurrent ascites. Contreras was admitted to [facility] on 03/10/17 with severe generalized weakness. She was also experiencing diarrhea and a sore on her buttocks. Laboratory studies revealed acute renal failure. Hyperkalemia present on admission was treated with Kayexalate. Urine analysis documented pyuria without hematuria as well as hyaline and granular casts. Renal ultrasound did not show any evidence of obstruction. Renal anatomy is otherwise normal. Urine sodium was 26. No eosinophils were noted on urine cytology. 5 liters of straw colored abdominal fluid were drained since admission. No organisms on gram stain and WBC insignificant but culture growing Staph. Daptomycin was started. Clinical presentation is consistent with ATN but I cannot exclude underlying hepatorenal syndrome or AIN. Overall without improvement in renal function prognosis remains guarded. Urine sodium is not consistent with hepatorenal syndrome. AIN associated with Omeprazole remains a possibility and the medication has been stopped. EGD had recently revealed esophagitis. She remains on midodrine for BP support. Patient is unfortunately not a liver transplant candidate due to alcohol history. I suspect ASHELY is related to ATN and less consistent with HRS 1 and would not expect significant benefit from TIPS. Recommendations -- Continue midodrine 15 mg TID -- The overall poor prognosis associated with advanced renal dysfunction in the setting of liver disease was discussed today -- Patient encouraged to discuss with her family and I offered to speak with her family but she deferred at this time -- I have continued to hold diuretic therapy. Volume status is acceptable, hypotension and poor oral intake persist -- Monitor daily metabolic profile
[2017-03-15 14:48] VITALS: BP 86/59; PULSE 51; TEMP 36.3; O2SAT 100
[2017-03-15 16:00] VITALS: O2SAT 100
--- NOTE | 2017-03-15 20:40 | Progress Note ---
Subjective Date of Service: March 15, 2017. Subjective Pt evaluation today including: conversation w/ patient, conversation w/ family (cousin, by phone), physical exam, chart review, lab review, conversation w/ community health consultant (nephrology ), review of inpatient medication list Pain: mild abdominal discomfort PO Intake: poor Voiding: voiding difficulty tele stable overnight she admits to feeling anxious about everything going on she asks questions about her prognosis received straight cath x 2 last night due to false readings on a bladder scan ( bladder scan >999cc, straight cath for very small amount) Problem List Medical Problems: (1) Acute kidney injury Status: Acute (2) Anemia Status: Acute (3) Dehydration Status: Acute (4) Hyperkalemia Status: Acute (5) Hypomagnesemia Status: Acute (6) Hypomagnesemia Status: Acute (7) Hypotension Status: Acute (8) Malaise and fatigue Status: Acute (9) Weakness Status: Acute Review of Systems Constitutional: No chills, No fever Respiratory: No cough, No shortness of breath Cardiac: No chest pain Abdomen: + pain, + problem reported (heartburn ), No nausea, No vomiting Objective Vital Signs Date Time Temp Pulse Resp B/P Pulse Ox O2 Delivery O2 Flow Rate FiO2 03/15/17 16:00 100 Room Air 03/15/17 14:48 36.3 51 20 86/59 100 03/15/17 11:23 36.7 59 20 97 03/15/17 08:00 Room Air 03/15/17 07:30 36.7 59 20 81/50 97 Room Air 03/15/17 04:00 Room Air 03/15/17 03:27 36.4 64 20 84/59 95 Room Air 03/15/17 00:02 Room Air 03/14/17 23:41 36.7 62 18 95/59 96 Room Air Physical Exam General Appearance: no apparent distress Eyes: sclerae normal ENT: pharynx normal Neck: no JVD Respiratory/Chest: lungs clear, no respiratory distress, no accessory muscle use Cardiovascular: regular rate, rhythm, no gallop, no murmur Abdomen: normal bowel sounds, no organomegaly, + distended (with ascites), + tenderness (mild, diffuse) Extremities: + pedal edema (2-3+ b/l up to the thighs) Neurologic/Psychiatric: alert, oriented x 3, + pertinent finding (no asterixis ) Skin: + pallor Laboratory Results Last 24 Hours Test 03/15/17 06:18 White Blood Count 15.26 K/uL Red Blood Count 2.66 M/uL Hemoglobin 9.5 g/dL Hematocrit 28.2 % Mean Corpuscular Volume 106.0 fL Mean Corpuscular Hemoglobin 35.7 pg Mean Corpuscular Hemoglobin Concent 33.7 g/dl Platelet Count 330 K/uL Mean Platelet Volume 10.4 fL Neutrophils (%) (Auto) 69.2 % Lymphocytes (%) (Auto) 19.3 % Monocytes (%) (Auto) 10.0 % Eosinophils (%) (Auto) 0.8 % Basophils (%) (Auto) 0.3 % Neutrophils # (Auto) 10.56 K/uL Lymphocytes # (Auto) 2.95 K/uL Monocytes # (Auto) 1.53 K/uL Eosinophils # (Auto) 0.12 K/uL Basophils # (Auto) 0.04 K/uL RDW Standard Deviation 52.7 fL RDW Coefficient of Variation 13.6 % Immature Granulocyte % (Auto) 0.4 % Immature Granulocyte # (Auto) 0.06 K/uL Sodium Level 140 mmol/L Potassium Level 4.0 mmol/L Chloride Level 109 mmol/L Carbon Dioxide Level 20 mmol/L Anion Gap 11.0 mmol/L Blood Urea Nitrogen 61 mg/dl Creatinine 4.90 mg/dl Est Creatinine Clear Calc Drug Dose 11.7 ml/min Estimated GFR () 10.0 Estimated GFR (Non- 8.6 BUN/Creatinine Ratio 12.4 Random Glucose 104 mg/dl Calcium Level 8.1 mg/dl Total Bilirubin 0.4 mg/dl Aspartate Amino Transf (AST/SGOT) 11 U/L Alanine Aminotransferase (ALT/SGPT) 7 U/L Alkaline Phosphatase 63 U/L Total Protein 4.7 gm/dl Albumin 2.7 gm/dl Globulin 2.0 gm/dl Albumin/Globulin Ratio 1.4 Assessment and Plan 66yo female with: 1. decompensated etoh cirrhosis - ongoing. Cont on midodrine for low BP. d/c albumin, use PRN. May need therapeutic paracentesis later this week. defer diuretic therapy to GI and/or nephrology. 2. acute renal failure in setting of CKD stage 3; ARF 2nd to ATN, AIN, or hepatorenal syndrome; still no improvement in UOP or Creatinine despite 5+ days of supportive care. ATN suspected as primary cause of ARF. Appreciate nephrology consultation and recommendations. Cont midodrine for BP support. Poor prognosis. 3. hypotension - ongoing. See above. 4. severe hypoalbuminemia and protein calorie malnutrition - improved s/p albumin infusions. Cont boost. Albumin to be d/c today. 5. macrocytic anemia - 2nd to cirrhosis - H/H stable. 6. diarrhea - resolved.. Stool cx and c. diff toxin negative to date. 7. h/o thiamine def - thiamine 200mg q12h. 8. unstageable sacral/buttock ulcerations - wound care team following. 9. ?SBP - ascites cx with staph aureus, MSSA. Day #4 of abx; stop rocephin, transition to PO keflex. 10. DVT proph - heparin BID. 11. hypothyroidism - cont synthroid. 12. GERD - PPI was stopped due to concern it could have caused AIN. Start pepcid 20mg daily. Start carafate liquid 1gm QID. Overall prognosis is very poor in light of renal disease and lack of improvement with such in the setting of her cirrhosis. She is a poor dialysis candidate for multiple reasons. We had a lengthy talk yesterday & today about her current problems and prognosis. We discussed code status, palliative care/hospice, disposition ([facility]). She told me today that she was unsure about code status. Next of kin (cousin, Minna) updated by phone. d/c tele tx to med/surg Continued [facility] stay due to: inadequate po fluid intake, voiding difficulties, ambulation difficulties, multiple IV medications needed, home environment unsafe for pt Discharge planning: correction facility ([facility])
[2017-03-16 00:26] VITALS: BP 88/54; PULSE 60; TEMP 36.8; O2SAT 97
[2017-03-16] MEDS: LEVOTHYROXINE 125 MCG TAB PO SCH (06:05)
[2017-03-16 06:45] LABS: BUN/CREATININE RATIO 11.7 (10-20); CREATININE 5.2 mg/dl (0.60-1.20); POTASSIUM 4.1 mmol/L (3.5-5.1)
[2017-03-16] MEDS: BOOST VANILLA PO SCH ×4 (08:00→17:00)
[2017-03-16] MEDS: CEPHALEXIN MONOHYDRATE 250 MG CAP PO SCH (08:11)
[2017-03-16] MEDS: RIFAXIMIN TAB 550 MG TAB PO SCH ×2 (08:11→20:28)
[2017-03-16] MEDS: THIAMINE HCL 100 MG TAB PO SCH ×2 (08:11→20:28)
[2017-03-16] MEDS: CEROVITE ADV FORMULA TAB PO SCH (08:11)
[2017-03-16] MEDS: MIDODRINE 2.5 MG TAB PO SCH ×2 (08:12→12:37)
[2017-03-16] MEDS: FAMOTIDINE 20 MG TAB PO SCH (08:12)
[2017-03-16] MEDS: CITALOPRAM 20 MG TAB PO SCH (08:12)
[2017-03-16] MEDS: SUCRALFATE 1 GM/10 ML UDC PO SCH ×4 (08:13→20:28)
[2017-03-16] MEDS: HEPARIN SOD 5000 UNIT/0.5 ML CARP SQ SCH ×2 (08:15→20:29)
[2017-03-16 08:39] VITALS: BP 86/52; PULSE 55; TEMP 36.8; O2SAT 98
--- NOTE | 2017-03-16 11:28 | Nephrology Progress Note ---
Nephrology Progress Note Date of Service March 16, 2017. Chief Complaint ASHELY/CKD, hyperkalemia Subjective No acute events overnight. No complaints this morning. Contreras states that she is sleepy this morning. She has been sleeping most of the day. Appetite is poor. She denies nausea. Abdominal distention is increasing. She is very weak and has difficulty getting out of bed. Sores on her buttocks also make it difficult for her to sit. She has not experienced fevers or chills. Review of Systems A complete review of systems was performed. Pertinent positives are noted above. All other systems are negative. Vital Signs Last 8 Hrs Date Time Temp Pulse Resp B/P Pulse Ox O2 Delivery O2 Flow Rate FiO2 03/16/17 08:39 36.8 55 18 86/52 98 Room Air 03/16/17 08:00 Room Air I & O 24-Hour Column 03/16/17 08:00 Intake Total 100 ml Balance 100 ml Last Recorded Weight Weight (Kilograms): 77.000 Physical Exam General Appearance: no apparent distress, + thin Head: normocephalic, atraumatic Eyes: normal inspection, sclerae normal ENT: normal ENT inspection, pharynx normal Neck: supple, no JVD Respiratory/Chest: lungs clear, no respiratory distress, no accessory muscle use Cardiovascular: regular rate, rhythm, no gallop, no murmur Abdomen/GI: non tender, + distended Extremities/Musculoskelatal: normal inspection, + pedal edema Neurologic/Psych: alert, normal mood/affect Social History Smokeless Tobacco Use: No Alcohol Use: occasionally Drug Use: none Marital Status: single Housing Status: lives alone Occupation: retired Laboratory Results Past 24 Hours 03/16/17 05:30 Test 03/16/17 05:30 Anion Gap 12.0 mmol/L (3-11) Est Creatinine Clear Calc Drug Dose 11.1 ml/min Estimated GFR () 9.3 Estimated GFR (Non- 8.0 BUN/Creatinine Ratio 11.7 (10-20) Calcium Level 8.0 mg/dl (8.5-10.1) Allergies Coded Allergies: Acetaminophen (Verified Allergy, Unknown, UNKNOWN, 03/10/17) PATIENT REPEATEDLY SAYS SHE IS NOT ALLERGIC TO THIS AND HAS TAKEN A LOT OF TYLENOL IN HER LIFE. SHE SAID SHE HAS LIVER ISSUES, BUT IS NOT ALLERGIC. I TRIED TO DELETE IT AND IT WOULDN'T LET ME. - Medications Current Inpatient Medications Medications (Trade) Dose Ordered Sig/Brett Route Start Time Stop Time Status Last Admin Dose Admin Ondansetron HCl (Zofran Inj) 4 mg Q6H PRN IV 03/10/17 16:15 04/09/17 16:14 03/13/17 03:06 4 MG Citalopram Hydrobromide (celeXA TAB) 20 mg DAILY PO 03/11/17 09:00 04/10/17 08:59 03/16/17 08:12 20 MG Levothyroxine Sodium (Synthroid Tab) 125 mcg DAILYBB PO 03/11/17 06:00 04/10/17 08:59 03/16/17 06:05 125 MCG Morphine Sulfate (MoRPHine SULFATE INJ) 2 mg Q4H PRN IV 03/10/17 23:15 03/24/17 23:14 03/14/17 21:30 2 MG Heparin Sodium (Porcine) (Heparin Sq 5000 Unit/0.5ml) 5,000 unit BID SQ 03/11/17 21:00 04/10/17 20:59 03/16/17 08:15 5,000 UNIT Rifaximin (Xifaxan Tab) 550 mg BID PO 03/11/17 21:00 04/10/17 20:59 03/16/17 08:11 550 MG Multivitamins/ Minerals (Multivitamin W/ Minerals Tab) 1 tab QAM PO 03/12/17 09:00 04/11/17 08:59 03/16/17 08:11 1 TAB Midodrine (Proamatine Tab) 15 mg TID@, PO 03/12/17 08:00 04/11/17 07:59 03/16/17 08:12 15 MG Enteral Nutritional Formula (Boost) 1 can BIDM PO 03/13/17 16:45 04/12/17 16:44 03/15/17 18:07 1 CAN Thiamine HCl (Vitamin B-1 Tab) 200 mg BID PO 03/15/17 09:00 04/14/17 08:59 03/16/17 08:11 200 MG Folic Acid (Folvite Tab) 1 mg QAM PO 03/15/17 09:00 04/14/17 08:59 03/16/17 08:11 1 MG Cephalexin Monohydrate (Keflex Cap) 250 mg QAM PO 03/15/17 09:00 03/25/17 08:59 03/16/17 08:11 250 MG Famotidine (Pepcid Tab) 20 mg QAM PO 03/16/17 08:00 04/15/17 08:59 03/16/17 08:12 20 MG Sucralfate (Carafate Susp) 1 gm QID PO 03/15/17 09:45 04/14/17 09:44 03/16/17 08:13 1 GM Impression (1) Acute renal insufficiency (2) CKD (chronic kidney disease), stage III (3) Cirrhosis, alcoholic (4) Ascites (5) Hyperkalemia (6) Hypoalbuminemia Contreras Stevenson is a 66-year-old female with alcoholic cirrhosis complicated by recent recurrent ascites. Contreras was admitted to [facility] on 03/10/17 with severe generalized weakness. She was also experiencing diarrhea and a sore on her buttocks. Laboratory studies revealed acute renal failure. Hyperkalemia present on admission was treated with Kayexalate. Urine analysis documented pyuria without hematuria as well as hyaline and granular casts. Renal ultrasound did not show any evidence of obstruction. Renal anatomy is otherwise normal. Urine sodium was 26. No eosinophils were noted on urine cytology. 5 liters of straw colored abdominal fluid were drained since admission. No organisms on gram stain and WBC insignificant but culture growing Staph. Daptomycin was started. Clinical presentation is consistent with ATN but I cannot exclude underlying hepatorenal syndrome or AIN. There has been no improvement in renal function and prognosis remains guarded. Urine sodium is not consistent with hepatorenal syndrome. AIN associated with Omeprazole remains a possibility and the medication has been stopped. EGD had recently revealed esophagitis. She remains on midodrine for BP support. Abdominal ascites and dependent edema is increasing. Patient is unfortunately not a liver transplant candidate due to alcohol history. I suspect ASHELY is related to ATN and less consistent with HRS 1 and would not expect significant benefit from TIPS. Recommendations -- Continue midodrine 15mg TID -- Start Furosemide 40 mg daily today, goal is to encourage slightly negative fluid balance -- Contreras expressed understanding of her prognosis. She hopes to be able to be discharged to [facility] tomorrow. Family from out of state are expected to arrive tomorrow and she is looking forward to spending time with them. -- Monitor daily metabolic profile
[2017-03-16] MEDS: FUROSEMIDE 40 MG TAB PO ONE ×2 (12:37→12:49)
[2017-03-16 12:38] VITALS: BP 74/42
[2017-03-16] MEDS ORDERED: [UNRECOGNIZED DRUG - OTHER] PRN (13:00)
[2017-03-16] MEDS ORDERED: NURSING VERBAL MED ORDER ONE (13:00)
[2017-03-16 17:16] VITALS: BP 80/58; PULSE 52; TEMP 36.9; O2SAT 97
--- NOTE | 2017-03-16 17:40 | Progress Note ---
Subjective Date of Service: March 16, 2017. Subjective pt was seen in room and seems to lack understanding of the severity of her illness, she has understanding of the fact that she has liver failure and renal failure, but states she wants to drive again and go out to eat with friends she has marked edema and fatigue and is plagued with lower blood pressure Problem List Medical Problems: (1) Acute kidney injury Status: Acute (2) Anemia Status: Acute (3) Dehydration Status: Acute (4) Hyperkalemia Status: Acute (5) Hypomagnesemia Status: Acute (6) Hypomagnesemia Status: Acute (7) Hypotension Status: Acute (8) Malaise and fatigue Status: Acute (9) Weakness Status: Acute Review of Systems Constitutional: + fatigue, + weakness Respiratory: + dyspnea on exertion, + shortness of breath, No cough, No sputum Cardiac: + edema, No chest pain Abdomen: + problem reported (anorexia), No nausea, No pain, No vomiting Musculoskeletal: + joint pain, + muscle pain, + swelling Neurologic: No memory loss, No paralysis Psychiatric: + anxiety, + depression symptoms Endo: + fatigue, No excessive thirst, No excessive urination Objective Vital Signs Date Time Temp Pulse Resp B/P Pulse Ox O2 Delivery O2 Flow Rate FiO2 03/16/17 17:16 36.9 52 16 80/58 97 Room Air 03/16/17 12:38 74/42 03/16/17 08:39 36.8 55 18 86/52 98 Room Air 03/16/17 08:00 Room Air 03/16/17 00:26 36.8 60 18 88/54 97 Room Air 03/16/17 00:00 Room Air 03/15/17 20:00 Room Air Physical Exam General Appearance: + mild distress, + thin Eyes: PERRL, EOMI Neck: supple, + JVD Respiratory/Chest: chest non-tender, no respiratory distress, + decreased breath sounds Cardiovascular: regular rate, rhythm, + systolic murmur Abdomen: normal bowel sounds, non tender, + distended, + guarding Extremities: + pedal edema, + slow capillary refill, + swelling Neurologic/Psychiatric: alert, oriented x 3 Laboratory Results Last 24 Hours Test 03/16/17 05:30 Sodium Level 141 mmol/L Potassium Level 4.1 mmol/L Chloride Level 109 mmol/L Carbon Dioxide Level 20 mmol/L Anion Gap 12.0 mmol/L Blood Urea Nitrogen 61 mg/dl Creatinine 5.20 mg/dl Est Creatinine Clear Calc Drug Dose 11.1 ml/min Estimated GFR () 9.3 Estimated GFR (Non- 8.0 BUN/Creatinine Ratio 11.7 Random Glucose 104 mg/dl Calcium Level 8.0 mg/dl Assessment and Plan 66yo female with cirrhosis ascites and acute renal failure Decompensated etoh cirrhosis - ongoing. Increasecmidodrine for low BP. will try albumin and lasix. May need therapeutic paracentesis later this week. ?SBP - ascites cx with staph aureus, MSSA, transition to PO keflex. acute renal failure in setting of CKD stage 3; ARF 2nd to ATN, nephrology feels urine sodium does not support hepato-renal syndrome, diuresis only for managing anasarca Poor prognosis. Hypotension - ongoing. increased mododrine 03/16 macrocytic anemia - 2nd to cirrhosis -stable. diarrhea - resolved.. Stool cx and c. diff toxin negative to date. sacral/buttock ulcerations - wound care team following. pt states was unable to get up at home for some time . DVT proph - heparin BID, no coagulopahty from liver disease . GERD - PPI was stopped due to concern it could have caused AIN. pepcid 20mg daily.carafate liquid 1gm QID. Overall prognosis is very poor in light of renal disease She is a poor dialysis candidate for multiple reasons. Code status unclear at this time Continued [facility] stay due to: inadequate po fluid intake, voiding difficulties, ambulation difficulties, multiple IV medications needed, home environment unsafe for pt Discharge planning: [facility] facility ([facility])
[2017-03-16] MEDS ORDERED: ALBUMIN 25% 50 ML with FUROSEMIDE INJ 40 MG IV ONE ×2 (18:00)
[2017-03-16 18:26] VITALS: BP 87/56; PULSE 56; TEMP 36.5; O2SAT 96
[2017-03-16 20:23] VITALS: BP 81/48; PULSE 50; TEMP 36.5; O2SAT 99
[2017-03-17] VITALS (8 sets, daily range): BP systolic 70–103; BP diastolic 45–69; PULSE 50–56; TEMP 36.3–36.4; O2SAT 98–100
[2017-03-17] MEDS: LEVOTHYROXINE 125 MCG TAB PO SCH (05:47)
[2017-03-17 06:05] LABS: MEAN CELL VOLUME 106.6 fL (80-100); MEAN CORPUSCULAR HEMOGLOBIN 35.7 pg (25-34); MEAN CORPUSCULAR HGB CONC 33.4 g/dl (32-36); MEAN PLATELET VOLUME 10.9 fL (7.4-10.4); PLATELET COUNT 320 K/uL (130-400); RED BLOOD COUNT 2.72 M/uL (4.2-5.4); WHITE BLOOD COUNT 13.23 K/uL (4.8-10.8)
[2017-03-17 06:51] LABS: BUN/CREATININE RATIO 12.3 (10-20); CREATININE 5.3 mg/dl (0.60-1.20); POTASSIUM 3.7 mmol/L (3.5-5.1)
[2017-03-17] MEDS ORDERED: FUROSEMIDE 40 MG TAB PO ONE (08:00)
[2017-03-17] MEDS: SUCRALFATE 1 GM/10 ML UDC PO SCH ×4 (09:09→20:53)
[2017-03-17] MEDS: CITALOPRAM 20 MG TAB PO SCH (09:09)
[2017-03-17] MEDS: CEPHALEXIN MONOHYDRATE 250 MG CAP PO SCH (09:10)
[2017-03-17] MEDS: FAMOTIDINE 20 MG TAB PO SCH (09:10)
[2017-03-17] MEDS: CEROVITE ADV FORMULA TAB PO SCH (09:10)
[2017-03-17] MEDS: MIDODRINE 10 MG TAB PO SCH ×3 (09:11→17:22)
[2017-03-17] MEDS: THIAMINE HCL 100 MG TAB PO SCH ×2 (09:11→20:53)
[2017-03-17] MEDS: BOOST VANILLA PO SCH ×6 (09:11→18:20)
[2017-03-17] MEDS: RIFAXIMIN TAB 550 MG TAB PO SCH ×2 (09:11→20:53)
[2017-03-17] MEDS: HEPARIN SOD 5000 UNIT/0.5 ML CARP SQ SCH ×2 (09:14→20:57)
[2017-03-17] MEDS ORDERED: ALBUMIN 25% 50 ML with FUROSEMIDE INJ 40 MG IV SCH ×2 (09:30)
--- NOTE | 2017-03-17 10:00 | Nephrology Progress Note ---
Nephrology Progress Note Date of Service March 17, 2017. Chief Complaint ASHELY/CKD, hyperkalemia Subjective No acute events overnight. Contreras was seen and evaluated in her hospital room this morning. Despite documentation, she states that she was voiding frequently overnight. She overall feels well this morning. She admits that she is very weak and has been unable to get out of bed. Her appetite remains poor. She does not endorse a significant change in abdominal distention. She denies shortness of breath. She has not experienced fevers or chills. She remains hopeful that she will recover and return home. She acknowledged that if her kidney function does not recover she may from renal failure. She described a friend who lived for 20 years on hemodialysis. She states that she would be willing to consider dialysis if it were an option. Review of Systems A complete review of systems was performed. Pertinent positives are noted above. All other systems are negative. Vital Signs Last 8 Hrs Date Time Temp Pulse Resp B/P Pulse Ox O2 Delivery O2 Flow Rate FiO2 03/17/17 09:31 55 70/45 03/17/17 07:19 36.4 50 16 80/46 98 Room Air I & O 24-Hour Column 03/17/17 08:00 Intake Total 730 ml Output Total 100 ml Balance 630 ml Last Recorded Weight Weight (Kilograms): 77.000 Physical Exam General Appearance: no apparent distress, + thin Head: normocephalic, atraumatic Eyes: normal inspection, sclerae normal ENT: normal ENT inspection, pharynx normal Neck: supple, + JVD (10 cm) Respiratory/Chest: lungs clear, no respiratory distress, no accessory muscle use, + decreased breath sounds Cardiovascular: regular rate, rhythm, no gallop Abdomen/GI: non tender, + distended Extremities/Musculoskelatal: normal inspection, + pedal edema (+4 unchanged) Neurologic/Psych: alert, normal mood/affect Social History Smokeless Tobacco Use: No Alcohol Use: occasionally Drug Use: none Marital Status: single Housing Status: lives alone Occupation: retired Laboratory Results Past 24 Hours 03/17/17 05:37 03/17/17 05:37 Test 03/17/17 05:37 Red Blood Count 2.72 M/uL (4.2-5.4) Mean Corpuscular Volume 106.6 fL (80-100) Mean Corpuscular Hemoglobin 35.7 pg (25-34) Mean Corpuscular Hemoglobin Concent 33.4 g/dl (32-36) RDW Standard Deviation 53.0 fL (36.4-46.3) RDW Coefficient of Variation 13.8 % (11.5-14.5) Mean Platelet Volume 10.9 fL (7.4-10.4) Anion Gap 12.0 mmol/L (3-11) Est Creatinine Clear Calc Drug Dose 10.9 ml/min Estimated GFR () 9.1 Estimated GFR (Non- 7.9 BUN/Creatinine Ratio 12.3 (10-20) Calcium Level 8.0 mg/dl (8.5-10.1) Allergies Coded Allergies: Acetaminophen (Verified Allergy, Unknown, UNKNOWN, 03/10/17) PATIENT REPEATEDLY SAYS SHE IS NOT ALLERGIC TO THIS AND HAS TAKEN A LOT OF TYLENOL IN HER LIFE. SHE SAID SHE HAS LIVER ISSUES, BUT IS NOT ALLERGIC. I TRIED TO DELETE IT AND IT WOULDN'T LET ME. - Medications Current Inpatient Medications Medications (Trade) Dose Ordered Sig/Brett Route Start Time Stop Time Status Last Admin Dose Admin Ondansetron HCl (Zofran Inj) 4 mg Q6H PRN IV 03/10/17 16:15 04/09/17 16:14 03/13/17 03:06 4 MG Citalopram Hydrobromide (celeXA TAB) 20 mg DAILY PO 03/11/17 09:00 04/10/17 08:59 03/17/17 09:09 20 MG Levothyroxine Sodium (Synthroid Tab) 125 mcg DAILYBB PO 03/11/17 06:00 04/10/17 08:59 03/17/17 05:47 125 MCG Morphine Sulfate (MoRPHine SULFATE INJ) 2 mg Q4H PRN IV 03/10/17 23:15 03/24/17 23:14 03/14/17 21:30 2 MG Heparin Sodium (Porcine) (Heparin Sq 5000 Unit/0.5ml) 5,000 unit BID SQ 03/11/17 21:00 04/10/17 20:59 03/17/17 09:14 5,000 UNIT Rifaximin (Xifaxan Tab) 550 mg BID PO 03/11/17 21:00 04/10/17 20:59 03/17/17 09:11 550 MG Multivitamins/ Minerals (Multivitamin W/ Minerals Tab) 1 tab QAM PO 03/12/17 09:00 04/11/17 08:59 03/17/17 09:10 1 TAB Enteral Nutritional Formula (Boost) 1 can BIDM PO 03/13/17 16:45 04/12/17 16:44 03/17/17 09:11 1 CAN Thiamine HCl (Vitamin B-1 Tab) 200 mg BID PO 03/15/17 09:00 04/14/17 08:59 03/17/17 09:11 200 MG Folic Acid (Folvite Tab) 1 mg QAM PO 03/15/17 09:00 04/14/17 08:59 03/17/17 09:10 1 MG Cephalexin Monohydrate (Keflex Cap) 250 mg QAM PO 03/15/17 09:00 03/25/17 08:59 03/17/17 09:10 250 MG Famotidine (Pepcid Tab) 20 mg QAM PO 03/16/17 08:00 04/15/17 08:59 03/17/17 09:10 20 MG Sucralfate (Carafate Susp) 1 gm QID PO 03/15/17 09:45 04/14/17 09:44 03/17/17 09:09 1 GM Miscellaneous Information 1 ea UD PRN N/A 03/16/17 13:00 04/15/17 12:59 Midodrine 30 mg 30 mg TID@08,12,17 PO 03/17/17 08:00 04/16/17 07:59 03/17/17 09:11 30 MG Furosemide/ Albumin Human (Lasix Inj/ Albumin 25%) 54 ml @ 54 mls/hr TODAY@0930 IV 03/17/17 09:30 03/17/17 10:29 03/17/17 09:17 54 MLS/HR Impression (1) Acute renal insufficiency (2) CKD (chronic kidney disease), stage III (3) Cirrhosis, alcoholic (4) Ascites (5) Hyperkalemia (6) Hypoalbuminemia Contreras Stevenson is a 66-year-old female with alcoholic cirrhosis. She recently developed recurrent ascites. Contreras was admitted to [facility] on 03/10/17 with severe generalized weakness. She was also experiencing diarrhea and a sore on her buttocks. Laboratory studies revealed acute renal failure and hyperkalemia. Hyperkalemia was treated with Kayexalate. Urine analysis documented pyuria without hematuria as well as hyaline and granular casts. Renal ultrasound did not show any evidence of obstruction. Renal anatomy is otherwise normal. Urine sodium was 26. No eosinophils were noted on urine cytology. 5 liters of straw colored abdominal fluid were drained since admission. No organisms on gram stain and WBC insignificant but culture growing Staph. Daptomycin was started. Clinical presentation is consistent with ATN but I cannot exclude underlying hepatorenal syndrome or AIN. There has been no improvement in renal function and prognosis remains guarded. Urine sodium is not consistent with classic hepatorenal syndrome. AIN associated with Omeprazole remains a possibility and the medication has been stopped. EGD had recently revealed esophagitis. She remains on midodrine for BP support. This was increased to 30 mg TID yesterday. Abdominal ascites and dependent edema are significant and notably increased over the weekend. Urine output response to albumin and Lasix yesterday was not documented. She reports good response. I&O's have been requested. She is using the bedpan. Patient is unfortunately not a liver transplant candidate due to alcohol history. I suspect ASHELY is related to ATN and less consistent with HRS 1 and at this time do not expect significant benefit from TIPS. Recommendations ASHELY: -- Metabolic profile acceptable without signs of renal recovery -- Continue to support BP with MAP goal >65 -- Maintain slightly negative fluid balance if able -- Document I/O's -- Monitor metabolic profile daily ESLD with recurrent ascites: -- Appreciate GI consult -- Portal venous duplex was limited but did not identify clot in portal venous system -- Therapeutic paracentesis PRN. Albumin to be given with paracentesis. -- Furosemide 40 mg + albumin 25% ordered for this morning Hypotension -- Continue midodrine 20-30 mg TID -- Encourage nutrition Disposition: -- I discussed the guarded prognosis with the patient as well as Dr. Resendez this morning -- Goals of care to be outlined
--- NOTE | 2017-03-17 11:40 | Gastroenterology Progress Note ---
Progress Note Date of Service: March 17, 2017 Subjective Pt evaluation today including: conversation w/ patient, physical exam, chart review, lab review, review of inpatient medication list Pt reports feeling tired, not much sleep last night also w lots of visitors during the day. She is having more abd distension but denies any abd pain, n/v. Appetite low. Admits to not be getting out of bed much. Review of Systems Constitutional: No chills, No fever Respiratory: No cough, No shortness of breath Cardiac: No chest pain Abdomen: + see HPI, No nausea, No pain, No vomiting Skin: No itch, No jaundice, No rash Medications Current Inpatient Medications Medications (Trade) Dose Ordered Sig/Brett Route Start Time Stop Time Status Last Admin Dose Admin Ondansetron HCl (Zofran Inj) 4 mg Q6H PRN IV 03/10/17 16:15 04/09/17 16:14 03/13/17 03:06 4 MG Citalopram Hydrobromide (celeXA TAB) 20 mg DAILY PO 03/11/17 09:00 04/10/17 08:59 03/17/17 09:09 20 MG Levothyroxine Sodium (Synthroid Tab) 125 mcg DAILYBB PO 03/11/17 06:00 04/10/17 08:59 03/17/17 05:47 125 MCG Morphine Sulfate (MoRPHine SULFATE INJ) 2 mg Q4H PRN IV 03/10/17 23:15 03/24/17 23:14 03/14/17 21:30 2 MG Heparin Sodium (Porcine) (Heparin Sq 5000 Unit/0.5ml) 5,000 unit BID SQ 03/11/17 21:00 04/10/17 20:59 03/17/17 09:14 5,000 UNIT Rifaximin (Xifaxan Tab) 550 mg BID PO 03/11/17 21:00 04/10/17 20:59 03/17/17 09:11 550 MG Multivitamins/ Minerals (Multivitamin W/ Minerals Tab) 1 tab QAM PO 03/12/17 09:00 04/11/17 08:59 03/17/17 09:10 1 TAB Enteral Nutritional Formula (Boost) 1 can BIDM PO 03/13/17 16:45 04/12/17 16:44 03/17/17 09:11 1 CAN Thiamine HCl (Vitamin B-1 Tab) 200 mg BID PO 03/15/17 09:00 04/14/17 08:59 03/17/17 09:11 200 MG Folic Acid (Folvite Tab) 1 mg QAM PO 03/15/17 09:00 04/14/17 08:59 03/17/17 09:10 1 MG Cephalexin Monohydrate (Keflex Cap) 250 mg QAM PO 03/15/17 09:00 03/25/17 08:59 03/17/17 09:10 250 MG Famotidine (Pepcid Tab) 20 mg QAM PO 03/16/17 08:00 04/15/17 08:59 03/17/17 09:10 20 MG Sucralfate (Carafate Susp) 1 gm QID PO 03/15/17 09:45 04/14/17 09:44 03/17/17 09:09 1 GM Miscellaneous Information 1 ea UD PRN N/A 03/16/17 13:00 04/15/17 12:59 Midodrine (Proamatine Tab) 30 mg TID@08,, PO 03/17/17 08:00 04/16/17 07:59 03/17/17 09:11 30 MG Albumin Human (Albumin 25%) 12.5 gm Q30M IV 03/17/17 11:00 03/17/17 12:31 Objective Vital Signs Date Time Temp Pulse Resp B/P Pulse Ox O2 Delivery O2 Flow Rate FiO2 03/17/17 10:59 56 91/56 03/17/17 09:31 55 70/45 03/17/17 07:19 36.4 50 16 80/46 98 Room Air 03/17/17 00:12 36.4 50 16 89/47 98 Room Air 03/16/17 23:55 Room Air 03/16/17 20:23 36.5 50 16 81/48 99 Room Air 03/16/17 18:26 36.5 56 16 87/56 96 Room Air 03/16/17 17:16 36.9 52 16 80/58 97 Room Air 03/16/17 16:00 Room Air 03/16/17 12:38 74/42 Physical Exam General Appearance: + cachetic Eyes: normal inspection, PERRL, EOMI Neck: supple, no JVD, trachea midline Respiratory/Chest: normal breath sounds, no respiratory distress, no accessory muscle use Cardiovascular: regular rate, rhythm, no gallop, no murmur Abdomen: normal bowel sounds, non tender, + distended Extremities: + swelling (+2 pitting edema bilateral LE) Neurologic/Psych: alert, normal mood/affect, oriented x 3 Skin: no jaundice, no rash, + pallor Laboratory Results Last 24 Hours Test 03/17/17 05:37 White Blood Count 13.23 K/uL Red Blood Count 2.72 M/uL Hemoglobin 9.7 g/dL Hematocrit 29.0 % Mean Corpuscular Volume 106.6 fL Mean Corpuscular Hemoglobin 35.7 pg Mean Corpuscular Hemoglobin Concent 33.4 g/dl RDW Standard Deviation 53.0 fL RDW Coefficient of Variation 13.8 % Platelet Count 320 K/uL Mean Platelet Volume 10.9 fL Sodium Level 140 mmol/L Potassium Level 3.7 mmol/L Chloride Level 109 mmol/L Carbon Dioxide Level 19 mmol/L Anion Gap 12.0 mmol/L Blood Urea Nitrogen 65 mg/dl Creatinine 5.30 mg/dl Est Creatinine Clear Calc Drug Dose 10.9 ml/min Estimated GFR () 9.1 Estimated GFR (Non- 7.9 BUN/Creatinine Ratio 12.3 Random Glucose 95 mg/dl Calcium Level 8.0 mg/dl Assessment and Plan Impression Patient is a 66 year old female w ETOH cirrhosis, currently admitted w weakness , diarrhea, ASHELY (from diarrhea vs HRS). MELD 21 but Cr driven. She quit ETOH uses in December. - Diarrhea resolved, stool studied negative. - Appetite and energy level low. - 5L ascites removal via u/s guided paracentesis 03/11, no signs of SBP on initial cell ct. Total WBC 45. Though fluid cx grew staph species (she had this before in January, suspected to be a contaminated specimen). She was started on Daptomycin, Ceftriaxone -> currently on Keflex. She feels abd distended again. - UOP poor (50ml total last 2 days). Nephrology discussing possible dialysis. BP low, Cr up to 5.3 now despite increased Midodrine. Octreotide already stopped. Plans - Hold Nadolol; started back on Lasix by Nephrology. - Xifaxan 550 BID. - Midodrine increased to 30mg TID - Nephrology following, appreciate recs. - Repeat u/s guided paracentesis w fluid analysis today. No more than 3L fluid removal (u/s dept. informed), Will give Albumin before and after paracentesis. - Had discussion w pt that her prognosis overall is poor, and likely not a candidate for liver (or if needed both liver/kidney) transplant given sobriety only 2 months ago and her current deconditioning. I mentioned consulting Palliative Care but pt refused at this time. She did express her wishes for no CPR in the future, and I have discussed this w Dr. Resendez to change her code status. He will discuss further w pt.
[2017-03-17] MEDS: ALBUMIN HUMAN 25% 12.5 GM/50 ML VIAL IV SCH ×6 (12:07→17:20)
--- NOTE | 2017-03-17 14:04 | Progress Note ---
Subjective Date of Service: March 17, 2017. Subjective this pt remains unrealistic regarding her prognosis, she has no focal complaints except for fatigue. did have discussion with GI medicine about change of code status to no cpr Problem List Medical Problems: (1) Acute kidney injury Status: Acute (2) Anemia Status: Acute (3) Dehydration Status: Acute (4) Hyperkalemia Status: Acute (5) Hypomagnesemia Status: Acute (6) Hypomagnesemia Status: Acute (7) Hypotension Status: Acute (8) Malaise and fatigue Status: Acute (9) Weakness Status: Acute Review of Systems Constitutional: + fatigue, + weakness, No chills, No fever ENT: No hearing loss, No unusual epistaxis Respiratory: No cough, No shortness of breath, No sputum, No wheezing Cardiac: No chest pain, No orthopnea Abdomen: + pain, + problem reported (distension and tense), No constipation, No diarrhea, No nausea, No vomiting Female : No dysuria, No urinary frequency Psychiatric: No anhedonism, No depression symptoms Objective Vital Signs Date Time Temp Pulse Resp B/P Pulse Ox O2 Delivery O2 Flow Rate FiO2 03/17/17 10:59 56 91/56 03/17/17 09:31 55 70/45 03/17/17 07:19 36.4 50 16 80/46 98 Room Air 03/17/17 00:12 36.4 50 16 89/47 98 Room Air 03/16/17 23:55 Room Air 03/16/17 20:23 36.5 50 16 81/48 99 Room Air 03/16/17 18:26 36.5 56 16 87/56 96 Room Air 03/16/17 17:16 36.9 52 16 80/58 97 Room Air 03/16/17 16:00 Room Air Physical Exam General Appearance: + moderate distress, + thin Neck: supple, trachea midline Respiratory/Chest: chest non-tender, no accessory muscle use, + decreased breath sounds Cardiovascular: regular rate, rhythm, no murmur Abdomen: + abnormal bowel sounds, + distended, + guarding, + tenderness Extremities: + pedal edema, + swelling Neurologic/Psychiatric: alert, oriented x 3 Laboratory Results Last 24 Hours Test 03/17/17 05:37 03/17/17 13:53 White Blood Count 13.23 K/uL Red Blood Count 2.72 M/uL Hemoglobin 9.7 g/dL Hematocrit 29.0 % Mean Corpuscular Volume 106.6 fL Mean Corpuscular Hemoglobin 35.7 pg Mean Corpuscular Hemoglobin Concent 33.4 g/dl RDW Standard Deviation 53.0 fL RDW Coefficient of Variation 13.8 % Platelet Count 320 K/uL Mean Platelet Volume 10.9 fL Sodium Level 140 mmol/L Potassium Level 3.7 mmol/L Chloride Level 109 mmol/L Carbon Dioxide Level 19 mmol/L Anion Gap 12.0 mmol/L Blood Urea Nitrogen 65 mg/dl Creatinine 5.30 mg/dl Est Creatinine Clear Calc Drug Dose 10.9 ml/min Estimated GFR () 9.1 Estimated GFR (Non- 7.9 BUN/Creatinine Ratio 12.3 Random Glucose 95 mg/dl Calcium Level 8.0 mg/dl Assessment and Plan 66yo female with cirrhosis ascites and acute renal failure Decompensated etoh cirrhosis - Increased midodrine for low BP. did have some improvement and some urine output with trial of albumin and lasix, enough for nephrology to consider continuing it considering therapeutic paracentesis later this week. ?SBP - ascites cx with staph aureus, MSSA, transition to PO keflex. acute renal failure in setting of CKD stage 3; ARF 2nd to ATN, nephrology feels urine sodium does not support hepato-renal syndrome, diuresis only for managing anasarca Poor prognosis, will need to discuss with patent as hospice discussion maybe at hand. Hypotension - improved with increased mododrine 03/16 macrocytic anemia - 2nd to cirrhosis diarrhea - resolved.. Stool cx and c. diff toxin negative to date. sacral/buttock ulcerations - wound care team following. pt states was unable to get up at home for some time, still painful to have wounds cleansed . DVT proph - heparin BID, no coagulopathy from liver disease . GERD - PPI was stopped due to concern it could have caused AIN. pepcid 20mg daily.carafate liquid 1gm QID. Overall prognosis is very poor in light of renal disease She is a poor dialysis candidate for multiple reasons. Code status unclear at this time Continued [facility] stay due to: inadequate po fluid intake, voiding difficulties, ambulation difficulties, multiple IV medications needed, home environment unsafe for pt Discharge planning: intermediate facility ([facility])
--- NOTE | 2017-03-17 14:29 | DIAGNOSTIC IMAGING REPORT ---
ULTRASOUND-GUIDED THERAPEUTIC PARACENTESIS: HISTORY: Ascites Procedure: The procedure and its risks, benefits and alternatives were discussed with the patient and written informed consent was obtained. Preliminary ultrasound of the abdomen was performed to determine a safe needle entry site. The left lower quadrant was prepped and draped in the usual sterile fashion. 1% Lidocaine was used for local anesthesia. A paracentesis needle-sheath was inserted into the peritoneal space using ultrasound guidance. The needle was removed and the sheath was connected to tubing and a vacuum suction device. A total of 3 liters of yellow ascites was aspirated. The sheath was removed and a sterile dressing applied. The patient tolerated the procedure well and there were no immediate complications. IMPRESSION: Ultrasound-guided therapeutic paracentesis with aspiration of 3 liters of ascites. Electronically signed by: Christian De La Garza M.D. 03/17/2017 2:28 PM Dictated Date/Time: 03/17/2017 2:27 PM
[2017-03-17 14:53] LABS: PERIT FL WBC 147 /uL (0-300); PERITONEAL FLUID RBC < 3000 /uL
[2017-03-18 00:03] VITALS: BP 92/56; PULSE 70; TEMP 36.6; O2SAT 99
[2017-03-18] MEDS: LEVOTHYROXINE 125 MCG TAB PO SCH (06:01)
[2017-03-18 07:42] VITALS: BP_SYST 74; BP_SYST 89; BP_DIAS 46; BP_DIAS 53; PULSE 56; TEMP 36.4; O2SAT 97
[2017-03-18 08:01] LABS: BUN/CREATININE RATIO 12.8 (10-20); CREATININE 5.1 mg/dl (0.60-1.20); POTASSIUM 3.4 mmol/L (3.5-5.1)
[2017-03-18] MEDS ORDERED: POTASSIUM CHLORIDE 20 MEQ TABCR PO ONE (08:30)
[2017-03-18] MEDS: SUCRALFATE 1 GM/10 ML UDC PO SCH ×4 (09:38→20:54)
[2017-03-18] MEDS: BOOST VANILLA PO SCH ×4 (09:38→18:08)
[2017-03-18] MEDS: HEPARIN SOD 5000 UNIT/0.5 ML CARP SQ SCH ×2 (09:38→21:03)
[2017-03-18] MEDS: CITALOPRAM 20 MG TAB PO SCH (09:38)
[2017-03-18] MEDS: FAMOTIDINE 20 MG TAB PO SCH (09:39)
[2017-03-18] MEDS: MIDODRINE 10 MG TAB PO SCH ×3 (09:39→18:09)
[2017-03-18] MEDS: CEROVITE ADV FORMULA TAB PO SCH (09:39)
[2017-03-18] MEDS: CEPHALEXIN MONOHYDRATE 250 MG CAP PO SCH (09:39)
[2017-03-18] MEDS: RIFAXIMIN TAB 550 MG TAB PO SCH ×2 (09:40→20:54)
[2017-03-18] MEDS: THIAMINE HCL 100 MG TAB PO SCH ×2 (09:40→20:54)
--- NOTE | 2017-03-18 10:32 | Nephrology Progress Note ---
Nephrology Progress Note Date of Service March 18, 2017. Chief Complaint Acute on chronic kidney injury Subjective Miss Stevenson was seen & examined in her hospital room this morning. She complains of weakness. She has not yet been out of bed this hospitalization. She currently denies fever, abdominal pain, dyspnea, chest pain or uremic symptoms. Miss Stevenson reports urine output. staff appraiser documented 100 cc overnight. Review of Systems Constitutional: No fever Cardiovascular: No chest pain Respiratory: No dyspnea at rest Abdomen: No nausea, No pain, No vomiting Extremities: + leg edema A complete review of systems was performed. Pertinent positives are noted above. All other systems are negative. Vital Signs Last 8 Hrs Date Time Temp Pulse Resp B/P Pulse Ox O2 Delivery O2 Flow Rate FiO2 03/18/17 07:42 36.4 56 18 74/46 97 Room Air 89/53 I & O 24-Hour Column 03/18/17 08:00 Intake Total 340 ml Output Total 50 ml Balance 290 ml Last Recorded Weight Weight (Kilograms): 77.000 Physical Exam General Appearance: no apparent distress Head: normocephalic, atraumatic Eyes: PERRL, EOMI Neck: no adenopathy Respiratory/Chest: lungs clear, no respiratory distress Cardiovascular: regular rate, rhythm Abdomen/GI: non tender, + distended (hypoactive bowel sounds. No guarding) Extremities/Musculoskelatal: no calf tenderness, + swelling (1+ pretibial pitting edema) Neurologic/Psych: alert Social History Smokeless Tobacco Use: No Alcohol Use: occasionally Drug Use: none Marital Status: single Housing Status: lives alone Occupation: retired Laboratory Results Past 24 Hours 03/18/17 06:05 Test 03/18/17 06:05 Anion Gap 13.0 mmol/L (3-11) Est Creatinine Clear Calc Drug Dose 11.3 ml/min Estimated GFR () 9.6 Estimated GFR (Non- 8.2 BUN/Creatinine Ratio 12.8 (10-20) Calcium Level 8.0 mg/dl (8.5-10.1) Allergies Coded Allergies: Acetaminophen (Verified Allergy, Unknown, UNKNOWN, 03/10/17) PATIENT REPEATEDLY SAYS SHE IS NOT ALLERGIC TO THIS AND HAS TAKEN A LOT OF TYLENOL IN HER LIFE. SHE SAID SHE HAS LIVER ISSUES, BUT IS NOT ALLERGIC. I TRIED TO DELETE IT AND IT WOULDN'T LET ME. - Medications Current Inpatient Medications Medications (Trade) Dose Ordered Sig/Brett Route Start Time Stop Time Status Last Admin Dose Admin Ondansetron HCl (Zofran Inj) 4 mg Q6H PRN IV 03/10/17 16:15 04/09/17 16:14 03/13/17 03:06 4 MG Citalopram Hydrobromide (celeXA TAB) 20 mg DAILY PO 03/11/17 09:00 04/10/17 08:59 03/18/17 09:38 20 MG Levothyroxine Sodium (Synthroid Tab) 125 mcg DAILYBB PO 03/11/17 06:00 04/10/17 08:59 03/18/17 06:01 125 MCG Morphine Sulfate (MoRPHine SULFATE INJ) 2 mg Q4H PRN IV 03/10/17 23:15 03/24/17 23:14 03/14/17 21:30 2 MG Heparin Sodium (Porcine) (Heparin Sq 5000 Unit/0.5ml) 5,000 unit BID SQ 03/11/17 21:00 04/10/17 20:59 03/18/17 09:38 5,000 UNIT Rifaximin (Xifaxan Tab) 550 mg BID PO 03/11/17 21:00 04/10/17 20:59 03/18/17 09:40 550 MG Multivitamins/ Minerals (Multivitamin W/ Minerals Tab) 1 tab QAM PO 03/12/17 09:00 04/11/17 08:59 03/18/17 09:39 1 TAB Enteral Nutritional Formula (Boost) 1 can BIDM PO 03/13/17 16:45 04/12/17 16:44 03/18/17 09:38 1 CAN Thiamine HCl (Vitamin B-1 Tab) 200 mg BID PO 03/15/17 09:00 04/14/17 08:59 03/18/17 09:40 200 MG Folic Acid (Folvite Tab) 1 mg QAM PO 03/15/17 09:00 04/14/17 08:59 03/18/17 09:39 1 MG Cephalexin Monohydrate (Keflex Cap) 250 mg QAM PO 03/15/17 09:00 03/25/17 08:59 03/18/17 09:39 250 MG Famotidine (Pepcid Tab) 20 mg QAM PO 03/16/17 08:00 04/15/17 08:59 03/18/17 09:39 20 MG Sucralfate (Carafate Susp) 1 gm QID PO 03/15/17 09:45 04/14/17 09:44 03/18/17 09:38 1 GM Miscellaneous Information 1 ea UD PRN N/A 03/16/17 13:00 04/15/17 12:59 Midodrine (Proamatine Tab) 30 mg TID@,, PO 03/17/17 08:00 04/16/17 07:59 03/18/17 09:39 30 MG Impression (1) Acute renal insufficiency (2) CKD (chronic kidney disease), stage III (3) Cirrhosis, alcoholic (4) Ascites (5) Hyperkalemia (6) Hypoalbuminemia Miss Stevenson was admitted to [facility] 03/10/17 with severe generalized weakness, diarrhea and a bed sore on her buttocks. She has alcoholic cirrhosis with recurrent ascites. Laboratory studies revealed acute on chronic kidney injury w / hyperkalemia. Serum creatinine joann from 1.2 to 5.3. Hyperkalemia was treated with Kayexalate. Urinanalysis revealed pyuria, hyaline and granular casts. Urine sodium was 26. Urine cytology was negative for eosinophils. Renal US was negative for obstruction. Paracentesis 03/11 and 03/17 yielded 5 liters of straw colored fluid. Culture grew pansensitive Staphylococcus. Patient is now on Keflex therapy. Clinical presentation is c/w ATN. Hepatorenal syndrome and AIN remain within the differential diagnosis. Urine sodium is not c/w hepatorenal syndrome. AIN due to Omeprazole remains a possibility and the medication has been stopped. EGD had recently revealed esophagitis. She remains on Midodrine 30 mg po TID for BP support. Patient is unfortunately not a liver transplant candidate due to alcohol history. ASHELY is likely related to ATN and less consistent with HRS 1. Do not expect significant benefit from TIPS. Recommendations ACUTE KIDNEY INJURY: -- Metabolic profile remains acceptable. Serum creatinine is marginally improved this am -- Continue to support BP with MAP goal > 65 -- Will provide one dose Furosemide 40 mg IV and 25 g SPA today to help mobilize peripheral edema and avoid volume overload -- Document I/O's ESLD w/ RECURRENT ASCITES: -- GI recommendations reviewed this am -- Portal venous duplex was limited but did not identify clot in portal venous system -- Therapeutic paracentesis PRN. HYPOTENSION: -- Continue midodrine 30 mg TID -- Encourage nutrition DISPOSITION: -- Poor dialysis candidate due to advanced cirrhosis, recurrent ascites, hypotension requiring midodrine support and ineligibility for liver transplant
[2017-03-18] MEDS ORDERED: ALBUMIN 25% 50 ML with FUROSEMIDE INJ 40 MG IV ONE ×2 (11:00)
[2017-03-18 11:41] VITALS: BP 70/41; PULSE 60
[2017-03-18 12:55] VITALS: BP 89/60; PULSE 59; TEMP 36.4
[2017-03-18 15:30] VITALS: BP_SYST 68; BP_SYST 69; BP_DIAS 48; BP_DIAS 50; PULSE 60; TEMP 35.7; O2SAT 98
[2017-03-18] MEDS: MoRPHine SULFATE 2 MG/ML CARP IV PRN (15:39)
--- NOTE | 2017-03-18 17:54 | Progress Note ---
Subjective Date of Service: March 18, 2017. 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, will agree to go to snf with consideration of subacute rehab did have large volume paracentesis and tolerated well, feels abdomen is less tight Problem List Medical Problems: (1) Acute kidney injury Status: Acute (2) Anemia Status: Acute (3) Dehydration Status: Acute (4) Hyperkalemia Status: Acute (5) Hypomagnesemia Status: Acute (6) Hypomagnesemia Status: Acute (7) Hypotension Status: Acute (8) Malaise and fatigue Status: Acute (9) Weakness Status: Acute Review of Systems Constitutional: + fatigue, + weakness, No chills, No fever Respiratory: + dyspnea on exertion, No cough, No shortness of breath Cardiac: + edema, No PND, No chest pain, No orthopnea Abdomen: No diarrhea, No nausea, No pain, No vomiting Musculoskeletal: + joint pain, + muscle pain Female : No dysuria, No urinary frequency Psychiatric: No anhedonism, No depression symptoms Objective Vital Signs Date Time Temp Pulse Resp B/P Pulse Ox O2 Delivery O2 Flow Rate FiO2 03/18/17 16:00 Room Air 03/18/17 15:30 35.7 60 18 69/50 98 Room Air 68/48 03/18/17 12:55 36.4 59 16 89/60 03/18/17 11:44 Room Air 03/18/17 11:41 60 70/41 03/18/17 07:42 36.4 56 18 74/46 97 Room Air 89/53 03/18/17 00:03 36.6 70 18 92/56 99 Room Air 03/18/17 00:00 Room Air 03/17/17 18:13 36.3 54 16 103/69 99 Room Air Physical Exam General Appearance: WD/WN, + mild distress Eyes: PERRL, EOMI Neck: supple, no JVD Respiratory/Chest: chest non-tender, + decreased breath sounds, + accessory muscle use Cardiovascular: regular rate, rhythm, no murmur Abdomen: soft, + distended, + guarding, + tenderness Extremities: + pedal edema, + swelling Laboratory Results Last 24 Hours Test 03/18/17 06:05 Sodium Level 138 mmol/L Potassium Level 3.4 mmol/L Chloride Level 106 mmol/L Carbon Dioxide Level 19 mmol/L Anion Gap 13.0 mmol/L Blood Urea Nitrogen 67 mg/dl Creatinine 5.10 mg/dl Est Creatinine Clear Calc Drug Dose 11.3 ml/min Estimated GFR () 9.6 Estimated GFR (Non- 8.2 BUN/Creatinine Ratio 12.8 Random Glucose 99 mg/dl Calcium Level 8.0 mg/dl Assessment and Plan 66yo female with cirrhosis ascites and acute renal failure Decompensated etoh cirrhosis - Increased midodrine for low BP.conintues wiht albumin and lasix, with nephrology oversight 03/17 therapeutic paracentesis 2 liters, - ascites cx with staph aureus, MSSA acute renal failure in setting of CKD stage 3; ARF 2nd to ATN, nephrology feels urine sodium does not support hepato-renal syndrome, diuresis only for managing anasarca Poor prognosis, if improves will take months, alcohol abstinence and good nutrition and hydration maybe hardwick, will have initially in snf for rehab to give chance Hypotension - better continue increased mododrine 03/16 macrocytic anemia -continue to be asymptomatic diarrhea - resolved.. Stool cx and c. diff toxin negative to date. sacral/buttock ulcerations - wound care needs continued care at snf for same . DVT proph - heparin BID, no coagulopathy from liver disease . GERD - PPI was stopped due to concern it could have caused AIN. pepcid 20mg daily.carafate liquid 1gm QID. Code status no cpr Continued [facility] stay due to: inadequate po fluid intake, voiding difficulties, ambulation difficulties, multiple IV medications needed, home environment unsafe for pt Discharge planning: senior care facility ([facility])
[2017-03-18] MEDS: DOCUSATE SODIUM 100 MG/10 ML UDC PO SCH (20:54)
[2017-03-18 23:53] VITALS: BP 81/49; PULSE 71; TEMP 36.6; O2SAT 99
[2017-03-19] MEDS: LEVOTHYROXINE 125 MCG TAB PO SCH (05:55)
[2017-03-19 06:50] LABS: HEMATOCRIT 29.3 % (37-47); MEAN CELL VOLUME 103.2 fL (80-100); MEAN CORPUSCULAR HEMOGLOBIN 35.2 pg (25-34); MEAN CORPUSCULAR HGB CONC 34.1 g/dl (32-36); MEAN PLATELET VOLUME 10.8 fL (7.4-10.4); PLATELET COUNT 350 K/uL (130-400); RED BLOOD COUNT 2.84 M/uL (4.2-5.4); WHITE BLOOD COUNT 12.16 K/uL (4.8-10.8)
[2017-03-19 07:40] LABS: BUN/CREATININE RATIO 12.9 (10-20); CALCIUM 8.2 mg/dl (8.5-10.1); CREATININE 5.2 mg/dl (0.60-1.20); POTASSIUM 3.8 mmol/L (3.5-5.1)
[2017-03-19 07:55] VITALS: BP 83/54; PULSE 56; TEMP 36.5; O2SAT 96
[2017-03-19] MEDS: SUCRALFATE 1 GM/10 ML UDC PO SCH ×4 (09:04→20:50)
[2017-03-19] MEDS: CITALOPRAM 20 MG TAB PO SCH (09:04)
[2017-03-19] MEDS: DOCUSATE SODIUM 100 MG/10 ML UDC PO SCH ×2 (09:04→20:00)
[2017-03-19] MEDS: FAMOTIDINE 20 MG TAB PO SCH (09:05)
[2017-03-19] MEDS: CEROVITE ADV FORMULA TAB PO SCH (09:05)
[2017-03-19] MEDS: CEPHALEXIN MONOHYDRATE 250 MG CAP PO SCH (09:05)
[2017-03-19] MEDS: THIAMINE HCL 100 MG TAB PO SCH ×2 (09:05→20:51)
[2017-03-19] MEDS: MIDODRINE 10 MG TAB PO SCH ×3 (09:05→18:03)
[2017-03-19] MEDS: BOOST VANILLA PO SCH ×4 (09:06→18:03)
[2017-03-19] MEDS: RIFAXIMIN TAB 550 MG TAB PO SCH ×2 (09:06→20:51)
[2017-03-19] MEDS: HEPARIN SOD 5000 UNIT/0.5 ML CARP SQ SCH ×2 (09:07→20:55)
--- NOTE | 2017-03-19 09:54 | Nephrology Progress Note ---
Nephrology Progress Note Date of Service Mar 19, 2017. Chief Complaint Acute on chronic kidney injury Subjective Miss Stevenson was seen & examined in her hospital room this morning. She is more alert this morning. She is oriented x 3. She was unaware of her diagnosis of cirrhosis and does not understand why she is in the hospital. Miss Stevenson appears to have limited understanding of her illness. She currently denies fever, abdominal pain, dyspnea, chest pain or uremic symptoms. Miss Stevenson reports urine output. staff engineer documented 50 cc overnight. Review of Systems Constitutional: No fever Cardiovascular: No chest pain Respiratory: No dyspnea at rest Abdomen: No pain Extremities: + leg edema A complete review of systems was performed. Pertinent positives are noted above. All other systems are negative. Vital Signs Last 8 Hrs Date Time Temp Pulse Resp B/P (MAP) Pulse Ox O2 Delivery O2 Flow Rate FiO2 03/19/17 07:55 36.5 56 16 83/54 (64) 96 Room Air Last Recorded Weight Weight (Kilograms): 77.000 Physical Exam General Appearance: no apparent distress Head: normocephalic, atraumatic Eyes: PERRL, EOMI Neck: no adenopathy Respiratory/Chest: lungs clear, no respiratory distress Cardiovascular: regular rate, rhythm Abdomen/GI: + distended (hypoactive bowel sounds. Nontender) Extremities/Musculoskelatal: no calf tenderness, + pedal edema (1+ pretibial pitting edema) Neurologic/Psych: alert, oriented x 3 Social History Smokeless Tobacco Use: No Alcohol Use: occasionally Drug Use: none Marital Status: single Housing Status: lives alone Occupation: retired Laboratory Results Past 24 Hours 03/19/17 06:33 03/19/17 06:33 Test 03/19/17 06:33 Red Blood Count 2.84 M/uL (4.2-5.4) Mean Corpuscular Volume 103.2 fL (80-100) Mean Corpuscular Hemoglobin 35.2 pg (25-34) Mean Corpuscular Hemoglobin Concent 34.1 g/dl (32-36) RDW Standard Deviation 50.1 fL (36.4-46.3) RDW Coefficient of Variation 13.5 % (11.5-14.5) Mean Platelet Volume 10.8 fL (7.4-10.4) Anion Gap 12.0 mmol/L (3-11) Est Creatinine Clear Calc Drug Dose 11.1 ml/min Estimated GFR () 9.3 Estimated GFR (Non- 8.0 BUN/Creatinine Ratio 12.9 (10-20) Calcium Level 8.2 mg/dl (8.5-10.1) Allergies Coded Allergies: Acetaminophen (Verified Allergy, Unknown, UNKNOWN, 03/10/17) PATIENT REPEATEDLY SAYS SHE IS NOT ALLERGIC TO THIS AND HAS TAKEN A LOT OF TYLENOL IN HER LIFE. SHE SAID SHE HAS LIVER ISSUES, BUT IS NOT ALLERGIC. I TRIED TO DELETE IT AND IT WOULDN'T LET ME. - Medications Current Inpatient Medications Medications (Trade) Dose Ordered Sig/Brett Route Start Time Stop Time Status Last Admin Dose Admin Ondansetron HCl (Zofran Inj) 4 mg Q6H PRN IV 03/10/17 16:15 04/09/17 16:14 03/13/17 03:06 4 MG Citalopram Hydrobromide (celeXA TAB) 20 mg DAILY PO 03/11/17 09:00 04/10/17 08:59 03/19/17 09:04 20 MG Levothyroxine Sodium (Synthroid Tab) 125 mcg DAILYBB PO 03/11/17 06:00 04/10/17 08:59 03/19/17 05:55 125 MCG Morphine Sulfate (MoRPHine SULFATE INJ) 2 mg Q4H PRN IV 03/10/17 23:15 03/24/17 23:14 03/18/17 15:39 2 MG Heparin Sodium (Porcine) (Heparin Sq 5000 Unit/0.5ml) 5,000 unit BID SQ 03/11/17 21:00 04/10/17 20:59 03/19/17 09:07 5,000 UNIT Rifaximin (Xifaxan Tab) 550 mg BID PO 03/11/17 21:00 04/10/17 20:59 03/19/17 09:06 550 MG Multivitamins/ Minerals (Multivitamin W/ Minerals Tab) 1 tab QAM PO 03/12/17 09:00 04/11/17 08:59 03/19/17 09:05 1 TAB Enteral Nutritional Formula (Boost) 1 can BIDM PO 03/13/17 16:45 04/12/17 16:44 03/19/17 09:06 1 CAN Thiamine HCl (Vitamin B-1 Tab) 200 mg BID PO 03/15/17 09:00 04/14/17 08:59 03/19/17 09:05 200 MG Folic Acid (Folvite Tab) 1 mg QAM PO 03/15/17 09:00 04/14/17 08:59 03/19/17 09:04 1 MG Cephalexin Monohydrate (Keflex Cap) 250 mg QAM PO 03/15/17 09:00 03/25/17 08:59 03/19/17 09:05 250 MG Famotidine (Pepcid Tab) 20 mg QAM PO 03/16/17 08:00 04/15/17 08:59 03/19/17 09:05 20 MG Sucralfate (Carafate Susp) 1 gm QID PO 03/15/17 09:45 04/14/17 09:44 03/19/17 09:04 1 GM Miscellaneous Information 1 ea UD PRN N/A 03/16/17 13:00 04/15/17 12:59 Midodrine (Proamatine Tab) 30 mg TID@,, PO 03/17/17 08:00 04/16/17 07:59 03/19/17 09:05 30 MG Docusate Sodium (coLACE SYRUP) 100 mg BID PO 03/18/17 20:00 04/17/17 19:59 03/19/17 09:04 100 MG Impression (1) Acute renal insufficiency (2) CKD (chronic kidney disease), stage III (3) Cirrhosis, alcoholic (4) Ascites (5) Hyperkalemia (6) Hypoalbuminemia Miss Stevenson was admitted to [facility] 03/10/17 with severe generalized weakness, diarrhea and a bed sore on her buttocks. She has alcoholic cirrhosis with recurrent ascites. Laboratory studies revealed acute on chronic kidney injury w / hyperkalemia. Serum creatinine has risen from 1.2 to 5.3. Urinalysis revealed pyuria, hyaline and granular casts. Urine sodium was 26. Urine cytology was negative for eosinophils. Renal US was negative for obstruction. Clinical presentation is c/w ATN. Hepatorenal syndrome and AIN remain within the differential diagnosis. Urine sodium is not c/w hepatorenal syndrome. AIN due to Omeprazole remains a possibility and the medication has been stopped. ASHELY is likely related to ATN and less consistent with HRS 1. Do not expect significant benefit from TIPS. Paracentesis 03/11 and 03/17 yielded 5 liters of straw colored fluid. Culture grew pansensitive Staphylococcus. Patient is now on Keflex therapy. She remains on Midodrine 30 mg po TID for BP support. Patient is unfortunately not a liver transplant candidate due to alcohol history. Recommendations ACUTE KIDNEY INJURY: -- Metabolic profile remains acceptable. Serum creatinine is unchanged. Patient remains oliguric. Renal recovery may be prolonged or not at all. Patient appears to have dense ATN. She is a poor dialysis candidate due to advanced cirrhosis, hypoalbuminemia, recurrent ascites, hypotension requiring midodrine support, relative debilitated condition w/ sacral skin breakdown and ineligibility for liver transplant. -- Monitor serial PRP HYPOTENSION: -- Continue to support BP with MAP goal > 65 -- Recommend reducing Midodrine to 15 mg po TID. Unclear whether higher doses provide significant improvement in blood pressure. ESLD w/ RECURRENT ASCITES: -- Portal venous duplex was limited but did not identify clot in portal venous system -- Paracentesis as per GI -- GI recommendations from 03/18 reviewed this am. Agree w/ considering palliative care HYPOALBUMINEMIA: -- Encourage enteral nutrition
--- NOTE | 2017-03-19 13:24 | Progress Note ---
Subjective Date of Service: Mar 19, 2017. Subjective pt has no complaints today was saddened yesterday as filling out her will. Is in agreement to go to snf for rehab, I discussed that she should be participating in OT in order to get stronger she did agree today Problem List Medical Problems: (1) Acute kidney injury Status: Acute (2) Anemia Status: Acute (3) Dehydration Status: Acute (4) Hyperkalemia Status: Acute (5) Hypomagnesemia Status: Acute (6) Hypomagnesemia Status: Acute (7) Hypotension Status: Acute (8) Malaise and fatigue Status: Acute (9) Weakness Status: Acute Review of Systems Constitutional: + weakness, + fatigue, No fever, No chills Respiratory: No cough, No shortness of breath, No dyspnea on exertion Cardiac: + edema, No chest pain, No orthopnea, No PND Abdomen: No pain, No nausea, No vomiting, No diarrhea Female : No dysuria, No urinary frequency, No hematuria Neurologic: + weakness, + balance problems, No memory loss, No vertigo Psychiatric: + depression symptoms, + anxiety Objective Vital Signs Date Time Temp Pulse Resp B/P (MAP) Pulse Ox O2 Delivery O2 Flow Rate FiO2 03/19/17 07:55 36.5 56 16 83/54 (64) 96 Room Air 03/19/17 00:15 Room Air 03/18/17 23:53 36.6 71 20 81/49 (60) 99 Room Air 03/18/17 16:00 Room Air 03/18/17 15:30 35.7 60 18 69/50 (56) 98 Room Air 68/48 (55) Physical Exam General Appearance: + mild distress, + thin Eyes: PERRL, EOMI Neck: supple, no JVD Respiratory/Chest: chest non-tender, lungs clear, + decreased breath sounds Cardiovascular: regular rate, rhythm, no murmur Abdomen: soft, + distended, + tenderness Extremities: + pedal edema, + swelling Neurologic/Psychiatric: alert, oriented x 3 Laboratory Results Last 24 Hours Test 03/19/17 06:33 White Blood Count 12.16 K/uL Red Blood Count 2.84 M/uL Hemoglobin 10.0 g/dL Hematocrit 29.3 % Mean Corpuscular Volume 103.2 fL Mean Corpuscular Hemoglobin 35.2 pg Mean Corpuscular Hemoglobin Concent 34.1 g/dl RDW Standard Deviation 50.1 fL RDW Coefficient of Variation 13.5 % Platelet Count 350 K/uL Mean Platelet Volume 10.8 fL Sodium Level 138 mmol/L Potassium Level 3.8 mmol/L Chloride Level 105 mmol/L Carbon Dioxide Level 21 mmol/L Anion Gap 12.0 mmol/L Blood Urea Nitrogen 67 mg/dl Creatinine 5.20 mg/dl Est Creatinine Clear Calc Drug Dose 11.1 ml/min Estimated GFR () 9.3 Estimated GFR (Non- 8.0 BUN/Creatinine Ratio 12.9 Random Glucose 95 mg/dl Calcium Level 8.2 mg/dl Assessment and Plan 66yo female with cirrhosis ascites and acute renal failure, all significant but stable Decompensated etoh cirrhosis - Increased midodrine for low BP.conintues wiht albumin and lasix, with nephrology oversight 03/17 therapeutic paracentesis 2 liters, - ascites cx with staph aureus, MSSA, MELD score is actually not that significant and with abstinence of alcohol will maybe get some improvement acute renal failure in setting of CKD stage 3; ARF 2nd to ATN, nephrology feels urine sodium does not support hepato-renal syndrome, pt is maintaining volume status with lasix Poor prognosis, if improves will take months, alcohol abstinence and good nutrition and hydration maybe hardwick, will have initially in snf for rehab to give chance Hypotension - mododrine 03/16 macrocytic anemia -continue to be asymptomatic, likely from liver disease diarrhea - resolved.. Stool cx and c. diff toxin negative to date. sacral/buttock ulcerations -improving wound care needs continued care at snf for same . DVT proph - heparin BID, no coagulopathy from liver disease . GERD - PPI was stopped due to concern it could have caused AIN. pepcid 20mg daily.carafate liquid 1gm QID. Code status no cpr Continued [facility] stay due to: inadequate po fluid intake, voiding difficulties, ambulation difficulties, multiple IV medications needed, home environment unsafe for pt Discharge planning: senior care facility ([facility])
[2017-03-19 14:34] VITALS: BP 80/52; PULSE 54; TEMP 36.4; O2SAT 99
--- NOTE | 2017-03-19 15:06 | Gastroenterology Progress Note ---
Progress Note Date of Service: Mar 19, 2017 Subjective Pt evaluation today including: conversation w/ patient, physical exam, chart review, lab review, review of inpatient medication list Pt feels energy is improved some, working w PT out of bed. She is having LLQ area abd leaking ascites at paracentesis site. Appetite still low. Review of Systems Constitutional: + weakness, No fever Respiratory: No shortness of breath Cardiac: No chest pain Abdomen: + see HPI, No pain, No nausea, No vomiting Skin: + see HPI Medications Current Inpatient Medications Medications (Trade) Dose Ordered Sig/Brett Route Start Time Stop Time Status Last Admin Dose Admin Ondansetron HCl (Zofran Inj) 4 mg Q6H PRN IV 03/10/17 16:15 04/09/17 16:14 03/13/17 03:06 4 MG Citalopram Hydrobromide (celeXA TAB) 20 mg DAILY PO 03/11/17 09:00 04/10/17 08:59 03/19/17 09:04 20 MG Levothyroxine Sodium (Synthroid Tab) 125 mcg DAILYBB PO 03/11/17 06:00 04/10/17 08:59 03/19/17 05:55 125 MCG Morphine Sulfate (MoRPHine SULFATE INJ) 2 mg Q4H PRN IV 03/10/17 23:15 03/24/17 23:14 03/18/17 15:39 2 MG Heparin Sodium (Porcine) (Heparin Sq 5000 Unit/0.5ml) 5,000 unit BID SQ 03/11/17 21:00 04/10/17 20:59 03/19/17 09:07 5,000 UNIT Rifaximin (Xifaxan Tab) 550 mg BID PO 03/11/17 21:00 04/10/17 20:59 03/19/17 09:06 550 MG Multivitamins/ Minerals (Multivitamin W/ Minerals Tab) 1 tab QAM PO 03/12/17 09:00 04/11/17 08:59 03/19/17 09:05 1 TAB Enteral Nutritional Formula (Boost) 1 can BIDM PO 03/13/17 16:45 04/12/17 16:44 03/19/17 09:06 1 CAN Thiamine HCl (Vitamin B-1 Tab) 200 mg BID PO 03/15/17 09:00 04/14/17 08:59 03/19/17 09:05 200 MG Folic Acid (Folvite Tab) 1 mg QAM PO 03/15/17 09:00 04/14/17 08:59 03/19/17 09:04 1 MG Cephalexin Monohydrate (Keflex Cap) 250 mg QAM PO 03/15/17 09:00 03/25/17 08:59 03/19/17 09:05 250 MG Famotidine (Pepcid Tab) 20 mg QAM PO 03/16/17 08:00 04/15/17 08:59 03/19/17 09:05 20 MG Sucralfate (Carafate Susp) 1 gm QID PO 03/15/17 09:45 04/14/17 09:44 03/19/17 09:04 1 GM Miscellaneous Information 1 ea UD PRN N/A 03/16/17 13:00 04/15/17 12:59 Midodrine (Proamatine Tab) 30 mg TID@,, PO 03/17/17 08:00 04/16/17 07:59 03/19/17 09:05 30 MG Docusate Sodium (coLACE SYRUP) 100 mg BID PO 03/18/17 20:00 04/17/17 19:59 03/19/17 09:04 100 MG Objective Vital Signs Date Time Temp Pulse Resp B/P (MAP) Pulse Ox O2 Delivery O2 Flow Rate FiO2 03/19/17 14:34 36.4 54 18 80/52 (61) 99 Room Air 03/19/17 13:27 Room Air 03/19/17 07:55 36.5 56 16 83/54 (64) 96 Room Air 03/19/17 00:15 Room Air 03/18/17 23:53 36.6 71 20 81/49 (60) 99 Room Air 03/18/17 16:00 Room Air 03/18/17 15:30 35.7 60 18 69/50 (56) 98 Room Air 68/48 (55) Physical Exam General Appearance: + cachetic Eyes: normal inspection, PERRL, EOMI Neck: supple, thyroid normal, trachea midline Respiratory/Chest: no respiratory distress, no accessory muscle use Abdomen: + pertinent finding (Abd w distension, LLQ paracentesis sites identified w ascites leakage. Applied Dermabond to these sites then covered w pressure dressing. ) Extremities: + swelling Neurologic/Psych: alert, normal mood/affect, oriented x 3 Skin: no rash, + pallor Laboratory Results Last 24 Hours Test 03/19/17 06:33 White Blood Count 12.16 K/uL Red Blood Count 2.84 M/uL Hemoglobin 10.0 g/dL Hematocrit 29.3 % Mean Corpuscular Volume 103.2 fL Mean Corpuscular Hemoglobin 35.2 pg Mean Corpuscular Hemoglobin Concent 34.1 g/dl RDW Standard Deviation 50.1 fL RDW Coefficient of Variation 13.5 % Platelet Count 350 K/uL Mean Platelet Volume 10.8 fL Sodium Level 138 mmol/L Potassium Level 3.8 mmol/L Chloride Level 105 mmol/L Carbon Dioxide Level 21 mmol/L Anion Gap 12.0 mmol/L Blood Urea Nitrogen 67 mg/dl Creatinine 5.20 mg/dl Est Creatinine Clear Calc Drug Dose 11.1 ml/min Estimated GFR () 9.3 Estimated GFR (Non- 8.0 BUN/Creatinine Ratio 12.9 Random Glucose 95 mg/dl Calcium Level 8.2 mg/dl Assessment and Plan Impression Patient is a 66 year old female w ETOH cirrhosis, currently admitted w weakness , diarrhea, ASHELY (from diarrhea vs HRS). MELD 21 but Cr driven. She quit ETOH uses in December. - Diarrhea resolved, stool studied negative. - Appetite and energy level low. - 5L ascites removal via u/s guided paracentesis 03/11, no signs of SBP on initial cell ct. Total WBC 45. Though fluid cx grew staph species (she had this before in January, suspected to be a contaminated specimen). She was started on Daptomycin, Ceftriaxone -> currently on Keflex. She feels abd distended again. Repeat 3L removal on 03/17 w negative culture and cell ct for SBP. - UOP poor (50-100ml daily). Nephrology discussing possible dialysis -> poor candidate. BP low, Cr up to 5.3 now despite increased Midodrine. Octreotide already stopped. Plans - Hold Nadolol; started back on Lasix by Nephrology. - Xifaxan 550 BID. - Midodrine 30mg TID - Nephrology following, appreciate recs. - U/S paracentesis prn. - Had discussion w pt that her prognosis overall is poor, and likely not a candidate for liver (or if needed both liver/kidney) transplant given sobriety only 2 months ago and her current deconditioning. Currently a DNR. Palliative Care Consult should be considered though in the past pt had refused this. - No new GI plans; will follow peripherally for now.
[2017-03-20 00:02] VITALS: BP 86/56; PULSE 63; TEMP 36.4; O2SAT 99
[2017-03-20] MEDS: LEVOTHYROXINE 125 MCG TAB PO SCH (06:36)
[2017-03-20 07:00] LABS: BUN/CREATININE RATIO 12.7 (10-20); CALCIUM 8.4 mg/dl (8.5-10.1); CREATININE 5.3 mg/dl (0.60-1.20)
[2017-03-20 07:23] VITALS: BP 81/59; PULSE 58; TEMP 36.6; O2SAT 98
[2017-03-20] MEDS: SUCRALFATE 1 GM/10 ML UDC PO SCH ×3 (09:11→16:03)
[2017-03-20] MEDS: CEPHALEXIN MONOHYDRATE 250 MG CAP PO SCH (09:12)
[2017-03-20] MEDS: DOCUSATE SODIUM 100 MG/10 ML UDC PO SCH (09:12)
[2017-03-20] MEDS: CEROVITE ADV FORMULA TAB PO SCH (09:12)
[2017-03-20] MEDS: FAMOTIDINE 20 MG TAB PO SCH (09:12)
[2017-03-20] MEDS: CITALOPRAM 20 MG TAB PO SCH (09:12)
[2017-03-20] MEDS: THIAMINE HCL 100 MG TAB PO SCH (09:13)
[2017-03-20] MEDS: MIDODRINE 10 MG TAB PO SCH ×3 (09:13→16:03)
[2017-03-20] MEDS: BOOST VANILLA PO SCH ×4 (09:13→16:04)
[2017-03-20] MEDS: RIFAXIMIN TAB 550 MG TAB PO SCH (09:13)
[2017-03-20] MEDS: HEPARIN SOD 5000 UNIT/0.5 ML CARP SQ SCH (09:15)
--- NOTE | 2017-03-20 10:36 | Nephrology Progress Note ---
Nephrology Progress Note Date of Service Mar 20, 2017. Chief Complaint F/U for ASHELY Subjective Contreras was seen and examined this am. She seems comfortable, denies SOB, abdominal discomfort however she does not seem to understand the severity of her illness. BP continues to be low. Renal function stable, cr 5.3. Continues to be oliguric. Review of Systems A complete review of systems was performed. Pertinent positives are noted above. All other systems are negative. Vital Signs Last 8 Hrs Date Time Temp Pulse Resp B/P (MAP) Pulse Ox O2 Delivery O2 Flow Rate FiO2 03/20/17 07:23 36.6 58 18 81/59 (66) 98 Room Air 03/20/17 03:00 Room Air Last Recorded Weight Weight (Kilograms): 77.000 Physical Exam GENERAL: middle aged female, AAA x 3, pleasant, ill-appearing, forgetful, not in any distress. NECK: Supple, no JVD. RESPIRATORY: Normal breathing efforts, no accessory muscle use, clear to auscultation bilaterally, no wheezes or rales. CARDIOVASCULAR: S1, S2 normal, rate rhythm regular. ABDOMEN: distended, non tender EXTREMITY: 3 + lower extremity edema NEURO: speech fluent. Social History Smokeless Tobacco Use: No Alcohol Use: occasionally Drug Use: none Marital Status: single Housing Status: lives alone Occupation: retired Laboratory Results Past 24 Hours 03/20/17 05:58 Test 03/20/17 05:58 Anion Gap 11.0 mmol/L (3-11) Est Creatinine Clear Calc Drug Dose 10.9 ml/min Estimated GFR () 9.1 Estimated GFR (Non- 7.9 BUN/Creatinine Ratio 12.7 (10-20) Calcium Level 8.4 mg/dl (8.5-10.1) Allergies Coded Allergies: Acetaminophen (Verified Allergy, Unknown, UNKNOWN, 03/10/17) PATIENT REPEATEDLY SAYS SHE IS NOT ALLERGIC TO THIS AND HAS TAKEN A LOT OF TYLENOL IN HER LIFE. SHE SAID SHE HAS LIVER ISSUES, BUT IS NOT ALLERGIC. I TRIED TO DELETE IT AND IT WOULDN'T LET ME. - Medications Current Inpatient Medications Medications (Trade) Dose Ordered Sig/Brett Route Start Time Stop Time Status Last Admin Dose Admin Ondansetron HCl (Zofran Inj) 4 mg Q6H PRN IV 03/10/17 16:15 04/09/17 16:14 03/13/17 03:06 4 MG Citalopram Hydrobromide (celeXA TAB) 20 mg DAILY PO 03/11/17 09:00 04/10/17 08:59 03/20/17 09:12 20 MG Levothyroxine Sodium (Synthroid Tab) 125 mcg DAILYBB PO 03/11/17 06:00 04/10/17 08:59 03/20/17 06:36 125 MCG Morphine Sulfate (MoRPHine SULFATE INJ) 2 mg Q4H PRN IV 03/10/17 23:15 03/24/17 23:14 03/18/17 15:39 2 MG Heparin Sodium (Porcine) (Heparin Sq 5000 Unit/0.5ml) 5,000 unit BID SQ 03/11/17 21:00 04/10/17 20:59 03/20/17 09:15 5,000 UNIT Rifaximin (Xifaxan Tab) 550 mg BID PO 03/11/17 21:00 04/10/17 20:59 03/20/17 09:13 550 MG Multivitamins/ Minerals (Multivitamin W/ Minerals Tab) 1 tab QAM PO 03/12/17 09:00 04/11/17 08:59 03/20/17 09:12 1 TAB Enteral Nutritional Formula (Boost) 1 can BIDM PO 03/13/17 16:45 04/12/17 16:44 03/20/17 09:13 1 CAN Thiamine HCl (Vitamin B-1 Tab) 200 mg BID PO 03/15/17 09:00 04/14/17 08:59 03/20/17 09:13 200 MG Folic Acid (Folvite Tab) 1 mg QAM PO 03/15/17 09:00 04/14/17 08:59 03/20/17 09:12 1 MG Cephalexin Monohydrate (Keflex Cap) 250 mg QAM PO 03/15/17 09:00 03/25/17 08:59 03/20/17 09:12 250 MG Famotidine (Pepcid Tab) 20 mg QAM PO 03/16/17 08:00 04/15/17 08:59 03/20/17 09:12 20 MG Sucralfate (Carafate Susp) 1 gm QID PO 03/15/17 09:45 04/14/17 09:44 03/20/17 09:11 1 GM Miscellaneous Information 1 ea UD PRN N/A 03/16/17 13:00 04/15/17 12:59 Midodrine (Proamatine Tab) 30 mg TID@,, PO 03/17/17 08:00 04/16/17 07:59 03/20/17 09:13 30 MG Docusate Sodium (coLACE SYRUP) 100 mg BID PO 03/18/17 20:00 04/17/17 19:59 03/20/17 09:12 100 MG Sodium Bicarbonate (Sodium Bicarbonate Tab) 650 mg BID PO 03/20/17 20:00 04/19/17 19:59 Impression (1) Acute renal insufficiency (2) CKD (chronic kidney disease), stage III (3) Cirrhosis, alcoholic (4) Ascites (5) Hyperkalemia (6) Hypoalbuminemia Miss Stevenson was admitted to [facility] 03/10/17 with severe generalized weakness, diarrhea and a bed sore on her buttocks. She has alcoholic cirrhosis with recurrent ascites. Laboratory studies revealed acute on chronic kidney injury w / hyperkalemia. Serum creatinine has risen from 1.2 to 5.3. Urinalysis revealed pyuria, hyaline and granular casts. Urine sodium was 26. Urine cytology was negative for eosinophils. Renal US was negative for obstruction. Clinical presentation is c/w ATN. Hepatorenal syndrome and AIN remain within the differential diagnosis. Urine sodium is not c/w hepatorenal syndrome. AIN due to Omeprazole remains a possibility and the medication has been stopped. ASHELY is likely related to ATN and less consistent with HRS 1. Do not expect significant benefit from TIPS. Paracentesis 03/11 and 03/17 yielded 5 liters of straw colored fluid. Culture grew pansensitive Staphylococcus. Patient is now on Keflex therapy. She remains on Midodrine 30 mg po TID for BP support. Patient is unfortunately not a liver transplant candidate due to alcohol history. Recommendations -- start on oral NaBicarb 650 mg BID -- Monitor serial PRP -- Continue to support BP with MAP goal > 65 -- Serum creatinine is unchanged. Patient remains oliguric. Renal recovery may be prolonged or not at all. Patient appears to have dense ATN. She is a poor dialysis candidate due to advanced cirrhosis, hypoalbuminemia, recurrent ascites, hypotension requiring midodrine support, relative debilitated condition w/ sacral skin breakdown and ineligibility for liver transplant. -- Will continue to follow while in patient --Overall very poor prognosis and agree with GI suggestion fo palliative care
--- NOTE | 2017-03-20 13:09 | Progress Note ---
Subjective Date of Service: Mar 20, 2017. Subjective pt is in no new distress, is chronically ill, has no other complaints today Problem List Medical Problems: (1) Acute kidney injury Status: Acute (2) Anemia Status: Acute (3) Dehydration Status: Acute (4) Hyperkalemia Status: Acute (5) Hypomagnesemia Status: Acute (6) Hypomagnesemia Status: Acute (7) Hypotension Status: Acute (8) Malaise and fatigue Status: Acute (9) Weakness Status: Acute Review of Systems Constitutional: + weakness, + fatigue, No fever, No chills Respiratory: No cough, No shortness of breath Cardiac: + edema, No chest pain, No orthopnea, No PND Abdomen: No pain, No nausea, No vomiting Musculoskeletal: No joint pain, No muscle pain, No swelling Female : No dysuria, No urinary frequency Objective Vital Signs Date Time Temp Pulse Resp B/P (MAP) Pulse Ox O2 Delivery O2 Flow Rate FiO2 03/20/17 10:28 Room Air 03/20/17 07:23 36.6 58 18 81/59 (66) 98 Room Air 03/20/17 03:00 Room Air 03/20/17 00:02 36.4 63 18 86/56 (66) 99 Room Air 03/19/17 16:00 Room Air 03/19/17 14:34 36.4 54 18 80/52 (61) 99 Room Air 03/19/17 13:27 Room Air Physical Exam General Appearance: + mild distress, + thin Eyes: PERRL, EOMI Neck: supple, no JVD Respiratory/Chest: chest non-tender, lungs clear, + decreased breath sounds ( bases) Cardiovascular: regular rate, rhythm, no murmur Abdomen: soft, + abnormal bowel sounds, + distended Extremities: no calf tenderness, + pedal edema Neurologic/Psychiatric: alert, oriented x 3 Laboratory Results Last 24 Hours Test 03/20/17 05:58 Sodium Level 136 mmol/L Potassium Level 4.0 mmol/L Chloride Level 105 mmol/L Carbon Dioxide Level 20 mmol/L Anion Gap 11.0 mmol/L Blood Urea Nitrogen 67 mg/dl Creatinine 5.30 mg/dl Est Creatinine Clear Calc Drug Dose 10.9 ml/min Estimated GFR () 9.1 Estimated GFR (Non- 7.9 BUN/Creatinine Ratio 12.7 Random Glucose 92 mg/dl Calcium Level 8.4 mg/dl Assessment and Plan 66yo female with cirrhosis ascites and acute renal failure, all significant but remain stable Decompensated etoh cirrhosis - Increased midodrine for low BP. nephrology overseeing albumin and lasix, 03/17 therapeutic paracentesis 2 liters, - ascites cx with staph aureus, MSSA, MELD score is actually not that significant and with abstinence of alcohol will maybe get some improvement acute renal failure in setting of CKD stage 3; remains stable ARF 2nd to ATN, nephrology feels urine sodium does not support hepato-renal syndrome, pt is maintaining volume status with lasix, if improves will take months, alcohol abstinence and good nutrition and hydration in snf for rehab may help Hypotension -tolerating mododrine started 03/16 macrocytic anemia from liver disease no real change diarrhea - resolved.. Stool cx and c. diff toxin negative to date. sacral/buttock ulcerations wound care to continue at snf . DVT proph - heparin BID, no coagulopathy from liver disease . GERD - PPI was stopped due to concern it could have caused AIN. no gi symptoms on pepcid 20mg daily.carafate liquid 1gm QID. Code status no cpr Continued [facility] stay due to: inadequate po fluid intake, voiding difficulties, ambulation difficulties, multiple IV medications needed, home environment unsafe for pt Discharge planning: residential facility ([facility])
[2017-03-20 15:24] VITALS: BP 67/45; PULSE 65; TEMP 36.8; O2SAT 95
[2017-03-20] MEDS ORDERED: KFL250 PO (15:37)
[2017-03-20] MEDS ORDERED: CNT PO (15:37)
[2017-03-20] MEDS ORDERED: FAMO20TA12 PO (15:37)
[2017-03-20] MEDS ORDERED: SODI650T9 PO (15:37)
[2017-03-20] MEDS ORDERED: PRMT10 PO (15:37)
[2017-03-20] MEDS ORDERED: CLCUDL PO (15:37)
[2017-03-20] MEDS ORDERED: XFX550 PO (15:37)
--- NOTE | 2017-03-20 15:39 | Discharge Instructions ---
Discharge Instructions Date of Service Mar 20, 2017. Admission Reason for Admission: Ascites Due To Alcoholic Cirrhosis, Renal Failure, Discharge Discharge Diagnosis / Problem: acute renal failure, acute alcohol related liver failure, SBP Discharge Goals Goal(s): Diagnostic testing, Therapeutic intervention Activity Recommendations Activity Level: Assistance Required . Additional Information Patient informed of condition: Yes Advance Directives: Yes DNR: Yes Level of Care: Skilled Communicable Disease: No Prognosis: Stable Alvarez Catheter: No Instructions / Follow-Up Instructions / Follow-Up 66yo female with cirrhosis ascites and acute renal failure, all significant but remain stable Decompensated etoh cirrhosis - Increased midodrine for low BP. nephrology overseeing albumin and lasix, 03/17 therapeutic paracentesis 2 liters, - ascites cx with staph aureus, MSSA, MELD score is actually not that significant and with abstinence of alcohol will maybe get some improvement acute renal failure in setting of CKD stage 3; remains stable ARF 2nd to ATN, nephrology feels urine sodium does not support hepato-renal syndrome, pt is maintaining volume status with lasix, if improves will take months, alcohol abstinence and good nutrition and hydration in snf for rehab may help Hypotension -tolerating mododrine started 03/16 macrocytic anemia from liver disease no real change diarrhea - resolved.. Stool cx and c. diff toxin negative to date. sacral/buttock ulcerations wound care to continue at snf . GERD - PPI was stopped due to concern it could have caused AIN. no gi symptoms on pepcid 20mg daily.carafate liquid 1gm QID. Code status no cpr Current Hospital Diet Patient's current hospital diet: Renal Diet, Low Sodium Diet (2gm Na) Discharge Diet Recommended Diet: Low Sodium Diet (2gm Na), Renal Diet Pending Studies Studies pending at discharge: no Medical Emergencies . Who to Call and When: Medical Emergencies: If at any time you feel your situation is an emergency, please call 911 immediately. . Non-Emergent Contact Non-Emergency issues call your: Bench Hand Call Non-Emergent contact if: temperature is above 101, your pain is unusual for you . . "Provider Documentation" section prepared by Kong Resendez. . Core Measure Problem Core Measures: None
--- NOTE | 2017-03-20 16:05 | Discharge Summary ---
Discharge Summary Date of Service Mar 20, 2017. Discharge Summary Admission Date: March 10, 2017 at 16:12 Discharge Date: Mar 20, 2017 Discharge Disposition: snf facility Principal Diagnosis: acute renal failure, acute liver failure Medication Reconciliation New Medications: Cephalexin Monohydrate (Cephalexin) 250 Mg Cap 250 MG PO QAM, #4 CAP Docusate Sodium (Diocto) 100 Mg/10 Ml Syrp 100 MG PO BID, #30 DOSE Famotidine (Famotidine) 20 Mg Tab 20 MG PO QAM, #60 TAB Midodrine (Midodrine HCl) 10 Mg Tab 30 MG PO TID@08,12,17, #90 TAB Multivitamins/Minerals (Certavite/Antioxidants) 1 Tab Tab 1 TAB PO QAM, #60 TAB Rifaximin (Xifaxan) 550 Mg Tab 550 MG PO BID, #90 TAB Sodium Bicarbonate (Sodium Bicarbonate) 650 Mg Tab 650 MG PO BID, #120 TAB Continued Medications: Citalopram Hydrobromide (Citalopram Hydrobromide) 20 Mg Tab 20 MG PO DAILY, TAB Levothyroxine Sodium (Levothyroxine Sodium) 125 Mcg Tab 125 MCG PO DAILY Magnesium Oxide (Magnesium-Oxide) 400 Mg Tab 400 MG PO BID for 30 Days, #60 TAB Take 1 tablet by mouth twice a day. Discontinued Medications: Atorvastatin (Atorvastatin Calcium) 20 Mg Tab 20 MG PO DAILY Nadolol (Corgard) 20 Mg Tab 10 MG PO DAILY for 30 Days, #15 TAB Take 1/2 tablet by mouth once daily. Omeprazole (Prilosec) 40 Mg Cap 40 MG PO BID for 30 Days, #60 CAP Take 1 capsule by mouth twice a day. Discharge Exam Review of Systems: Constitutional: + fever, + chills, + weakness Respiratory: + dyspnea on exertion, No cough, No sputum Cardiovascular: No chest pain, No edema Abdomen: No pain, No nausea, No diarrhea Physical Exam: General Appearance: WD/WN, + mild distress, + thin Neck: supple, no JVD, no carotid bruits Respiratory/Chest: chest non-tender, lungs clear, no accessory muscle use Cardiovascular: regular rate, rhythm, no murmur Abdomen / GI: + distended, + hepatomegaly Hospital Course 66yo female with cirrhosis ascites and acute renal failure, all significant but remain stable Decompensated etoh cirrhosis - Increased midodrine for low BP. nephrology overseeing albumin and lasix, 03/17 therapeutic paracentesis 2 liters, - ascites cx with staph aureus, MSSA, MELD score is actually not that significant and with abstinence of alcohol will maybe get some improvement acute renal failure in setting of CKD stage 3; remains stable ARF 2nd to ATN, nephrology feels urine sodium does not support hepato-renal syndrome, pt is maintaining volume status with lasix, if improves will take months, alcohol abstinence and good nutrition and hydration in snf for rehab may help Hypotension -tolerating mododrine started 03/16 macrocytic anemia from liver disease no real change diarrhea - resolved.. Stool cx and c. diff toxin negative to date. sacral/buttock ulcerations wound care to continue at snf . GERD - PPI was stopped due to concern it could have caused AIN. no gi symptoms on pepcid 20mg daily.carafate liquid 1gm QID. Code status no cpr Total Time Spent: Greater than 30 minutes This includes examination of the patient, discharge planning, medication reconciliation, and communication with other providers. Discharge Instructions Please refer to the electronic Patient Visit Report (Discharge Instructions) for additional information.
[2017-03-20 19:49] VITALS: BP 67/45; PULSE 65; TEMP 36.8; O2SAT 95
[2017-03-20] MEDS ORDERED: SODIUM BICARBONATE 650 MG TAB PO SCH (20:00)
== END 2017-03-20 20:35 | DRG 432 ==
LOC: ENRESERVTM → ENRESERVDT → EDBD 11:39 → C.EDC 11:40 → C.2E 16:12 → C.4E 03-15 11:15
PROVIDERS: ADMIT Hospitalist; ATTEND Internal Medicine
PROC: 0W9G3ZZ Drainage of Peritoneal Cavity, Percutaneous Approach (ICD-10-PCS; principal; 2017-03-11)
PROC: 0W9G3ZZ Drainage of Peritoneal Cavity, Percutaneous Approach (ICD-10-PCS; 2017-03-17)
DX: K70.31 Alcoholic cirrhosis of liver with ascites (principal); N17.0 Acute kidney failure with tubular necrosis; E43 Unspecified severe protein-calorie malnutrition; K76.6 Portal hypertension; I85.10 Secondary esophageal varices without bleeding; F17.200 Nicotine dependence, unspecified, uncomplicated; N18.3 Chronic kidney disease, stage 3 (moderate); J44.9 Chronic obstructive pulmonary disease, unspecified; E03.9 Hypothyroidism, unspecified; B95.61 Methicillin susceptible Staphylococcus aureus infection as the cause of diseases classified elsewhere; K70.40 Alcoholic hepatic failure without coma; I95.9 Hypotension, unspecified; D53.9 Nutritional anemia, unspecified; K21.9 Gastro-esophageal reflux disease without esophagitis; F32.9 Major depressive disorder, single episode, unspecified; E88.09 Other disorders of plasma-protein metabolism, not elsewhere classified; L89.300 Pressure ulcer of unspecified buttock, unstageable; L89.150 Pressure ulcer of sacral region, unstageable

== ENCOUNTER → 2017-03-24 | Outpatient (CLI) | payer BC ==
[~2017-03-24] MED LIST changes: +B-CO1CAP17 PO; +CLCUDL PO; +CNT PO; +FAMO20TA12 PO; +KFL250 PO; -LPT/20 PO; -NADO20TA PO; -OMEP40CA41 PO; +PRMT10 PO; +SODI650T9 PO; +XFX550 PO
[2017-03-24 08:44] LABS: BASO ABS # 0.11 K/uL (0-0.2); COMPLETE YES; EOS % 2.6 %; HEMATOCRIT 27.9 % (37-47); IG% 0.5 %; LYMPH % 19.5 %; MEAN CELL VOLUME 103.3 fL (80-100); MEAN CORPUSCULAR HEMOGLOBIN 35.6 pg (25-34); MEAN CORPUSCULAR HGB CONC 34.4 g/dl (32-36); MEAN PLATELET VOLUME 12.2 fL (7.4-10.4); MONO % 13.5 %; NEUT % 62.9 %; PLATELET COUNT 280 K/uL (130-400); WHITE BLOOD COUNT 10.78 K/uL (4.8-10.8)
[2017-03-24 08:58] LABS: CALCIUM 8.9 mg/dl (8.5-10.1)
[2017-03-24 09:18] LABS: BLOOD UREA NITROGEN 75 mg/dl (7-18); BUN/CREATININE RATIO 12.6 (10-20); CARBON DIOXIDE 19 mmol/L (21-32); CHLORIDE 102 mmol/L (98-107); GLUCOSE 88 mg/dl (70-99); POTASSIUM 4.2 mmol/L (3.5-5.1); SODIUM 135 mmol/L (136-145)
== END ==
LOC: C.LABCC 08:31
PROVIDERS: ATTEND Internal Medicine
DX: K74.60 Unspecified cirrhosis of liver (principal); N17.9 Acute kidney failure, unspecified

== ENCOUNTER 2017-03-29 13:24 | Inpatient (IN) | payer BC, OTHER ==
[2017-03-29] VITALS (18 sets, daily range): BP systolic 78–97; BP diastolic 44–63; PULSE 76–92; TEMP 36.3–36.8; O2SAT 90–100; Ht 165.1 cm; Wt 80.1 kg
[~2017-03-29] VITALS: Ht 165.1 cm; Wt 80.1 kg
[~2017-03-29 13:24] MED LIST changes: -B-CO1CAP17 PO; +LEVO125T4 PO; -LEVO125T5 PO
[2017-03-29] MEDS ORDERED: SODIUM CHLORIDE 0.9% 1000ML 1,000 ML IV STA (13:49)
[2017-03-29 14:06] LABS: HEMATOCRIT 19.9 % (37-47); MEAN CELL VOLUME 103.1 fL (80-100); MEAN CORPUSCULAR HEMOGLOBIN 35.2 pg (25-34); MEAN CORPUSCULAR HGB CONC 34.2 g/dl (32-36); PLATELET COUNT 198 K/uL (130-400); RED BLOOD COUNT 1.93 M/uL (4.2-5.4); WHITE BLOOD COUNT 12.09 K/uL (4.8-10.8)
[2017-03-29 14:08] LABS: ISTAT CREATININE 7.4 mg/dl (0.6-1.3); ISTAT HEMOGLOBIN 7.5 g/dl (12.0-16.0); ISTAT IONIZED CALCIUM 1.11 mmol/l (1.12-1.32)
[2017-03-29] MEDS ORDERED: PANTOprazole INJ 80 MG in DEXTROSE 5% 100ML IV ONE (14:15)
--- NOTE | 2017-03-29 14:17 | EMERGENCY ROOM VISIT NOTE ---
History Report prepared by Carolyn: Connor Tai Under the Supervision of: Dr. Kameron Goodman M.D. First contact with patient: 13:43 Chief Complaint: VOMITING Stated Complaint: VOMIT Nursing Triage Summary: see note History of Present Illness The patient is a 66 year old female who presents to the Emergency Room from [facility] with complaints of coffee ground emesis occurring today. She has a distended abdomen which is chronic due to her Cirrhosis and fluid retention. She currently reports only some mild nausea currently. She started having black stool this morning but denies any blood in stool. She also complains of shortness of breath and bilateral lower extremity swelling which have been chronic. The patient denies any abdominal pain, or any other complaints. She denies any history of bleeding from the abdomen or blood transfusion. She has a history of liver failure. She denies taking any blood thinners. No trauma. Nothing makes better nor worse. No medications prior to arrival. Source of History: patient Onset: today Position: other (global) Quality: other (coffee ground emesis) Associated Symptoms: + SOB, + nausea, No abdominal pain Review of Systems See HPI for pertinent positives & negatives. A total of 10 systems reviewed and were otherwise negative. Past Medical & Surgical Medical Problems: (1) Acute renal insufficiency (2) Ascites (3) Ascites due to alcoholic cirrhosis (4) Cirrhosis, alcoholic (5) CKD (chronic kidney disease), stage III (6) Hyperkalemia (7) Hypoalbuminemia (8) Renal failure (ARF), acute on chronic Family History Patient reports no known family medical history. Social History Smoking Status: Heavy Tobacco Smoker Alcohol Use: none Drug Use: none Marital Status: single Occupation Status: retired Current/Historical Medications Scheduled Citalopram Hydrobromide (Citalopram Hydrobromide), 20 MG PO DAILY Famotidine (Famotidine), 20 MG PO QAM Levothyroxine Sodium (Levothyroxine Sodium), 125 MCG PO DAILY Magnesium Oxide (Magnesium-Oxide), 400 MG PO BID Midodrine (Midodrine HCl), 30 MG PO TID@08,12,17 Rifaximin (Xifaxan), 550 MG PO BID Sodium Bicarbonate (Sodium Bicarbonate), 650 MG PO BID Vitamin B Cmplx/Vitc/Folic Ac (Nephrocaps), 1 CAP PO QAM Allergies Coded Allergies: Acetaminophen (Verified Allergy, Unknown, UNKNOWN, 03/29/17) PATIENT REPEATEDLY SAYS SHE IS NOT ALLERGIC TO THIS AND HAS TAKEN A LOT OF TYLENOL IN HER LIFE. SHE SAID SHE HAS LIVER ISSUES, BUT IS NOT ALLERGIC. I TRIED TO DELETE IT AND IT WOULDN'T LET ME. - Physical Exam Vital Signs Date Time Temp Pulse Resp B/P (MAP) Pulse Ox O2 Delivery O2 Flow Rate FiO2 03/29/17 15:15 97 Room Air 03/29/17 15:08 85 22 87 03/29/17 15:02 86/63 03/29/17 14:53 84 23 03/29/17 14:47 87/58 03/29/17 14:38 86 18 03/29/17 14:32 101/60 03/29/17 14:23 84 15 99 03/29/17 14:17 91/63 03/29/17 14:08 91 18 80 03/29/17 14:03 82/60 03/29/17 13:54 88 16 82/61 99 03/29/17 13:43 36.5 96 12 81/45 99 Room Air 03/29/17 13:39 92 14 94 03/29/17 13:39 96 03/29/17 13:37 36.5 94 12 81/45 99 Room Air 03/29/17 13:33 81/45 Physical Exam GENERAL: Patient is chronically unwell appearing and in minimal distress. HEENT: No acute trauma, normocephalic atraumatic, mucous membranes moist, no nasal congestion, no scleral icterus. Pale conjunctiva. NECK: No stridor, no adenopathy, no meningismus, trachea is midline. LUNGS: No dyspnea. Clear to auscultation and equal bilaterally. No wheeze, no rhonchi. HEART: Regular rate and rhythm. No murmurs, rubs, gallops appreciated. ABDOMEN: Soft, nontender, distended abdomen with fluid wave and vascular congestion, bowel sounds positive but distant, no masses appreciated, no peritonitis. BACK: No midline tenderness, no CVA tenderness RECTAL: Jet black, heme positive stool EXTREMITIES: Normal motion all extremities, no cyanosis, bilateral lower extremity edema with muscle wasting. NEUROLOGIC: Alert and oriented, no acute motor or sensory deficits, no focal weakness, cranial nerves grossly intact. SKIN: No rash, no jaundice, no diaphoresis. Multiple areas of skin breakdown specifically over buttocks. Medical Decision & Procedures Laboratory Results 03/29/17 13:30 Red Blood Count 1.93, Mean Corpuscular Volume 103.1, Mean Corpuscular Hemoglobin 35.2, Mean Corpuscular Hemoglobin Concent 34.2, Mean Platelet Volume 11.0, Neutrophils (%) (Auto) 80.3, Lymphocytes (%) (Auto) 10.8, Monocytes (%) ( Auto) 7.9, Eosinophils (%) (Auto) 0.2, Basophils (%) (Auto) 0.6, Neutrophils # ( Auto) 9.72, Lymphocytes # (Auto) 1.31, Monocytes # (Auto) 0.95, Eosinophils # ( Auto) 0.02, Basophils # (Auto) 0.07 03/29/17 13:30 Test 03/29/17 13:30 03/29/17 13:57 White Blood Count 12.09 K/uL (4.8-10.8) Red Blood Count 1.93 M/uL (4.2-5.4) Hemoglobin 6.8 g/dL (12.0-16.0) Hematocrit 19.9 % (37-47) Mean Corpuscular Volume 103.1 fL (80-100) Mean Corpuscular Hemoglobin 35.2 pg (25-34) Mean Corpuscular Hemoglobin Concent 34.2 g/dl (32-36) Platelet Count 198 K/uL (130-400) Mean Platelet Volume 11.0 fL (7.4-10.4) Neutrophils (%) (Auto) 80.3 % Lymphocytes (%) (Auto) 10.8 % Monocytes (%) (Auto) 7.9 % Eosinophils (%) (Auto) 0.2 % Basophils (%) (Auto) 0.6 % Neutrophils # (Auto) 9.72 K/uL (1.4-6.5) Lymphocytes # (Auto) 1.31 K/uL (1.2-3.4) Monocytes # (Auto) 0.95 K/uL (0.11-0.59) Eosinophils # (Auto) 0.02 K/uL (0-0.5) Basophils # (Auto) 0.07 K/uL (0-0.2) RDW Standard Deviation 52.4 fL (36.4-46.3) RDW Coefficient of Variation 14.1 % (11.5-14.5) Immature Granulocyte % (Auto) 0.2 % Immature Granulocyte # (Auto) 0.02 K/uL (0.00-0.02) Macrocytosis PRESENT Prothrombin Time 12.0 SECONDS (9.0-12.0) Prothromb Time International Ratio 1.1 (0.9-1.1) Activated Partial Thromboplast Time 27.8 SECONDS (21.0-31.0) Partial Thromboplastin Ratio 1.1 Est Creatinine Clear Calc Drug Dose 8.1 ml/min Estimated GFR () 6.2 Estimated GFR (Non- 5.3 BUN/Creatinine Ratio 14.0 (10-20) Calcium Level 7.8 mg/dl (8.5-10.1) Total Bilirubin 0.4 mg/dl (0.2-1) Direct Bilirubin 0.1 mg/dl (0-0.2) Aspartate Amino Transf (AST/SGOT) 22 U/L (15-37) Alanine Aminotransferase (ALT/SGPT) 12 U/L (12-78) Alkaline Phosphatase 76 U/L (45-117) Troponin I < 0.015 ng/ml (0-0.045) Total Protein 5.3 gm/dl (6.4-8.2) Albumin 2.1 gm/dl (3.4-5.0) Lipase 736 U/L (73-393) Bedside Hemoglobin 7.5 g/dl (12.0-16.0) Bedside Hematocrit 22 % (37-47) Bedside Sodium 132 mEq/L (135-144) Bedside Potassium 5.8 mEq/L (3.3-5.0) Bedside Chloride 100 mEq/L (101-112) Bedside Total CO2 21 mEq/l (24-31) Anion Gap 18.0 mmol/L (16-25) Bedside Blood Urea Nitrogen 104 mg/dl (7-18) Bedside Creatinine 7.4 mg/dl (0.6-1.3) Bedside Glucose (other) 108 mg/dl (70-99) Bedside Ionized Calcium (Deisy) 1.11 mmol/l (1.12-1.32) Laboratory results as reviewed by me. Medications Administered Medications (Trade) Dose Ordered Sig/Brett Route Start Time Stop Time Status Last Admin Dose Admin Sodium Chloride 1,000 ml @ 999 mls/hr Q1H1M STAT IV 03/29/17 13:49 03/29/17 14:49 DC 03/29/17 13:54 999 MLS/HR Pantoprazole Sodium 80 mg/ Dextrose 120 ml @ 480 mls/hr TODAY@1415 ONCE IV 03/29/17 14:15 03/29/17 14:29 DC 03/29/17 14:38 480 MLS/HR Pantoprazole Sodium 40 mg/ Dextrose 100 ml @ 20 mls/hr Q5H IV 03/29/17 14:30 03/29/17 19:29 03/29/17 14:38 20 MLS/HR ECG Indication: vomiting Rate (beats per minute): 90 Rhythm: normal sinus Findings: no acute ischemic change, no ectopy ED Course 1343: The patient was evaluated in room C12B. A complete history and physical exam was performed. 1348: Sodium Chloride 1000 ml @ 999 mls/hr IV 1352: I reviewed her most recent admissions and her blood pressure has ranged in the 70s and 80s systolically. 1413: I ordered 2 units of PRBC. 1415: Pantoprazole Sodium 80 mg/Dextrose 120 ml @ 480 mls/hr IV 1425: The patient consented for blood transfusion. Discussed results and treatment plan with the patient. She verbalized understanding and agreement with the treatment plan. The patient will be evaluated for further management. 1430: Pantoprazole Sodium 40 mg/Dextrose 100 ml @ 20 mls/hr IV 1440: I discussed the patient's case with Dr. Hair, from [facility]. Medical Decision Differential: Diverticulitis, AVM, Coagulopathy, Colitis, Malignancy, Upper GI bleed, Fissure, Hemorrhoids, amongst other pathologies entertained. Medication Reconciliation: I attest that I have personally reviewed the patient 's current medication list. 66 yr old female with complex PMH primary with cirrhosis and recent admission. Has chronic renal insufficiency though not currently on dialysis. She arrives after vomiting coffee ground emesis at [facility] and on exam has black tarry stools. Recently taken off gastritis meds thus given IV protonix for GI bleed. Not vomiting bright red blood and per patient only small varices from her cirrhosis known thus will hold on octreotide at moment. She was ordered 2 Units PRBCs after extensive discussion risks/benefits with patient as HgB has dropped from 9 to 6 today. She is not anticoagulated and INR/PTT OK currently. Cr is significantly elevated beyond even her baseline renal failure. She is hypotensive though this is very similar to all of her previous BPs in system recently and I do not feel that further fluid resus would be beneficial given dilautional effects. Comfortable and really in no distress throughout ED stay. Admit to ICU with hospitalist. Consults Time Called: 1435 Consulting Physician: Dr. Hair, from [facility] Returned Call: 1440 I discussed the patient's case with Dr[facility]. Impression Primary Impression: Acute GI bleeding Additional Impressions: Acute post-hemorrhagic anemia Renal failure Cirrhosis, alcoholic Critical Care I have personally spent greater than 45 minutes of critical care time in the direct management of this patient. This includes bedside care, interpretation of diagnostic studies, and testing, discussion with consultants, patient, and other required patient management activities. This 45 minutes is in excess of all separately billable procedures. Scribe Attestation The scribe's documentation has been prepared under my direction and personally reviewed by me in its entirety. I confirm that the note above accurately reflects all work, treatment, procedures, and medical decision making performed by me. Departure Information Dispostion Being Evaluated By Hospitalist Referrals BeauregardGume (PCP) Patient Instructions My [facility] Health Problem Qualifiers
[2017-03-29 14:19] LABS: POTASSIUM 4.8 mmol/L (3.5-5.1); SODIUM 137 mmol/L (136-145)
[2017-03-29 14:24] LABS: BASO % 0.6 %; BASO ABS # 0.07 K/uL (0-0.2); COMPLETE YES; EOS % 0.2 %; IG% 0.2 %; LYMPH % 10.8 %; LYMPH ABS # 1.31 K/uL (1.2-3.4); MONO % 7.9 %; NEUT % 80.3 %
[2017-03-29 14:25] LABS: AST/SGOT 22 U/L (15-37)
[2017-03-29] MEDS ORDERED: PANTOprazole INJ 40 MG in DEXTROSE 5% 100ML IV SCH (14:30)
[2017-03-29 14:43] LABS: ALKALINE PHOSPHATASE 76 U/L (45-117); ALT/SGPT 12 U/L (12-78); BLOOD UREA NITROGEN 102 mg/dl (7-18); CALCIUM 7.8 mg/dl (8.5-10.1); CARBON DIOXIDE 21 mmol/L (21-32); CHLORIDE 101 mmol/L (98-107); GLUCOSE 109 mg/dl (70-99)
[2017-03-29 14:47] LABS: INR 1.1 (0.9-1.1); PARTIAL THROMBOPLASTIN RATIO 1.1
[2017-03-29] MEDS ORDERED: B-CO1CAP17 PO (14:51)
[2017-03-29] MEDS ORDERED: OCTREOTIDE IV BOLUS & DRIP IV STA (15:18)
[2017-03-29] MEDS ORDERED: SODIUM CHLORIDE 0.9% 1000ML 1,000 ML IV SCH (15:19)
[2017-03-29] MEDS ORDERED: LORAZEPAM 2 MG/ML 1 ML VIAL IV PRN (15:30)
[2017-03-29 15:39] LABS: HEMATOCRIT 17.2 % (37-47)
[2017-03-29] MEDS ORDERED: OCTREOTIDE ACETATE INJ 100 MCG in SYRINGE 9 ML IV ONE (16:30)
[2017-03-29] MEDS: ONDANSETRON INJ 2 MG/ML 2 ML VIAL IV PRN (16:38)
[2017-03-29] MEDS: CEFTRIAXONE SOD INJ 1 GM in DEXTROSE 5% ADD-VANTAGE 50ML 50 ML IV SCH (16:45)
[2017-03-29] MEDS ORDERED: LORAZEPAM INJ 0.5 MG in SYRINGE 0.75 ML IV PRN (16:45)
[2017-03-29] MEDS: OCTREOTIDE ACETATE INJ 500 MCG in NSS 100ML IV SCH (16:45)
--- NOTE | 2017-03-29 18:51 | Critical Care Consultation ---
Critical Care Consultation Date of Consultation: Mar 29, 2017. Attending Physician: Ifeanyi Hair M.D. Reason for Consultation: End-stage renal disease, end-stage liver disease, anemia, Hemoccult positive stools History of Present Illness Patient is a 66-year-old female with a history of end-stage liver disease and end-stage renal disease who was discharged on March 20 from [facility] who presents today with hematemesis and acute blood loss anemia. She denies chest pain or shortness of breath, her main concern is that she does not want to go back to [facility]. She also denies fevers chills abdominal pain, she would like to undergo a therapeutic paracentesis. He had an extensive discussion with her aunt and uncle who are power of ip technology transactions attorney is present regarding goals of care. She does not want CPR breathing tube in event of cardiac arrest therefore she'll be mid-level 5, we also discussed palliative care options. A consult for powdered care will be placed. Past Medical/Surgical History Prior records reviewed: * Nephrology consultation dated 03/20/2017: Dense acute tubular necrosis versus hepatorenal syndrome (previous urine sodium not consistent with hepatorenal syndrome) versus acute interstitial nephritis secondary to omeprazole. Given that the patient's acute kidney injury is unlikely consistent with hepatorenal syndrome there is not expected to be significant benefit from TIPS. * On midodrine 30 mg 3 times a day for blood pressure support * Patient reported to not be candidate for liver transplant due to alcohol history * Poor candidate for dialysis due to advanced cirrhosis, hypoalbuminemia, recurrent ascites, hypotension requiring minute transport, protein calorie malnutrition given chronic sacral skin breakdown and inability for transplant * Recommendation at that time is very poor prognosis and agreement with GI suggestion for possible palliative care * Gastroenterology consultation dated March 19 2017 * Status post 5 L paracentesis March 11, no signs of spontaneous bacterial peritonitis though ulcer grew staph species. (This was suspected to be contaminated specimen, this had occurred previously in January) * Patient was on rifaximin 550 twice a day * Ultrasound-guided paracentesis as needed, not candidate for liver given sobriety only 2 months ago. * Patient was DO NOT RESUSCITATE at that time: Palliative care was to be considered. It is noted that patient had refused palliative care services in the past. EGD dated 02/20/2017: Esophagitis with bleeding and ulceration, small varices found in the lower third of the esophagus, stomach and duodenum normal Psychiatry consult dated 01/16/2017: History of reactive depression and psychological benzodiazepine dependence with suspicion for alcohol abuse.: Encourage outpatient follow-up, Celexa tapered to 20 mg daily with monitoring the QTC: History of prolonged QTC previously Discharge summary dated 03/20/2017: Patient was planned finished course of Keflex, atorvastatin, nadolol, and omeprazole had been discontinued, patient had been recommended to be on 2 months of PPI, this was stopped for possible worsening interstitial nephritis. She was discharged home on Pepcid 20 mg daily and Carafate liquid 1 g 4 times a day. At that discharge her CODE STATUS was "no CPR" Family History Patient reports no known family medical history. Social History Smoking Status: Heavy Tobacco Smoker Drug Use: none Marital Status: single Occupation Status: retired Allergies Coded Allergies: Acetaminophen (Verified Allergy, Unknown, UNKNOWN, 03/29/17) PATIENT REPEATEDLY SAYS SHE IS NOT ALLERGIC TO THIS AND HAS TAKEN A LOT OF TYLENOL IN HER LIFE. SHE SAID SHE HAS LIVER ISSUES, BUT IS NOT ALLERGIC. I TRIED TO DELETE IT AND IT WOULDN'T LET ME. - Home Medications Scheduled Citalopram Hydrobromide (Citalopram Hydrobromide), 20 MG PO DAILY Famotidine (Famotidine), 20 MG PO QAM Levothyroxine Sodium (Levothyroxine Sodium), 125 MCG PO DAILY Magnesium Oxide (Magnesium-Oxide), 400 MG PO BID Midodrine (Midodrine HCl), 30 MG PO TID@08,12,17 Rifaximin (Xifaxan), 550 MG PO BID Sodium Bicarbonate (Sodium Bicarbonate), 650 MG PO BID Vitamin B Cmplx/Vitc/Folic Ac (Nephrocaps), 1 CAP PO QAM Current Inpatient Medications Current Inpatient Medications Medications (Trade) Dose Ordered Sig/Brett Route Start Time Stop Time Status Last Admin Dose Admin Pantoprazole Sodium 40 mg/ Dextrose 100 ml @ 20 mls/hr Q5H IV 03/29/17 14:30 03/29/17 19:29 03/29/17 14:38 20 MLS/HR Sodium Chloride 1,000 ml @ 75 mls/hr [id number] IV 03/29/17 15:19 04/28/17 15:18 Levothyroxine Sodium 62.5 mcg/ Syringe 3.125 ml @ 2 mls/min DAILY@09 IV 03/30/17 09:00 04/29/17 08:59 Ceftriaxone Sodium 1 gm/ Dextrose 50 ml @ 100 mls/hr Q24H IV 03/29/17 17:00 04/08/17 16:59 Lorazepam (Ativan Inj) 0.5 mg Q6H PRN IV 03/29/17 15:30 04/28/17 15:29 Octreotide Acetate 500 mcg/ Sodium Chloride 105 ml @ 10 mls/hr [id number] IV 03/29/17 16:30 04/28/17 16:29 Pantoprazole Sodium 40 mg/ Dextrose 100 ml @ 20 mls/hr Q5H IV 03/29/17 19:30 04/28/17 19:29 Ondansetron HCl (Zofran Inj) 4 mg Q6H PRN IV 03/29/17 16:30 04/28/17 16:29 Physical Exam Date Time Temp Pulse Resp B/P (MAP) Pulse Ox O2 Delivery O2 Flow Rate FiO2 03/29/17 15:50 99 16 89/59 97 Room Air 03/29/17 15:38 88 24 96 03/29/17 15:33 83/50 03/29/17 15:23 86 22 82 03/29/17 15:17 81/53 03/29/17 15:15 97 Room Air 03/29/17 15:08 85 22 87 03/29/17 15:02 86/63 03/29/17 14:53 84 23 03/29/17 14:47 87/58 03/29/17 14:38 86 18 03/29/17 14:32 101/60 03/29/17 14:23 84 15 99 03/29/17 14:17 91/63 03/29/17 14:08 91 18 80 03/29/17 14:03 82/60 03/29/17 13:54 88 16 82/61 99 03/29/17 13:43 36.5 96 12 81/45 99 Room Air 03/29/17 13:39 92 14 94 03/29/17 13:39 96 03/29/17 13:37 36.5 94 12 81/45 99 Room Air 03/29/17 13:33 81/45 General Appearance: well-appearing Head: normocephalic Eyes: PERRLA, EOMI Neck: normal range of motion, no tenderness Respiratory: breath sounds normal, clear to auscultation, no respiratory distress Cardiovasular: regular rate/rhythm, normal S1S2, no M/G/R Abdomen: no rebound, no masses, no guarding, other (enlarged abdomen with obvious ascites) Back: normal inspection, no midline tenderness, other (stage II sacral decubitus ulcer) Upper Extremities: no edema Edema: Bilateral LE (2+) Pulses: radial (R) (2+), radial (L) (2+) Neuro: alert, oriented x 3 Psychiatric: normal affect Laboratory Results Last 24 Hours Test 03/29/17 13:30 03/29/17 13:57 03/29/17 15:28 White Blood Count 12.09 K/uL Red Blood Count 1.93 M/uL Hemoglobin 6.8 g/dL 5.8 g/dL Hematocrit 19.9 % 17.2 % Mean Corpuscular Volume 103.1 fL Mean Corpuscular Hemoglobin 35.2 pg Mean Corpuscular Hemoglobin Concent 34.2 g/dl Platelet Count 198 K/uL Mean Platelet Volume 11.0 fL Neutrophils (%) (Auto) 80.3 % Lymphocytes (%) (Auto) 10.8 % Monocytes (%) (Auto) 7.9 % Eosinophils (%) (Auto) 0.2 % Basophils (%) (Auto) 0.6 % Neutrophils # (Auto) 9.72 K/uL Lymphocytes # (Auto) 1.31 K/uL Monocytes # (Auto) 0.95 K/uL Eosinophils # (Auto) 0.02 K/uL Basophils # (Auto) 0.07 K/uL RDW Standard Deviation 52.4 fL RDW Coefficient of Variation 14.1 % Immature Granulocyte % (Auto) 0.2 % Immature Granulocyte # (Auto) 0.02 K/uL Macrocytosis PRESENT Prothrombin Time 12.0 SECONDS Prothromb Time International Ratio 1.1 Activated Partial Thromboplast Time 27.8 SECONDS Partial Thromboplastin Ratio 1.1 Sodium Level 137 mmol/L Potassium Level 4.8 mmol/L Chloride Level 101 mmol/L Carbon Dioxide Level 21 mmol/L Anion Gap 15.0 mmol/L 18.0 mmol/L Blood Urea Nitrogen 102 mg/dl Creatinine 7.30 mg/dl Est Creatinine Clear Calc Drug Dose 8.1 ml/min Estimated GFR () 6.2 Estimated GFR (Non- 5.3 BUN/Creatinine Ratio 14.0 Random Glucose 109 mg/dl Calcium Level 7.8 mg/dl Total Bilirubin 0.4 mg/dl Direct Bilirubin 0.1 mg/dl Aspartate Amino Transf (AST/SGOT) 22 U/L Alanine Aminotransferase (ALT/SGPT) 12 U/L Alkaline Phosphatase 76 U/L Troponin I < 0.015 ng/ml Total Protein 5.3 gm/dl Albumin 2.1 gm/dl Lipase 736 U/L Bedside Hemoglobin 7.5 g/dl Bedside Hematocrit 22 % Bedside Sodium 132 mEq/L Bedside Potassium 5.8 mEq/L Bedside Chloride 100 mEq/L Bedside Total CO2 21 mEq/l Bedside Blood Urea Nitrogen 104 mg/dl Bedside Creatinine 7.4 mg/dl Bedside Glucose (other) 108 mg/dl Bedside Ionized Calcium (Deisy) 1.11 mmol/l Assessment & Plan (1) Hypoalbuminemia (2) CKD (chronic kidney disease), stage III (3) Ascites due to alcoholic cirrhosis (4) Liver failure (5) Cirrhosis, alcoholic (6) Acute GI bleeding (7) Acute post-hemorrhagic anemia Neuro: * Chronic pain * Requested pain medication, I informed her we will use a low dose As I don't want her "wifty or whafty". She replied that she prefers to be wifty or whafty. Given her history of substance abuse we will continue to use low-dose pain medications as needed * History of chronic alcoholism: Patient reports sobriety since December this year Cardiovascular: * Blood pressure normally 80s to 90s systolic, continue midodrine, systolics in the 80s are acceptable Respiratory: * Supplemental oxygen as needed Abdomen: * Alcoholic cirrhosis * Meld 21 * Acute gastrointestinal hemorrhage * Likely related to esophagitis * History of small esophageal varices will start both PPI and octreotide * Coverage with ceftriaxone for translocation bacteria * GI consultation ordered Renal * Likely nonoliguric renal failure * Reviewed prior records likely secondary to ATN, hepatorenal syndrome unlikely , AIN in differential * Continue PPI infusion given acute blood loss. If GI is not going to perform endoscopy would continue Carafate and reevaluate whether PPI is needed. * Renal consult placed Infectious disease: * Rocephin for upper GI bleeding in end-stage liver disease with varices Endocrine: * Accu-Cheks per protocol CODE STATUS: DO NOT RESUSCITATE in event of cardiac arrest Surrogate decision maker: Aunt and uncle who are present at bedside and provided healthcare POA documentation An extensive discussion regarding patient's CODE STATUS and goals of care. Her overarching goal is to not return to [facility]. I emphasized that while not an expert in the particulars of her insurance coverage and available facilities for her, if she desires to pursue palliative care there should be additional options other than [facility] for her to be transferred to should she stabilize and improve. She is aware that she is an end-stage terminal condition. She has been hesitant to discuss palliative care previously, however she is interested in a palliative care consult to look at all her options. I have personally spent 60 minutes of critical care time in the direct management of this patient. This is a life/limb threatening event. This includes time spent evaluating patient, direct bedside care, chart review, placing orders, interpretation of diagnostic studies, discussion with consultants, patient, and family members, as well as other required patient management activities. This time is exclusive of all separately billable procedures, and teaching time and separate from and in addition to any other critical care service time.
--- NOTE | 2017-03-29 18:51 | History and Physical ---
History & Physical Date & Time of Service: Mar 29, 2017 at 18:47 Chief Complaint: Acute Gi Bleeding, Renal Failure Primary Care Physician: Isreal Smith M.D. History of Present Illness Source: patient The patient is a 66-year-old female from [facility], who presents to the emergency department with complaint of coffee-ground emesis and black stools that began in the a.m. today. She's had some associated nausea, distended abdomen, shortness of breath and bilateral lower extremity swelling. She does have a history of liver failure and kidney failure, and was most recently in hospital from March 10 through March 20. She has not had any recent travel or sick exposures Past Medical/Surgical History Medical Problems: (1) Acute renal insufficiency Status: Resolved (2) Ascites Status: Resolved (3) Ascites due to alcoholic cirrhosis Status: Chronic (4) Cirrhosis, alcoholic Status: Chronic (5) CKD (chronic kidney disease), stage III Status: Chronic (6) Hyperkalemia Status: Resolved (7) Hypoalbuminemia Status: Resolved (8) Renal failure (ARF), acute on chronic Status: Chronic Family History Patient reports no known family medical history. Social History Smoking Status: Heavy Tobacco Smoker Smokeless Tobacco Use: No Alcohol Use: heavy Drug Use: none Marital Status: single Housing status: lives alone Occupational Status: retired Multi-Drug Resistant Organisms History of MDRO: No Allergies Coded Allergies: Acetaminophen (Verified Allergy, Unknown, UNKNOWN, 03/29/17) PATIENT REPEATEDLY SAYS SHE IS NOT ALLERGIC TO THIS AND HAS TAKEN A LOT OF TYLENOL IN HER LIFE. SHE SAID SHE HAS LIVER ISSUES, BUT IS NOT ALLERGIC. I TRIED TO DELETE IT AND IT WOULDN'T LET ME. - Home Medications Scheduled Citalopram Hydrobromide (Citalopram Hydrobromide), 20 MG PO DAILY Famotidine (Famotidine), 20 MG PO QAM Levothyroxine Sodium (Levothyroxine Sodium), 125 MCG PO DAILY Magnesium Oxide (Magnesium-Oxide), 400 MG PO BID Midodrine (Midodrine HCl), 30 MG PO TID@08,12,17 Rifaximin (Xifaxan), 550 MG PO BID Sodium Bicarbonate (Sodium Bicarbonate), 650 MG PO BID Vitamin B Cmplx/Vitc/Folic Ac (Nephrocaps), 1 CAP PO QAM Review of Systems The patient denies chest pain, palpitations, cough, sore throat, fevers, chills , sweats, vomiting, abdominal pain, pelvic pain, blood in urine, dysuria, urinary frequency or urgency, lightheadedness, dizziness, headache, memory loss , rash, imbalance, focal weakness, night sweats, or allergy symptoms. The review of systems is otherwise negative other than for that already noted above, and at least 10 systems have been reviewed. Physical Exam Vital Signs Date Time Temp Pulse Resp B/P (MAP) Pulse Ox O2 Delivery O2 Flow Rate FiO2 03/29/17 18:00 88 18 82/52 (62) 99 Room Air 03/29/17 17:00 99 Room Air 03/29/17 16:25 36.5 92 15 83/48 (60) 99 Room Air 03/29/17 15:50 99 16 89/59 97 Room Air 03/29/17 15:38 88 24 96 03/29/17 15:33 83/50 03/29/17 15:23 86 22 82 03/29/17 15:17 81/53 03/29/17 15:15 97 Room Air 03/29/17 15:08 85 22 87 03/29/17 15:02 86/63 03/29/17 14:53 84 23 03/29/17 14:47 87/58 03/29/17 14:38 86 18 03/29/17 14:32 101/60 03/29/17 14:23 84 15 99 03/29/17 14:17 91/63 03/29/17 14:08 91 18 80 03/29/17 14:03 82/60 03/29/17 13:54 88 16 82/61 99 03/29/17 13:43 36.5 96 12 81/45 99 Room Air 03/29/17 13:39 92 14 94 03/29/17 13:39 96 03/29/17 13:37 36.5 94 12 81/45 99 Room Air 03/29/17 13:33 81/45 The patient is awake, alert and oriented 3, looks chronically ill, lying in bed and in no acute distress. HEENT--PERRL, EOMI, mucous membranes and oropharynx dry. Neck--supple, no JVD or bruits, thyroid normal, trachea midline, no adenopathy. Heart--normal S1 and S2, no extra beats, no murmurs, rubs or gallops. Lungs--clear bilaterally but decreased breath sounds throughout, no respiratory distress, no accessory muscle use. Abdomen--normal bowel sounds and soft, nontender, mildly distended. Extremities--no cyanosis, clubbing. There is bilaterally pretibial 3+ pitting edema. There are good distal pulses b/l. Dermatologic--chronic venous stasis changes bilaterally. Neurologic--cranial nerves II through XII grossly intact. Rheumatologic--normal range of motion, nontender, muscles and joints. Psychiatric--normal affect. Diagnostics Laboratory Results Results Past 24 Hours Test 03/29/17 13:30 03/29/17 13:57 03/29/17 15:28 Range/Units White Blood Count 12.09 4.8-10.8 K/uL Red Blood Count 1.93 4.2-5.4 M/uL Hemoglobin 6.8 5.8 12.0-16.0 g/dL Hematocrit 19.9 17.2 37-47 % Mean Corpuscular Volume 103.1 80-100 fL Mean Corpuscular Hemoglobin 35.2 25-34 pg Mean Corpuscular Hemoglobin Concent 34.2 32-36 g/dl Platelet Count 198 130-400 K/uL Mean Platelet Volume 11.0 7.4-10.4 fL Neutrophils (%) (Auto) 80.3 % Lymphocytes (%) (Auto) 10.8 % Monocytes (%) (Auto) 7.9 % Eosinophils (%) (Auto) 0.2 % Basophils (%) (Auto) 0.6 % Neutrophils # (Auto) 9.72 1.4-6.5 K/uL Lymphocytes # (Auto) 1.31 1.2-3.4 K/uL Monocytes # (Auto) 0.95 0.11-0.59 K/uL Eosinophils # (Auto) 0.02 0-0.5 K/uL Basophils # (Auto) 0.07 0-0.2 K/uL RDW Standard Deviation 52.4 36.4-46.3 fL RDW Coefficient of Variation 14.1 11.5-14.5 % Immature Granulocyte % (Auto) 0.2 % Immature Granulocyte # (Auto) 0.02 0.00-0.02 K/uL Macrocytosis PRESENT Prothrombin Time 12.0 9.0-12.0 SECONDS Prothromb Time International Ratio 1.1 0.9-1.1 Activated Partial Thromboplast Time 27.8 21.0-31.0 SECONDS Partial Thromboplastin Ratio 1.1 Sodium Level 137 136-145 mmol/L Potassium Level 4.8 3.5-5.1 mmol/L Chloride Level 101 98-107 mmol/L Carbon Dioxide Level 21 21-32 mmol/L Anion Gap 15.0 18.0 16-25 mmol/L Blood Urea Nitrogen 102 7-18 mg/dl Creatinine 7.30 0.60-1.20 mg/dl Est Creatinine Clear Calc Drug Dose 8.1 ml/min Estimated GFR () 6.2 Estimated GFR (Non- 5.3 BUN/Creatinine Ratio 14.0 10-20 Random Glucose 109 70-99 mg/dl Calcium Level 7.8 8.5-10.1 mg/dl Total Bilirubin 0.4 0.2-1 mg/dl Direct Bilirubin 0.1 0-0.2 mg/dl Aspartate Amino Transf (AST/SGOT) 22 15-37 U/L Alanine Aminotransferase (ALT/SGPT) 12 12-78 U/L Alkaline Phosphatase 76 45-117 U/L Troponin I < 0.015 0-0.045 ng/ml Total Protein 5.3 6.4-8.2 gm/dl Albumin 2.1 3.4-5.0 gm/dl Lipase 736 73-393 U/L Bedside Hemoglobin 7.5 12.0-16.0 g/dl Bedside Hematocrit 22 37-47 % Bedside Sodium 132 135-144 mEq/L Bedside Potassium 5.8 3.3-5.0 mEq/L Bedside Chloride 100 101-112 mEq/L Bedside Total CO2 21 24-31 mEq/l Bedside Blood Urea Nitrogen 104 7-18 mg/dl Bedside Creatinine 7.4 0.6-1.3 mg/dl Bedside Glucose (other) 108 70-99 mg/dl Bedside Ionized Calcium (Deisy) 1.11 1.12-1.32 mmol/l Microbiology Results 03/29/17 MRSA DNA Surveillance Screen, Received Pending Impression Assessment and Plan Upper GI bleed/symptomatic anemia--patient is being admitted to the ICU. She' ll be transfused 2 units packed red blood cells now, and have a repeat H&H every 6 hours. She'll be placed on Protonix bolus and drip, and octreotide continuous infusion. Consults will be to core feeder Dr. Rosen. We'll also consult Dr. Mcwilliams, who is on-call for gastroenterology. The patient did have an EGD done in the past by Dr. Elizabeth, which primarily showed esophagitis. Acute on chronic renal failure--her creatinine had worsened at last admission from 4.3-5.2, and presents with this admission a creatinine of 7.3. Dr. Zelaya from nephrology has also been consulted, and has seen her during last admission , and discussed with her that she would not be a good dialysis candidate. The plan will be to transfuse and follow her PRP serially to see what kind improvement in kidney function returns. Alcoholic cirrhosis--as has been discussed with patient in the past. She may be best served by an assessment in a liver transplant center once her acute episode is over at this visit. Hypothyroidism--convert levothyroxine sodium 125 g by mouth daily to 62.5 ug IV daily. Anxiety/depression--hold citalopram 20 mg by mouth daily. Place on lorazepam 0.5 mg IV every 4 hours when necessary. Level of Care Critical Care Advanced Directives Existing Advance Directive: No Existing Living Will: No Existing Power of Motion Study Technician: No Resuscitation Status FULL RESUSCITATION VTE Prophylaxis VTE Risk Assessment Done? Y/N: Yes Risk Level: High Given or contraindicated: SCD's
[2017-03-29] MEDS ORDERED: FUROSEMIDE INJ 40 MG in SYRINGE 0 ML IV SCH (20:00)
[2017-03-29] MEDS: PANTOprazole INJ 40 MG in DEXTROSE 5% 100ML IV SCH (20:15)
--- NOTE | 2017-03-29 20:37 | Nephrology Consultation ---
Nephrology Consultation Date & Providers Date of Consultation: Mar 29, 2017. Primary Care Provider: Isreal Smith M.D. Referring Provider: Reason for Consultation ASHELY/CKD History of Present Illness Contreras Stevenson is a 66-year-old female who I had the opportunity to meet and provide care for during her recent hospitalization at [facility]. Contreras was admitted to [facility] from March 10-March 20 with recurrent ascites and acute kidney injury. She was admitted with severe generalized weakness, diarrhea and a bed sore on her buttocks. She had been using advil 1-2 tablets daily at that time. Medical history is notable for alcoholic cirrhosis with recurrent ascites. Laboratory studies revealed acute on chronic kidney injury w / hyperkalemia. Serum creatinine joann from 1.2 to 5.3. Urinalysis revealed pyuria, hyaline and granular casts. Urine sodium was 26. Urine cytology was negative for eosinophils. Renal US was negative for obstruction. This clinical diagnosis was ATN. Hepatorenal syndrome and AIN were considered within the differential diagnosis. Urine sodium however was not consistent with hepatorenal syndrome. AIN due to Omeprazole was a possibility and the medication was stopped. Creatinine plateaued at 5.3 mg/dL at the time of discharge. Goals of care were discussed in detail as well as her guarded prognosis. Due to her history of alcohol use, she was unfortunately not considered a candidate for liver transplant. She suffers from notable hypotension, hypoalbuminemia and dialysis is not expected to provide any therapeutic benefit. She was discharged to long-term at [facility]. She had declined to consider hospice or palliative care. Laboratory studies obtained on March 24 documented a serum creatinine of 6.0 mg/ dL. Dr. Hair called me this afternoon to discuss concerns regarding progressive renal insufficiency. The patient presented to the Emergency Department with melena and hematemesis. Contreras describes significant generalized weakness as her primary complaint. She was hypotensive consistent with her baseline. Since admission, she has vomited thick blood clots. She has been started on a PPI gtt. She refused Alvarez catheter placement. Despite the severity of her illness, Contreras remains in good spirits. She does not acknowledge her critical condition. I had a long conversation with Contreras in the ICU this afternoon. We again discussed the her prognosis and I encouraged her to think about end of life care and what dying might look like. She has an uncle (Amado) and aunt who are visiting from [place]. She states that this family has come to help her arrange her affairs and act as her POA. Unfortunately, I was only able to meet with the family for a short period of time as they were leaving when I arrived. During my conversation with Contreras, she was often distracted and had difficulty staying on subject. She never gave me an answer to any questions regarding resuscitative measures. Medical records in the inpatient in the outpatient electronic health records were reviewed in detail. It is noted that the patient was recently admitted to [facility] from February 17 to with ascites, weakness and acute kidney injury. At that time, ASHELY improved with IV fluids and supportive care. She underwent a paracentesis with 5 L of fluid removed from the abdomen. Medical history is notable for cirrhosis attributed to alcohol use. She has recurrent ascites for at least the past 2 months. EGD previously documented at least grade 1 varices. There was also evidence of esophagitis on the study. The patient follows with Dr. Pederson. There is also a documented history of COPD, hypertension, hyperlipidemia, hypothyroidism, anxiety and depression, long QT, and chronic kidney disease. Transthoracic echocardiogram has documented grade 1 diastolic dysfunction. Serum creatinine was 1.2 milligram/ deciliter in January. Current MELD score has increased to 21 and Child Francis class C. Renal ultrasound during her prior admission documented no evidence of obstruction. Left kidney measures 10 centimeters and the right kidney measures 9 centimeters with an 8 millimeter cyst appreciated in the right kidney. Urinalysis was notable for 10-30 white blood cells per high-power field. There were no red blood cells. Pathologic casts included hyaline and granular. 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 MELD 21, Child Francis class C. -- COPD -- Alcohol use, stopped approximately 3 months ago -- Tobacco use -- Hypertension -- Hyperlipidemia -- Hypothyroidism -- Esophagitis -- Anxiety/depression -- CKD with recent progression related to ASHELY/ATN -- Prolonged QT -- Diastolic dysfunction by imaging Surgical: EGD, paracentesis Allergies Coded Allergies: Acetaminophen (Verified Allergy, Unknown, UNKNOWN, 03/29/17) PATIENT REPEATEDLY SAYS SHE IS NOT ALLERGIC TO THIS AND HAS TAKEN A LOT OF TYLENOL IN HER LIFE. SHE SAID SHE HAS LIVER ISSUES, BUT IS NOT ALLERGIC. I TRIED TO DELETE IT AND IT WOULDN'T LET ME. - Inpatient Medications Current Inpatient Medications Medications (Trade) Dose Ordered Sig/Brett Route Start Time Stop Time Status Last Admin Dose Admin Sodium Chloride 1,000 ml @ 75 mls/hr [id number] IV 03/29/17 15:19 04/28/17 15:18 03/29/17 16:38 75 MLS/HR Levothyroxine Sodium 62.5 mcg/ Syringe 3.125 ml @ 2 mls/min DAILY@09 IV 03/30/17 09:00 04/29/17 08:59 Ceftriaxone Sodium 1 gm/ Dextrose 50 ml @ 100 mls/hr Q24H IV 03/29/17 17:00 04/08/17 16:59 03/29/17 16:45 100 MLS/HR Lorazepam (Ativan Inj) 0.5 mg Q6H PRN IV 03/29/17 15:30 04/28/17 15:29 Octreotide Acetate 500 mcg/ Sodium Chloride 105 ml @ 10 mls/hr [id number] IV 03/29/17 16:30 04/28/17 16:29 03/29/17 16:45 10 MLS/HR Pantoprazole Sodium 40 mg/ Dextrose 100 ml @ 20 mls/hr Q5H IV 03/29/17 19:30 04/28/17 19:29 Ondansetron HCl (Zofran Inj) 4 mg Q6H PRN IV 03/29/17 16:30 04/28/17 16:29 03/29/17 16:38 4 MG Lorazepam 0.5 mg/ Syringe 1 ml @ 1 mls/min Q6H PRN IV 03/29/17 16:45 04/28/17 16:44 Family History Patient reports no known family medical history. Social History Smoking Status: Heavy Tobacco Smoker Drug Use: none Marital Status: single Housing Status: lives alone Occupation: retired Review of Systems A complete review of systems was performed. Pertinent positives are noted above. All other systems are negative. Physical Exam Date Time Temp Pulse Resp B/P (MAP) Pulse Ox O2 Delivery O2 Flow Rate FiO2 03/29/17 18:00 88 18 82/52 (62) 99 Room Air 03/29/17 17:00 99 Room Air 03/29/17 16:25 36.5 92 15 83/48 (60) 99 Room Air 03/29/17 15:50 99 16 89/59 97 Room Air 03/29/17 15:38 88 24 96 03/29/17 15:33 83/50 03/29/17 15:23 86 22 82 03/29/17 15:17 81/53 03/29/17 15:15 97 Room Air 03/29/17 15:08 85 22 87 03/29/17 15:02 86/63 03/29/17 14:53 84 23 03/29/17 14:47 87/58 03/29/17 14:38 86 18 03/29/17 14:32 101/60 03/29/17 14:23 84 15 99 03/29/17 14:17 91/63 03/29/17 14:08 91 18 80 03/29/17 14:03 82/60 03/29/17 13:54 88 16 82/61 99 03/29/17 13:43 36.5 96 12 81/45 99 Room Air 03/29/17 13:39 92 14 94 03/29/17 13:39 96 03/29/17 13:37 36.5 94 12 81/45 99 Room Air 03/29/17 13:33 81/45 General Appearance: no apparent distress, + thin Head: normocephalic, atraumatic Eyes: normal inspection, sclerae normal ENT: normal ENT inspection, pharynx normal (no oral lesions) Neck: supple, no JVD Respiratory/Chest: no respiratory distress, no accessory muscle use, + decreased breath sounds Cardiovascular: no gallop, no murmur, + tachycardia Abdomen/GI: non tender, + distended, + pertinent finding (abdomen is tense with fluid wave but non tender) Back: no CVA tenderness Extremities/Musculoskelatal: + pertinent finding (Increasing lower extremity (+ 3) and dependent edema, no distal cyanosis) Neurologic/Psych: alert, normal mood/affect, + pertinent finding (oriented to person and place, difficulty with short term memor, no tremor) Skin: no rash Laboratory Results Last 24 Hours Test 03/29/17 13:30 03/29/17 13:57 03/29/17 15:28 White Blood Count 12.09 K/uL Red Blood Count 1.93 M/uL Hemoglobin 6.8 g/dL 5.8 g/dL Hematocrit 19.9 % 17.2 % Mean Corpuscular Volume 103.1 fL Mean Corpuscular Hemoglobin 35.2 pg Mean Corpuscular Hemoglobin Concent 34.2 g/dl Platelet Count 198 K/uL Mean Platelet Volume 11.0 fL Neutrophils (%) (Auto) 80.3 % Lymphocytes (%) (Auto) 10.8 % Monocytes (%) (Auto) 7.9 % Eosinophils (%) (Auto) 0.2 % Basophils (%) (Auto) 0.6 % Neutrophils # (Auto) 9.72 K/uL Lymphocytes # (Auto) 1.31 K/uL Monocytes # (Auto) 0.95 K/uL Eosinophils # (Auto) 0.02 K/uL Basophils # (Auto) 0.07 K/uL RDW Standard Deviation 52.4 fL RDW Coefficient of Variation 14.1 % Immature Granulocyte % (Auto) 0.2 % Immature Granulocyte # (Auto) 0.02 K/uL Macrocytosis PRESENT Prothrombin Time 12.0 SECONDS Prothromb Time International Ratio 1.1 Activated Partial Thromboplast Time 27.8 SECONDS Partial Thromboplastin Ratio 1.1 Sodium Level 137 mmol/L Potassium Level 4.8 mmol/L Chloride Level 101 mmol/L Carbon Dioxide Level 21 mmol/L Anion Gap 15.0 mmol/L 18.0 mmol/L Blood Urea Nitrogen 102 mg/dl Creatinine 7.30 mg/dl Est Creatinine Clear Calc Drug Dose 8.1 ml/min Estimated GFR () 6.2 Estimated GFR (Non- 5.3 BUN/Creatinine Ratio 14.0 Random Glucose 109 mg/dl Calcium Level 7.8 mg/dl Total Bilirubin 0.4 mg/dl Direct Bilirubin 0.1 mg/dl Aspartate Amino Transf (AST/SGOT) 22 U/L Alanine Aminotransferase (ALT/SGPT) 12 U/L Alkaline Phosphatase 76 U/L Troponin I < 0.015 ng/ml Total Protein 5.3 gm/dl Albumin 2.1 gm/dl Lipase 736 U/L Bedside Hemoglobin 7.5 g/dl Bedside Hematocrit 22 % Bedside Sodium 132 mEq/L Bedside Potassium 5.8 mEq/L Bedside Chloride 100 mEq/L Bedside Total CO2 21 mEq/l Bedside Blood Urea Nitrogen 104 mg/dl Bedside Creatinine 7.4 mg/dl Bedside Glucose (other) 108 mg/dl Bedside Ionized Calcium (Deisy) 1.11 mmol/l Impression (1) Acute blood loss anemia (2) GI bleed (3) Acute renal insufficiency (4) Renal failure (ARF), acute on chronic (5) Liver failure (6) Ascites due to alcoholic cirrhosis Contreras Stevenson is a 66-year-old female with alcoholic cirrhosis complicated by ascites. MELD 21, Child-Francis C. She has decompensated liver disease with recurrent ascites. Cirrhosis also complicated by a documented history of encephalopathy as well as grade 1 esophageal varices. She was recently admitted to [facility] with ascites and ASHELY. ASHELY consistent with ATN. Underlying HRS or AIN could not be excluded. AIN suspected potentially secondary to omeprazole which had been recently started for esophagitis noted on EGD in February. The medication was stopped. Creatinine stabilized at 5.3 mg/ dL. Hyperkalemia present on admission was treated with Kayexalate. Urine analysis documented pyuria without hematuria as well as hyaline and granular casts. Renal ultrasound did not show any evidence of obstruction. Renal anatomy is otherwise normal. Urine sodium was 26. Clinical diagnosis was ATN. Differential included hepatorenal syndrome as well as acute interstitial nephritis. Urine sodium is not consistent with hepatorenal syndrome. AIN associated with Omeprazole certainly consideration and the medication was discontinued. This is her third hospitalization since February. Contreras was admitted with evidence of upper GI bleed. She is significantly anemic. Her prognosis is guarded. Creatinine is now >7 mg/dL. Urine output diminished. Metabolic profile otherwise acceptable. She endorses some symptomatic anemia. She reports decreased appetite and occasional nausea but overall feels well. A significant amount of time was spent with Contreras discussing the severity of her illness. We discussed the concerns about significant GI bleeding. We discussed the complications from liver and renal failure. At this time, she is not a candidate for renal replacement therapy. There is no emergent role for dialysis and I would not expect hemodialysis to offer therapeutic benefit. She will receive PRBC x 2 u transfusion with furosemide to encourage kaluresis. Patient has chronic hypotension and was started on standing dose of midodrine during prior hospitalization. I would encourage that this medication be continued. She was not able to tolerate nadolol. I would also suggest that IV saline infusions be minimized or eliminated ( favoring colloid infusion). Recommendations -- Transfuse washed blood -- Preference for PRBC less than 5 days from collection -- Furosemide 40 mg IV with transfusion to encourage kaluresis -- Maintain MAP > 65, continue midodrine -- Check urine analysis and random Lorena -- Low threshold to add octreotide and albumin -- Overall, prognosis is guarded -- Obtain renal imaging when stable and clinically appropriate -- Stop IV saline infusion
[2017-03-30] VITALS (15 sets, daily range): BP systolic 78–105; BP diastolic 47–63; PULSE 66–93; TEMP 36.5–36.9; O2SAT 95–100
[2017-03-30] MEDS: PANTOprazole INJ 40 MG in DEXTROSE 5% 100ML IV SCH ×5 (00:45→21:41)
[2017-03-30 01:08] LABS: CKMB/CK RATIO 4.4 (0-3.0)
[2017-03-30 01:09] LABS: HEMATOCRIT 25.1 % (37-47)
[2017-03-30] MEDS: OCTREOTIDE ACETATE INJ 500 MCG in NSS 100ML IV SCH ×2 (02:04→12:28)
[2017-03-30 06:33] LABS: BASO % 0.9 %; BASO ABS # 0.12 K/uL (0-0.2); EOS % 0.9 %; HEMATOCRIT 25.9 % (37-47); IG% 0.4 %; LYMPH % 19.8 %; LYMPH ABS # 2.79 K/uL (1.2-3.4); MEAN CELL VOLUME 93.2 fL (80-100); MEAN CORPUSCULAR HEMOGLOBIN 31.7 pg (25-34); MEAN PLATELET VOLUME 10.4 fL (7.4-10.4); MONO % 8.5 %; NEUT % 69.5 %; PLATELET COUNT 236 K/uL (130-400); RED BLOOD COUNT 2.78 M/uL (4.2-5.4); WHITE BLOOD COUNT 14.06 K/uL (4.8-10.8)
[2017-03-30 06:41] LABS: INR 1.1 (0.9-1.1); PARTIAL THROMBOPLASTIN RATIO 1.2; PROTHROMBIN TIME (PATIENT) 11.9 SECONDS (9.0-12.0)
[2017-03-30 07:24] LABS: BUN/CREATININE RATIO 14.2 (10-20); CALCIUM 8.4 mg/dl (8.5-10.1); CREATININE 7.2 mg/dl (0.60-1.20); MAGNESIUM 2.2 mg/dl (1.8-2.4); PHOSPHORUS 6.1 mg/dl (2.5-4.9); POTASSIUM 4.5 mmol/L (3.5-5.1)
[2017-03-30 07:25] LABS: COMPLETE YES; ECHINOCYTES 2+
--- NOTE | 2017-03-30 07:40 | DIAGNOSTIC IMAGING REPORT ---
CHEST ONE VIEW PORTABLE CLINICAL HISTORY: UGLI bleed, Liver failure, kidney failure dyspnea COMPARISON STUDY: 03/10/2017 FINDINGS: The bones soft tissues and hemidiaphragms are normal. The cardiomediastinal silhouette is normal. The lungs are clear. The pulmonary vasculature is normal. IMPRESSION: Negative chest. Electronically signed by: Sheldon Hutton M.D. 03/30/2017 7:39 AM Dictated Date/Time: 03/30/2017 7:38 AM
--- NOTE | 2017-03-30 09:08 | Nephrology Progress Note ---
Nephrology Progress Note Date of Service Mar 30, 2017. Chief Complaint ASHELY/CKD Subjective Contreras is not able to answer questions this morning. Encephalopathy pronounced. Reportedly agitated overnight. Did not sleep. 1:1 at bedside. Patient does not have any signs of distress. Urine output minimal. Transfused 4 units PRBC overnight. Hemodynamics stable. Review of Systems A complete review of systems was unable to be obtained due to mental status changes. Vital Signs Last 8 Hrs Date Time Temp Pulse Resp B/P (MAP) Pulse Ox O2 Delivery O2 Flow Rate FiO2 03/30/17 06:02 76 18 93/63 (73) 97 Room Air 03/30/17 04:03 36.7 89 19 105/47 (66) 100 Room Air 03/30/17 04:00 99 Room Air 03/30/17 02:02 66 21 98/61 (73) 98 Room Air Last Recorded Weight Weight (Kilograms): 80.000 Physical Exam General Appearance: no apparent distress, + thin Head: normocephalic, atraumatic Eyes: normal inspection, PERRL ENT: + pertinent finding (oral mucosa dry without lesion) Neck: supple, + JVD (JVP 10 cm) Respiratory/Chest: normal breath sounds, no respiratory distress, no accessory muscle use Cardiovascular: regular rate, rhythm, no gallop, no murmur Abdomen/GI: + distended, + pertinent finding (no guarding, + fluid wave) Extremities/Musculoskelatal: + pedal edema Neurologic/Psych: + pertinent finding (severely encephalopathic, moving all extremities, answers 'yes' to her name but does not otherwise acknowledge questions) Family History Patient reports no known family medical history. Social History Smokeless Tobacco Use: No Alcohol Use: heavy Drug Use: none Marital Status: single Housing Status: lives alone Occupation: retired Laboratory Results Past 24 Hours 03/29/17 13:30 Red Blood Count 1.93, Mean Corpuscular Volume 103.1, Mean Corpuscular Hemoglobin 35.2, Mean Corpuscular Hemoglobin Concent 34.2, Mean Platelet Volume 11.0, Neutrophils (%) (Auto) 80.3, Lymphocytes (%) (Auto) 10.8, Monocytes (%) ( Auto) 7.9, Eosinophils (%) (Auto) 0.2, Basophils (%) (Auto) 0.6, Neutrophils # ( Auto) 9.72, Lymphocytes # (Auto) 1.31, Monocytes # (Auto) 0.95, Eosinophils # ( Auto) 0.02, Basophils # (Auto) 0.07 03/29/17 15:28 03/30/17 00:22 03/30/17 06:20 Red Blood Count 2.78, Mean Corpuscular Volume 93.2 #, Mean Corpuscular Hemoglobin 31.7, Mean Corpuscular Hemoglobin Concent 34.0, Mean Platelet Volume 10.4, Neutrophils (%) (Auto) 69.5, Lymphocytes (%) (Auto) 19.8, Monocytes (%) ( Auto) 8.5, Eosinophils (%) (Auto) 0.9, Basophils (%) (Auto) 0.9, Neutrophils # ( Auto) 9.77, Lymphocytes # (Auto) 2.79, Monocytes # (Auto) 1.20, Eosinophils # ( Auto) 0.12, Basophils # (Auto) 0.12 03/29/17 13:30 03/30/17 06:20 Test 03/29/17 13:30 03/29/17 13:57 03/30/17 00:22 03/30/17 00:23 White Blood Count 12.09 K/uL (4.8-10.8) Red Blood Count 1.93 M/uL (4.2-5.4) Hemoglobin 6.8 g/dL (12.0-16.0) Hematocrit 19.9 % (37-47) Mean Corpuscular Volume 103.1 fL (80-100) Mean Corpuscular Hemoglobin 35.2 pg (25-34) Mean Corpuscular Hemoglobin Concent 34.2 g/dl (32-36) Platelet Count 198 K/uL (130-400) Mean Platelet Volume 11.0 fL (7.4-10.4) Neutrophils (%) (Auto) 80.3 % Lymphocytes (%) (Auto) 10.8 % Monocytes (%) (Auto) 7.9 % Eosinophils (%) (Auto) 0.2 % Basophils (%) (Auto) 0.6 % Neutrophils # (Auto) 9.72 K/uL (1.4-6.5) Lymphocytes # (Auto) 1.31 K/uL (1.2-3.4) Monocytes # (Auto) 0.95 K/uL (0.11-0.59) Eosinophils # (Auto) 0.02 K/uL (0-0.5) Basophils # (Auto) 0.07 K/uL (0-0.2) RDW Standard Deviation 52.4 fL (36.4-46.3) RDW Coefficient of Variation 14.1 % (11.5-14.5) Immature Granulocyte % (Auto) 0.2 % Immature Granulocyte # (Auto) 0.02 K/uL (0.00-0.02) Macrocytosis PRESENT Prothrombin Time 12.0 SECONDS (9.0-12.0) Prothromb Time International Ratio 1.1 (0.9-1.1) Activated Partial Thromboplast Time 27.8 SECONDS (21.0-31.0) Partial Thromboplastin Ratio 1.1 Anion Gap 15.0 mmol/L (3-11) 18.0 mmol/L (16-25) Est Creatinine Clear Calc Drug Dose 8.1 ml/min Estimated GFR () 6.2 Estimated GFR (Non- 5.3 BUN/Creatinine Ratio 14.0 (10-20) Calcium Level 7.8 mg/dl (8.5-10.1) Total Bilirubin 0.4 mg/dl (0.2-1) Direct Bilirubin 0.1 mg/dl (0-0.2) Aspartate Amino Transf (AST/SGOT) 22 U/L (15-37) Alanine Aminotransferase (ALT/SGPT) 12 U/L (12-78) Alkaline Phosphatase 76 U/L (45-117) Troponin I < 0.015 ng/ml (0-0.045) < 0.015 ng/ml (0-0.045) Total Protein 5.3 gm/dl (6.4-8.2) Albumin 2.1 gm/dl (3.4-5.0) Lipase 736 U/L (73-393) Bedside Hemoglobin 7.5 g/dl (12.0-16.0) Bedside Hematocrit 22 % (37-47) Bedside Sodium 132 mEq/L (135-144) Bedside Potassium 5.8 mEq/L (3.3-5.0) Bedside Chloride 100 mEq/L (101-112) Bedside Total CO2 21 mEq/l (24-31) Bedside Blood Urea Nitrogen 104 mg/dl (7-18) Bedside Creatinine 7.4 mg/dl (0.6-1.3) Bedside Glucose (other) 108 mg/dl (70-99) Bedside Ionized Calcium (Deisy) 1.11 mmol/l (1.12-1.32) Total Creatine Kinase 39 U/L (26-192) Creatine Kinase MB 1.7 ng/ml (0.5-3.6) Creatine Kinase MB Ratio 4.4 (0-3.0) Bedside Glucose 119 mg/dl (70-90) Test 03/30/17 06:01 03/30/17 06:20 03/30/17 07:19 Bedside Glucose 98 mg/dl (70-90) White Blood Count 14.06 K/uL (4.8-10.8) Red Blood Count 2.78 M/uL (4.2-5.4) Hemoglobin 8.8 g/dL (12.0-16.0) Hematocrit 25.9 % (37-47) Mean Corpuscular Volume 93.2 fL (80-100) Mean Corpuscular Hemoglobin 31.7 pg (25-34) Mean Corpuscular Hemoglobin Concent 34.0 g/dl (32-36) Platelet Count 236 K/uL (130-400) Mean Platelet Volume 10.4 fL (7.4-10.4) Neutrophils (%) (Auto) 69.5 % Lymphocytes (%) (Auto) 19.8 % Monocytes (%) (Auto) 8.5 % Eosinophils (%) (Auto) 0.9 % Basophils (%) (Auto) 0.9 % Neutrophils # (Auto) 9.77 K/uL (1.4-6.5) Lymphocytes # (Auto) 2.79 K/uL (1.2-3.4) Monocytes # (Auto) 1.20 K/uL (0.11-0.59) Eosinophils # (Auto) 0.12 K/uL (0-0.5) Basophils # (Auto) 0.12 K/uL (0-0.2) RDW Standard Deviation 58.4 fL (36.4-46.3) RDW Coefficient of Variation 17.3 % (11.5-14.5) Immature Granulocyte % (Auto) 0.4 % Immature Granulocyte # (Auto) 0.06 K/uL (0.00-0.02) Echinocytes 2+ Prothrombin Time 11.9 SECONDS (9.0-12.0) Prothromb Time International Ratio 1.1 (0.9-1.1) Activated Partial Thromboplast Time 31.3 SECONDS (21.0-31.0) Partial Thromboplastin Ratio 1.2 Anion Gap 15.0 mmol/L (3-11) Est Creatinine Clear Calc Drug Dose 8.1 ml/min Estimated GFR () 6.3 Estimated GFR (Non- 5.4 BUN/Creatinine Ratio 14.2 (10-20) Calcium Level 8.4 mg/dl (8.5-10.1) Phosphorus Level 6.1 mg/dl (2.5-4.9) Magnesium Level 2.2 mg/dl (1.8-2.4) Total Bilirubin 1.2 mg/dl (0.2-1) Direct Bilirubin 0.4 mg/dl (0-0.2) Aspartate Amino Transf (AST/SGOT) 23 U/L (15-37) Alanine Aminotransferase (ALT/SGPT) 12 U/L (12-78) Alkaline Phosphatase 67 U/L (45-117) Ammonia 21.0 umol/L (11-32) Total Protein 5.3 gm/dl (6.4-8.2) Albumin 2.3 gm/dl (3.4-5.0) Creatine Kinase MB Ratio (0-3.0) Date/Time Source Procedure Growth Status 03/29/17 16:30 Nasal MRSA DNA Surveillance Screen - Final Specimen Negative for MRSA by DNA Probe Complete Allergies Coded Allergies: Acetaminophen (Verified Allergy, Unknown, UNKNOWN, 03/29/17) PATIENT REPEATEDLY SAYS SHE IS NOT ALLERGIC TO THIS AND HAS TAKEN A LOT OF TYLENOL IN HER LIFE. SHE SAID SHE HAS LIVER ISSUES, BUT IS NOT ALLERGIC. I TRIED TO DELETE IT AND IT WOULDN'T LET ME. - Medications Current Inpatient Medications Medications (Trade) Dose Ordered Sig/Brett Route Start Time Stop Time Status Last Admin Dose Admin Sodium Chloride 1,000 ml @ 75 mls/hr [id number] IV 03/29/17 15:19 04/28/17 15:18 03/29/17 16:38 75 MLS/HR Levothyroxine Sodium 62.5 mcg/ Syringe 3.125 ml @ 2 mls/min DAILY@09 IV 03/30/17 09:00 04/29/17 08:59 Ceftriaxone Sodium 1 gm/ Dextrose 50 ml @ 100 mls/hr Q24H IV 03/29/17 17:00 04/08/17 16:59 03/29/17 16:45 100 MLS/HR Octreotide Acetate 500 mcg/ Sodium Chloride 105 ml @ 10 mls/hr [id number] IV 03/29/17 16:30 04/28/17 16:29 03/30/17 02:04 10 MLS/HR Pantoprazole Sodium 40 mg/ Dextrose 100 ml @ 20 mls/hr Q5H IV 03/29/17 19:30 04/28/17 19:29 03/30/17 00:45 20 MLS/HR Ondansetron HCl (Zofran Inj) 4 mg Q6H PRN IV 03/29/17 16:30 04/28/17 16:29 03/29/17 16:38 4 MG Morphine Sulfate (MoRPHine SULFATE INJ) 2 mg Q2H PRN IV 03/29/17 20:15 04/12/17 20:14 Impression (1) Acute blood loss anemia (2) GI bleed (3) Acute renal insufficiency (4) Renal failure (ARF), acute on chronic (5) Liver failure (6) Ascites due to alcoholic cirrhosis Contreras Stevenson is a 66-year-old female with alcoholic cirrhosis complicated by ascites, a documented history of encephalopathy as well as grade 1 esophageal varices. MELD 21, Child-Francis C. Contreras was admitted to [facility] yesterday with anemia and evidence of GI bleed. She was incontinent of urine last evening and I/O's not able to be appropriately documented. Hemoglobin improved with PRBC x 4 units. No additional melena or hematemesis. She was recently admitted to [facility] with ascites and ASHELY. ASHELY consistent with ATN. Underlying HRS or AIN could not be excluded. AIN suspected potentially secondary to omeprazole which had been recently started for esophagitis noted on EGD in February. The medication was stopped. Creatinine stabilized at 5.3 mg/ dL. Hyperkalemia present on admission was treated with Kayexalate. Urine analysis documented pyuria without hematuria as well as hyaline and granular casts. Renal ultrasound did not show any evidence of obstruction. Renal anatomy is otherwise normal. Urine sodium was 26. Clinical diagnosis was ATN. Differential included hepatorenal syndrome as well as acute interstitial nephritis. Urine sodium is not consistent with hepatorenal syndrome. Recommendations -- Suggest starting triple therapy with addition of albumin 25% 25 gm q 8 hour and midodrine 5 mg TID -- Maintain MAP goal > 65 -- Check urine analysis and random Lorena when able -- Prognosis remains guarded and dialysis is not expected to add significant therapeutic benefit given risks/benefits of procedure -- Unfortunately due to encephalopathy, I would not expect Contreras to be a TIPS candidate -- Will obtain a repeat renal US when able
[2017-03-30] MEDS: LEVOTHYROXINE SODIUM INJ 62.5 MCG in SYRINGE 0 ML IV SCH (10:04)
[2017-03-30 10:19] LABS: CKMB/CK RATIO 4.2 (0-3.0)
--- NOTE | 2017-03-30 12:14 | CRITICAL CARE PROGRESS NOTE ---
DATE: 03/30/2017 SUBJECTIVE: This is an unfortunate 66-year-old woman with a history of end-stage liver, who presented to the hospital yesterday with hematemesis and anemia. She is status post transfusion of 2 units of packed red blood cells and remains on Protonix and octreotide infusion. She has refused a Alvarez catheter and by the report, her baseline creatinine is around 7. She is being seen by the nephrology service as well as the GI service. Her care was discussed in detail on multidisciplinary rounds today. She is unable to give me much history and has tangential thoughts and flights of ideas. She denied pain. PHYSICAL EXAMINATION: VITAL SIGNS: Maximum temperature 36.7, heart rate 74-89, respiratory rate 12-24, and blood pressure 82-105/40s-60s. Oxygen saturation is 95% on room air. 24-hour fluid is balance positive 1.7 liters. GENERAL: She is awake and alert and oriented to the hospital and her name. Otherwise, she really is unable to carry on a conversation. NEUROLOGIC: She follows simple commands, moving all 4 extremities. LUNGS: Very decreased breath sounds at the bases. No rales, rhonchi or wheezes. HEART: Regular rate and rhythm. ABDOMEN: Distended, firm, and nontender. Ascites is present. Bowel sounds hypoactive. EXTREMITIES: Upper extremities are thin and warm. Lower extremities show at least 2+ edema up to the hip. LABORATORY DATA: White blood cell count 14.06, hemoglobin 8.8, hematocrit 25.9, and platelets 236. Followup hemoglobin 8.3 and hematocrit 24. Sodium 138, potassium 4.5, chloride 104, CO2 of 19, BUN 102, creatinine 7.2, blood sugar 100, calcium 8.4, phosphorus 6.1, and magnesium 2.2. Total bilirubin 1.2, direct bilirubin 0.4. Albumin 2.3. PT 11.9, INR 1.1, and PTT 31.3. MEDICATIONS: Albumin, ceftriaxone day 2, levothyroxine, midodrine, morphine, octreotide, Zofran, and Protonix. Portable chest x-ray from this morning was reviewed and shows no acute infiltrate. IMPRESSION: 1. Acute gastrointestinal bleed in a patient with end-stage liver disease and recent small varices in the lower third of the esophagus on February 20. She also has esophagitis with bleeding and ulceration at that time. 2. Acute anemia of blood loss. 3. Metabolic encephalopathy. 4. Recent acute kidney injury, creatinine remains elevated. Nephrology is following and she was placed on midodrine today. 5. Hypoalbuminemia. 6. History of chronic pain. 7. History of depression and substance abuse. 8. History of prolonged QT interval. PLAN: NEUROLOGIC: Avoid sedative medications and benzodiazepines in particular for now if at all possible. PULMONARY: No acute active issues. GASTROINTESTINAL: Continue serial blood count and await any further direction from the GI service. On her last admission, she was felt to have a very poor prognosis and palliative care was suggested at that time. Continue octreotide and Protonix. She may benefit from a paracentesis if palliative care is pursued. CARDIOVASCULAR: Continue midodrine for blood pressure support. She may require a PICC line or central line if we are going to continue aggressive care. The palliative care team is meeting with her family today. Continue albumin q. 8 hours. INFECTIOUS DISEASE: Continue ceftriaxone. GENITOURINARY/RENAL: Hopefully, we will be able to collect her urine for further testing. Continue to watch the potassium and creatinine. Many thanks to Dr. Zelaya for his assistance in her care. HEMATOLOGY: Transfuse as needed. SCDs for DVT prophylaxis. Await palliative care family discussion. I updated the GI service regarding the potential of changing the goals of her care. Please call me with any questions or concerns. SAMANTA
[2017-03-30] MEDS: MIDODRINE 2.5 MG TAB PO SCH ×2 (12:27→18:20)
--- NOTE | 2017-03-30 14:59 | Gastrointestinal Consultation ---
Gastrointestinal Consultation Date of Consultation: Mar 30, 2017 Attending Physician: Consulting Physician: Dr. Jennifer Mcwilliams Reason for Consultation: upper GI bleed, esophagitis on EGD History of Present Illness Patient is a 66 year old female patient of Dr. Chani Smith with a hx of ETOH cirrhosis who was brought from [facility] yesterday for coffee ground emesis and black stools that began yesterday morning. She also has some nausea, SOB and bilateral lower extremity swelling. On arrival, Hb 6.8, down from 9.6 on 03/24. Today further decrease in Hb to 5.8. There was witnessed coffee grounds emesis and black stool today in the ICU. In addition to this, she has worsening of her renal function with Cr 7.2, up from baseline of 4.5. Her BUN has also been high at 102. The pt was admitted here in February as well. During that admission she underwent EGD with findings of esophagitis, grade one esophageal varices. She is maintained on Midodrine 30mg TID, Xifaxan 550mg BID, Famotidine 20mg daily. When asked questions, the pt gives very superficial, non specific answers. She does not seem able to provide a hx. Hx is obtained from prior GI consults as well as H&P from this visit and critical care consult. According to records, the pt has been w/o alcohol for only 3 months and much of that time, she has been an inpatient in a hospital or at rehab. Past Medical/Surgical History Medical Problems: (1) Acute GI bleeding Status: Acute (2) Acute kidney injury Status: Acute (3) Acute post-hemorrhagic anemia Status: Acute (4) Anemia Status: Acute (5) Cirrhosis, alcoholic Status: Chronic (6) Dehydration Status: Acute (7) Hyperkalemia Status: Acute (8) Hypomagnesemia Status: Acute (9) Hypomagnesemia Status: Acute (10) Hypotension Status: Acute (11) Liver failure Status: Acute (12) Malaise and fatigue Status: Acute (13) Renal failure Status: Acute (14) Weakness Status: Acute Past Medical History: 1. ETOH Cirrhosis with ascites, hepatic encephalopathy. 2. CKD 3. Hyperkalemia 4. Hypoalbuminemia Past Surgical History: 1. EGD on 02/17/17, Dr. Brar:Grade D esophagitis, small <5mm esophageal varices, normal stomach and duodenum. 2. Colonoscopy on 06/02/16 showed hyperplastic colon polyps. 3. Multiple paracenteses, most recently 03/17/17 w/o signs of SBP though Staph aureus did grown on culture on 03/11/17. This was documented on GI notes as suspected contaminant though she was treated (Daptomycin, Rocephin). Family History Patient reports no known family medical history. Social History Smoking Status: Heavy Tobacco Smoker Alcohol Use: none Drug Use: none Marital Status: single Occupation Status: retired Allergies Coded Allergies: Acetaminophen (Verified Allergy, Unknown, UNKNOWN, 03/29/17) PATIENT REPEATEDLY SAYS SHE IS NOT ALLERGIC TO THIS AND HAS TAKEN A LOT OF TYLENOL IN HER LIFE. SHE SAID SHE HAS LIVER ISSUES, BUT IS NOT ALLERGIC. I TRIED TO DELETE IT AND IT WOULDN'T LET ME. - Current Medications Home Meds and Scripts Medications Dose Route/Sig Max Daily Dose Days Date Category Dose Instructions Nephrocaps (Vitamin B Complex/Vit C/Folic Acid) Cap 1 Cap PO QAM 03/29/17 Reported Sodium Bicarbonate 650 Mg Tab 650 Mg PO BID 03/20/17 Rx Famotidine 20 Mg Tab 20 Mg PO QAM 03/20/17 Rx Midodrine HCl (Midodrine) 10 Mg Tab 30 Mg PO TID@,,03/20/17 Rx Xifaxan (Rifaximin) 550 Mg Tab 550 Mg PO BID 03/20/17 Rx Magnesium-Oxide (Magnesium Oxide) 400 Mg Tab 400 Mg PO BID 30 02/20/17 Rx Take 1 tablet by mouth twice a day. Citalopram Hydrobromide 20 Mg Tab 20 Mg PO DAILY 02/17/17 Reported Levothyroxine Sodium 125 Mcg Tab 125 Mcg PO DAILY 01/15/17 Reported Review of Systems Abdomen: + see HPI, + GI bleeding ROS not obtainable from the pt Physical Exam Date Time Temp Pulse Resp B/P (MAP) Pulse Ox O2 Delivery O2 Flow Rate FiO2 03/30/17 12:01 36.6 72 14 81/55 (64) 99 Room Air 03/30/17 12:00 99 Room Air 03/30/17 10:21 93 19 89/53 (65) 98 03/30/17 08:00 36.6 74 16 88/59 (69) 98 Room Air 03/30/17 08:00 95 Room Air 03/30/17 06:02 76 18 93/63 (73) 97 Room Air 03/30/17 04:03 36.7 89 19 105/47 (66) 100 Room Air 03/30/17 04:00 99 Room Air 03/30/17 02:02 66 21 98/61 (73) 98 Room Air 03/30/17 00:04 36.5 72 17 88/52 (64) 100 Room Air 03/29/17 23:59 99 Room Air 03/29/17 22:01 76 21 88/58 (68) 92 Room Air 03/29/17 21:48 36.8 77 19 96/61 (73) 100 03/29/17 21:32 36.7 80 19 96/63 (74) 100 03/29/17 21:17 36.6 79 19 90/54 (66) 100 03/29/17 21:16 36.6 78 15 82/47 (59) 90 03/29/17 21:03 36.6 79 21 88/44 (59) 100 03/29/17 20:47 36.3 77 17 96/58 (71) 99 03/29/17 20:32 36.6 83 19 79/54 (62) 92 03/29/17 20:17 36.4 84 15 97/57 (70) 100 03/29/17 20:03 36.6 87 20 78/56 (63) 99 Room Air 03/29/17 20:03 36.4 87 20 78/56 (63) 99 03/29/17 20:00 99 Room Air 03/29/17 19:58 86 15 88/48 (61) 100 03/29/17 19:52 36.6 85 14 81/57 (65) 98 03/29/17 18:00 88 18 82/52 (62) 99 Room Air 03/29/17 17:00 99 Room Air 03/29/17 16:25 36.5 92 15 83/48 (60) 99 Room Air 03/29/17 15:50 99 16 89/59 97 Room Air 03/29/17 15:38 88 24 96 03/29/17 15:33 83/50 03/29/17 15:23 86 22 82 03/29/17 15:17 81/53 03/29/17 15:15 97 Room Air 03/29/17 15:08 85 22 87 03/29/17 15:02 86/63 03/29/17 14:53 84 23 03/29/17 14:47 87/58 03/29/17 14:38 86 18 03/29/17 14:32 101/60 General Appearance: no apparent distress Eyes: PERRL Neck: supple, no JVD Respiratory/Chest: lungs clear Cardiovascular: regular rate, rhythm, no murmur Abdomen: soft, + pertinent finding (moderate ascites) Extremities: + swelling (bilat lower legs 1-2 +) Neurologic/Psych: alert, normal mood/affect, oriented x 3 Skin: no jaundice Laboratory Results Last 24 Hours Test 03/29/17 15:28 03/30/17 00:22 03/30/17 00:23 03/30/17 06:01 Hemoglobin 5.8 g/dL 8.7 g/dL Hematocrit 17.2 % 25.1 % Total Creatine Kinase 39 U/L Creatine Kinase MB 1.7 ng/ml Creatine Kinase MB Ratio 4.4 Troponin I < 0.015 ng/ml Bedside Glucose 119 mg/dl 98 mg/dl Test 03/30/17 06:20 03/30/17 10:05 03/30/17 11:22 White Blood Count 14.06 K/uL Red Blood Count 2.78 M/uL Hemoglobin 8.8 g/dL 8.3 g/dL Hematocrit 25.9 % 24.0 % Mean Corpuscular Volume 93.2 fL Mean Corpuscular Hemoglobin 31.7 pg Mean Corpuscular Hemoglobin Concent 34.0 g/dl Platelet Count 236 K/uL Mean Platelet Volume 10.4 fL Neutrophils (%) (Auto) 69.5 % Lymphocytes (%) (Auto) 19.8 % Monocytes (%) (Auto) 8.5 % Eosinophils (%) (Auto) 0.9 % Basophils (%) (Auto) 0.9 % Neutrophils # (Auto) 9.77 K/uL Lymphocytes # (Auto) 2.79 K/uL Monocytes # (Auto) 1.20 K/uL Eosinophils # (Auto) 0.12 K/uL Basophils # (Auto) 0.12 K/uL RDW Standard Deviation 58.4 fL RDW Coefficient of Variation 17.3 % Immature Granulocyte % (Auto) 0.4 % Immature Granulocyte # (Auto) 0.06 K/uL Echinocytes 2+ Prothrombin Time 11.9 SECONDS Prothromb Time International Ratio 1.1 Activated Partial Thromboplast Time 31.3 SECONDS Partial Thromboplastin Ratio 1.2 Sodium Level 138 mmol/L Potassium Level 4.5 mmol/L Chloride Level 104 mmol/L Carbon Dioxide Level 19 mmol/L Anion Gap 15.0 mmol/L Blood Urea Nitrogen 102 mg/dl Creatinine 7.20 mg/dl Est Creatinine Clear Calc Drug Dose 8.1 ml/min Estimated GFR () 6.3 Estimated GFR (Non- 5.4 BUN/Creatinine Ratio 14.2 Random Glucose 100 mg/dl Calcium Level 8.4 mg/dl Phosphorus Level 6.1 mg/dl Magnesium Level 2.2 mg/dl Total Bilirubin 1.2 mg/dl Direct Bilirubin 0.4 mg/dl Aspartate Amino Transf (AST/SGOT) 23 U/L Alanine Aminotransferase (ALT/SGPT) 12 U/L Alkaline Phosphatase 67 U/L Ammonia 21.0 umol/L Total Creatine Kinase 50 U/L Creatine Kinase MB 2.1 ng/ml Creatine Kinase MB Ratio 4.2 Troponin I < 0.015 ng/ml Total Protein 5.3 gm/dl Albumin 2.3 gm/dl Bedside Glucose 107 mg/dl Impression Patient is a 66 year old female with ETOH cirrhosis with ascites, prior hepatic encephalopathy, small esophageal varices and esophagitis on recent EGD. Her MELD is 21 but she is not a candidate for liver transplant because she has not been abstinent for 6 months. Her prognosis is poor, now with worsened renal function. Her current GI bleed likely represents esophagitis vs. a variceal bleed. Plan 1. Empiric tx of variceal bleed with Octreotide (continue). 2. Tx of UGI bleed with Protonix drip (continue) 3. May have clear liquids po 4. Long discussion with her aunt/uncle regarding her poor prognosis. Though we offered EGD, she is high risk for complications and because this is more likely from esophagitis. If this is esophagitis, she is already on the treatment for esophagitis and the EGD would not change her plan of care. 5. Aunt/uncle have decided to continue with medicines but would like to defer procedures at this time. GI will watch peripherally. If the family decides they would like EGD, please notify us. I saw and evaluated the patient with . GI is consulted for a question of Hematemesis in the setting ofr Chronic renal failure and liver disease. PE: patient not able to carry a conversation, no abdominal pain. IMpression: Patient with a history of chornic liver disease. Her last Upper Endoscopy was about 6 weeks ago notable for small varices and severe esophagitis. Based on the presentation I woudd favor esophagitis as the culprit to the coffee ground emesis. Overall her prognosis is poor, however, I suspect this is related to her renal failure and would suggest a nephrology consultation. We did have a long discussion with the patients POA who is considering hospice care. Recomendations IV Protonix Continue IV Octreotide Broad spectrum abx Nephrology consultation d/c Nadaolol
--- NOTE | 2017-03-30 15:26 | Palliative Care Consultation ---
Consultation Date of Consultation: Mar 30, 2017. Requesting Physician: Lakisha Edmonds PA-C Attending Physician: Dr. King, Dr. Garner Reason for Consultation: Goals of care History of Present Illness This 66 year old female patient presented to the ED yesterday with c/o hematemesis and black stools that began the same day. History largely obtained from record, some from her aunt and uncle. She was just discharged from the hospital nine days prior to arrival when she was here with liver failure and renal failure. She was discharged to [facility] afterwards. She has a complicated past medical history as listed below. Apparently she had episodes of coffee ground emesis and black tarry stools, was sent to ED. Admitted for upper GI bleed, acute on chronic renal failure, liver failure/alcoholic cirrhosis, and metabolic encephalopathy. Initially was admitted to ICU, is a DNR /DNI per her wishes. Palliative care consulted to establish goals of care. Met with patient first in room 107. She is awake and alert, very disorganized thoughts and not really able to formulate concrete thoughts or answers to questions. She did know she was in the hospital and confirmed with me that she doesn't want "a tube down her throat or to be brought back." Denied any pain but is uncomfortable in the bed. She said her uncle, Ed, is her POA and decision maker. I then met with the aunt and uncle outside of the room. We discussed patient's medical condition and goals of care. See plan below. Past Medical/Surgical History Medical History: Acute on chronic renal failure Alcoholic liver cirrhosis Ascites Hyperkalemia Hypoalbuminemia Social History Smoking Status: Heavy Tobacco Smoker History of Alcohol Use: Yes (history of etoh abuse, last drink December) Drug Use: none Marital Status: single Housing Status: lives alone Occupation Status: retired Review of Systems Respiratory: No shortness of breath Cardiac: No chest pain Abdomen: + problem reported (patient is hungry), No pain, No nausea, No vomiting Psychiatric: No anxiety limited ROS due to patient's confusion Allergies Coded Allergies: Acetaminophen (Verified Allergy, Unknown, UNKNOWN, 03/29/17) PATIENT REPEATEDLY SAYS SHE IS NOT ALLERGIC TO THIS AND HAS TAKEN A LOT OF TYLENOL IN HER LIFE. SHE SAID SHE HAS LIVER ISSUES, BUT IS NOT ALLERGIC. I TRIED TO DELETE IT AND IT WOULDN'T LET ME. - Medications Current Inpatient Medications Medications (Trade) Dose Ordered Sig/Brett Route Start Time Stop Time Status Last Admin Dose Admin Levothyroxine Sodium 62.5 mcg/ Syringe 3.125 ml @ 2 mls/min DAILY@09 IV 03/30/17 09:00 04/29/17 08:59 03/30/17 10:04 2 MLS/MIN Ceftriaxone Sodium 1 gm/ Dextrose 50 ml @ 100 mls/hr Q24H IV 03/29/17 17:00 04/08/17 16:59 03/29/17 16:45 100 MLS/HR Octreotide Acetate 500 mcg/ Sodium Chloride 105 ml @ 10 mls/hr [id number] IV 03/29/17 16:30 04/28/17 16:29 03/30/17 12:28 10 MLS/HR Pantoprazole Sodium 40 mg/ Dextrose 100 ml @ 20 mls/hr Q5H IV 03/29/17 19:30 04/28/17 19:29 03/30/17 12:28 20 MLS/HR Ondansetron HCl (Zofran Inj) 4 mg Q6H PRN IV 03/29/17 16:30 04/28/17 16:29 03/29/17 16:38 4 MG Morphine Sulfate (MoRPHine SULFATE INJ) 2 mg Q2H PRN IV 03/29/17 20:15 04/12/17 20:14 Albumin Human (Albumin 25%) 25 gm Q8 IV 03/30/17 14:00 04/02/17 13:59 Midodrine (Proamatine Tab) 5 mg TID@,,17 PO 03/30/17 12:00 04/29/17 11:59 03/30/17 12:27 5 MG Physical Exam Date Time Temp Pulse Resp B/P (MAP) Pulse Ox O2 Delivery O2 Flow Rate FiO2 03/30/17 12:01 36.6 72 14 81/55 (64) 99 Room Air 03/30/17 12:00 99 Room Air 03/30/17 10:21 93 19 89/53 (65) 98 03/30/17 08:00 36.6 74 16 88/59 (69) 98 Room Air 03/30/17 08:00 95 Room Air 03/30/17 06:02 76 18 93/63 (73) 97 Room Air 03/30/17 04:03 36.7 89 19 105/47 (66) 100 Room Air 03/30/17 04:00 99 Room Air 03/30/17 02:02 66 21 98/61 (73) 98 Room Air 03/30/17 00:04 36.5 72 17 88/52 (64) 100 Room Air 03/29/17 23:59 99 Room Air 03/29/17 22:01 76 21 88/58 (68) 92 Room Air 03/29/17 21:48 36.8 77 19 96/61 (73) 100 03/29/17 21:32 36.7 80 19 96/63 (74) 100 03/29/17 21:17 36.6 79 19 90/54 (66) 100 03/29/17 21:16 36.6 78 15 82/47 (59) 90 03/29/17 21:03 36.6 79 21 88/44 (59) 100 03/29/17 20:47 36.3 77 17 96/58 (71) 99 03/29/17 20:32 36.6 83 19 79/54 (62) 92 03/29/17 20:17 36.4 84 15 97/57 (70) 100 03/29/17 20:03 36.6 87 20 78/56 (63) 99 Room Air 03/29/17 20:03 36.4 87 20 78/56 (63) 99 03/29/17 20:00 99 Room Air 03/29/17 19:58 86 15 88/48 (61) 100 03/29/17 19:52 36.6 85 14 81/57 (65) 98 03/29/17 18:00 88 18 82/52 (62) 99 Room Air 03/29/17 17:00 99 Room Air 03/29/17 16:25 36.5 92 15 83/48 (60) 99 Room Air 03/29/17 15:50 99 16 89/59 97 Room Air 03/29/17 15:38 88 24 96 03/29/17 15:33 83/50 03/29/17 15:23 86 22 82 03/29/17 15:17 81/53 03/29/17 15:15 97 Room Air 03/29/17 15:08 85 22 87 03/29/17 15:02 86/63 03/29/17 14:53 84 23 03/29/17 14:47 87/58 03/29/17 14:38 86 18 General Appearance: no apparent distress, + pertinent finding (restless in bed) ENT: hearing grossly normal Neck: supple, no JVD Respiratory: no respiratory distress, no accessory muscle use, + decreased breath sounds Cardiovascular: regular rate, rhythm, + normal peripheral pulses Abdomen: normal bowel sounds, non tender, + distended (firm) Neurologic/Psychiatric: alert, + disoriented Laboratory Results Last 24 Hours Test 03/29/17 15:28 03/30/17 00:22 03/30/17 00:23 03/30/17 06:01 Hemoglobin 5.8 g/dL 8.7 g/dL Hematocrit 17.2 % 25.1 % Total Creatine Kinase 39 U/L Creatine Kinase MB 1.7 ng/ml Creatine Kinase MB Ratio 4.4 Troponin I < 0.015 ng/ml Bedside Glucose 119 mg/dl 98 mg/dl Test 03/30/17 06:20 03/30/17 10:05 03/30/17 11:22 White Blood Count 14.06 K/uL Red Blood Count 2.78 M/uL Hemoglobin 8.8 g/dL 8.3 g/dL Hematocrit 25.9 % 24.0 % Mean Corpuscular Volume 93.2 fL Mean Corpuscular Hemoglobin 31.7 pg Mean Corpuscular Hemoglobin Concent 34.0 g/dl Platelet Count 236 K/uL Mean Platelet Volume 10.4 fL Neutrophils (%) (Auto) 69.5 % Lymphocytes (%) (Auto) 19.8 % Monocytes (%) (Auto) 8.5 % Eosinophils (%) (Auto) 0.9 % Basophils (%) (Auto) 0.9 % Neutrophils # (Auto) 9.77 K/uL Lymphocytes # (Auto) 2.79 K/uL Monocytes # (Auto) 1.20 K/uL Eosinophils # (Auto) 0.12 K/uL Basophils # (Auto) 0.12 K/uL RDW Standard Deviation 58.4 fL RDW Coefficient of Variation 17.3 % Immature Granulocyte % (Auto) 0.4 % Immature Granulocyte # (Auto) 0.06 K/uL Echinocytes 2+ Prothrombin Time 11.9 SECONDS Prothromb Time International Ratio 1.1 Activated Partial Thromboplast Time 31.3 SECONDS Partial Thromboplastin Ratio 1.2 Sodium Level 138 mmol/L Potassium Level 4.5 mmol/L Chloride Level 104 mmol/L Carbon Dioxide Level 19 mmol/L Anion Gap 15.0 mmol/L Blood Urea Nitrogen 102 mg/dl Creatinine 7.20 mg/dl Est Creatinine Clear Calc Drug Dose 8.1 ml/min Estimated GFR () 6.3 Estimated GFR (Non- 5.4 BUN/Creatinine Ratio 14.2 Random Glucose 100 mg/dl Calcium Level 8.4 mg/dl Phosphorus Level 6.1 mg/dl Magnesium Level 2.2 mg/dl Total Bilirubin 1.2 mg/dl Direct Bilirubin 0.4 mg/dl Aspartate Amino Transf (AST/SGOT) 23 U/L Alanine Aminotransferase (ALT/SGPT) 12 U/L Alkaline Phosphatase 67 U/L Ammonia 21.0 umol/L Total Creatine Kinase 50 U/L Creatine Kinase MB 2.1 ng/ml Creatine Kinase MB Ratio 4.2 Troponin I < 0.015 ng/ml Total Protein 5.3 gm/dl Albumin 2.3 gm/dl Bedside Glucose 107 mg/dl Assessment & Plan Palliative Performance Scale: 30 % Problem list: Altered mental status Weakness Anemia 2/2 blood loss Metabolic encephalopathy Cirrhosis of the liver, alcoholic ASHELY on CKD Hypoalbuminemia Chronic pain- denies at this time Hx of Depression Hx of Alcohol abuse Goals of care (Z51.5) Palliative care recommendations: discussed with patient's POA/uncle Ed, Aunt Petty, and Dr. King. -DNR/DNI per previous discussion and patient confirmed with me. -Continue current medical treatment for another 24 hours and reevaluate for any improvement per the patient's POA/uncle, Ed. -For now, no GI procedures such as EGD. NORMA Arredondo, were in to speak with patient's family as well. -Patient's mental status is questionable, not really able to understand her illness or to make complex medical decisions at this time. Her living will states that with an end-stage medical condition that she would not want any life -prolonging measures such as CPR, intubation, dialysis, antibiotics, or tube feedings. she would want to be made comfortable at that time. I discussed this with the aunt and uncle and they agreed. -No escalation of care including central line placement per POA. -Recommend transferring out of ICU. I did talk with the family about this and they are okay with it. -If no procedures, allow PO intake. -I did explain this plan with the patient and she agreed to it, but of course in a seemingly limited capacity. -Options for comfort care/hospice care and transfer to a facility in the future were discussed. No decisions made at this time. Thank you kindly for this consult. I will follow.
[2017-03-30 15:33] LABS: HEMATOCRIT 23.6 % (37-47)
[2017-03-30] MEDS: ALBUMIN HUMAN 25% 12.5 GM/50 ML VIAL IV SCH ×2 (16:20→21:41)
[2017-03-30 17:15] LABS: URINE APPEARANCE TURBID (CLEAR); URINE COLOR DK YELLOW; URINE EPITHELIAL CELL AUTO >30 /lpf (0-5); URINE NITRITE NEG (NEG); URINE SPECIFIC GRAVITY 1.021 (1.000-1.030); UROBILINOGEN NEG (NEG); ZZUR CULT IF INDIC CLEAN CATCH YES
[2017-03-30 17:22] LABS: MANUAL MICROSCOPIC REQUIRED? NO; REVIEW REQ? YES
[2017-03-30 17:24] LABS: URINE BILIRUBIN NEG (NEG)
--- NOTE | 2017-03-30 17:30 | Progress Note ---
Subjective Date of Service: Mar 30, 2017. Subjective Pt evaluation today including: conversation w/ patient, physical exam, chart review, lab review, review of studies, conversation w/ home energy consultant, review of inpatient medication list COnfused Poor historian Somnolent No distress noted Problem List Medical Problems: (1) Acute GI bleeding Status: Acute (2) Acute kidney injury Status: Acute (3) Acute post-hemorrhagic anemia Status: Acute (4) Anemia Status: Acute (5) Cirrhosis, alcoholic Status: Chronic (6) Dehydration Status: Acute (7) Hyperkalemia Status: Acute (8) Hypomagnesemia Status: Acute (9) Hypomagnesemia Status: Acute (10) Hypotension Status: Acute (11) Liver failure Status: Acute (12) Malaise and fatigue Status: Acute (13) Renal failure Status: Acute (14) Weakness Status: Acute Review of Systems Unable to give history due to encephalopathy Objective Vital Signs Date Time Temp Pulse Resp B/P (MAP) Pulse Ox O2 Delivery O2 Flow Rate FiO2 03/30/17 16:01 36.9 69 13 80/48 (59) 100 Room Air 03/30/17 16:00 99 Room Air 03/30/17 14:02 79 20 78/50 (59) 03/30/17 12:01 36.6 72 14 81/55 (64) 99 Room Air 03/30/17 12:00 99 Room Air 03/30/17 10:21 93 19 89/53 (65) 98 03/30/17 08:00 36.6 74 16 88/59 (69) 98 Room Air 03/30/17 08:00 95 Room Air 03/30/17 06:02 76 18 93/63 (73) 97 Room Air 03/30/17 04:03 36.7 89 19 105/47 (66) 100 Room Air 03/30/17 04:00 99 Room Air 03/30/17 02:02 66 21 98/61 (73) 98 Room Air 03/30/17 00:04 36.5 72 17 88/52 (64) 100 Room Air 03/29/17 23:59 99 Room Air 03/29/17 22:01 76 21 88/58 (68) 92 Room Air 03/29/17 21:48 36.8 77 19 96/61 (73) 100 03/29/17 21:32 36.7 80 19 96/63 (74) 100 03/29/17 21:17 36.6 79 19 90/54 (66) 100 03/29/17 21:16 36.6 78 15 82/47 (59) 90 03/29/17 21:03 36.6 79 21 88/44 (59) 100 03/29/17 20:47 36.3 77 17 96/58 (71) 99 03/29/17 20:32 36.6 83 19 79/54 (62) 92 03/29/17 20:17 36.4 84 15 97/57 (70) 100 03/29/17 20:03 36.6 87 20 78/56 (63) 99 Room Air 03/29/17 20:03 36.4 87 20 78/56 (63) 99 03/29/17 20:00 99 Room Air 03/29/17 19:58 86 15 88/48 (61) 100 03/29/17 19:52 36.6 85 14 81/57 (65) 98 03/29/17 18:00 88 18 82/52 (62) 99 Room Air Physical Exam General Appearance: WD/WN, no apparent distress Eyes: normal inspection, PERRL, EOMI, sclerae normal Neck: supple, no adenopathy, thyroid normal, no JVD Respiratory/Chest: chest non-tender, lungs clear, normal breath sounds, no respiratory distress Cardiovascular: regular rate, rhythm, no edema, no gallop, no JVD Abdomen: normal bowel sounds, non tender, soft, + distended Extremities: normal range of motion, non-tender, normal inspection, no pedal edema Neurologic/Psychiatric: no motor/sensory deficits, alert, normal mood/affect, + disoriented Laboratory Results Last 24 Hours Test 03/30/17 00:22 03/30/17 00:23 03/30/17 06:01 03/30/17 06:20 Hemoglobin 8.7 g/dL 8.8 g/dL Hematocrit 25.1 % 25.9 % Total Creatine Kinase 39 U/L 50 U/L Creatine Kinase MB 1.7 ng/ml 2.1 ng/ml Creatine Kinase MB Ratio 4.4 4.2 Troponin I < 0.015 ng/ml < 0.015 ng/ml Bedside Glucose 119 mg/dl 98 mg/dl White Blood Count 14.06 K/uL Red Blood Count 2.78 M/uL Mean Corpuscular Volume 93.2 fL Mean Corpuscular Hemoglobin 31.7 pg Mean Corpuscular Hemoglobin Concent 34.0 g/dl Platelet Count 236 K/uL Mean Platelet Volume 10.4 fL Neutrophils (%) (Auto) 69.5 % Lymphocytes (%) (Auto) 19.8 % Monocytes (%) (Auto) 8.5 % Eosinophils (%) (Auto) 0.9 % Basophils (%) (Auto) 0.9 % Neutrophils # (Auto) 9.77 K/uL Lymphocytes # (Auto) 2.79 K/uL Monocytes # (Auto) 1.20 K/uL Eosinophils # (Auto) 0.12 K/uL Basophils # (Auto) 0.12 K/uL RDW Standard Deviation 58.4 fL RDW Coefficient of Variation 17.3 % Immature Granulocyte % (Auto) 0.4 % Immature Granulocyte # (Auto) 0.06 K/uL Echinocytes 2+ Prothrombin Time 11.9 SECONDS Prothromb Time International Ratio 1.1 Activated Partial Thromboplast Time 31.3 SECONDS Partial Thromboplastin Ratio 1.2 Sodium Level 138 mmol/L Potassium Level 4.5 mmol/L Chloride Level 104 mmol/L Carbon Dioxide Level 19 mmol/L Anion Gap 15.0 mmol/L Blood Urea Nitrogen 102 mg/dl Creatinine 7.20 mg/dl Est Creatinine Clear Calc Drug Dose 8.1 ml/min Estimated GFR () 6.3 Estimated GFR (Non- 5.4 BUN/Creatinine Ratio 14.2 Random Glucose 100 mg/dl Calcium Level 8.4 mg/dl Phosphorus Level 6.1 mg/dl Magnesium Level 2.2 mg/dl Total Bilirubin 1.2 mg/dl Direct Bilirubin 0.4 mg/dl Aspartate Amino Transf (AST/SGOT) 23 U/L Alanine Aminotransferase (ALT/SGPT) 12 U/L Alkaline Phosphatase 67 U/L Ammonia 21.0 umol/L Total Protein 5.3 gm/dl Albumin 2.3 gm/dl Test 03/30/17 10:05 03/30/17 11:22 03/30/17 15:12 03/30/17 17:00 Hemoglobin 8.3 g/dL 8.1 g/dL Hematocrit 24.0 % 23.6 % Bedside Glucose 107 mg/dl Assessment and Plan Upper GI bleed/symptomatic anemia Likely variceal in nature GI consulted Not a TIPS candidate On protonix and octreotide drip Acute on chronic renal failure stage 4 Nephrology consulted AIN vs hepatorenal which is more unlikely On triple therapy Alcoholic cirrhosis Not liver transplant candidate Inc MELD SCORE Hypothyroidism Cont levothyroxine sodium 62.5 ug IV daily Anxiety/depression Cont lorazepam 0.5 mg IV every 4 hours when necessary
[2017-03-30] MEDS: CEFTRIAXONE SOD INJ 1 GM in DEXTROSE 5% ADD-VANTAGE 50ML 50 ML IV SCH (18:24)
[2017-03-30 21:33] LABS: HEMATOCRIT 22.1 % (37-47)
[2017-03-31] VITALS (8 sets, daily range): BP systolic 78–97; BP diastolic 47–62; PULSE 77–88; TEMP 36.5–37; O2SAT 95–97
[2017-03-31] MEDS: ONDANSETRON INJ 2 MG/ML 2 ML VIAL IV PRN ×2 (00:15→20:21)
[2017-03-31] MEDS: OCTREOTIDE ACETATE INJ 500 MCG in NSS 100ML IV SCH (00:15)
[2017-03-31] MEDS: MoRPHine SULFATE 2 MG/ML CARP IV PRN ×4 (02:20→20:26)
[2017-03-31] MEDS: PANTOprazole INJ 40 MG in DEXTROSE 5% 100ML IV SCH ×3 (02:31→11:06)
[2017-03-31] MEDS: ALBUMIN HUMAN 25% 12.5 GM/50 ML VIAL IV SCH (05:32)
[2017-03-31 07:10] LABS: INR 1.2 (0.9-1.1); PARTIAL THROMBOPLASTIN RATIO 1.3; PROTHROMBIN TIME (PATIENT) 12.5 SECONDS (9.0-12.0)
--- NOTE | 2017-03-31 07:40 | DIAGNOSTIC IMAGING REPORT ---
CHEST ONE VIEW PORTABLE CLINICAL HISTORY: UGLI bleed, Liver failure, kidney failure COMPARISON STUDY: 03/30/2017 FINDINGS: Focal atelectasis left base. Lungs otherwise appear clear. Inspiratory volumes are diminished. No evidence for cardiac enlargement. IMPRESSION: Interval atelectatic change left base. Electronically signed by: Sheldon Hutton M.D. 03/31/2017 7:38 AM Dictated Date/Time: 03/31/2017 7:36 AM
[2017-03-31 07:47] LABS: BUN/CREATININE RATIO 14.6 (10-20); CALCIUM 8.3 mg/dl (8.5-10.1); CREATININE 7.6 mg/dl (0.60-1.20); MAGNESIUM 2.3 mg/dl (1.8-2.4); PHOSPHORUS 6.5 mg/dl (2.5-4.9); POTASSIUM 4.7 mmol/L (3.5-5.1)
[2017-03-31 08:14] LABS: HEMATOCRIT 20.1 % (37-47); MEAN CELL VOLUME 95.7 fL (80-100); MEAN CORPUSCULAR HEMOGLOBIN 33.8 pg (25-34); MEAN CORPUSCULAR HGB CONC 35.3 g/dl (32-36); MEAN PLATELET VOLUME 11.1 fL (7.4-10.4); PLATELET COUNT 198 K/uL (130-400); WHITE BLOOD COUNT 13.42 K/uL (4.8-10.8)
[2017-03-31 08:20] LABS: BASO % 0.7 %; COMPLETE YES; EOS % 1.8 %; IG% 0.4 %; LYMPH % 14.2 %; MONO % 9.6 %; NEUT % 73.3 %
--- NOTE | 2017-03-31 10:00 | Nephrology Progress Note ---
Nephrology Progress Note Date of Service Mar 31, 2017. Chief Complaint ASHELY/CKD Subjective Contreras was awake this morning but not able to engage in an appropriate conversation. She remains very confused. She denies pain. She continues to have black tarry stool. Abdomen is tense but not tender. Palliative care note reviewed. Urine output minimal. No fevers or chills. Appetite minimal. Tolerated very little by mouth this morning. Review of Systems A complete review of systems was performed. Pertinent positives are noted above. All other systems are negative. Vital Signs Last 8 Hrs Date Time Temp Pulse Resp B/P (MAP) Pulse Ox O2 Delivery O2 Flow Rate FiO2 03/31/17 08:00 Room Air 03/31/17 07:49 36.7 79 19 78/56 (63) 95 Room Air 03/31/17 05:37 37.0 88 16 85/47 (60) 97 Room Air 03/31/17 04:00 Room Air 03/31/17 03:10 36.8 86 22 87/58 (68) 96 Room Air Last Recorded Weight Weight (Kilograms): 80.100 Physical Exam General Appearance: no apparent distress, + thin Head: normocephalic, atraumatic Eyes: normal inspection, sclerae normal ENT: normal ENT inspection, + pertinent finding (oral mucosa dry) Neck: supple, no JVD Respiratory/Chest: no respiratory distress, no accessory muscle use, + decreased breath sounds, + rales (right base) Cardiovascular: regular rate, rhythm, no gallop, no murmur Abdomen/GI: + distended, + pertinent finding (tense, non tender) Genitourinary - Female: + pertinent finding (Alvarez draining concentrated urine) Extremities/Musculoskelatal: + pertinent finding (Increasing pitting BL LE edema) Neurologic/Psych: + pertinent finding (no tremor, lethargic and not answering questions appropriately) Family History Patient reports no known family medical history. Social History Smokeless Tobacco Use: No Alcohol Use: heavy Drug Use: none Marital Status: single Housing Status: lives alone Occupation: retired Laboratory Results Past 24 Hours 03/30/17 10:05 03/30/17 15:12 03/30/17 21:20 03/31/17 06:43 Red Blood Count 2.10, Mean Corpuscular Volume 95.7, Mean Corpuscular Hemoglobin 33.8, Mean Corpuscular Hemoglobin Concent 35.3, Mean Platelet Volume 11.1, Neutrophils (%) (Auto) 73.3, Lymphocytes (%) (Auto) 14.2, Monocytes (%) (Auto) 9.6, Eosinophils (%) (Auto) 1.8, Basophils (%) (Auto) 0.7, Neutrophils # (Auto) 9.84, Lymphocytes # (Auto) 1.90, Monocytes # (Auto) 1.29, Eosinophils # (Auto) 0.24, Basophils # (Auto) 0.10 03/31/17 06:43 Test 03/30/17 11:22 03/30/17 17:00 03/31/17 06:43 Bedside Glucose 107 mg/dl (70-90) Urine Color DK YELLOW Urine Appearance TURBID (CLEAR) Urine pH 5.0 (4.5-7.5) Urine Specific [place] 1.021 (1.000-1.030) Urine Protein NEG (NEG) Urine Glucose (UA) NEG (NEG) Urine Ketones TRACE (NEG) Urine Occult Blood 2+ (NEG) Urine Nitrite NEG (NEG) Urine Bilirubin NEG (NEG) Urine Urobilinogen NEG (NEG) Urine Leukocyte Esterase SMALL (NEG) Urine WBC (Auto) 10-30 /hpf (0-5) Urine RBC (Auto) 0-4 /hpf (0-4) Urine Hyaline Casts (Auto) 1-5 /lpf (0-5) Urine Epithelial Cells (Auto) >30 /lpf (0-5) Urine Bacteria (Auto) 1+ (NEG) Urine Renal Epithelial Cells /lpf (0-5) Urine Pathogenic Casts /lpf (0) Urine Yeast (Auto) (NONE PRSENT) Urine Random Sodium 9 mEq/L White Blood Count 13.42 K/uL (4.8-10.8) Red Blood Count 2.10 M/uL (4.2-5.4) Hemoglobin 7.1 g/dL (12.0-16.0) Hematocrit 20.1 % (37-47) Mean Corpuscular Volume 95.7 fL (80-100) Mean Corpuscular Hemoglobin 33.8 pg (25-34) Mean Corpuscular Hemoglobin Concent 35.3 g/dl (32-36) Platelet Count 198 K/uL (130-400) Mean Platelet Volume 11.1 fL (7.4-10.4) Neutrophils (%) (Auto) 73.3 % Lymphocytes (%) (Auto) 14.2 % Monocytes (%) (Auto) 9.6 % Eosinophils (%) (Auto) 1.8 % Basophils (%) (Auto) 0.7 % Neutrophils # (Auto) 9.84 K/uL (1.4-6.5) Lymphocytes # (Auto) 1.90 K/uL (1.2-3.4) Monocytes # (Auto) 1.29 K/uL (0.11-0.59) Eosinophils # (Auto) 0.24 K/uL (0-0.5) Basophils # (Auto) 0.10 K/uL (0-0.2) RDW Standard Deviation 60.0 fL (36.4-46.3) RDW Coefficient of Variation 17.2 % (11.5-14.5) Immature Granulocyte % (Auto) 0.4 % Immature Granulocyte # (Auto) 0.05 K/uL (0.00-0.02) Red Blood Cell Morphology Unremarkable Prothrombin Time 12.5 SECONDS (9.0-12.0) Prothromb Time International Ratio 1.2 (0.9-1.1) Activated Partial Thromboplast Time 33.2 SECONDS (21.0-31.0) Partial Thromboplastin Ratio 1.3 Anion Gap 14.0 mmol/L (3-11) Est Creatinine Clear Calc Drug Dose 7.7 ml/min Estimated GFR () 5.9 Estimated GFR (Non- 5.1 BUN/Creatinine Ratio 14.6 (10-20) Calcium Level 8.3 mg/dl (8.5-10.1) Phosphorus Level 6.5 mg/dl (2.5-4.9) Magnesium Level 2.3 mg/dl (1.8-2.4) Total Bilirubin 0.7 mg/dl (0.2-1) Direct Bilirubin 0.3 mg/dl (0-0.2) Aspartate Amino Transf (AST/SGOT) 21 U/L (15-37) Alanine Aminotransferase (ALT/SGPT) 12 U/L (12-78) Alkaline Phosphatase 53 U/L (45-117) Ammonia 19.0 umol/L (11-32) Total Protein 5.5 gm/dl (6.4-8.2) Albumin 3.1 gm/dl (3.4-5.0) Allergies Coded Allergies: Acetaminophen (Verified Allergy, Unknown, UNKNOWN, 03/29/17) PATIENT REPEATEDLY SAYS SHE IS NOT ALLERGIC TO THIS AND HAS TAKEN A LOT OF TYLENOL IN HER LIFE. SHE SAID SHE HAS LIVER ISSUES, BUT IS NOT ALLERGIC. I TRIED TO DELETE IT AND IT WOULDN'T LET ME. - Medications Current Inpatient Medications Medications (Trade) Dose Ordered Sig/Brett Route Start Time Stop Time Status Last Admin Dose Admin Levothyroxine Sodium 62.5 mcg/ Syringe 3.125 ml @ 2 mls/min DAILY@09 IV 03/30/17 09:00 04/29/17 08:59 03/30/17 10:04 2 MLS/MIN Ceftriaxone Sodium 1 gm/ Dextrose 50 ml @ 100 mls/hr Q24H IV 03/29/17 17:00 04/08/17 16:59 03/30/17 18:24 100 MLS/HR Octreotide Acetate 500 mcg/ Sodium Chloride 105 ml @ 10 mls/hr [id number] IV 03/29/17 16:30 04/28/17 16:29 03/31/17 00:15 10 MLS/HR Pantoprazole Sodium 40 mg/ Dextrose 100 ml @ 20 mls/hr Q5H IV 03/29/17 19:30 04/28/17 19:29 03/31/17 06:40 20 MLS/HR Ondansetron HCl (Zofran Inj) 4 mg Q6H PRN IV 03/29/17 16:30 04/28/17 16:29 03/31/17 00:15 4 MG Morphine Sulfate (MoRPHine SULFATE INJ) 2 mg Q2H PRN IV 03/29/17 20:15 04/12/17 20:14 03/31/17 02:20 2 MG Albumin Human (Albumin 25%) 25 gm Q8 IV 03/30/17 14:00 04/02/17 13:59 03/31/17 05:32 25 GM Midodrine (Proamatine Tab) 5 mg TID@08,12,17 PO 03/30/17 12:00 04/29/17 11:59 03/30/17 18:20 5 MG Impression (1) Acute blood loss anemia (2) GI bleed (3) Acute renal insufficiency (4) Renal failure (ARF), acute on chronic (5) Liver failure (6) Ascites due to alcoholic cirrhosis Contreras Stevenson is a 66-year-old female with alcoholic cirrhosis complicated by ascites, a documented history of encephalopathy as well as grade 1 esophageal varices. MELD 21, Child-Francis C. Contreras was admitted to [facility] with anemia and evidence of GI bleed. Hemoglobin initially improved with PRBC x 4 units. She continues to have melena. No additional hematemesis. Family has decided not to escalate care. She has tense increasing ascites. Increased TBW and poor oral intake. I would suggest at this time that we minimize IVF. Continue albumin for an additional 24 hours for possible HRS, if consistent with goals of care, I would suggest IV albumin be given with any therapeutic paracentesis which would also be appropriate at this time. Octreotide was switched to SQ this morning. Midodrine increased to 10 mg TID to assist with hypotension. For anemia, despite acute blood loss, I did provide Epogen [id number] units this morning due to the advanced nature of her illness. Overall, there has been no sign of renal recovery and encephalopathy persists. The prognosis for recovery is very poor and providing continued support for HRS is unlikely to provide any benefit. Recommendations -- Increase midodrine to 10 mg TID -- Switch octreotide to SQ Q 8 hr -- Continue albumin additional 24 hours and pending possible paracentesis -- Consider therapeutic paracentesis today -- Prognosis for recovery is poor -- Epogen [id number] SQ x 1 dose today
[2017-03-31 10:11] LABS: HEMATOCRIT 20.2 % (37-47)
[2017-03-31] MEDS: LEVOTHYROXINE SODIUM INJ 62.5 MCG in SYRINGE 0 ML IV SCH (11:00)
[2017-03-31] MEDS: MIDODRINE 2.5 MG TAB PO SCH ×2 (11:00→18:37)
[2017-03-31] MEDS ORDERED: ALBUMIN HUMAN 25% 12.5 GM/50 ML VIAL IV ONE (11:15)
--- NOTE | 2017-03-31 11:18 | Gastroenterology Progress Note ---
Progress Note Date of Service: Mar 31, 2017 Subjective Pt evaluation today including: conversation w/ patient, physical exam, chart review, lab review, review of studies, review of inpatient medication list Ms. Stevenson is a 66 yr old female with a hx of ETOH cirrhosis with ascites, [facility], coffee grounds emesis. Hb on arrival was 6.8, then received 2 units of blood now drifted back down to 6.8. 3 loose black stools on nipple maker, non thus far on this shift. Pt is awake, able to tell me her name and that it is March. Unable to tell the year and answers to all questions are very non specific. Unsure if she is able to understand the question. Family hasn't arrived at the hospital yet today. Yesterday, after a long discussion they preferred to avoid EGD. Review of Systems Constitutional: + weakness (general), No fever, No chills Respiratory: No cough Cardiac: No chest pain (denies) Abdomen: + diarrhea (3 small to moderate loose stools on nipple maker), No pain (denies), No nausea, No vomiting Female : + problem reported (low urine output) Neuro: + memory loss Psych: No depression symptoms Heme: No abnormal bleeding/bruising Skin: No rash, No jaundice Medications Current Inpatient Medications Medications (Trade) Dose Ordered Sig/Brett Route Start Time Stop Time Status Last Admin Dose Admin Levothyroxine Sodium 62.5 mcg/ Syringe 3.125 ml @ 2 mls/min DAILY@09 IV 03/30/17 09:00 04/29/17 08:59 03/31/17 11:00 2 MLS/MIN Ceftriaxone Sodium 1 gm/ Dextrose 50 ml @ 100 mls/hr Q24H IV 03/29/17 17:00 04/08/17 16:59 03/30/17 18:24 100 MLS/HR Pantoprazole Sodium 40 mg/ Dextrose 100 ml @ 20 mls/hr Q5H IV 03/29/17 19:30 04/28/17 19:29 03/31/17 11:06 20 MLS/HR Ondansetron HCl (Zofran Inj) 4 mg Q6H PRN IV 03/29/17 16:30 04/28/17 16:29 03/31/17 00:15 4 MG Morphine Sulfate (MoRPHine SULFATE INJ) 2 mg Q2H PRN IV 03/29/17 20:15 04/12/17 20:14 03/31/17 02:20 2 MG Albumin Human (Albumin 25%) 25 gm Q8 IV 03/30/17 14:00 04/02/17 13:59 03/31/17 05:32 25 GM Epoetin Chucky (Procrit Inj) 40,000 units 1330 SQ 03/31/17 13:30 03/31/17 13:31 Midodrine (Proamatine Tab) 10 mg TID@08,12,17 PO 03/31/17 12:00 04/29/17 11:59 03/31/17 11:00 10 MG Octreotide Acetate (Sandostatin Inj) 100 mcg Q8H SQ 03/31/17 14:00 04/30/17 13:59 Objective Vital Signs Date Time Temp Pulse Resp B/P (MAP) Pulse Ox O2 Delivery O2 Flow Rate FiO2 03/31/17 08:00 Room Air 03/31/17 07:49 36.7 79 19 78/56 (63) 95 Room Air 03/31/17 05:37 37.0 88 16 85/47 (60) 97 Room Air 03/31/17 04:00 Room Air 03/31/17 03:10 36.8 86 22 87/58 (68) 96 Room Air 03/31/17 00:05 Room Air 03/30/17 23:10 36.8 85 18 94/62 (73) 95 Room Air 03/30/17 20:00 Room Air 03/30/17 18:57 36.7 84 20 88/59 (69) 98 Room Air 03/30/17 18:54 36.7 84 20 88/59 (69) 98 Room Air 03/30/17 16:01 36.9 69 13 80/48 (59) 100 Room Air 03/30/17 16:00 99 Room Air 03/30/17 14:02 79 20 78/50 (59) 03/30/17 12:01 36.6 72 14 81/55 (64) 99 Room Air 03/30/17 12:00 99 Room Air Physical Exam General Appearance: no apparent distress Neck: no JVD Respiratory/Chest: lungs clear Cardiovascular: regular rate, rhythm, no JVD, no murmur Abdomen: non tender, + tenderness (moderate ascites) Neurologic/Psych: alert, normal mood/affect, oriented x 3 Skin: no jaundice Laboratory Results Last 24 Hours Test 03/30/17 11:22 03/30/17 15:12 03/30/17 17:00 03/30/17 21:20 Bedside Glucose 107 mg/dl Hemoglobin 8.1 g/dL 7.7 g/dL Hematocrit 23.6 % 22.1 % Urine Color DK YELLOW Urine Appearance TURBID Urine pH 5.0 Urine Specific [place] 1.021 Urine Protein NEG Urine Glucose (UA) NEG Urine Ketones TRACE Urine Occult Blood 2+ Urine Nitrite NEG Urine Bilirubin NEG Urine Urobilinogen NEG Urine Leukocyte Esterase SMALL Urine WBC (Auto) 10-30 /hpf Urine RBC (Auto) 0-4 /hpf Urine Hyaline Casts (Auto) 1-5 /lpf Urine Epithelial Cells (Auto) >30 /lpf Urine Bacteria (Auto) 1+ Urine Renal Epithelial Cells /lpf Urine Pathogenic Casts /lpf Urine Yeast (Auto) Urine Random Sodium 9 mEq/L Test 03/31/17 06:43 03/31/17 09:40 White Blood Count 13.42 K/uL Red Blood Count 2.10 M/uL Hemoglobin 7.1 g/dL 6.8 g/dL Hematocrit 20.1 % 20.2 % Mean Corpuscular Volume 95.7 fL Mean Corpuscular Hemoglobin 33.8 pg Mean Corpuscular Hemoglobin Concent 35.3 g/dl Platelet Count 198 K/uL Mean Platelet Volume 11.1 fL Neutrophils (%) (Auto) 73.3 % Lymphocytes (%) (Auto) 14.2 % Monocytes (%) (Auto) 9.6 % Eosinophils (%) (Auto) 1.8 % Basophils (%) (Auto) 0.7 % Neutrophils # (Auto) 9.84 K/uL Lymphocytes # (Auto) 1.90 K/uL Monocytes # (Auto) 1.29 K/uL Eosinophils # (Auto) 0.24 K/uL Basophils # (Auto) 0.10 K/uL RDW Standard Deviation 60.0 fL RDW Coefficient of Variation 17.2 % Immature Granulocyte % (Auto) 0.4 % Immature Granulocyte # (Auto) 0.05 K/uL Red Blood Cell Morphology Unremarkable Prothrombin Time 12.5 SECONDS Prothromb Time International Ratio 1.2 Activated Partial Thromboplast Time 33.2 SECONDS Partial Thromboplastin Ratio 1.3 Sodium Level 137 mmol/L Potassium Level 4.7 mmol/L Chloride Level 105 mmol/L Carbon Dioxide Level 18 mmol/L Anion Gap 14.0 mmol/L Blood Urea Nitrogen 111 mg/dl Creatinine 7.60 mg/dl Est Creatinine Clear Calc Drug Dose 7.7 ml/min Estimated GFR () 5.9 Estimated GFR (Non- 5.1 BUN/Creatinine Ratio 14.6 Random Glucose 108 mg/dl Calcium Level 8.3 mg/dl Phosphorus Level 6.5 mg/dl Magnesium Level 2.3 mg/dl Total Bilirubin 0.7 mg/dl Direct Bilirubin 0.3 mg/dl Aspartate Amino Transf (AST/SGOT) 21 U/L Alanine Aminotransferase (ALT/SGPT) 12 U/L Alkaline Phosphatase 53 U/L Ammonia 19.0 umol/L Total Protein 5.5 gm/dl Albumin 3.1 gm/dl Assessment and Plan Ms. Stevenson is a 66 yr old female with ETOH cirrhosis with ascites, acute on chronic renal failure. Plan: 1. Appreciate nephrology input. 2. Plan for paracentesis today with cell count and culture. 3. Will talk with family members and we will do EGD if that is their wish. 4. Continue Protonix drip. 5. Continue to monitor stool outputs but decrease Hb to Q 8 hrs. I saw and evaluated the patient with Ms. Triana this afternoon. She continues to have small volume melena without hematemesis or pain. Overall she seems to be slowly declining and has poor mentation (confusion). Impression: patient with a history of alcoholic liver disease resulting in cirrhosis complicated by ascites, small varices, recurrent SBP and probable HRS. At this point, the patient was deemed not a transplant candidate by my partners last month due to recent use of alcohol. Unfortunatly she does not appear to be improving despite a trail of Midrodine / octreotide and albumin ( start in February). We could consider an EGD for evaluation of the melena if desired by the family and primary team. Recomendations Continue with supportive care consider a diagnostic / theraputic paracentesis (eval for recurrent SBP)
[2017-03-31] MEDS ORDERED: EPOETIN ALFA 40,000 UNITS/ML VIAL SQ SCH (13:30)
[2017-03-31] MEDS ORDERED: OCTREOTIDE ACETATE 100 MCG/ML VIAL SQ SCH (14:00)
[2017-03-31] MEDS ORDERED: ALBUMIN HUMAN 25% 12.5 GM/50 ML VIAL IV SCH (14:00)
[2017-03-31] MEDS ORDERED: NURSING VERBAL MED ORDER ONE (14:15)
--- NOTE | 2017-03-31 14:20 | Progress Note ---
Subjective Date of Service: Mar 31, 2017. Subjective Pt evaluation today including: conversation w/ patient, conversation w/ family , physical exam, chart review, lab review, review of studies, conversation w/ weight loss consultant, review of inpatient medication list Patient resting comfortably in bed Family discussion with uncle POA - comfort care, no paracentesis Problem List Medical Problems: (1) Acute GI bleeding Status: Acute (2) Acute kidney injury Status: Acute (3) Acute post-hemorrhagic anemia Status: Acute (4) Anemia Status: Acute (5) Cirrhosis, alcoholic Status: Chronic (6) Dehydration Status: Acute (7) Hyperkalemia Status: Acute (8) Hypomagnesemia Status: Acute (9) Hypomagnesemia Status: Acute (10) Hypotension Status: Acute (11) Liver failure Status: Acute (12) Malaise and fatigue Status: Acute (13) Renal failure Status: Acute (14) Weakness Status: Acute Review of Systems Constitutional: No fever, No chills ENT: No hearing loss, No unusual epistaxis, No nasal symptoms, No sore throat Respiratory: No cough, No sputum, No wheezing, No shortness of breath, No dyspnea on exertion Cardiac: No chest pain, No orthopnea Abdomen: No pain, No nausea, No vomiting, No diarrhea, No constipation Musculoskeletal: No joint pain, No muscle pain Female : No dysuria, No urinary frequency, No hematuria, No incontinence Neurologic: No memory loss, No paralysis, No weakness, No numbness/tingling Psychiatric: No depression symptoms, No anhedonism, No anxiety, No insomnia Objective Vital Signs Date Time Temp Pulse Resp B/P (MAP) Pulse Ox O2 Delivery O2 Flow Rate FiO2 03/31/17 12:00 Room Air 03/31/17 11:41 36.5 77 21 85/54 (64) 96 Room Air 03/31/17 08:00 Room Air 03/31/17 07:49 36.7 79 19 78/56 (63) 95 Room Air 03/31/17 05:37 37.0 88 16 85/47 (60) 97 Room Air 03/31/17 04:00 Room Air 03/31/17 03:10 36.8 86 22 87/58 (68) 96 Room Air 03/31/17 00:05 Room Air 03/30/17 23:10 36.8 85 18 94/62 (73) 95 Room Air 03/30/17 20:00 Room Air 03/30/17 18:57 36.7 84 20 88/59 (69) 98 Room Air 03/30/17 18:54 36.7 84 20 88/59 (69) 98 Room Air 03/30/17 16:01 36.9 69 13 80/48 (59) 100 Room Air 03/30/17 16:00 99 Room Air Physical Exam General Appearance: WD/WN, no apparent distress Eyes: normal inspection, PERRL, EOMI, sclerae normal Neck: supple, no adenopathy, thyroid normal, no JVD Respiratory/Chest: chest non-tender, lungs clear, normal breath sounds, no respiratory distress Cardiovascular: regular rate, rhythm, no gallop, no JVD, no murmur Abdomen: normal bowel sounds, non tender, soft, no organomegaly Extremities: normal range of motion, non-tender, normal inspection, + pedal edema Neurologic/Psychiatric: 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 nml as tested, no motor/sensory deficits, alert, + disoriented Laboratory Results Last 24 Hours Test 03/30/17 15:12 03/30/17 17:00 03/30/17 21:20 03/31/17 06:43 Hemoglobin 8.1 g/dL 7.7 g/dL 7.1 g/dL Hematocrit 23.6 % 22.1 % 20.1 % Urine Color DK YELLOW Urine Appearance TURBID Urine pH 5.0 Urine Specific [place] 1.021 Urine Protein NEG Urine Glucose (UA) NEG Urine Ketones TRACE Urine Occult Blood 2+ Urine Nitrite NEG Urine Bilirubin NEG Urine Urobilinogen NEG Urine Leukocyte Esterase SMALL Urine WBC (Auto) 10-30 /hpf Urine RBC (Auto) 0-4 /hpf Urine Hyaline Casts (Auto) 1-5 /lpf Urine Epithelial Cells (Auto) >30 /lpf Urine Bacteria (Auto) 1+ Urine Renal Epithelial Cells /lpf Urine Pathogenic Casts /lpf Urine Yeast (Auto) Urine Random Sodium 9 mEq/L White Blood Count 13.42 K/uL Red Blood Count 2.10 M/uL Mean Corpuscular Volume 95.7 fL Mean Corpuscular Hemoglobin 33.8 pg Mean Corpuscular Hemoglobin Concent 35.3 g/dl Platelet Count 198 K/uL Mean Platelet Volume 11.1 fL Neutrophils (%) (Auto) 73.3 % Lymphocytes (%) (Auto) 14.2 % Monocytes (%) (Auto) 9.6 % Eosinophils (%) (Auto) 1.8 % Basophils (%) (Auto) 0.7 % Neutrophils # (Auto) 9.84 K/uL Lymphocytes # (Auto) 1.90 K/uL Monocytes # (Auto) 1.29 K/uL Eosinophils # (Auto) 0.24 K/uL Basophils # (Auto) 0.10 K/uL RDW Standard Deviation 60.0 fL RDW Coefficient of Variation 17.2 % Immature Granulocyte % (Auto) 0.4 % Immature Granulocyte # (Auto) 0.05 K/uL Red Blood Cell Morphology Unremarkable Prothrombin Time 12.5 SECONDS Prothromb Time International Ratio 1.2 Activated Partial Thromboplast Time 33.2 SECONDS Partial Thromboplastin Ratio 1.3 Sodium Level 137 mmol/L Potassium Level 4.7 mmol/L Chloride Level 105 mmol/L Carbon Dioxide Level 18 mmol/L Anion Gap 14.0 mmol/L Blood Urea Nitrogen 111 mg/dl Creatinine 7.60 mg/dl Est Creatinine Clear Calc Drug Dose 7.7 ml/min Estimated GFR () 5.9 Estimated GFR (Non- 5.1 BUN/Creatinine Ratio 14.6 Random Glucose 108 mg/dl Calcium Level 8.3 mg/dl Phosphorus Level 6.5 mg/dl Magnesium Level 2.3 mg/dl Total Bilirubin 0.7 mg/dl Direct Bilirubin 0.3 mg/dl Aspartate Amino Transf (AST/SGOT) 21 U/L Alanine Aminotransferase (ALT/SGPT) 12 U/L Alkaline Phosphatase 53 U/L Ammonia 19.0 umol/L Total Protein 5.5 gm/dl Albumin 3.1 gm/dl Test 03/31/17 09:40 Hemoglobin 6.8 g/dL Hematocrit 20.2 % Assessment and Plan Upper GI bleed/symptomatic anemia Likely variceal in nature, worsening Hg, family discussion on 03/31, uncle POA determined comfort measures as pt incapable to make decisions GI consulted - no therapeutic paracentesis at this time per POA wishes Not a TIPS candidate On protonix and octreotide drip, can DC once on comfort measures Acute on chronic renal failure stage 4 Worsening Nephrology consulted AIN vs hepatorenal which is more unlikely On triple therapy Poor candidate for dialysis Alcoholic cirrhosis Not liver transplant candidate due to not abstinent from alcohol for 6 months in addition to being unstable Inc MELD SCORE Morphine 2mg IV q 2h PRN pain Hypothyroidism Stable Discontinue levothyroxine sodium 62.5 ug IV dailyon comfort measures Anxiety/depression Cont lorazepam 0.5 mg IV every 4 hours as necessary
--- NOTE | 2017-03-31 16:10 | Palliative Care Progress Note ---
Palliative Care Progress Note Date of Service Mar 31, 2017. Subjective Pt evaluation today including: conversation w/ patient, conversation w/ family , physical exam, chart review, conversation w/ internet marketing consultant, review of inpatient medication list Pain: 0/10 PO Intake: small amounts of clear liquid Voiding: stout catheter in place -Patient remains confused, but about the same as yesterday. Able to answer some things appropriately. Denies pain or SOB. Looks rather comfortable after morphine. Still not capable of making complex medical decisions. -Long conversation held between myself, aunt and uncle/POA of patient, Dr. Garner, and NORMA Johnson. See plan below. Review of Systems Respiratory: No shortness of breath Cardiac: No chest pain Abdomen: No pain, No nausea, No vomiting Female : No problem reported Psychiatric: No anxiety limited ROS Objective Vital Signs Date Time Temp Pulse Resp B/P (MAP) Pulse Ox O2 Delivery O2 Flow Rate FiO2 03/31/17 15:04 36.9 82 18 97/62 (74) 97 03/31/17 14:43 36.5 77 21 96 03/31/17 12:00 Room Air 03/31/17 11:41 36.5 77 21 85/54 (64) 96 Room Air 03/31/17 08:00 Room Air 03/31/17 07:49 36.7 79 19 78/56 (63) 95 Room Air 03/31/17 05:37 37.0 88 16 85/47 (60) 97 Room Air 03/31/17 04:00 Room Air 03/31/17 03:10 36.8 86 22 87/58 (68) 96 Room Air 03/31/17 00:05 Room Air 03/30/17 23:10 36.8 85 18 94/62 (73) 95 Room Air 03/30/17 20:00 Room Air 03/30/17 18:57 36.7 84 20 88/59 (69) 98 Room Air 03/30/17 18:54 36.7 84 20 88/59 (69) 98 Room Air Physical Exam General Appearance: no apparent distress ENT: hearing grossly normal Neck: supple, no JVD Respiratory/Chest: no respiratory distress, no accessory muscle use, + decreased breath sounds Cardiovascular: regular rate, rhythm, + normal peripheral pulses Abdomen: normal bowel sounds, + distended (firm) Neurologic/Psychiatric: alert, + disoriented Laboratory Results Last 24 Hours Test 03/30/17 17:00 03/30/17 21:20 03/31/17 06:43 03/31/17 09:40 Urine Color DK YELLOW Urine Appearance TURBID Urine pH 5.0 Urine Specific [place] 1.021 Urine Protein NEG Urine Glucose (UA) NEG Urine Ketones TRACE Urine Occult Blood 2+ Urine Nitrite NEG Urine Bilirubin NEG Urine Urobilinogen NEG Urine Leukocyte Esterase SMALL Urine WBC (Auto) 10-30 /hpf Urine RBC (Auto) 0-4 /hpf Urine Hyaline Casts (Auto) 1-5 /lpf Urine Epithelial Cells (Auto) >30 /lpf Urine Bacteria (Auto) 1+ Urine Renal Epithelial Cells /lpf Urine Pathogenic Casts /lpf Urine Yeast (Auto) Urine Random Sodium 9 mEq/L Hemoglobin 7.7 g/dL 7.1 g/dL 6.8 g/dL Hematocrit 22.1 % 20.1 % 20.2 % White Blood Count 13.42 K/uL Red Blood Count 2.10 M/uL Mean Corpuscular Volume 95.7 fL Mean Corpuscular Hemoglobin 33.8 pg Mean Corpuscular Hemoglobin Concent 35.3 g/dl Platelet Count 198 K/uL Mean Platelet Volume 11.1 fL Neutrophils (%) (Auto) 73.3 % Lymphocytes (%) (Auto) 14.2 % Monocytes (%) (Auto) 9.6 % Eosinophils (%) (Auto) 1.8 % Basophils (%) (Auto) 0.7 % Neutrophils # (Auto) 9.84 K/uL Lymphocytes # (Auto) 1.90 K/uL Monocytes # (Auto) 1.29 K/uL Eosinophils # (Auto) 0.24 K/uL Basophils # (Auto) 0.10 K/uL RDW Standard Deviation 60.0 fL RDW Coefficient of Variation 17.2 % Immature Granulocyte % (Auto) 0.4 % Immature Granulocyte # (Auto) 0.05 K/uL Red Blood Cell Morphology Unremarkable Prothrombin Time 12.5 SECONDS Prothromb Time International Ratio 1.2 Activated Partial Thromboplast Time 33.2 SECONDS Partial Thromboplastin Ratio 1.3 Sodium Level 137 mmol/L Potassium Level 4.7 mmol/L Chloride Level 105 mmol/L Carbon Dioxide Level 18 mmol/L Anion Gap 14.0 mmol/L Blood Urea Nitrogen 111 mg/dl Creatinine 7.60 mg/dl Est Creatinine Clear Calc Drug Dose 7.7 ml/min Estimated GFR () 5.9 Estimated GFR (Non- 5.1 BUN/Creatinine Ratio 14.6 Random Glucose 108 mg/dl Calcium Level 8.3 mg/dl Phosphorus Level 6.5 mg/dl Magnesium Level 2.3 mg/dl Total Bilirubin 0.7 mg/dl Direct Bilirubin 0.3 mg/dl Aspartate Amino Transf (AST/SGOT) 21 U/L Alanine Aminotransferase (ALT/SGPT) 12 U/L Alkaline Phosphatase 53 U/L Ammonia 19.0 umol/L Total Protein 5.5 gm/dl Albumin 3.1 gm/dl Assessment and Plan Problem list: Altered mental status Weakness Anemia 2/2 blood loss Metabolic encephalopathy Cirrhosis of the liver, alcoholic ASHELY on CKD Hypoalbuminemia Chronic pain- denies at this time Hx of Depression Hx of Alcohol abuse Goals of care (Z51.5) Palliative care recommendations: discussed with SALLY Seals Ed, Aunt Petty, Becki Triana, and Dr. Garner. -Remains DNR/DNI. -After long discussion with the above people listed, family is leaning towards comfort measures only which would include stopping IVF, abx, and all meds unrelated to comfort. They are waiting to speak with Dr. Zelaya, then will give Dr. Garner their decision. -If family pursues [facility], would transfer to . -If patient declines rapidly, may need to stay here possibly with GIP. Otherwise , if stable, will need transfer to a facility. Palliative Performance Scale: 30 % Continued [facility] stay due to: multiple IV medications needed, home environment unsafe for pt Discharge planning: uncertain
[2017-03-31] MEDS: CEFTRIAXONE SOD INJ 1 GM in DEXTROSE 5% ADD-VANTAGE 50ML 50 ML IV SCH (17:07)
[2017-04-01] MEDS: MoRPHine SULFATE 2 MG/ML CARP IV PRN (03:34)
[2017-04-01] MEDS: MIDODRINE 2.5 MG TAB PO SCH ×3 (08:51→17:48)
--- NOTE | 2017-04-01 10:39 | Nephrology Progress Note ---
Nephrology Progress Note Date of Service Apr 01, 2017. Chief Complaint ASHELY/CKD Subjective Contreras was sleeping this morning. She woke and answered briefly 'yes/no' questions. She denied pain. She denied any concerns at this time. Review of Systems A complete review of systems was performed. Pertinent positives are noted above. All other systems are negative. Vital Signs Last 8 Hrs Date Time Temp Pulse Resp B/P (MAP) Pulse Ox O2 Delivery O2 Flow Rate FiO2 04/01/17 08:00 Room Air Last Recorded Weight Weight (Kilograms): 80.100 Physical Exam General Appearance: + thin, + pertinent finding (generalized weakness) Head: normocephalic, atraumatic Eyes: normal inspection, + pertinent finding (conjuctival pallor) ENT: + pertinent finding (oral mucosa dry) Neurologic/Psych: + disoriented Family History Patient reports no known family medical history. Social History Smokeless Tobacco Use: No Alcohol Use: heavy Drug Use: none Marital Status: single Housing Status: lives alone Occupation: retired Allergies Coded Allergies: Acetaminophen (Verified Allergy, Unknown, UNKNOWN, 03/29/17) PATIENT REPEATEDLY SAYS SHE IS NOT ALLERGIC TO THIS AND HAS TAKEN A LOT OF TYLENOL IN HER LIFE. SHE SAID SHE HAS LIVER ISSUES, BUT IS NOT ALLERGIC. I TRIED TO DELETE IT AND IT WOULDN'T LET ME. - Medications Current Inpatient Medications Medications (Trade) Dose Ordered Sig/Brett Route Start Time Stop Time Status Last Admin Dose Admin Ceftriaxone Sodium 1 gm/ Dextrose 50 ml @ 100 mls/hr Q24H IV 03/29/17 17:00 04/08/17 16:59 03/31/17 17:07 100 MLS/HR Ondansetron HCl (Zofran Inj) 4 mg Q6H PRN IV 03/29/17 16:30 04/28/17 16:29 03/31/17 20:21 4 MG Midodrine (Proamatine Tab) 10 mg TID@,, PO 03/31/17 12:00 04/29/17 11:59 03/31/17 18:37 10 MG Morphine Sulfate (Roxanol Oral Soln) 5 mg Q2HWA PRN PO 04/01/17 09:30 04/15/17 09:29 Impression (1) Acute blood loss anemia (2) GI bleed (3) Acute renal insufficiency (4) Renal failure (ARF), acute on chronic (5) Liver failure (6) Ascites due to alcoholic cirrhosis Contreras Stevenson is a 66-year-old female with alcoholic cirrhosis complicated by ascites, a documented history of encephalopathy as well as grade 1 esophageal varices. Overall, there has been no sign of renal recovery and encephalopathy persists. Recommendations Contreras remains on comfort care only. Alvarez intact and draining to gravity. This can be removed as desired for comfort. I remain available if there are any additional questions from family. No current recommendations from nephrology at this time. Will sign off. Please call with questions or concerns.
--- NOTE | 2017-04-01 12:06 | Progress Note ---
Subjective Date of Service: Apr 01, 2017. Subjective Pt evaluation today including: conversation w/ patient, physical exam, chart review, lab review, review of studies, review of inpatient medication list Pt somnolent Denies any distress No acute events overnight Pt has no concerns Problem List Medical Problems: (1) Acute GI bleeding Status: Acute (2) Acute kidney injury Status: Acute (3) Acute post-hemorrhagic anemia Status: Acute (4) Anemia Status: Acute (5) Cirrhosis, alcoholic Status: Chronic (6) Dehydration Status: Acute (7) Hyperkalemia Status: Acute (8) Hypomagnesemia Status: Acute (9) Hypomagnesemia Status: Acute (10) Hypotension Status: Acute (11) Liver failure Status: Acute (12) Malaise and fatigue Status: Acute (13) Renal failure Status: Acute (14) Weakness Status: Acute Review of Systems Constitutional: No fever, No chills, No weakness, No fatigue Respiratory: No cough, No sputum, No wheezing, No shortness of breath Cardiac: + edema, No chest pain, No orthopnea, No PND Abdomen: No pain, No nausea, No vomiting, No diarrhea, No constipation Musculoskeletal: + joint pain, + muscle pain Female : No dysuria, No urinary frequency, No hematuria, No incontinence Neurologic: No memory loss, No paralysis, No weakness, No numbness/tingling Psychiatric: No depression symptoms, No anhedonism, No anxiety, No insomnia Skin: No rash, No itch Objective Vital Signs Date Time Temp Pulse Resp B/P (MAP) Pulse Ox O2 Delivery O2 Flow Rate FiO2 04/01/17 08:00 Room Air 04/01/17 00:05 Room Air 03/31/17 23:08 36.7 83 18 92/59 (70) 95 Room Air 03/31/17 16:00 97 Room Air 03/31/17 15:04 36.9 82 18 97/62 (74) 97 03/31/17 14:43 36.5 77 21 96 Physical Exam General Appearance: WD/WN, no apparent distress Neck: supple, no adenopathy, thyroid normal, no JVD Respiratory/Chest: chest non-tender, lungs clear, normal breath sounds, no respiratory distress Cardiovascular: regular rate, rhythm, no gallop, no JVD, no murmur Abdomen: normal bowel sounds, non tender, no organomegaly, + distended Extremities: normal range of motion, non-tender, normal inspection, + pedal edema Neurologic/Psychiatric: 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 nml as tested, no motor/sensory deficits, alert, normal mood/affect Skin: normal color, warm/dry, no rash Assessment and Plan Upper GI bleed/symptomatic anemia Likely variceal in nature, worsening Hg, no longer checking at this time due to comfort measures No further PRBC transfusion per POA Family discussion on 03/31, uncle POA determined comfort measures as pt incapable to make decisions GI consulted - no therapeutic paracentesis at this time per POA wishes Not a TIPS candidate, dced protonix and octreotide For comfort IV morphine DCed and pt started on roxanol 5 mg q 2 hrs PRN pain Acute on chronic renal failure stage 4 No longer monitoring Poor prognosis Nephrology consulted AIN vs hepatorenal which is more unlikely Dced triple therapy Poor candidate for dialysis Alcoholic cirrhosis Not liver transplant candidate due to not abstinent from alcohol for 6 months in addition to being unstable Inc MELD SCORE Abd firm and distended, no therapeutic paracentesis at this time per POA Hypothyroidism Stable DCed synthroid for comfort measures DNR code status, private room, comfort measures only Very poor prognosis
[2017-04-01] MEDS: MoRPHine SULFATE 5 MG/0.25 ML UDP PO PRN ×2 (12:37→17:47)
--- NOTE | 2017-04-01 15:57 | Palliative Care Progress Note ---
Palliative Care Progress Note Date of Service Apr 01, 2017. Subjective Pt evaluation today including: conversation w/ patient, conversation w/ family , physical exam, chart review, conversation w/ senior treasury consultant, review of inpatient medication list Pain: some intermittent abdominal pain, not severe PO Intake: small amounts of clears Voiding: stout catheter in place -Patient is awake, mostly oriented with some forgetfulness. -Patient stated, "I feel peaceful today. I just don't know why I'm still here." She said she is comfortable and content. -Patient's aunt and uncle were at bedside. we discussed moving patient to a facility for comfort/hospice care. Review of Systems Respiratory: + dyspnea on exertion, + problem reported (SOB when she is sitting up due to her distended abdomen. feels okay when lying more flat), No shortness of breath Cardiac: + edema, No chest pain Abdomen: + see HPI, + pain, No nausea, No vomiting Psychiatric: No depression symptoms, No anxiety Objective Vital Signs Date Time Temp Pulse Resp B/P (MAP) Pulse Ox O2 Delivery O2 Flow Rate FiO2 04/01/17 08:00 Room Air 04/01/17 00:05 Room Air 03/31/17 23:08 36.7 83 18 92/59 (70) 95 Room Air 03/31/17 16:00 97 Room Air 03/31/17 15:04 36.9 82 18 97/62 (74) 97 Physical Exam General Appearance: no apparent distress ENT: hearing grossly normal Neck: supple, no JVD Respiratory/Chest: no respiratory distress, no accessory muscle use, + decreased breath sounds Cardiovascular: regular rate, rhythm, + normal peripheral pulses, + pertinent finding (+2 pitting edema to feet/ankles) Abdomen: normal bowel sounds, + distended (firm), + tenderness Neurologic/Psychiatric: alert, normal mood/affect, oriented x 3 (with forgetfulness) Assessment and Plan Problem list: Altered mental status Weakness Anemia 2/2 blood loss Metabolic encephalopathy Cirrhosis of the liver, alcoholic ASHELY on CKD Hypoalbuminemia Chronic pain- denies at this time Hx of Depression Hx of Alcohol abuse Goals of care (Z51.5) Palliative care recommendations: discussed with POA Uncle Ed, Aunt Petty, Becki Triana, and Dr. Garner. -Is now comfort measures only. -Would discontinue antibiotics as patient is comfortable and for risk of secondary infection. -Continue Roxanol. -Recommend lorazepam 1mg SL Q6h PO PRN anxiety/agitation. -Keep stout catheter. -Today, patient seems well enough to transfer out. customs brokerage manager to talk to family about facilities in case a discharge plan is needed. Patient, aunt, and uncle are aware and agree. She has no needs to qualify for [facility] hospice. -Will complete POLST form if being discharged. I will follow as needed. Palliative Performance Scale: 30 % Continued [facility] stay due to: multiple IV medications needed, home environment unsafe for pt Discharge planning: uncertain
[2017-04-01 16:20] VITALS: O2SAT 97
[2017-04-01] MEDS ORDERED: NURSING VERBAL MED ORDER ONE (17:45)
[2017-04-02 00:13] VITALS: BP 94/61; PULSE 80; TEMP 36.4; O2SAT 95
[2017-04-02] MEDS: MoRPHine SULFATE 5 MG/0.25 ML UDP PO PRN (00:57)
[2017-04-02] MEDS: MIDODRINE 2.5 MG TAB PO SCH ×3 (07:57→17:30)
--- NOTE | 2017-04-02 14:24 | Progress Note ---
Subjective Date of Service: Apr 02, 2017. Subjective Pt evaluation today including: conversation w/ patient, physical exam, chart review, lab review, review of studies, review of inpatient medication list Pt resting comfortably in bed Somnolent but oriented Denies any distress No acute events overnight Problem List Medical Problems: (1) Acute GI bleeding Status: Acute (2) Acute kidney injury Status: Acute (3) Acute post-hemorrhagic anemia Status: Acute (4) Anemia Status: Acute (5) Cirrhosis, alcoholic Status: Chronic (6) Dehydration Status: Acute (7) Hyperkalemia Status: Acute (8) Hypomagnesemia Status: Acute (9) Hypomagnesemia Status: Acute (10) Hypotension Status: Acute (11) Liver failure Status: Acute (12) Malaise and fatigue Status: Acute (13) Renal failure Status: Acute (14) Weakness Status: Acute Review of Systems Constitutional: + fatigue, No fever, No chills, No sweats, No weakness Eyes: No worsening of vision, No eye pain, No redness Respiratory: No cough, No sputum, No wheezing, No shortness of breath, No dyspnea on exertion Cardiac: No chest pain, No orthopnea, No PND, No edema Abdomen: No pain, No nausea, No vomiting, No diarrhea, No constipation Musculoskeletal: No joint pain, No muscle pain, No swelling Female : No dysuria, No urinary frequency, No hematuria Neurologic: No memory loss, No paralysis, No weakness, No numbness/tingling Psychiatric: No depression symptoms, No anhedonism, No anxiety, No insomnia Skin: No rash, No itch Objective Vital Signs Date Time Temp Pulse Resp B/P (MAP) Pulse Ox O2 Delivery O2 Flow Rate FiO2 04/02/17 08:20 Room Air 04/02/17 00:13 36.4 80 18 94/61 (72) 95 Room Air 04/02/17 00:00 Room Air 04/01/17 16:20 97 Room Air Physical Exam General Appearance: WD/WN, no apparent distress Eyes: normal inspection, PERRL, EOMI, sclerae normal ENT: normal ENT inspection, hearing grossly normal, TMs normal, pharynx normal Neck: supple, no adenopathy, thyroid normal, no JVD Respiratory/Chest: chest non-tender, lungs clear, normal breath sounds, no respiratory distress Cardiovascular: regular rate, rhythm, no edema, no gallop, no JVD Abdomen: normal bowel sounds, non tender, soft, no organomegaly Extremities: normal range of motion, non-tender, normal inspection, no pedal edema Neurologic/Psychiatric: transportation planning engineer II-XII nml as tested, no motor/sensory deficits, alert, normal mood/affect Assessment and Plan Upper GI bleed/symptomatic anemia Likely variceal in nature, worsening Hg, no longer checking at this time due to comfort measures No further PRBC transfusion per POA Transferred to [facility] floor with private bed Family discussion on 03/31, uncle POA determined comfort measures as pt incapable to make decisions GI consulted - no therapeutic paracentesis at this time per POA wishes Not a TIPS candidate, dced protonix and octreotide For comfort IV morphine DCed and pt started on roxanol 5 mg q 2 hrs PRN pain Pain controlled at this time Will await SNF placement for hospice Acute on chronic renal failure stage 4 No longer monitoring Poor prognosis Nephrology consulted AIN vs hepatorenal which is more unlikely Dced triple therapy Poor candidate for dialysis Alcoholic cirrhosis Not liver transplant candidate due to not abstinent from alcohol for 6 months in addition to being unstable Inc MELD SCORE Abd firm and distended, no therapeutic paracentesis at this time per POA Hypothyroidism Stable DCed synthroid for comfort measures DNR code status, private room, comfort measures only Very poor prognosis Continued [facility] stay due to: multiple IV medications needed, home environment unsafe for pt Discharge planning: uncertain
[2017-04-03] MEDS: MoRPHine SULFATE 5 MG/0.25 ML UDP PO PRN ×2 (05:43→08:04)
[2017-04-03] MEDS ORDERED: NURSING VERBAL MED ORDER ONE (06:00)
[2017-04-03] MEDS: ONDANSETRON 8 MG TAB PO PRN (06:35)
[2017-04-03] MEDS: MIDODRINE 2.5 MG TAB PO SCH ×3 (08:00→17:27)
--- NOTE | 2017-04-03 14:27 | Progress Note ---
Subjective Date of Service: Apr 03, 2017. Subjective Pt evaluation today including: conversation w/ patient, physical exam, chart review, lab review, review of studies, review of inpatient medication list Pt resting in bed comfortably No pain or distress More confused today Slow speech Bloody emesis per staff in which pt does not recall Problem List Medical Problems: (1) Acute GI bleeding Status: Acute (2) Acute kidney injury Status: Acute (3) Acute post-hemorrhagic anemia Status: Acute (4) Anemia Status: Acute (5) Cirrhosis, alcoholic Status: Chronic (6) Dehydration Status: Acute (7) Hyperkalemia Status: Acute (8) Hypomagnesemia Status: Acute (9) Hypomagnesemia Status: Acute (10) Hypotension Status: Acute (11) Liver failure Status: Acute (12) Malaise and fatigue Status: Acute (13) Renal failure Status: Acute (14) Weakness Status: Acute Review of Systems Constitutional: No fever, No chills, No sweats, No weakness, No fatigue Eyes: No worsening of vision, No eye pain, No redness, No discharge ENT: No hearing loss, No unusual epistaxis, No nasal symptoms, No sore throat Respiratory: + hemoptysis, No cough, No sputum, No wheezing, No shortness of breath Cardiac: No chest pain, No orthopnea, No PND, No edema Abdomen: No pain, No nausea, No vomiting, No diarrhea Musculoskeletal: No joint pain, No muscle pain, No swelling, No calf pain Female : No dysuria, No urinary frequency, No hematuria, No incontinence Neurologic: No memory loss, No paralysis, No weakness, No numbness/tingling Psychiatric: No depression symptoms, No anhedonism Endo: No fatigue, No excessive thirst, No excessive urination Skin: No rash, No itch Objective Vital Signs Date Time Temp Pulse Resp B/P (MAP) Pulse Ox O2 Delivery O2 Flow Rate FiO2 04/03/17 08:20 Room Air 04/03/17 00:00 Room Air 04/02/17 16:20 Room Air Physical Exam General Appearance: WD/WN, no apparent distress Eyes: normal inspection, PERRL, EOMI, sclerae normal ENT: normal ENT inspection, hearing grossly normal, TMs normal, pharynx normal Neck: supple, no adenopathy, thyroid normal, no JVD Respiratory/Chest: chest non-tender, lungs clear, normal breath sounds, no respiratory distress Cardiovascular: regular rate, rhythm, no edema, no gallop, no JVD Abdomen: normal bowel sounds, non tender, soft, no organomegaly Extremities: normal range of motion, non-tender, normal inspection, no pedal edema Neurologic/Psychiatric: no motor/sensory deficits, alert, normal mood/affect, + disoriented Assessment and Plan Upper GI bleed/symptomatic anemia likely worsening, large bloody emesis noted on 04/03 Likely variceal in nature, worsening Hg, no longer checking at this time due to comfort measures No further PRBC transfusion per POA Transferred to [facility] floor with private bed Family discussion on 03/31, uncle POA determined comfort measures as pt incapable to make decisions GI consulted - no therapeutic paracentesis at this time per POA wishes Not a TIPS candidate, dced protonix and octreotide For comfort IV morphine DCed and pt started on roxanol 5 mg q 2 hrs PRN pain Pain controlled at this time Will await SNF placement for hospice Acute on chronic renal failure stage 4 No longer monitoring Poor prognosis Nephrology consulted AIN vs hepatorenal which is more unlikely Dced triple therapy Poor candidate for dialysis Alcoholic cirrhosis Not liver transplant candidate due to not abstinent from alcohol for 6 months in addition to being unstable Inc MELD SCORE Abd firm and distended, no therapeutic paracentesis at this time per POA Hypothyroidism Stable DCed synthroid for comfort measures DNR code status, private room, comfort measures only Very poor prognosis Continued [facility] stay due to: multiple IV medications needed, home environment unsafe for pt Discharge planning: uncertain
[2017-04-04] MEDS: MIDODRINE 2.5 MG TAB PO SCH ×3 (07:48→16:44)
[2017-04-04] MEDS: ONDANSETRON 8 MG TAB PO PRN (09:32)
[2017-04-04] MEDS ORDERED: PROMETHAZINE HCL 25 MG TAB PO PRN (11:00)
[2017-04-04] MEDS: MoRPHine SULFATE 5 MG/0.25 ML UDP PO PRN ×2 (13:20→22:28)
--- NOTE | 2017-04-04 16:01 | Progress Note ---
Subjective Date of Service: Apr 04, 2017. Subjective Pt evaluation today including: conversation w/ patient, physical exam, chart review, lab review, review of studies, review of inpatient medication list Pt reports worsening nausea this AM More somnolent and confused Oriented only to name Problem List Medical Problems: (1) Acute GI bleeding Status: Acute (2) Acute kidney injury Status: Acute (3) Acute post-hemorrhagic anemia Status: Acute (4) Anemia Status: Acute (5) Cirrhosis, alcoholic Status: Chronic (6) Dehydration Status: Acute (7) Hyperkalemia Status: Acute (8) Hypomagnesemia Status: Acute (9) Hypomagnesemia Status: Acute (10) Hypotension Status: Acute (11) Liver failure Status: Acute (12) Malaise and fatigue Status: Acute (13) Renal failure Status: Acute (14) Weakness Status: Acute Review of Systems Constitutional: + weakness, No fever, No chills, No sweats, No weight loss Eyes: No worsening of vision, No eye pain, No redness, No discharge Respiratory: No cough, No sputum, No wheezing, No shortness of breath, No dyspnea on exertion Cardiac: No chest pain, No orthopnea, No PND, No edema, No claudication Abdomen: + nausea, + vomiting, No pain, No diarrhea, No constipation Musculoskeletal: No joint pain, No muscle pain, No swelling, No calf pain Female : No dysuria, No urinary frequency, No hematuria, No incontinence Neurologic: No memory loss, No paralysis, No weakness, No numbness/tingling Psychiatric: No depression symptoms, No anhedonism, No anxiety, No insomnia Endo: No fatigue, No excessive thirst Skin: No rash, No itch Objective Vital Signs Date Time Temp Pulse Resp B/P (MAP) Pulse Ox O2 Delivery O2 Flow Rate FiO2 04/04/17 15:23 Room Air 04/04/17 07:45 Room Air 04/04/17 00:00 Room Air 04/03/17 16:00 Room Air Physical Exam General Appearance: WD/WN, no apparent distress Eyes: normal inspection, PERRL, EOMI, sclerae normal Neck: supple, no adenopathy, thyroid normal, no JVD Respiratory/Chest: chest non-tender, lungs clear, normal breath sounds, no respiratory distress Cardiovascular: regular rate, rhythm, no edema, no gallop, no JVD Abdomen: normal bowel sounds, non tender, soft, no organomegaly Neurologic/Psychiatric: no motor/sensory deficits, alert, normal mood/affect, oriented x 3 Assessment and Plan Upper GI bleed/symptomatic anemia likely worsening, large bloody emesis noted on 04/03 Pt increasingly confused Phenergan added for nausea for comfort measures Bleeding likely variceal in nature, worsening Hg, no longer checking at this time due to comfort measures No further PRBC transfusion per POA Transferred to [facility] floor with private bed Family discussion on 03/31, uncle POA determined comfort measures as pt incapable to make decisions GI consulted - no therapeutic paracentesis at this time per POA wishes Not a TIPS candidate, dced protonix and octreotide For comfort IV morphine DCed and pt started on roxanol 5 mg q 2 hrs PRN pain Pain controlled at this time Will await SNF placement for hospice Acute on chronic renal failure stage 4 No longer monitoring Poor prognosis Nephrology consulted AIN vs hepatorenal which is more unlikely Dced triple therapy Poor candidate for dialysis Alcoholic cirrhosis Not liver transplant candidate due to not abstinent from alcohol for 6 months in addition to being unstable Inc MELD SCORE Abd firm and distended, no therapeutic paracentesis at this time per POA Hypothyroidism Stable DCed synthroid for comfort measures DNR code status, private room, comfort measures only Very poor prognosis Continued [facility] stay due to: multiple IV medications needed, home environment unsafe for pt Discharge planning: uncertain
[2017-04-04] MEDS ORDERED: NURSING VERBAL MED ORDER ONE (23:30)
[2017-04-04] MEDS: MoRPHine SULFATE 10 MG/0.5 ML UDP PO PRN (23:44)
[2017-04-05] MEDS: MoRPHine SULFATE 10 MG/0.5 ML UDP PO PRN ×9 (00:52→19:36)
[2017-04-05] MEDS: MIDODRINE 2.5 MG TAB PO SCH ×3 (07:16→16:22)
--- NOTE | 2017-04-05 11:54 | Progress Note ---
Subjective Date of Service: Apr 05, 2017. Subjective Pt evaluation today including: conversation w/ patient, physical exam, chart review, lab review, review of studies, review of inpatient medication list Increased abdominal pain overnight More somnolent this AM Difficult to awaken Seems to be in mild distress No further nausea or vomiting Problem List Medical Problems: (1) Acute GI bleeding Status: Acute (2) Acute kidney injury Status: Acute (3) Acute post-hemorrhagic anemia Status: Acute (4) Anemia Status: Acute (5) Cirrhosis, alcoholic Status: Chronic (6) Dehydration Status: Acute (7) Hyperkalemia Status: Acute (8) Hypomagnesemia Status: Acute (9) Hypomagnesemia Status: Acute (10) Hypotension Status: Acute (11) Liver failure Status: Acute (12) Malaise and fatigue Status: Acute (13) Renal failure Status: Acute (14) Weakness Status: Acute Review of Systems Constitutional: No fever, No chills, No sweats, No weight loss Respiratory: No cough, No sputum, No wheezing, No shortness of breath, No dyspnea on exertion Cardiac: No chest pain, No orthopnea, No PND, No edema, No claudication Abdomen: + pain, No nausea, No vomiting, No diarrhea, No constipation, No GI bleeding Musculoskeletal: No joint pain, No muscle pain Female : No dysuria, No urinary frequency, No hematuria, No incontinence Neurologic: No memory loss, No paralysis, No weakness, No numbness/tingling Psychiatric: No depression symptoms, No anhedonism, No anxiety, No insomnia Endo: No fatigue Skin: No rash Objective Vital Signs Date Time Temp Pulse Resp B/P (MAP) Pulse Ox O2 Delivery O2 Flow Rate FiO2 04/05/17 09:00 Room Air 04/05/17 00:00 Room Air 04/04/17 20:00 Room Air 04/04/17 15:23 Room Air Physical Exam General Appearance: WD/WN, no apparent distress Eyes: normal inspection, PERRL, EOMI, sclerae normal Neck: supple, no adenopathy, thyroid normal Respiratory/Chest: chest non-tender, lungs clear, normal breath sounds, no respiratory distress Cardiovascular: regular rate, rhythm, no edema, no gallop, no JVD Abdomen: normal bowel sounds, soft, + distended, + tenderness Neurologic/Psychiatric: no motor/sensory deficits, normal mood/affect, + disoriented Skin: normal color, warm/dry Lymphatic: no adenopathy Assessment and Plan Upper GI bleed/symptomatic anemia likely worsening, large bloody emesis noted on 04/03 Pt increasingly confused Phenergan 12.5 mg PO q 6 hr added for nausea for comfort measures Roxanal increased to 10 mg q 1hr PRN pain Bleeding likely variceal in nature, worsening Hg, no longer checking at this time due to comfort measures No further PRBC transfusion per POA Transferred to [facility] floor with private bed Family discussion on 03/31, uncle POA determined comfort measures as pt incapable to make decisions GI consulted - no therapeutic paracentesis at this time per POA wishes Not a TIPS candidate, dced protonix and octreotide For comfort IV morphine DCed and pt started on roxanol 5 mg q 2 hrs PRN pain Pain controlled at this time Will await SNF placement for hospice Acute on chronic renal failure stage 4 No longer monitoring Poor prognosis Nephrology consulted AIN vs hepatorenal which is more unlikely Dced triple therapy Poor candidate for dialysis Alcoholic cirrhosis Not liver transplant candidate due to not abstinent from alcohol for 6 months in addition to being unstable Inc MELD SCORE Abd firm and distended, no therapeutic paracentesis at this time per POA Hypothyroidism Stable DCed synthroid for comfort measures DNR code status, private room, comfort measures only Very poor prognosis Continued [facility] stay due to: multiple IV medications needed, home environment unsafe for pt Discharge planning: uncertain
[2017-04-05] MEDS ORDERED: NURSING VERBAL MED ORDER ONE (18:15)
[2017-04-05] MEDS: ATROPINE SULFATE 1% OP SOLN 2 ML BTL OP PRN ×2 (18:40→19:39)
[2017-04-05] MEDS ORDERED: SCOPOLAMINE 1.5 MG TDSY TD SCH (20:00)
[2017-04-06] MEDS ORDERED: CHECK SCOPOLAMINE PATCH PLACEMENT SCH
--- NOTE | 2017-04-13 15:35 | Death Summary ---
Summary of Admission Date Mar 29, 2017 at 15:15 Date & Time of Apr 05, 2017. 2100 Cause of alcoholic cirrhosis Hospital Course Upper GI bleed/symptomatic anemia likely worsening, large bloody emesis noted on 04/03 Pt increasingly confused Phenergan 12.5 mg PO q 6 hr added for nausea for comfort measures Roxanal increased to 10 mg q 1hr PRN pain Bleeding likely variceal in nature, worsening Hg, no longer checking at this time due to comfort measures No further PRBC transfusion per POA Transferred to med floor with private bed Family discussion on 03/31, uncle POA determined comfort measures as pt incapable to make decisions GI consulted - no therapeutic paracentesis at this time per POA wishes Not a TIPS candidate, dced protonix and octreotide For comfort IV morphine DCed and pt started on roxanol 5 mg q 2 hrs PRN pain Due to poor prognosis, pt kept inpatient for comfort care Pronounced at 2100- pupils fixed, no audible apical heart rate. No resperations noted. Family called and made aware. Acute on chronic renal failure stage 4 No longer monitoring Poor prognosis Nephrology consulted AIN vs hepatorenal which is more unlikely Dced triple therapy Poor candidate for dialysis Alcoholic cirrhosis Not liver transplant candidate due to not abstinent from alcohol for 6 months in addition to being unstable Inc MELD SCORE Abd firm and distended, no therapeutic paracentesis at this time per POA Hypothyroidism Stable DCed synthroid for comfort measures DNR code status, private room, comfort measures only Very poor prognosis Copy To Isreal Smith M.D.
== END 2017-04-05 22:00 | disposition expired | DRG 432 ==
LOC: EDBD 13:24 → C.EDC 13:25 → C.MSICU 15:15 → ENRESERV 15:34 → C.2E 03-30 18:34 → CANRESERV 03-31 14:14 → ENRESERV 03-31 14:14 → C.4E 03-31 14:53
PROVIDERS: ADMIT Hospitalist; ATTEND Hospitalist
DX: K70.31 Alcoholic cirrhosis of liver with ascites (principal); I85.11 Secondary esophageal varices with bleeding; G93.41 Metabolic encephalopathy; Z51.5 Encounter for palliative care; N17.0 Acute kidney failure with tubular necrosis; D62 Acute posthemorrhagic anemia; N18.4 Chronic kidney disease, stage 4 (severe); F10.20 Alcohol dependence, uncomplicated; E03.9 Hypothyroidism, unspecified; F32.9 Major depressive disorder, single episode, unspecified; F41.9 Anxiety disorder, unspecified; J44.9 Chronic obstructive pulmonary disease, unspecified; K20.8 Other esophagitis; E83.42 Hypomagnesemia; E86.0 Dehydration; Z53.09 Procedure and treatment not carried out because of other contraindication; K70.40 Alcoholic hepatic failure without coma